=== PATIENT | male | born 1955 | race Caucasian/White ===

== ENCOUNTER 2018-06-04 16:53 | Inpatient (IN) ==
[2018-06-04] MEDS ORDERED: ALBUT/IPRATROP 3MG/0.5MG NEB 3 ML VIAL INH STA (17:16)
[2018-06-04] MEDS ORDERED: SODIUM CHLORIDE 0.9% 1000ML 1,000 ML IV SCH (17:30)
--- NOTE | 2018-06-04 17:32 | XRay Report ---
XR chest 1V portable CLINICAL HISTORY: Dyspnea, weakness COMPARISON STUDY: 03/13/2013 FINDINGS: The heart is enlarged. There are small bilateral pleural effusions. There are bibasal airsp radha opacities, likely representing focal edema although an infectious process could appear similar.[ IMPRESSION: 1. Cardiomegaly and suspected small pleural effusions 2. Bibasilar opacities, likely resulting focal edema although an infectious process could appear reggie lar. Clinical and radiographic follow-up is recommended Electronically signed by: Robert Nieves M.D. 06/04/2018 5:31 PM
[2018-06-04 18:10] LABS: Mean Corpuscular Hgb Conc 35.4 g/dL (32-36); Mean Platelet Volume 9.7 fL (7.4-10.4); Platelet Count 333 K/uL (130-400)
[2018-06-04 18:21] LABS: Alanine Aminotransferase 57 U/L (12-78); Albumin Level 2.6 gm/dl (3.4-5.0); Aspartate Aminotransferase 45 U/L (15-37); BUN Creatinine Ratio 12.7 (10-20); Blood Urea Nitrogen 15 mg/dl (7-18); Calcium 8.4 mg/dl (8.5-10.1); Carbon Dioxide 24 mmol/L (21-32); Chloride 100 mmol/L (98-107); Est GFR (African American) 72.9; Est GFR (Non-African American) 62.9; Glucose 136 mg/dl (70-99); Magnesium 2.2 mg/dl (1.8-2.4); Potassium 3.3 mmol/L (3.5-5.1); Sodium 133 mmol/L (136-145)
[2018-06-04 18:26] LABS: INR 1.2 (0.9-1.1); Partial Thromboplastin Ratio 1.2; Partial Thromboplastin Time 31.1 Seconds (21.0-31.0)
[2018-06-04 18:31] LABS: Influenza A virus by PCR Neg for Influ A (Neg); Influenza B virus by PCR Neg for Influ B (Neg)
[2018-06-04 18:34] LABS: Hematocrit (blood only) 39.5 % (42-52); Mean Corpuscular Volume 87.2 fL (80-100); RDW Coefficient of Variation 13.5 % (11.5-14.5); RDW Standard Deviation 43.2 fL (36.4-46.3); Red Blood Count 4.53 M/uL (4.7-6.1); White Blood Count 12.39 K/uL (4.8-10.8)
[2018-06-04 18:35] LABS: ALC (manual) 0.33 K/uL (1.2-3.4); Eosinophils # (manual) 0.88 K/uL (0-0.5); Lymphocytes # (manual) 0.33 K/uL (1.2-3.4); Lymphocytes % (manual) 2.7 %; Monocytes # (manual) 0.78 K/uL (0.11-0.59); Monocytes % (manual) 6.3 %; Neutrophils % (manual) 83.9 %; RBC Morphology Unremarkable
[2018-06-04 18:45] LABS: Albumin Globulin Ratio 0.5 (0.9-2); Alkaline Phosphatase 142 U/L (45-117); Bilirubin,Total 0.5 mg/dl (0.2-1); Globulin 5.3 gm/dl (2.5-4.0); NT Pro B Type Natriuretic Pept 1723 pg/ml (0-900); Total Protein 7.9 gm/dl (6.4-8.2); Troponin I 0.484 ng/ml (0-0.045)
[2018-06-04] MEDS ORDERED: ASPIRIN 81 MG CHEW PO STA (18:52)
[2018-06-04] MEDS ORDERED: OPTIRAY 320 125ml IV PRN (19:03)
--- NOTE | 2018-06-04 19:06 | CT Scan Report ---
CT head/brain wo con CLINICAL HISTORY: numbness COMPARISON STUDY: 03/13/2013 TECHNIQUE: Axial CT of the brain is performed from the vertex to the skull base. IV contrast was not administered for this examination. A dose lowering technique was utilized adhering to the principles of ALARA. CT DOSE: 729.78 mGycm FINDINGS: No intra or extra-axial mass lesions are visualized. There is no CT evidence of acute cortical infarc tion. There is no evidence of midline shift. There is no acute hemorrhage. No calvarial fractures ar e visualized. There are patchy white matter hypodensities likely on a small vessel basis. There is no evidence of pathologic ventricular dilatation. There is no evidence of acute sinusitis IMPRESSION: No acute intracranial findings Electronically signed by: Robert Nieves M.D. 06/04/2018 7:05 PM
--- NOTE | 2018-06-04 19:13 | CT Scan Report ---
CT ANGIOGRAM OF THE CHEST CLINICAL HISTORY: Atypical chest pain. New onset A. fib. Positive d-dimer. Possible pulmonary embolis m. COMPARISON STUDY: Chest x-ray dated 06/04/2018 TECHNIQUE: Following the IV administration of 115 mL of Optiray-320, CT angiogram of the thorax was p erformed from the thoracic inlet to the lung bases utilizing the pulmonary embolus protocol. Images a re reviewed in the axial, sagittal, and coronal planes. IV contrast was administered without complica tion. MIP imaging was performed. A dose lowering technique was utilized adhering to the principles o f ALARA. CT DOSE: 553.59 mGycm FINDINGS: There are mildly enlarged paratracheal and prevascular and subcarinal lymph nodes. There is also a mi ldly enlarged distal esophageal lymph node. Hilar lymph nodes are borderline enlarged. There is no pa thologic axillary lymphadenopathy. There is mild aneurysmal dilatation of ascending thoracic aorta which measures 42 mm. There were no pulmonary artery filling defects to indicate acute pulmonary embolism. The heart is enlarged. There is a small pericardial effusion. There are small bilateral pleural effusions There is mild septal edema. There are lower lobe airspace opacities, likely representing a combinatio n of atelectasis and pulmonary edema. A superimposed inflammatory process cannot be excluded. There i s mild lower lobe bronchial wall thickening. IMPRESSION: 1. No evidence of acute pulmonary embolism 2. Small bilateral pleural effusions. Lower lung zone septal edema. Lower lobe airspace opacities, li kip representing accommodation of atelectasis and pulmonary edema. 3. Lower lung bronchial wall thickening 4. Cardiomegaly and small pericardial effusion 5. Fusiform dilatation of the ascending thoracic aorta which measures 42 mm 6. Mild mediastinal lymphadenopathy Electronically signed by: Robert Nieves M.D. 06/04/2018 7:11 PM
[2018-06-04 19:20] LABS: T4 Free Thyroxine 1.42 ng/dl (0.8-1.6)
[2018-06-04] MEDS ORDERED: FUROSEMIDE 40 MG/4 ML VIAL IV STA (19:20)
[2018-06-04] MEDS ORDERED: HEPARIN SOD (PORCINE) 1000 UNIT/ML 10 ML VIAL ONE (19:53)
[2018-06-04] MEDS: dilTIAZem HCl 5 MG/ML 5 ML VIAL IV STA ×2 (20:00→20:10)
[2018-06-04] MEDS: dilTIAZem HCl 125 MG in DEXTROSE 5% 100 ML IV SCH ×2 (20:02→20:09)
[2018-06-04] MEDS ORDERED: HEPARIN 25000 UNIT/500 ML D5W IV ONE (20:06)
[2018-06-04 21:28] LABS: Appearance Urine Clear (Clear); Bilirubin Urine Negative (Negative); Color Urine Yellow; Glucose Urine UA Negative (Negative); Ketones Urine Negative (Negative); Leukocyte Esterase Urine Negative (Negative); Nitrite Urine Negative (Negative); Protein Urine Negative (Negative); Specific Gravity Urine 1.034 (1.000-1.030); Urobilinogen Urine Negative (Negative)
[2018-06-04] MEDS ORDERED: ONDANSETRON INJ 2 MG/ML 2 ML VIAL IV PRN (21:31)
[2018-06-04] MEDS ORDERED: POLYETHYLENE (MIRALAX) 17 GM PACK PO PRN (21:31)
[2018-06-04] MEDS ORDERED: METOPROLOL TARTRATE 1 MG/ML VIAL IV PRN (21:31)
[2018-06-04] MEDS ORDERED: ACETAMINOPHEN 325 MG TAB PO PRN (21:31)
[2018-06-04] MEDS ORDERED: ALUMINUM/MAGNESIUM SUSP 30 ML UDC PO PRN (21:31)
[2018-06-04] MEDS ORDERED: NITROGLYCERIN SL 0.4 MG/TAB TAB SL PRN (21:31)
[2018-06-04] MEDS ORDERED: Heparin IV Standard *NO* Bolus ONE (21:35)
[2018-06-04] MEDS ORDERED: ALBUT/IPRATROP 3MG/0.5MG NEB 3 ML VIAL NEB PRN (21:36)
[2018-06-04] MEDS ORDERED: HEPARIN STANDARD DEXTROSE 25,000 UNITS/500 ML IV SCH (21:43)
--- NOTE | 2018-06-04 22:09 | History and Physical Report ---
DATE OF ADMISSION: 06/04/2018 CHIEF COMPLAINT: Not feeling well. HISTORY OF PRESENT ILLNESS: This is a 63-year-old male with past medical history significant for thalamic infarction, history of thyroid cancer status post thyroidectomy, hypertension, tobacco abuse presents with not feeling well since last few days. Patient states since about 1 to 1-1/2 weeks ago, he started feeling cold symptoms and feeling very chilly. At that time, he medicated himself with [id number] medications. He was not getting better. Yesterday he saw family doctor yesterday and he was prescribed Z-KYLAH. He started to take Z-KYLAH, but he thought that his appetite is lost, he was feeling sweaty, he was not eating. He took the medication on empty stomach and he thought that might have affected him and he was not feeling well. So he came to the ER today. In the ER, he was found to be in AFib, new onset, and CT of the chest was done where there was no PE, but shows bibasilar edema versus infectious process and given a dose of Lasix was given and started on Cardizem drip and heparin. The patient denies any chest pain. He states he has cough once in a while bringing some phlegm. He does not remember the color of the phlegm. Whenever he is coughing, he has pain in the bilateral lower chest. Denies any headaches. He has occasional dizziness. No headaches, no blurred visions, no earache, no runny nose, no sore throat, no difficulty swallowing. Poor appetite since last 2 days and felt nauseous but no vomiting, no abdominal pain. Had couple of episodes of diarrhea. One of the initial bowel movements was black, but rest of the bowel movements were normal. No blood in the stools. No burning micturition, normal bladder movements. No swelling of the legs. Lives alone. Otherwise, he is active. ALLERGIES: MORPHINE. PAST MEDICAL HISTORY: As mentioned above. PAST SURGICAL HISTORY: Colonoscopy, left knee exploration, skin lesions removed, thyroidectomy. MEDICATIONS: The patient is on Z-KYLAH, levothyroxine 125 mcg p.o. daily, amlodipine 10 mg p.o. daily, Lipitor 40 mg p.o. b.i.d., aspirin 81 mg p.o. daily. FAMILY HISTORY: Significant for mother has hypertension, concussion, stroke. Father has no past medical history. Paternal grandfather has lung cancer with history of smoking and mustard gas exposure. Maternal grandmother had aneurysm. SOCIAL HISTORY: Smokes 1 pack a day for many years. Alcohol occasional. No drug use. Lives alone. REVIEW OF SYMPTOMS: As per HPI. Rest of the review of symptoms negative. PHYSICAL EXAMINATION: GENERAL: The patient is of moderate build, not in acute distress. VITAL SIGNS: Temperature 36.3, pulse 100, respiratory rate 18, blood pressure 123/82, oxygen 93% room air. HEENT: No pallor, no icterus. Pupils equal, round, and reactive to light. NECK: No JVD, no neck masses, no carotid bruit. CARDIOVASCULAR: S1, S2 heard, regular, no murmur. RESPIRATORY SYSTEM: Normal AP diameter. No accessory muscle use. No wheezing, bibasilar crackles heard. ABDOMEN: Soft, bowel sounds present, nontender. No distention, no guarding, no rigidity. CENTRAL NERVOUS SYSTEM: Cranial nerves II-XII grossly intact. Nonfocal. EXTREMITIES: No edema, no erythema. LABORATORY DATA: WBC 12.3, hemoglobin 14, hematocrit 39.5, platelets 333. PT 12, INR 1.2, APTT 31.1. Point of care D-dimer greater than 450. Sodium 133, potassium 3.3, chloride 100, bicarbonate 24, BUN 15, creatinine 1.2, serum glucose 136, calcium 8.4, magnesium 2.2, total bilirubin 0.5, AST 45, ALT 57, alkaline phosphatase 142. Troponin 1 0.4. BNP 1723. Lipase 80. TSH 7.6, free T4 1.4. Influenza A and B PCR negative. IMAGING DATA: Chest CTA, no PE, small bilateral pleural effusions, lower lobe airspace opacities likely representing a combination of atelectasis and pulmonary edema, low lung bronchial wall thickening, cardiomegaly, and small pericardial effusion. Fusiform dilatation of ascending thoracic aorta which measures 42 mm, mild mediastinal lymphadenopathy. Head CT, no acute intracranial findings. Chest x-ray, cardiomegaly and suspected small pleural effusion and bibasilar opacities likely resulting in focal edema, although an infectious process could appear similar. Clinical and radiological followup is recommended. EKG: AFib with rate of 95, no acute ST changes seen. ASSESSMENT AND PLAN: This is a 63-year-old male who presents having cold-like symptoms, not feeling well, cough, and found to have new-onset atrial fibrillation, possible pneumonia, and possible congestive heart failure. 1. New-onset atrial fibrillation. Rates are under control. We will place him on Lopressor 25 p.o. b.i.d. and IV Lopressor p.r.n. and IV heparin. Follow echocardiogram. Monitor on tele floor. Consult cardiology for further recommendations and adjustment of medications. 2. Possible pneumonia. The patient is having cough with phlegm and pain in the lower chest with his coughing and feeling chilly and sweaty for last several days. Chest x-ray and CT chest with bibasilar opacities, possible atelectasis versus infectious or edema. Was started on Z-KYLAH yesterday.Leukocytosis present. . We will place him on IV Rocephin and IV doxycycline. Follow the sputum culture and blood cultures. 3. Possible congestive heart failure with edema in the lower part of the chest. Received a dose of Lasix in the ER. We will follow the echocardiogram. 4. Mild elevation of troponin,NSTEMI. Patient started on iv heparin. Already on aspirin and statin. We started a beta malika. We will follow the serial troponins and echocardiogram.Later second set of troponin was elevated to 2.2. But patient asymptomatic and repeat ekg NSR and no acute changes. 5. Hypothyroidism, on Synthroid. TSH slightly high, but free T4 is normal. Needs to repeat labs with PCP. 6. Hyperglycemia. Blood sugars are slightly high. We will follow the morning blood sugars, also HbA1c levels. 7. Hyponatremia. Sodium level is 133, could be from ongoing infectious process. We will follow the labs in a.m. 8. Hypokalemia, potassium 3.3, we will replace. 9. Hypertension, on Amlodipine. Added Lopressor.We will follow his blood pressure response. 10. History of thalamic infarction, on aspirin and statin. 11. Hx of thyroid cancer Status post thyroidectomy. 12. Tobacco abuse, needs counseling. 13. Deep venous thrombosis prophylaxis. IV heparin. 14. Disposition: Admit to tele floor. Expect to discharge home and follow up with family doctor. Level 1 full code. MTDD
[2018-06-04] MEDS: ZOLPIDEM TARTRATE 5 MG TAB PO PRN (22:12)
[2018-06-04] MEDS: METOPROLOL TARTRATE 25 MG TAB PO SCH (22:12)
[2018-06-04] MEDS: DOXYCYCLINE HYCLATE 100 MG in DEXTROSE 5% 100 ML IV SCH (22:13)
--- NOTE | 2018-06-04 22:59 | Emergency Department Note ---
Entered by Jossy Morton acting as a scribe for History of Present Illness General Chief complaint: Illness Stated complaint: SWEATS, CHILLS, SLURRED SPEACH, BALANCE Source: patient Mode of arrival: ambulatory Limitations: no limitations History of Present Illness Provider complaint: flu-like symptoms Onset (ago): week(s) (1.5) Location: head Pain Consistency: + other (persistent) Quality: + other (flu-like) Relieved By: not by medication Associated symptoms: + cough, + fever/chills, + loss of appetite, + weakness and + other (diarrhea, abd pain, muscles aches); no headaches and no nausea/ vomiting Treatments prior to arrival: other (antibiotics) The patient is a 63 year old male who presents to the Emergency Room with complaints of persistent flu-like symptoms that began 1.5 weeks ago. The patient reports that 1.5 weeks ago he had an hour-long episode of chills and notes that he has not been feeling well since. He states that he has been taking Advil daily but it has not alleviated his symptoms. The patient reports that he has been short of breath, coughing, and lightheaded as well. , He also states that he has had episodes of fevers, loss of appetite and numbness/ tingling throughout his body. The patient notes that he was prescribed antibiotics for a suspected bronchitis, but reports that it has not alleviated his symptoms. The patient states that he has had diarrhea but denies any urinary symptoms. He notes he has had abdominal pain as well as well as muscle aches. The patient reports that he has been in contact with people who were sick. He admits to tobacco use. The patient denies any vision issues, speech issues, headaches, nausea, numbness or tingling, as well as any recent long travels. The patient also denies experiencing any similar symptoms in the past. Home Medications Home Medications Medication Instructions Recorded Confirmed Type amlodipine 10 mg PO QAM 06/04/18 06/04/18 History aspirin 81 mg PO QAM 06/04/18 06/04/18 History atorvastatin 40 mg PO QAM 06/04/18 06/04/18 History azithromycin See Label Instructions .ROUTE 06/04/18 06/04/18 History .COMPLEX levothyroxine 125 mcg PO QAM 06/04/18 06/04/18 History Allergies Allergy/AdvReac Type Severity Reaction Status Date / Time morphine AdvReac Intermediate Nausea/Vomi Verified 06/04/18 18:01 ting Past Med/Surg History Medical History Thalamic infarction (Chronic) HTN (hypertension) (Chronic) Surgical History History of thyroidectomy (Chronic) History of left knee surgery (Chronic) Social History Current Living Situation: Alone Feels Safe at Home: Yes Safety Concerns: Feels Safe At This Time Smoking Status: Heavy tobacco smoker Tobacco Type: cigarettes Hx Alcohol Use: No Hx Substance Use: No Beliefs That Will Affect Care: None Preferred Language: Armenian Communication Ability: Effective Test Administrator Required: No Review of Systems See HPI for pertinent positives & negatives. and A total of 10 systems reviewed and were otherwise negative Physical Exam Vital Signs Vital Signs - 24 hr 06/04/18 16:55 06/04/18 20:32 06/04/18 21:04 Temperature 36.3 C L 36.4 C L Temperature Source Oral Oral Sepsis Recent Fever Within 48 Hours No Sepsis Action Taken by Nursing No Action Required Pulse Rate 100 H 62 Pulse Rate [Left Apical] 63 Respiratory Rate 18 14 17 Respiratory Effort / Characteristics Non-Labored Non-Labored Spontaneous Respiratory Depth Normal Normal Blood Pressure 123/82 115/88 Blood Pressure [Right Arm] 117/84 Blood Pressure Mean 95 Blood Pressure Mean [Right Arm] 95 Pulse Oximetry 93 94 94 Oxygen Delivery Method Room Air Room Air Room Air 06/04/18 22:00 Temperature Temperature Source Sepsis Recent Fever Within 48 Hours Sepsis Action Taken by Nursing Pulse Rate 62 Pulse Rate [Left Apical] Respiratory Rate Respiratory Effort / Characteristics Respiratory Depth Blood Pressure Blood Pressure [Right Arm] Blood Pressure Mean Blood Pressure Mean [Right Arm] Pulse Oximetry Oxygen Delivery Method GENERAL: Awake, alert, well-appearing, in no distress HENT: Normocephalic, atraumatic. EYES: Normal conjunctiva. Sclera non-icteric. NECK: Supple. No nuchal rigidity. RESPIRATORY: Diminished bases. No wheezes. Normal respiratory effort. CARDIAC: Irregular heart rate. Extremities warm and well perfused. GI: Soft, non-distended. No tenderness to palpation. No rebound or guarding. RECTAL: Deferred. MUSCULOSKELETAL: Atraumatic. Chest examination reveals no tenderness. LOWER EXTREMITIES: Calves are equal size bilaterally and non-tender. No edema NEURO: Normal sensorium. No sensory or motor deficits noted. No facial droop. No slurred speech. SKIN: Warm and dry. No rash or jaundice noted. Course 1706: Past medical records reviewed. The patient was evaluated in room C1A, and a complete history and physical examination were performed. 1924: I reviewed the patient's case with Dr. Nicki Garcia [facility] Hospitalist. He will evaluate the patient for further management. Administered Medications Doxycycline Hyclate 100 mg/ (Dextrose) 110 mls @ 50 mls/hr IV BID@1000,2200 FOR[facility], 1928–1983 Stop: 06/11/18 21:59 Last Admin: 06/04/18 22:13 Dose: 50 mls/hr Heparin Sodium/Dextrose (Heparin Sodium/Dextrose) 25,000 units in 500 mls @ 29 mls/hr IV .[id number] FOR[facility]LY [facility], 1928–1983; Protocol Stop: 07/04/18 21:42 Last Admin: 06/04/18 22:12 Dose: 1,450 units/hr, 29 mls/hr Metoprolol Tartrate (Lopressor) 25 mg PO BID MYRANDA Stop: 07/04/18 21:30 Last Admin: 06/04/18 22:12 Dose: 25 mg Zolpidem Tartrate (Ambien) 5 mg PO HS PRN PRN Reason: Sleep Stop: 07/04/18 21:32 Last Admin: 06/04/18 22:12 Dose: 5 mg Discontinued Medications Albuterol (Duoneb) 3 ml INH NOW STA Stop: 06/04/18 17:17 Last Admin: 06/04/18 17:48 Dose: 3 ml Aspirin (Aspirin Chew) 324 mg PO NOW STA Stop: 06/04/18 18:53 Last Admin: 06/04/18 20:00 Dose: 324 mg Diltiazem HCl (Cardizem) 10 mg IV NOW STA Stop: 06/04/18 18:27 Last Admin: 06/04/18 20:10 Dose: Not Given Furosemide (Lasix) 20 mg IV NOW STA Stop: 06/04/18 19:21 Last Admin: 06/04/18 20:02 Dose: 20 mg Heparin Sodium (Porcine) (Heparin Iv Bolus) Confirm Administered Dose 10,000 units .ROUTE .[facility] Stop: 06/04/18 19:54 Last Admin: 06/04/18 20:02 Dose: 6,000 units Heparin Sodium/Dextrose () 1 ea N/A NOW STA; Protocol Stop: 06/04/18 19:21 Last Admin: 06/04/18 21:31 Dose: Not Given Heparin Sodium/Dextrose (Heparin Sodium/Dextrose) Confirm Administered Dose 25, 000 units IV .STK-MED ONE Stop: 06/04/18 20:07 Last Admin: 06/04/18 21:31 Dose: Not Given Sodium Chloride (Nss 1000ml) 1,000 mls @ 999 mls/hr IV .Q1H1M MYRANDA Stop: 06/04/18 18:30 Last Infusion: 06/04/18 21:33 Dose: 0 mls/hr Admin: 06/04/18 17:48 Dose: 999 mls/hr Diltiazem HCl 125 mg/ Dextrose 125 mls @ 5 mls/hr IV .Q24H MYRANDA; Protocol Stop: 07/04/18 18:29 Last Admin: 06/04/18 20:09 Dose: Not Given Ioversol (Optiray 320 125ml) 115 ml IV ONCE PRN PRN Reason: Interaction Checking Stop: 06/08/18 19:02 Last Admin: 06/04/18 19:03 Dose: 115 ml Medical Decision Making Differential Diagnosis Differential Diagnosis includes but is not limited to dehydration, stroke, anemia, hypoglycemia, hyponatremia, hypernatremia, urinary tract infection, pneumonia, bronchitis, sepsis, gastroenteritis, additional abdominal pathology, metabolic abnormalities and infections. Medical Records Attestation: I reviewed the patient's medical records. Home Medications Current Medication List: was personally reviewed by me Laboratory Data Attestation: I reviewed the patient's lab results. Result diagrams: 06/04/18 17:40 06/04/18 17:40 Lab Results 06/04/18 06/04/18 06/04/18 Range/Units 17:40 17:40 17:40 WBC 12.39 H (4.8-10.8) K/uL RBC 4.53 L (4.7-6.1) M/uL Hgb 14.0 (14.0-18.0) g/dL Hct 39.5 L (42-52) % MCV 87.2 (80-100) fL MCH 30.9 (25-34) pg MCHC 35.4 (32-36) g/dL RDW Std Deviation 43.2 (36.4-46.3) fL RDW Coeff of Martin 13.5 (11.5-14.5) % Plt Count 333 (130-400) K/uL MPV 9.7 (7.4-10.4) fL Neutrophils % (Manual) 83.9 % Lymphocytes % (Manual) 2.7 % Monocytes % (Manual) 6.3 % Eosinophils % (Manual) 7.1 % Neutrophils # (Manual) 10.40 H (1.4-6.5) K/uL Total Absolute Neuts 10.40 H (1.4-6.5) K/uL Lymphocytes # (Manual) 0.33 L (1.2-3.4) K/uL Total Abs Lymphocytes 0.33 L (1.2-3.4) K/uL Monocytes # (Manual) 0.78 H (0.11-0.59) K/uL Eosinophils # (Manual) 0.88 H (0-0.5) K/uL RBC Morphology Unremarkable PT 12.0 (9.0-12.0) Seconds INR 1.2 H (0.9-1.1) APTT 31.1 H (21.0-31.0) Seconds PTT Ratio 1.2 POC D-Dimer (0-450) ng/mlFEU Sodium 133 L (136-145) mmol/L Potassium 3.3 L (3.5-5.1) mmol/L Chloride 100 (98-107) mmol/L Carbon Dioxide 24 (21-32) mmol/L Anion Gap 9.0 (3-11) BUN 15 (7-18) mg/dl Creatinine 1.21 (0.6-1.4) mg/dl Est Cr Clr Drug Dosing Not Reportable Est GFR ( Amer) 72.9 Est GFR (Non-Af Amer) 62.9 BUN/Creatinine Ratio 12.7 (10-20) Glucose 136 H (70-99) mg/dl Calcium 8.4 L (8.5-10.1) mg/dl Magnesium 2.2 (1.8-2.4) mg/dl Total Bilirubin 0.5 (0.2-1) mg/dl AST 45 H (15-37) U/L ALT 57 (12-78) U/L Alkaline Phosphatase 142 H (45-117) U/L Troponin I 0.484 H* (0-0.045) ng/ml NT-Pro-B Natriuret Pep 1723 H (0-900) pg/ml Total Protein 7.9 (6.4-8.2) gm/dl Albumin 2.6 L (3.4-5.0) gm/dl Globulin 5.3 H (2.5-4.0) gm/dl Albumin/Globulin Ratio 0.5 L (0.9-2) Lipase 80 (73-393) U/L TSH 7.640 H (0.300-4.500) uIu/ml Free T4 1.42 (0.8-1.6) ng/dl Urine Color Urine Appearance (Clear) Urine pH (4.5-7.5) Ur Specific [place] (1.000-1.030) Urine Protein (Negative) Urine Glucose (UA) (Negative) Urine Ketones (Negative) Urine Blood (Negative) Urine Nitrite (Negative) Urine Bilirubin (Negative) Urine Urobilinogen (Negative) Ur Leukocyte Esterase (Negative) Influenza Type A (PCR) (Neg) Influenza Type B (PCR) (Neg) 06/04/18 06/04/18 06/04/18 Range/Units 17:49 17:50 20:52 WBC (4.8-10.8) K/uL RBC (4.7-6.1) M/uL Hgb (14.0-18.0) g/dL Hct (42-52) % MCV (80-100) fL MCH (25-34) pg MCHC (32-36) g/dL RDW Std Deviation (36.4-46.3) fL RDW Coeff of Martin (11.5-14.5) % Plt Count (130-400) K/uL MPV (7.4-10.4) fL Neutrophils % (Manual) % Lymphocytes % (Manual) % Monocytes % (Manual) % Eosinophils % (Manual) % Neutrophils # (Manual) (1.4-6.5) K/uL Total Absolute Neuts (1.4-6.5) K/uL Lymphocytes # (Manual) (1.2-3.4) K/uL Total Abs Lymphocytes (1.2-3.4) K/uL Monocytes # (Manual) (0.11-0.59) K/uL Eosinophils # (Manual) (0-0.5) K/uL RBC Morphology PT (9.0-12.0) Seconds INR (0.9-1.1) APTT (21.0-31.0) Seconds PTT Ratio POC D-Dimer > 450 H* (0-450) ng/mlFEU Sodium (136-145) mmol/L Potassium (3.5-5.1) mmol/L Chloride (98-107) mmol/L Carbon Dioxide (21-32) mmol/L Anion Gap (3-11) BUN (7-18) mg/dl Creatinine (0.6-1.4) mg/dl Est Cr Clr Drug Dosing Est GFR ( Amer) Est GFR (Non-Af Amer) BUN/Creatinine Ratio (10-20) Glucose (70-99) mg/dl Calcium (8.5-10.1) mg/dl Magnesium (1.8-2.4) mg/dl Total Bilirubin (0.2-1) mg/dl AST (15-37) U/L ALT (12-78) U/L Alkaline Phosphatase (45-117) U/L Troponin I (0-0.045) ng/ml NT-Pro-B Natriuret Pep (0-900) pg/ml Total Protein (6.4-8.2) gm/dl Albumin (3.4-5.0) gm/dl Globulin (2.5-4.0) gm/dl Albumin/Globulin Ratio (0.9-2) Lipase (73-393) U/L TSH (0.300-4.500) uIu/ml Free T4 (0.8-1.6) ng/dl Urine Color Yellow Urine Appearance Clear (Clear) Urine pH 6.0 (4.5-7.5) Ur Specific [place] 1.034 H (1.000-1.030) Urine Protein Negative (Negative) Urine Glucose (UA) Negative (Negative) Urine Ketones Negative (Negative) Urine Blood Negative (Negative) Urine Nitrite Negative (Negative) Urine Bilirubin Negative (Negative) Urine Urobilinogen Negative (Negative) Ur Leukocyte Esterase Negative (Negative) Influenza Type A (PCR) Neg for Influ A (Neg) Influenza Type B (PCR) Neg for Influ B (Neg) Imaging Data Radiologist's Impression: Radiology results as stated below per my review and the radiologist's interpretation: XR chest 1V portable CLINICAL HISTORY: Dyspnea, weakness COMPARISON STUDY: 03/13/2013 FINDINGS: The heart is enlarged. There are small bilateral pleural effusions. There are bibasal airspace opacities, likely representing focal edema although an infectious process could appear similar.[ IMPRESSION: 1. Cardiomegaly and suspected small pleural effusions 2. Bibasilar opacities, likely resulting focal edema although an infectious process could appear similar. Clinical and radiographic follow-up is recommended Electronically signed by: Robert Nieves M.D. 06/04/2018 5:[address] head/brain wo con CLINICAL HISTORY: numbness COMPARISON STUDY: 03/13/2013 TECHNIQUE: Axial CT of the brain is performed from the vertex to the skull base. IV contrast was not administered for this examination. A dose lowering technique was utilized adhering to the principles of ALARA. CT DOSE: 729.78 mGycm FINDINGS: No intra or extra-axial mass lesions are visualized. There is no CT evidence of acute cortical infarction. There is no evidence of midline shift. There is no acute hemorrhage. No calvarial fractures are visualized. There are patchy white matter hypodensities likely on a small vessel basis. There is no evidence of pathologic ventricular dilatation. There is no evidence of acute sinusitis IMPRESSION: No acute intracranial findings Electronically signed by: Robert Nieves M.D. 06/04/2018 7:[address] ANGIOGRAM OF THE CHEST CLINICAL HISTORY: Atypical chest pain. New onset A. fib. Positive d-dimer. Possible pulmonary embolism. COMPARISON STUDY: Chest x-ray dated 06/04/2018 TECHNIQUE: Following the IV administration of 115 mL of Optiray-320, CT angiogram of the thorax was performed from the thoracic inlet to the lung bases utilizing the pulmonary embolus protocol. Images are reviewed in the axial, sagittal, and coronal planes. IV contrast was administered without complication. MIP imaging was performed. A dose lowering technique was utilized adhering to the principles of ALARA. CT DOSE: 553.59 mGycm FINDINGS: There are mildly enlarged paratracheal and prevascular and subcarinal lymph nodes. There is also a mildly enlarged distal esophageal lymph node. Hilar lymph nodes are borderline enlarged. There is no pathologic axillary lymphadenopathy. There is mild aneurysmal dilatation of ascending thoracic aorta which measures 42 mm. There were no pulmonary artery filling defects to indicate acute pulmonary embolism. The heart is enlarged. There is a small pericardial effusion. There are small bilateral pleural effusions There is mild septal edema. There are lower lobe airspace opacities, likely representing a combination of atelectasis and pulmonary edema. A superimposed inflammatory process cannot be excluded. There is mild lower lobe bronchial wall thickening. IMPRESSION: 1. No evidence of acute pulmonary embolism 2. Small bilateral pleural effusions. Lower lung zone septal edema. Lower lobe airspace opacities, likely representing accommodation of atelectasis and pulmonary edema. 3. Lower lung bronchial wall thickening 4. Cardiomegaly and small pericardial effusion 5. Fusiform dilatation of the ascending thoracic aorta which measures 42 mm 6. Mild mediastinal lymphadenopathy Electronically signed by: Robert Nieves M.D. 06/04/2018 7:11 PM ECG Data Attestation: I personally reviewed and interpreted this ECG as follows: Indication: SOB/dyspnea Rate (beats per minute): 95 Rhythm: atrial fibrillation Findings: + other (non-specific T wave changes); no ST depression and no ST elevation Blood Pressure Blood Pressure Findings: Normal blood pressure Blood Pressure Disposition: further management by hospitalist SVITLANA Narrative 63-year-old gentleman with a past medical history significant for thyroid dysfunction, hyperlipidemia, hypertension week and a half of some symptoms of weakness and chills with fever. Some cough and cold symptoms. Decreased appetite. Seen at PCP yesterday and started azithromycin. 2 days of diarrhea prior to antibiotics. No recent travel. States he just feels off. Describes a little bit of diffuse numbness non-distributive. CT the head was completed without acute finding. Does not seem like acute stroke. No trauma history. Flu study sent along with basic labs. Flu is negative. EKG & troponin completed. Evidence of what appears by history to be new onset atrial fibrillation . Troponin did come back with some elevation. Given aspirin. Chest x-ray completed with evidence of lower basilar edema versus possible infectious process. Initially received a DuoNeb prior to EKG likely exacerbating his A. fib to some degree. Tachycardia was somewhat worsened. Ordered diltiazem bolus and drip however by the time nursing was getting to give these his heart rate had come converted to what appears to be normal sinus rhythm in the 60s. [id number] d-dimer to help exclude PE was sent positive and as such a CT of the chest was completed; negative. Doubt dissection. Benign abdominal exam. Flu testing negative. After imaging exclude intracranial issue patient was heparinized. Will be admitted to the hospital for further evaluation of his atrial fibrillation likely causing his symptoms and elevated troponin. Given a small amount of Lasix as some signs of pulmonary edema. Patient alerted to the slight aortic dilation noted on CT exam. [facility] hospitalist contacted for admission. Impression & Plan Atrial fibrillation with RVR, Non-STEMI (non-ST elevated myocardial infarction) Critical Care Time I have personally spent 30 minutes of critical care time in the direct management of this patient. This includes bedside care, interpretation of diagnostic studies and testing, discussion with consultants, patient, and family members, and other required patient management activities. These 30 minutes is in excess of all separately billable procedures. Critical Care Time: Yes Total Critical Care Time: 30 Discharge Plan Visit Data *Final* Discharge Date/Time: 06/04/18 20:32 Chief Complaint: Illness Stated Complaint: SWEATS, CHILLS, SLURRED SPEACH, BALANCE ED Provider: Salvador Cavazos Discharge Problem: Atrial fibrillation with RVR, Non-STEMI (non-ST elevated myocardial infarction) Patient Disposition: Admitted As Inpatient Discharge Instructions Interventions: ED Discharge Assessment Last Done: 06/04/18 20:32 The kurtibe's documentation has been prepared under my direction and personally reviewed by me in its entirety. I confirm that the note above accurately reflects all work, treatment, procedures, and medical decision making performed by me.
[2018-06-04] MEDS ORDERED: POTASSIUM CHLORIDE 20 MEQ TABCR PO STA (23:40)
[2018-06-05] MEDS: cefTRIAXone SODIUM 1,000 MG in DEXTROSE 5% 50 ML IV SCH (00:37)
[2018-06-05 03:25] LABS: Partial Thromboplastin Ratio 4.2
[2018-06-05 03:34] LABS: Partial Thromboplastin Time 110.1 Seconds (21.0-31.0)
[2018-06-05 04:25] LABS: Partial Thromboplastin Ratio 2.5
[2018-06-05 04:38] LABS: Partial Thromboplastin Time 65.3 Seconds (21.0-31.0)
[2018-06-05 05:02] LABS: Mean Corpuscular Hgb Conc 34.3 g/dL (32-36); Mean Platelet Volume 9.4 fL (7.4-10.4); Platelet Count 304 K/uL (130-400)
[2018-06-05 05:22] LABS: Hematocrit (blood only) 35.9 % (42-52); Hemoglobin 12.3 g/dL (14.0-18.0); Mean Corpuscular Volume 87.8 fL (80-100); RDW Coefficient of Variation 13.9 % (11.5-14.5); RDW Standard Deviation 44.3 fL (36.4-46.3); Red Blood Count 4.09 M/uL (4.7-6.1); White Blood Count 11.52 K/uL (4.8-10.8)
[2018-06-05 05:23] LABS: ALC (manual) 1.12 K/uL (1.2-3.4); Eosinophils # (manual) 1.64 K/uL (0-0.5); Lymphocytes # (manual) 1.12 K/uL (1.2-3.4); Lymphocytes % (manual) 9.7 %; Monocytes # (manual) 1.01 K/uL (0.11-0.59); Monocytes % (manual) 8.8 %; Neutrophils % (manual) 67.3 %; Toxic Vacuolation 1+
[2018-06-05 05:26] LABS: Calcium 7.9 mg/dl (8.5-10.1); Creatinine Clr Calc Pharmacy 80.3 ml/min; Est GFR (African American) 92.9; Est GFR (Non-African American) 80.2; Potassium 3.7 mmol/L (3.5-5.1)
[2018-06-05] MEDS: LEVOTHYROXINE SODIUM 125 MCG TABLET PO SCH (05:52)
[2018-06-05 06:01] LABS: Troponin I 3.46 ng/ml (0-0.045)
[2018-06-05] MEDS: AMLODIPINE BESYLATE 5 MG TAB PO SCH (08:13)
[2018-06-05] MEDS: ATORVASTATIN 40 MG TAB PO SCH (08:14)
[2018-06-05] MEDS: METOPROLOL TARTRATE 25 MG TAB PO SCH ×2 (08:14→20:56)
[2018-06-05] MEDS: ASPIRIN 81 MG ECTAB PO SCH (08:14)
[2018-06-05] MEDS: DOXYCYCLINE HYCLATE 100 MG in DEXTROSE 5% 100 ML IV SCH ×2 (10:24→22:12)
[2018-06-05 11:06] LABS: Partial Thromboplastin Ratio 2.1
[2018-06-05] MEDS ORDERED: ASPIRIN 81 MG CHEW PO STA (11:13)
[2018-06-05] MEDS ORDERED: LIDOCAINE HCL 1% 20 ML VIAL ONE (11:14)
[2018-06-05 11:15] LABS: Partial Thromboplastin Time 53.9 Seconds (21.0-31.0)
--- NOTE | 2018-06-05 11:29 | Hospitalist Progress Note ---
Date of Service June 05, 2018 Assessment & Plan (1) Paroxysmal atrial fibrillation: (2) Pneumonia: (3) Non-STEMI (non-ST elevated myocardial infarction): (4) Thalamic infarction: (5) HTN (hypertension): (6) History of thyroidectomy: 1. New onset atrial fibrillation-diltiazem bolus with drip was given overnight, and this was switched to Lopressor for rate control. He spontaneously converted to sinus rhythm overnight and the heparin drip was stopped. This is possibly secondary to acute lung infection in the setting of possible pneumonia. Defer to cardiology for definitive management. 2. CAP-failed outpatient regimen with Z-Mitchell. Leukocytosis present. On IV Rocephin and IV doxycycline pending sputum and blood cultures. 3. NSTEMI-troponin increase overnight without ST changes or significant changes in symptoms. He is still short of breath at rest and an active smoker making him high risk for CAD. He is pending cardiac catheterization later today. 4. Hypothyroidism-continue Synthroid 5. History of thalamic infarction-continue aspirin and statin. 6. History of thyroid cancer status post thyroidectomy 7. Tobacco abuse DVT prophylaxis-heparin overnight, but this was stopped. Awaiting procedure today, then will reassess Full code Disposition-continue telemetry monitoring pending cardiac catheterization today Jeni Hampton DO [facility] Hospitalist Subjective 63-year-old smoker presented with flulike symptoms for approximately 1-1/2 weeks. Symptoms included cough, fevers, chills, loss of appetite, generalized weakness. He denied any headache, nausea, vomiting, abdominal pain, diarrhea, blood in his stool. He reports being around a friend who was ill. His symptoms evolved to include confusion, dysequilibrium and cold sweats with some shortness of breath at rest. He was found to be in new onset atrial fibrillation and CT of his chest revealed possible community acquired pneumonia at the bases bilaterally. He was started on doxycycline, Rocephin, and a heparin drip. He continues to deny full dose aspirin, Cardizem 10 mg IV bolus with drip, Lasix 20mg IV and NSS were given in the ER. Overnight he converted to sinus rhythm. He is still short of breath at rest today. He denies any chest pain today. Cardiology has evaluated him and he is heading to the [employer] [facility]. Physical Exam 2 Vital Signs (Past 24 Hours): Last Vital Signs Temp 37.0 C 06/05/18 07:45 Pulse 65 06/05/18 07:45 Resp 18 06/05/18 07:45 BP 126/84 06/05/18 07:45 Pulse Ox 92 06/05/18 07:45 CONSTITUTIONAL: WNWD, vitals as above, generally well-appearing EYES: normal conjuctivae, no scleral icterus ENT: MMM RESPIRATORY: clear to auscultation bilaterally, no crackles, rales or wheezes, normal respiratory effort CARDIOVASCULAR: regular rate and rhythm, S1 and 2 heard without murmurs, gallops or rubs, no JVD, no peripheral edema GASTROINTESTINAL: normal bowel sounds, soft, nontender, nondistended MUSCULOSKELETAL: strength intact throughout, moves around bed easily and sits up independently, head is normocephalic and atraumatic, normal palpation of chest wall without tenderness SKIN: warm and dry, no rashes NEUROLOGIC: No facial palsy, no dysarthria. CN 2-12 grossly intact, normal cognition, normal speech PSYCHIATRIC: alert cooperative and oriented to person, place and time. Euthymic mood, makes good eye contact. Results & Data Laboratory Results Short CBC 06/04/18 06/05/18 Range/Units 17:40 04:39 WBC 12.39 H 11.52 H (4.8-10.8) K/uL Hgb 14.0 12.3 L (14.0-18.0) g/dL Hct 39.5 L 35.9 L (42-52) % Plt Count 333 304 (130-400) K/uL BMP 06/04/18 06/05/18 17:40 04:39 Sodium 133 L 135 L Potassium 3.3 L 3.7 Chloride 100 102 Carbon Dioxide 24 29 BUN 15 14 Creatinine 1.21 0.99 Glucose 136 H 94 Calcium 8.4 L 7.9 L Cardiac Enzymes 06/04/18 06/04/18 06/05/18 Range/Units 17:40 22:18 04:39 Troponin I 0.484 H* 2.240 H* 3.460 H* (0-0.045) ng/ml 06/05/18 Range/Units 10:33 Troponin I 3.610 H* (0-0.045) ng/ml Liver Function 06/04/18 Range/Units 17:40 Total Bilirubin 0.5 (0.2-1) mg/dl AST 45 H (15-37) U/L ALT 57 (12-78) U/L Alkaline Phosphatase 142 H (45-117) U/L Albumin 2.6 L (3.4-5.0) gm/dl Urine 06/04/18 Range/Units 20:52 Urine Color Yellow Urine Appearance Clear (Clear) Urine pH 6.0 (4.5-7.5) Ur Specific [place] 1.034 H (1.000-1.030) Urine Protein Negative (Negative) Urine Glucose (UA) Negative (Negative) Medications Administered Current Inpatient Medications Acetaminophen (Tylenol) 650 mg PO Q4H PRN PRN Reason: Pain or Fever Stop: 07/04/18 21:30 Al Hydrox/Mg Hydrox/Simethicone (Maalox) 15 ml PO Q4H PRN PRN Reason: Dyspepsia Stop: 07/04/18 21:30 Albuterol (Duoneb) 3 ml NEB Q4R PRN PRN Reason: Shortness Of Breath Or Wheezing Stop: 07/05/18 00:00 Amlodipine Besylate (Norvasc) [facility] [place] Stop: 07/05/18 08:59 Last Admin: 06/05/18 08:13 Dose: 10 mg Aspirin (Ecotrin Ectab) 81 mg PO [facility] Stop: 07/05/18 08:59 Last Admin: 06/05/18 08:14 Dose: 81 mg Atorvastatin Calcium (Lipitor) 40 mg [facility] [place] Stop: 07/05/18 08:59 Last Admin: 06/05/18 08:14 Dose: 40 mg Ceftriaxone Sodium 1,000 mg/ (Dextrose) 50 mls @ 100 mls/hr IV Q24H [facility]; Protocol Stop: 06/12/18 00:00 Last Infusion: 06/05/18 01:21 Dose: Infused Doxycycline Hyclate 100 mg/ (Dextrose) 110 mls @ 50 mls/hr IV BID@1000,2200 [facility] Stop: 06/11/18 21:59 Last Admin: 06/05/18 10:24 Dose: 50 mls/hr Sodium Chloride (Nss) 500 mls @ 80 mls/hr IV .Q6H15M [facility] Stop: 07/05/18 11:14 Levothyroxine Sodium (Synthroid) 125 mcg PO DAILYBB [facility] Stop: 07/05/18 06:29 Last Admin: 06/05/18 05:52 Dose: 125 mcg Metoprolol Tartrate (Lopressor) 25 mg PO BID [facility] Stop: 07/04/18 21:30 Last Admin: 06/05/18 08:14 Dose: 25 mg Metoprolol Tartrate (Lopressor) 2.5 mg IV Q4 PRN PRN Reason: Tachycardia Stop: 07/04/18 21:30 Nitroglycerin (Nitrostat) 0.4 mg SL UD PRN PRN Reason: Chest Pain Stop: 07/04/18 21:30 Ondansetron HCl (Zofran) 4 mg IV Q6H PRN PRN Reason: Nausea Stop: 07/04/18 21:30 Polyethylene Glycol (Miralax Powder Packet) 17 gm PO DAILY PRN PRN Reason: Constipation Stop: 07/04/18 21:30 Zolpidem Tartrate (Ambien) 5 mg PO HS PRN PRN Reason: Sleep Stop: 07/04/18 21:32 Last Admin: 06/04/18 22:12 Dose: 5 mg ECG Additional Comments: SR 65
--- NOTE | 2018-06-05 11:34 | Cardiology Consultation ---
Date of Consultation June 05, 2018 Assessment & Plan (1) Bronchitis: -The patient's chief complaint and the primary diagnosis is consistent with a viral respiratory tract infection or complicated bronchitis. Continue doxycycline and Rocephin. (2) Paroxysmal atrial fibrillation: Currently in sinus rhythm. No past history of atrial fibrillation. He does have a chart history of a past thalamic stroke and is on aspirin and atorvastatin for secondary prevention. [id number] risk factors include age (almost 64), Htn, past stroke (2 points), and likely has underlying vascular disease in the form of CAD, so his score is 4 -5, predicting high risk of cardio embolic stroke. I think moving forward, anticoagulation with warfarin or a direct oral anticoagulant will be necessary. For now, will place heparin on hold with plans for invasive coronary angiography. (3) Viral pericarditis: The patient's chest pain sounds more consistent with costochondritis from coughing then from viral pericarditis or angina. At present just recommend observation and supportive care for this. (4) Non-STEMI (non-ST elevated myocardial infarction): Patient's initial troponin was 0.484, and is trended up to 3.6. Given his underlying risk factors of cigarette smoking, age, and dyslipidemia, I would speculate that he perhaps his underlying coronary artery disease, and that this was a type II event related to myocardial strain from his acute illness versus acute intracoronary plaque rupture in the setting of hypercoagulable state and his acute illness. At this time, recommend definitive coronary angiography for further risk stratification and potential revascularization. We will need to keep his need for anticoagulation in mind regarding stent choice and antiplatelet therapy. If drug-eluting stent is utilized, would consider the patient at considerable risk for thrombotic event as well as bleeding event, and would likely proceed with triple therapy with a direct oral anticoagulant, plus aspirin, plus clopidogrel. After 6 months, could consider stopping his aspirin and continuing clopidogrel plus a direct oral anticoagulant. Risks and benefits of cardiac catheterization discussed with patient and he is agreeable with proceeding. Dr Morrow to dicuss further and obtain informed consent. History of Present Illness Attending Physician: Jeni Hampton, History of Present Illness Terrence Garcia is a 63-year-old male seen in cardiology consultation per the request of Dr. Caceres and Dr. Hampton for evaluation of shortness of breath, paroxysmal atrial fibrillation, and elevated troponin I. The patient's primary care physician is Dr. Lauren with [facility]. This is his first encounter with cardiology. Patient has been having respiratory tract symptoms for about 1-1/2 weeks with specific complaint of progressive cough, shortness of breath, and decreased appetite. He lives alone, and notes no recent sick contacts. He had recently been seen for the symptoms as an outpatient was placed on a course of azithromycin yesterday but felt progressively worse. He subsequently presented to the emergency department was found to be in atrial fibrillation with mildly elevated ventricular response. He describes chest discomfort at the lower margins of his ribs especially worse with cough. He describes generalized malaise, but no ashok objective fever was noted. In the emergency department he received IV diltiazem as well as unfractionated heparin and spontaneously converted to sinus rhythm while in the emergency room prior to being admitted to the telemetry floor. Since admission to the telemetry floor he has remained in sinus rhythm in the range of 60-70 bpm. Serial EKG tracings revealed no significant ST segment changes. At present, he feels marginally improved. He denies any current pleuritic chest discomfort or other chest discomfort. He is able to lie supine. PMH: 1. History of past thalamic stroke 2. Thyroid cancer status post thyroidectomy 3. Hypertension 4. Cigarette smoking smoking 1 pack of cigarettes per day for the last 35-40 years, however he felt so ill that he has not had a cigarette in the last 8 days 5. 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 Cigarette smoker as noted above FAMILY HISTORY: Denies family history of coronary heart disease in his first-degree relatives Allergies Allergy/AdvReac Type Severity Reaction Status Date / Time morphine AdvReac Intermediate Nausea/Vomi Verified 06/04/18 18:01 ting Home Medications Home Medications Medication Instructions Recorded Confirmed Type amlodipine 10 mg PO QAM 06/04/18 06/04/18 History aspirin 81 mg PO QAM 06/04/18 06/04/18 History atorvastatin 40 mg PO QAM 06/04/18 06/04/18 History azithromycin See Label Instructions .ROUTE 06/04/18 06/04/18 History .COMPLEX levothyroxine 125 mcg PO QAM 06/04/18 06/04/18 History Patient History Medical History Thalamic infarction (Chronic) HTN (hypertension) (Chronic) Surgical History History of thyroidectomy (Chronic) History of left knee surgery (Chronic) Social History Current Living Situation: Alone Feels Safe at Home: Yes Safety Concerns: Feels Safe At This Time Smoking Status: Heavy tobacco smoker Tobacco Type: cigarettes Hx Alcohol Use: No Hx Substance Use: No Beliefs That Will Affect Care: None Preferred Language: Thai Communication Ability: Effective Hardscape Foreman Required: No Review of Systems A 10 point review of systems was reviewed and is negative with the exception of that above Physical Exam 2 Vital Signs (Past 24 Hours): Last Vital Signs Temp 37.0 C 06/05/18 07:45 Pulse 65 06/05/18 07:45 Resp 18 06/05/18 07:45 BP 126/84 06/05/18 07:45 Pulse Ox 92 06/05/18 07:45 Physical Exam: General: no acute distress and stated age Eyes: conjunctiva are pink and non-injected, sclera clear Neck: normal jugular venous pulse, no hepatojugular reflux Chest: normal shape and normal respiratory effort Lungs: clear to auscultation and percussion Cardiac Exam: - regular heart sounds, no murmurs, rubs, or gallops, no jugular venous distention Abdomen: abdomen soft, non-tender, no abnormal masses and no hepatosplenomegaly Musculoskeletal: no gait disturbance, no weakness Extremities: no edema and no cyanosis Neuro:awake, coversant, follows commands, no focal motor deficits Psych: appropriate affect and insight. Results & Data Laboratory Results Cardiac Enzymes 06/04/18 06/04/18 06/05/18 Range/Units 17:40 22:18 04:39 AST 45 H (15-37) U/L Troponin I 0.484 H* 2.240 H* 3.460 H* (0-0.045) ng/ml Coagulation 06/04/18 06/05/18 06/05/18 Range/Units 17:40 01:57 02:55 PT 12.0 (9.0-12.0) Seconds APTT 31.1 H 134.0 H* 110.1 H* (21.0-31.0) Seconds 06/05/18 06/05/18 Range/Units 03:46 10:33 PT (9.0-12.0) Seconds APTT 65.3 H* 53.9 H* (21.0-31.0) Seconds CBC 06/04/18 06/05/18 Range/Units 17:40 04:39 WBC 12.39 H 11.52 H (4.8-10.8) K/uL RBC 4.53 L 4.09 L (4.7-6.1) M/uL Hgb 14.0 12.3 L (14.0-18.0) g/dL Hct 39.5 L 35.9 L (42-52) % Plt Count 333 304 (130-400) K/uL Comprehensive Metabolic Panel 06/04/18 06/05/18 Range/Units 17:40 04:39 Sodium 133 L 135 L (136-145) mmol/L Potassium 3.3 L 3.7 (3.5-5.1) mmol/L Chloride 100 102 (98-107) mmol/L Carbon Dioxide 24 29 (21-32) mmol/L BUN 15 14 (7-18) mg/dl Creatinine 1.21 0.99 (0.6-1.4) mg/dl Glucose 136 H 94 (70-99) mg/dl Calcium 8.4 L 7.9 L (8.5-10.1) mg/dl AST 45 H (15-37) U/L ALT 57 (12-78) U/L Alkaline Phosphatase 142 H (45-117) U/L Total Protein 7.9 (6.4-8.2) gm/dl Albumin 2.6 L (3.4-5.0) gm/dl Intake and Output 06/04/18 06/05/18 06/05/18 22:59 06:59 14:59 Intake Total 1250 / 1250 291.95 / 291.95 Output Total 200 / 200 Balance 1050 / 1050 291.95 / 291.95 Intake: IV 1000 / 1000 291.95 / 291.95 Vibramycin 100 mg In D5 100 ml 110 / 110 @ 50 mls/hr IV BID@1000,2200 [facility] Rx#:[id number] HEPARIN SODIUM/DEXTROSE 25,000 131.95 / 131.95 units In 500 ml @ 0 UNITS/HR IV .[id number] [facility] Rx#:[id number] Nss 1000ML 1,000 ml @ 999 mls/ 1000 / 1000 hr IV .Q1H1M [facility] Rx#:[id number] Rocephin 1,000 mg In D5w 50 ml 50 / 50 @ 100 mls/hr IV Q24H [facility] Rx#: [id number] Oral 250 / 250 Output: Urine 200 / 200 Other: Weight 86.4 kg 85.1 kg Diagnostic Findings Initial EKG performed 06/04/18 at 1734: Atrial fibrillation at 95 bpm, no significant repolarization of normalities, corrected QT interval 464 ms Repeat EKG 06/04/18 2329: Sinus rhythm at 60 bpm, no significant repolarization changes 3rd EKG, 06/05/18, 6:40 AM, sinus rhythm with PACs no significant ST changes Echocardiogram performed today and reviewed independently revealed a small circumferential pericardial effusion, with more focal fluid collection anteriorly, no tamponade. The biventricular systolic function was normal, no regional left ventricular wall motion abnormality, normal LVEF, no significant valvular heart disease. CT of the chest performed 06/04/18 revealed no evidence of pulmonary embolism, small bilateral pleural effusions were noted with fusiform dilatation of the ascending thoracic aorta measuring 4.2 cm, mild mediastinal lymphadenopathy, small pericardial effusion
[2018-06-05] MEDS ORDERED: NiCARDipine HCL INJ 2.5 MG/ML 10 ML AMP ONE (11:35)
[2018-06-05] MEDS ORDERED: NITROGLYCERIN/D5W 100MCG/ML 20ML SYR ONE (11:36)
[2018-06-05] MEDS ORDERED: HEPARIN (PORCINE) 1000 UNIT/ML 10 ML (CATH LAB USE ONLY) ONE (11:36)
[2018-06-05] MEDS ORDERED: fentaNYL citrate 100 MCG/2 ML VIAL ONE (11:37)
[2018-06-05] MEDS ORDERED: MIDAZOLAM HCL 1 MG/ML 2ML VIAL ONE (11:37)
--- NOTE | 2018-06-05 12:19 | Cardiac Catheterization ---
Date of Service June 05, 2018 Cardiac Cath Report Cardiac Cath Report Procedure: 1. Coronary angiography 2. Left heart catheterization 3. Left ventriculogram History: This is a 63-year-old male patient who presented with upper respiratory tract symptoms along with paroxysmal atrial fibrillation. After admission his cardiac markers were elevated suggesting a non-STEMI. Procedure summary: After informed consent was obtained the patient was taken to the cardiac catheterization lab where access was obtained using a retrograde Sellinger technique from the right radial artery. Preformed 5 [place]an diagnostic catheters were utilized for the coronary angiograms. A 5 [place] pigtail catheter was utilized for the left ventriculogram. Following the procedure the patient was returned to his room in stable condition. ACC data: Start time 11:46 AM End time 12:07 PM Opening aortic pressure 99/67 Closing aortic pressure 100/62 Left ventricular pressure 103/5 Sedation 1 mg intravenous Versed IV fluid 40 cc of normal saline Contrast 115 cc Visi Fluoroscopy time 6.3 minutes Radiation 1990 mGy DAP 13,350 mGy Right dominant system AUC score 9 Coronary angiography: Selective injections of the left coronary artery revealed the left main trunk to be widely patent. The left circumflex artery consists of a ramus branch and 3 large marginal branches supplying the lateral and posterior myocardium. The left circumflex artery is widely patent. The LAD gives off a large first diagonal branch. The LAD system is widely patent. Selective injections of the right coronary artery reveal the right coronary artery to be dominant. The right coronary artery is widely patent. Left ventriculogram: The left ventricle is of normal size with normal systolic function. The estimated left ventricular ejection fraction is 60%. Aortic root and ascending aorta have normal morphology. Summary: Patient has widely patent coronary anatomy and normal LV function Recommendations: Continued risk factor modification.
[2018-06-05] MEDS: SODIUM CHLORIDE 0.9% 500 ML IV SCH ×2 (12:57→17:22)
[2018-06-05] MEDS: SODIUM CHLORIDE 0.9% 1000ML 1,000 ML IV SCH (12:57)
[2018-06-05] MEDS: ZOLPIDEM TARTRATE 5 MG TAB PO PRN (20:56)
[2018-06-06] MEDS: cefTRIAXone SODIUM 1,000 MG in DEXTROSE 5% 50 ML IV SCH ×2 (00:36→23:49)
[2018-06-06 06:37] LABS: BUN Creatinine Ratio 14.9 (10-20); Calcium 8.1 mg/dl (8.5-10.1); Creatinine Clr Calc Pharmacy 93.5 ml/min; Est GFR (African American) 106.7; Est GFR (Non-African American) 92.1; Potassium 3.8 mmol/L (3.5-5.1)
[2018-06-06] MEDS: LEVOTHYROXINE SODIUM 125 MCG TABLET PO SCH (07:43)
[2018-06-06] MEDS: AMLODIPINE BESYLATE 5 MG TAB PO SCH (08:30)
[2018-06-06] MEDS: ATORVASTATIN 40 MG TAB PO SCH (08:30)
[2018-06-06] MEDS: METOPROLOL TARTRATE 25 MG TAB PO SCH ×2 (08:31→19:48)
[2018-06-06] MEDS: ASPIRIN 81 MG ECTAB PO SCH (08:32)
--- NOTE | 2018-06-06 09:54 | Hospitalist Progress Note ---
Date of Service June 06, 2018 Assessment & Plan (1) Paroxysmal atrial fibrillation: Patient remains in sinus rhythm. [place] fib likely secondary to lung infection etiology. At this point he is not on anticoagulation. Continue Lopressor until otherwise discontinued by cardiology. Review of heart rate overnight is in the low 60s, would not increase this further. (2) Pneumonia: Complicated with bronchitis versus pneumonia. Difficult to tell on imaging. Continue treatment for community-acquired pneumonia with Rocephin and doxycycline. He is somewhat improved today but is still lacking in appetite and not back to normal yet. It is very possible his illness was secondary to a virus causing a pericarditis. He understands this will need to run its course and there is not an antiviral therapy available. He also understands that smoking makes him more likely to have lung infections with poor recovery. He is considering quitting smoking altogether. He is amenable to a pneumonia shot and his already received a flu shot this year. (3) Non-STEMI (non-ST elevated myocardial infarction): Coronaries were clear yesterday during diagnostic catheterization. Troponin elevation likely secondary to a viral pericarditis per cardiology. Continue supportive care and other recommendations per cardiology team. (4) Thalamic infarction: History of stroke, continue aspirin and statin therapy for secondary prophylaxis. (5) HTN (hypertension): Controlled overnight continue current therapy. (6) History of thyroidectomy: (7) Tobacco abuse: Contemplative phase (8) DVT prophylaxis: Will start Lovenox Full code Disposition-continue telemetry until cleared by cardiology. Plan for home when medically stable for discharge. Would want to see him off supplemental oxygen and tolerating p.o. reliably first. Jeni Hampton DO [facility] Hospitalist Subjective 63-year-old man presented with flulike symptoms and chest pain. Underwent cardiac catheterization yesterday with clear coronaries. He has a normal ejection fraction. He reports some improvement in breathing today and a complete resolution of his disequilibrium that he had on arrival. He reports doing leg bends and other isolation exercises in his room and has no issues with ambulation. He denies any chest pain overnight. He denies any fevers chills or cough overnight. Physical Exam 2 Vital Signs (Past 24 Hours): Last Vital Signs Temp 37.1 C 06/06/18 06:59 Pulse 65 06/06/18 06:59 Resp 19 06/06/18 06:59 BP 119/75 06/06/18 06:59 Pulse Ox 95 06/06/18 06:59 CONSTITUTIONAL: WNWD, vitals as above, generally well-appearing EYES: normal conjuctivae, no scleral icterus ENT: MMM, OP clear RESPIRATORY: CTA bilat aside from some mild rhonchi at bases. Normal respiratory effort CARDIOVASCULAR: regular rate and rhythm, S1 and 2 heard without murmurs, gallops or rubs, no JVD, no peripheral edema GASTROINTESTINAL: soft, nontender, nondistended MUSCULOSKELETAL: strength intact throughout, moves around bed easily and sits up independently, head is normocephalic and atraumatic SKIN: warm and dry NEUROLOGIC: No facial palsy, no dysarthria. CN 2-12 grossly intact, normal cognition, normal speech PSYCHIATRIC: alert cooperative and oriented to person, place and time. Euthymic mood, makes good eye contact. Results & Data Laboratory Results [facility] 06/06/18 05:35 Sodium 135 L Potassium 3.8 Chloride 104 Carbon Dioxide 25 BUN 13 Creatinine 0.85 Glucose 87 Calcium 8.1 L Cardiac Enzymes 06/05/18 Range/Units 10:33 Troponin I 3.610 H* (0-0.045) ng/ml Medications Administered Current Inpatient Medications Acetaminophen (Tylenol) 650 mg PO Q4H PRN PRN Reason: Pain or Fever Stop: 07/04/18 21:30 Al Hydrox/Mg Hydrox/Simethicone (Maalox) 15 ml PO Q4H PRN PRN Reason: Dyspepsia Stop: 07/04/18 21:30 Albuterol (Duoneb) 3 ml NEB Q4R PRN PRN Reason: Shortness Of Breath Or Wheezing Stop: 07/05/18 00:00 Amlodipine [facility] ([facility]) [facility] Stop: 07/05/18 08:59 Last Admin: 06/06/18 08:30 Dose: 10 mg Aspirin (Ecotrin Ectab) 81 mg PO QAM [facility] Stop: 07/05/18 08:59 Last Admin: 06/06/18 08:32 Dose: 81 mg Atorvastatin Calcium (Lipitor) [facility] [place] Stop: 07/05/18 08:59 Last Admin: 06/06/18 08:30 Dose: 40 mg Enoxaparin Sodium (Lovenox) [facility] [place] Stop: 07/06/18 09:59 Ceftriaxone Sodium 1,000 mg/ (Dextrose) 50 mls @ 100 mls/hr IV Q24H [facility]; Protocol Stop: 06/12/18 00:00 Last Infusion: 06/06/18 01:10 Dose: Infused Doxycycline Hyclate 100 mg/ (Dextrose) 110 mls @ 50 mls/hr IV BID@1000,2200 [facility] Stop: 06/11/18 21:59 Last Infusion: 06/06/18 00:25 Dose: 50 mls/hr Sodium Chloride (Nss) 500 mls @ 80 mls/hr IV .Q6H15M [facility] Stop: 07/05/18 11:14 Last Infusion: 06/05/18 19:00 Dose: 0 mls/hr Sodium Chloride (Nss 1000ml) 1,000 mls @ 80 mls/hr IV .[id number] [facility] Stop: 07/05/18 12:14 Last Infusion: 06/06/18 02:03 Dose: Infused Levothyroxine Sodium (Synthroid) 125 mcg PO DAILYBB [facility] Stop: 07/05/18 06:29 Last Admin: 06/06/18 07:43 Dose: 125 mcg Metoprolol Tartrate (Lopressor) 25 mg PO BID [facility] Stop: 07/04/18 21:30 Last Admin: 06/06/18 08:31 Dose: 25 mg Metoprolol Tartrate (Lopressor) 2.5 mg IV Q4 PRN PRN Reason: Tachycardia Stop: 07/04/18 21:30 Nitroglycerin (Nitrostat) 0.4 mg SL UD PRN PRN Reason: Chest Pain Stop: 07/04/18 21:30 Ondansetron HCl (Zofran) 4 mg IV Q6H PRN PRN Reason: Nausea Stop: 07/04/18 21:30 Polyethylene Glycol (Miralax Powder Packet) 17 gm PO DAILY PRN PRN Reason: Constipation Stop: 07/04/18 21:30 Zolpidem Tartrate (Ambien) 5 mg PO HS PRN PRN Reason: Sleep Stop: 07/04/18 21:32 Last Admin: 06/05/18 20:56 Dose: 5 mg ECG Additional Comments: SR 62, no ST changes
--- NOTE | 2018-06-06 10:21 | Cardiology Progress Note ---
Date of Service June 06, 2018 Assessment & Plan (1) Pneumonia: (2) Paroxysmal atrial fibrillation: (3) Non-STEMI (non-ST elevated myocardial infarction): (4) Thalamic infarction: Patient had a peak troponin of 3.6. Given widely patent coronary arteries, I think this is likely due to myocardial necrosis related to his atrial fibrillation, perhaps with rapid ventricular response before he arrived to the hospital, in the setting of just profound illness. His ejection fraction is normal. He does not have any symptoms to suggest a myopericarditis. His only chest pain concern at this point is at the lower rib margin when he coughs and I think this is chest wall pain related to coughing. The patient had a small anterior pericardial effusion, I think this likely due to his underlying illness, and I do not think specific medications in terms of anti-inflammatory medications need to be started, but rather just supportive care for his respiratory infection. Reviewed the patient's chart reveals that he was admitted with right-sided weakness, paresthesias, in 2012, and was diagnosed with a thalamic stroke at that time. The atrial fibrillation that he came in with was relatively unrecognized but the patient without sensation of an irregular heartbeat. It is possible that he has occult atrial fibrillation at this was the cause of his previous stroke. The patient's [id number] risk factors include age (almost 64), Htn, past stroke (2 points) with score of 4 And therefore systemic anticoagulation is indicated. At this time I am going to discontinue his aspirin and transition him to Eliquis. I have asked for assistance from case management to help try to determine what his [id number] cost is. He is familiar with Coumadin as well as an alternative as his father Has been treated with this medication. I discontinued his DVT prophylaxis dose Lovenox, in favor of Eliquis. Subjective Chief complaint: Follow-up cough, elevated troponin, atrial fibrillation Subjective:Patient feeling well. He notes pain at the lower margins of his ribs only with cough. And his cough is trending toward improvement. He is afebrile. Blood pressure stable. Telemetry revealed sinus rhythm and sinus bradycardia in the range of 50-70 bpm overnight last night. Cardiac catheterization findings yesterday were favorable with widely patent coronary anatomy noted. Physical Exam 2 Vital Signs (Past 24 Hours): Last Vital Signs Temp 37.1 C 06/06/18 06:59 Pulse 65 06/06/18 06:59 Resp 19 06/06/18 06:59 BP 119/75 06/06/18 06:59 Pulse Ox 95 06/06/18 06:59 Physical Exam: General: no acute distress and stated age Eyes: conjunctiva are pink and non-injected, sclera clear Neck: normal jugular venous pulse, no hepatojugular reflux Chest: normal shape and normal respiratory effort Lungs: clear to auscultation and percussion Cardiac Exam: - regular heart sounds, no murmurs, rubs, or gallops, no jugular venous distention Abdomen: abdomen soft, non-tender, no abnormal masses and no hepatosplenomegaly Musculoskeletal: no gait disturbance, no weakness Extremities: no edema and no cyanosis Neuro:awake, coversant, follows commands, no focal motor deficits Psych: appropriate affect and insight. Results & Data Diagnostic Findings EKG performed this morning 06/06/18 at 631 revealed sinus rhythm at [address] segments. Compared to the prior tracing, the previously noted premature supraventricular complexes are no longer present.
[2018-06-06] MEDS: DOXYCYCLINE HYCLATE 100 MG in DEXTROSE 5% 100 ML IV SCH ×2 (10:25→21:30)
[2018-06-06] MEDS ORDERED: ENOXAPARIN INJ 40 MG/0.4 ML SYR SQ SCH (11:00)
[2018-06-06] MEDS: SODIUM CHLORIDE 0.9% 1000ML 1,000 ML IV SCH (11:40)
[2018-06-06] MEDS: APIXABAN 5 MG TABLET PO SCH ×2 (12:01→19:48)
[2018-06-06] MEDS: ALBUT/IPRATROP 3MG/0.5MG NEB 3 ML VIAL NEB SCH ×2 (19:06→20:07)
[2018-06-06] MEDS: ZOLPIDEM TARTRATE 5 MG TAB PO PRN (21:30)
[2018-06-07] MEDS: LEVOTHYROXINE SODIUM 125 MCG TABLET PO SCH (06:24)
[2018-06-07 06:55] LABS: Hematocrit (blood only) 38.5 % (42-52); Hemoglobin 13.4 g/dL (14.0-18.0); Mean Corpuscular Hgb Conc 34.8 g/dL (32-36); Mean Corpuscular Volume 88.1 fL (80-100); Mean Platelet Volume 9.7 fL (7.4-10.4); Platelet Count 351 K/uL (130-400); RDW Coefficient of Variation 13.5 % (11.5-14.5); RDW Standard Deviation 43.2 fL (36.4-46.3); Red Blood Count 4.37 M/uL (4.7-6.1); White Blood Count 14.26 K/uL (4.8-10.8)
[2018-06-07] MEDS: ALBUT/IPRATROP 3MG/0.5MG NEB 3 ML VIAL NEB SCH (07:15)
[2018-06-07 07:29] LABS: BUN Creatinine Ratio 17.1 (10-20); Calcium 8.2 mg/dl (8.5-10.1); Creatinine Clr Calc Pharmacy 101.9 ml/min; Est GFR (African American) 110.6; Est GFR (Non-African American) 95.4; Potassium 3.5 mmol/L (3.5-5.1)
[2018-06-07] MEDS: ATORVASTATIN 40 MG TAB PO SCH (08:37)
[2018-06-07] MEDS: AMLODIPINE BESYLATE 5 MG TAB PO SCH (08:38)
[2018-06-07] MEDS: APIXABAN 5 MG TABLET PO SCH (08:38)
[2018-06-07] MEDS: METOPROLOL TARTRATE 25 MG TAB PO SCH (08:38)
[2018-06-07] MEDS ORDERED: ALBUT/IPRATROP 3MG/0.5MG NEB 3 ML VIAL NEB PRN (09:33)
[2018-06-07] MEDS: DOXYCYCLINE HYCLATE 100 MG in DEXTROSE 5% 100 ML IV SCH (10:31)
[2018-06-07] MEDS ORDERED: ACETAMINOPHEN SOLN 160 MG/5 ML BTL PO ONE (14:30)
--- NOTE | 2018-06-07 15:47 | Discharge Summary ---
Date of Service June 07, 2018 Admission HPI Per Admitting Provider HISTORY OF PRESENT ILLNESS: This is a 63-year-old male with past medical history significant for thalamic infarction, history of thyroid cancer status post thyroidectomy, hypertension, tobacco abuse presents with not feeling well since last few days. Patient states since about 1 to 1-1/2 weeks ago, he started feeling cold symptoms and feeling very chilly. At that time, he medicated himself with [id number]-ryo-[id number] medications. He was not getting better. Yesterday he saw family doctor yesterday and he was prescribed Z-KYLAH. He started to take Z-KYLAH, but he thought that his appetite is lost, he was feeling sweaty, he was not eating. He took the medication on empty stomach and he thought that might have affected him and he was not feeling well. So he came to the ER today. In the ER, he was found to be in AFib, new onset, and CT of the chest was done where there was no PE, but shows bibasilar edema versus infectious process and given a dose of Lasix was given and started on Cardizem drip and heparin. The patient denies any chest pain. He states he has cough once in a while bringing some phlegm. He does not remember the color of the phlegm. Whenever he is coughing, he has pain in the bilateral lower chest. Denies any headaches. He has occasional dizziness. No headaches, no blurred visions, no earache, no runny nose, no sore throat, no difficulty swallowing. Poor appetite since last 2 days and felt nauseous but no vomiting, no abdominal pain. Had couple of episodes of diarrhea. One of the initial bowel movements was black, but rest of the bowel movements were normal. No blood in the stools. No burning micturition, normal bladder movements. No swelling of the legs. Lives alone. Otherwise, he is active. Admission Exam Per Admitting Provider PHYSICAL EXAMINATION: GENERAL: The patient is of moderate build, not in acute distress. VITAL SIGNS: Temperature 36.3, pulse 100, respiratory rate 18, blood pressure 123/82, oxygen 93% room air. HEENT: No pallor, no icterus. Pupils equal, round, and reactive to light. NECK: No JVD, no neck masses, no carotid bruit. CARDIOVASCULAR: S1, S2 heard, regular, no murmur. RESPIRATORY SYSTEM: Normal AP diameter. No accessory muscle use. No wheezing, bibasilar crackles heard. ABDOMEN: Soft, bowel sounds present, nontender. No distention, no guarding, no rigidity. CENTRAL NERVOUS SYSTEM: Cranial nerves II-XII grossly intact. Nonfocal. EXTREMITIES: No edema, no erythema. Principal Diagnosis Pneumonia Paroxysmal atrial fibrillation Discharge Exam CONSTITUTIONAL: WNWD, vitals as above, generally well-appearing EYES: normal conjuctivae, no scleral icterus ENT: MMM RESPIRATORY: CTA bilaterally, Normal respiratory effort CARDIOVASCULAR: regular rate and rhythm, S1 and 2 heard without murmurs, gallops or rubs, no JVD, no peripheral edema GASTROINTESTINAL: soft, nontender, nondistended MUSCULOSKELETAL: strength intact throughout, moves around bed easily and sits up independently, head is normocephalic and atraumatic SKIN: warm and dry NEUROLOGIC: No facial palsy, no dysarthria. CN 2-12 grossly intact, normal cognition, normal speech PSYCHIATRIC: alert cooperative and oriented to person, place and time. Euthymic mood, makes good eye contact. Discharge Data Allergies Allergy/AdvReac Type Severity Reaction Status Date / Time morphine AdvReac Intermediate Nausea/Vomi Verified 06/04/18 18:01 ting Consultations 06/04/18 19:21 ED Decision to Admit Stat 06/05/18 08:00 Consult Cardiology Routine 06/05/18 11:14 Consult Cardiac Catheterization Routine 06/06/18 07:07 Consult Case Management - Discharge Planning Routine Procedures Performed Operation Date: 06/05/18 11:30 Actual Procedures p Cath, Left with Cors and Vent - Harsha Morrow DO s Cineradiography w/Routine Exam - Harsha Morrow DO Ordered Studies 06/04/18 17:45 CT head/brain wo con Stat 06/04/18 18:11 CT angio chest PE protocol Stat 06/05/18 10:37 CL Cath Imgs for PACS use only Routine Hospital Course (1) Paroxysmal atrial fibrillation: (2) Pneumonia: (3) Non-STEMI (non-ST elevated myocardial infarction): (4) Thalamic infarction: (5) HTN (hypertension): (6) History of thyroidectomy: (7) Tobacco abuse: 63-year-old man presented to the emergency room with flu-like symptoms for approximately 1.5 weeks. Symptoms have been getting worse and he had become dizzy and faint prompting ER visit. On arrival to the ER he was hemodynamically stable and afebrile oxygenating well on room air. Physical exam revealed diminished breath sounds at the bases and an irregular heartbeat with no other abnormalities. Workup revealed a white blood cell count of 12.39 , sodium 133, potassium 3.3, BUN 15, creatinine 1.21 troponin was mildly elevated at 0.484 and BNP was 1723. TSH was mildly elevated at 7.64 with a free T4 that was normal. D-dimer was greater than 450. Flu PCR was negative. A CT angiogram of the chest revealed no evidence of pulmonary embolism, small bilateral pleural effusions with lower lobe airspace opacities likely representing atelectasis and pulmonary edema vs infection. Lower lung bronchial wall thickening was also noted. Small pericardial effusion was seen with mild mediastinal lymphadenopathy. He reported generalized numbness and tingling through his body so a CT head was performed which was normal. Stroke was considered but not thought likely as the findings/symptoms were nonfocal. EKG revealed new onset atrial fibrillation. He was given aspirin in the setting of an elevated troponin. He was also given a DuoNeb prior to the EKG revealing new onset A. fib, likely exacerbating his A. fib to some degree as the tachycardia was worsened. A diltiazem bolus and drip were ordered however prior to giving these, the patient converted to sinus rhythm spontaneously. He remained in a normal sinus rhythm with a rate in the 60s throughout the remainder of his hospitalization. Lopressor 25 mg p.o. twice daily was started IV heparin was started and the patient was admitted to the hospitalist service. Doxycycline and Rocephin were started. Blood and sputum cultures were negative. In the setting of a possible developing NSTEMI cardiology was consulted. His troponin trended up to 3.6 and given his underlying risk factors of cigarette smoking, age and discipline lipidemia a cardiac catheterization was recommended. This did not reveal any evidence of disease and he was returned to the floor. Viral pericarditis was considered in the setting of small anterior pericardial effusion, however this was thought more likely secondary to his underlying illness; anti-inflammatory medications were not recommended. Supportive care for his respiratory infection was recommended instead. Given his patent coronary arteries his elevated troponin was thought likely due to myocardial necrosis related to his atrial fibrillation perhaps with rapid ventricular response prior to arrival to the hospital in the setting of his profound illness. Echo revealed normal ejection fraction. He did have some lower rib margin pain when he coughed especially and this was considered musculoskeletal chest wall pain related to his coughing. As his risk score was elevated to include age, hypertension, and prior stroke anticoagulation was recommended. Eliquis was started prior to discharge. As his heart rate was in the low 60s, low-dose Lopressor was not continued. Throughout the hospitalization his atrial fibrillation did not return and he remained hemodynamically stable and afebrile in sinus rhythm. At time of discharge she was tolerating p.o. and improving clinically overall. He was strongly recommended he quit smoking and he was amenable to this. Nicotine replacement was offered but the patient declined. He was discharged in stable condition with close primary care follow-up. Notably he did have an IV that infiltrated just prior to departure. He was advised that this would expectantly return to normal within the next day, and if that did not happen to seek immediate medical attention. He verbalized understanding with intent to comply. Total Time Total Time Spent Total Time Spent (In Minutes): 60 Total Time Includes: Examination of the Patient, Discharge Planning, Medication Reconciliation and Communication With Other Providers Discharge Plan Discharge Items Patient Disposition: Home - Self-Care Reason For Visit: COUGH,NOT FEELING WELL Discharge Diagnosis: Pneumonia Paroxysmal atrial fibrillation Condition: Good Discharge Goals: Decrease discomfort Activity: Resume your previous activity Non-emergency contact: Primary Care Provider Call non-emergency contact if: you have any medication questions, your symptoms worsen, your pain is not controlled, your pain is worsening, your pain is unusual for you, your pain is concerning for you and you have a fever Follow-up/Referrals: Nahum Lauren [Primary Care Provider] - Diet: Heart Healthy Add Provider Instructions: Please take all medications as instructed on discharge list below. Please follow-up with your primary care provider within one week of discharge. You have an appointment with Dr. Lauren on , 06/11 @ 10:45am. It was a pleasure taking care of you! Please call if you have any questions or problems. You can reach a [facility] hospitalist on duty at [facility] 24 hours a day by calling [phone]. Take care of yourself. Jeni Hampton, DO [facility] Hospitalist Prescriptions: New apixaban [Eliquis] 5 mg Tablet 5 mg PO BID Qty: 60 RF: 3 levofloxacin 750 mg tablet 750 mg PO DAILY 5 Days Qty: 5 RF: 0 Continue atorvastatin 40 mg tablet 40 mg PO QAM RF: 0 amlodipine 10 mg tablet 10 mg PO QAM RF: 0 levothyroxine 125 mcg tablet 125 mcg PO QAM RF: 0 Discontinued azithromycin 250 mg tablet See Label Instructions .ROUTE .COMPLEX RF: 0 aspirin 81 mg Tablet,Delayed Release (Dr/Ec) 81 mg PO QAM RF: 0 Visit Report Forms: My [facility] Stand-Alone Forms: My [facility] Krames/Other Patient Handouts: Apixaban Oral tablet, Levofloxacin Oral tablet, Fibrillation Atrial Dc Discharge Orders: Discharge Order (Routine); Ordered 06/07/18 Ordered By: Jeni Hampton Admission Data Admit Date/Time: 06/04/18 20:04 Attending Provider: Jeni Hampton Admit Provider: Danny Caceres Primary Care Provider: Nahum Lauren Other Providers: Danny Caceres ; Bowen Elliott ; Kai Neville ; Aneudy Hong ; Braxton Mijares ; Harsha Morrow ; Curtis Granger ; Belinda Chapman ; Christy Diaz Service: Telemetry
== END 2018-06-07 16:55 | disposition home or self-care (01) | DRG 280 ==
LOC: ED 16:53 → 2E 20:04 → SUATTDRO 20:04 → 2E 20:32

== ENCOUNTER 2018-06-13 12:44 | Inpatient (IN) ==
[2018-06-13] MEDS ORDERED: SODIUM CHLORIDE 0.9% 1000ML 1,000 ML IV SCH ×2 (13:00→14:45)
--- NOTE | 2018-06-13 13:03 | Emergency Department Note ---
Entered by Ryder Clifford acting as a scribe for Forrest Cavazos DO History of Present Illness General Chief complaint: Illness Stated complaint: NOT FELLING WELL Time Seen by Provider: 06/13/18 12:51 Source: patient and family History of Present Illness Onset (ago): unknown (sometime last night) Location: head (global) Pain Consistency: + other (persistent) Quality: + other (confusion) Associated symptoms: + loss of appetite and + other (unsteady and "unsure" when walking; wasn't following commands; feeling "off") The patient is a 63 year old male who presents to the Emergency Room with complaints of persistent confusion beginning sometime last night. The patient reports that he was feeling fine when going to sleep at the usual time last night, but he woke up at around 05:00 or 06:00, noting that he was feeling off and had weird dreams but was able to fall back asleep. His brother states that the patient has been confused this morning and called him by phone for help. He states that the patient has been unsteady and unsure when walking this morning, not following commands, and could not find his car keys. The patient notes that he just stayed home this morning and reports that he still feels off, disoriented, and not straight in my thoughts. Family reports that he was discharged from the hospital on pneumonia a few days ago and received antibiotics. Medical records show that the patient presented at that time for diaphoresis, slurred speech, and feeling off-balance. The patient denies headaches, pain, or recent falls, although he notes recent loss of appetite. The brother notes that he has not seen the patient since his recent discharge from the hospital. The patient reports that he takes Eliquis for atrial fibrillation. He denies a history of diabetes. He reports that he regularly smokes cigarettes but denies alcohol or drug use. Home Medications Home Medications Medication Instructions Recorded Confirmed Type amlodipine 10 mg PO QAM 06/04/18 06/13/18 History atorvastatin 40 mg PO QAM 06/04/18 06/13/18 History levothyroxine 125 mcg PO QAM 06/04/18 06/13/18 History apixaban [Eliquis] 5 mg PO BID #60 tab 06/07/18 06/13/18 Rx aspirin 81 mg PO DAILY 06/13/18 06/13/18 History Allergies Allergy/AdvReac Type Severity Reaction Status Date / Time morphine AdvReac Intermediate Nausea/Vomi Verified 06/13/18 14:09 ting Past Med/Surg History Medical History Dyslipidemia (Chronic) Tobacco abuse (Resolved) Paroxysmal atrial fibrillation (Chronic) Thalamic infarction (Chronic) HTN (hypertension) (Chronic) Surgical History History of thyroidectomy (Chronic) History of left knee surgery (Chronic) Family History Brother Diabetes Mother Hypertension Social History Current Living Situation: Alone Other Information That Helps Us Care for You: No Feels Safe at Home: Yes Safety Concerns: Feels Safe At This Time Smoking Status: Former smoker Tobacco Type: cigarettes Do You Dip or Chew Tobacco: No Smoking End Date: 06/26/18 Second Hand Exposure: No Tobacco Cessation Education Requested by Patient: No Hx Alcohol Use: No Hx Substance Use: No Beliefs That Will Affect Care: None Communication Ability: Effective Review of Systems See HPI for pertinent positives & negatives. and A total of 10 systems reviewed and were otherwise negative Physical Exam Vital Signs Vital Signs - 24 hr 06/14/18 20:06 06/14/18 22:50 06/14/18 23:00 Temperature 36.5 C 36.7 C Temperature Source Oral Oral Pulse Rate [Left Finger] 63 63 Pulse Rhythm [Left Finger] Pulse Strength [Left Finger] Respiratory Rate 20 18 Respiratory Effort / Characteristics Non-Labored Spontaneous Respiratory Depth Normal Respiratory Pattern Regular Blood Pressure [Left Arm] 139/80 144/83 H Blood Pressure Mean [Left Arm] 99 103 Blood Pressure Position [Left Arm] Lying Pulse Oximetry 95 94 Oxygen Delivery Method Room Air Room Air 06/15/18 03:05 06/15/18 07:30 06/15/18 11:41 Temperature 37.0 C 36.5 C 36.3 C L Temperature Source Oral Oral Oral Pulse Rate [Left Finger] 63 69 66 Pulse Rhythm [Left Finger] Regular Pulse Strength [Left Finger] Normal Respiratory Rate 16 18 18 Respiratory Effort / Characteristics Non-Labored Respiratory Depth Normal Respiratory Pattern Regular Blood Pressure [Left Arm] 118/71 134/82 127/78 Blood Pressure Mean [Left Arm] 86 99 94 Blood Pressure Position [Left Arm] Lying Lying Pulse Oximetry 95 96 95 Oxygen Delivery Method Room Air Room Air GENERAL: Patient is awake but somewhat listless. He is slow to answer questions but does follow commands appropriately. EYES: The conjunctivae are clear. The pupils are round and reactive. EARS, NOSE, MOUTH AND THROAT: The nose is without any evidence of any deformity. Mucous membranes are moist tongue is midline NECK: The neck is nontender and supple. RESPIRATORY: Normal respiratory effort is noted there is no evidence of wheezing rhonchi or rales CARDIOVASCULAR: Regular rate and rhythm noted there no murmurs rubs or gallops normal S1 normal S2 GASTROINTESTINAL: The abdomen is soft. Bowel sounds are present in all quadrants. Abdomen is nontender MUSCULOSKELETAL/EXTREMITIES: There is no evidence of gross deformity full range of motion is noted in the hips and shoulders SKIN: There is no obvious evidence of any rash. There are no petechiae, pallor or cyanosis noted. NEUROLOGIC: Patient is awake and oriented to person place and situation. Strength was symmetric. There is no facial droop. There is no drift in the upper extremity's. Procedures Free Text Procedures Lumbar Puncture Indication: altered mental status. Verbal consent was obtained after the risks and benefits were explained, including but not limited to headache, bleeding/clotting, scarring, infection, pain, and bone/joint/nerve damage. At this time, the risks of the procedure are less than the risks of NOT performing the procedure. A time out was taken and the correct patient and site identified. The patient was placed in the seated position and the back was prepped with betadine and draped in the standard fashion. The L3 intervertebral space was identified, anesthetized locally with 1 % lidocaine without epinephrine, and the spinal needle was inserted through the skin with the bevel parallel to the dural fibers. The needle was carefully advanced into the lumbar cistern and 4 tubes of clear CSF was obtained. The stylet was replaced and the needle was removed. A bandaid was placed and the patient was placed in the supine position. The patient tolerated the procedure well and there were no complications. Course 1252: Past medical records reviewed. The patient was evaluated in room B1, and a complete history and physical examination were performed. 1424: A lumbar puncture was performed. 1445: I consulted VANIA Danielleist under Dr. Bravo. She will reevaluate the patient for hospitalization. Consultations Consultation #1: I consulted VANIA Danielle under Dr. Vangala. She will reevaluate the patient for hospitalization. Time: 14:45 Administered Medications Amlodipine Besylate (Norvasc) 5 mg PO QAM [facility] Stop: 07/15/18 08:59 Last Admin: 06/15/18 08:16 Dose: 5 mg Aspirin (Ecotrin Ectab) 81 mg PO DAILY [facility] Stop: 07/14/18 08:59 Last Admin: 06/15/18 08:15 Dose: 81 mg Admin: 06/14/18 08:24 Dose: 81 mg Atorvastatin Calcium (Lipitor) 40 mg PO QAM [facility] Stop: 07/14/18 08:59 Last Admin: 06/15/18 08:15 Dose: 40 mg Admin: 06/14/18 08:24 Dose: 40 mg Colchicine (Colcrys) 0.6 mg PO BID [facility] Stop: 07/14/18 20:59 Last Admin: 06/15/18 08:15 Dose: 0.6 mg Admin: 06/14/18 21:12 Dose: 0.6 mg Gadobutrol (Gadavist 65ml) 8 ml IV ONCE PRN PRN Reason: Interaction Checking Stop: 06/17/18 19:23 Last Admin: 06/13/18 19:25 Dose: 8 ml Heparin Sodium/Dextrose (Heparin Sodium/Dextrose) 25,000 units in 500 mls @ 21 mls/hr IV .[id number] [facility]; Protocol Stop: 07/14/18 15:26 Last Titration: 06/15/18 07:08 Dose: 1,050 units/hr, 21 mls/hr Titration: 06/14/18 23:12 Dose: 1,050 units/hr, 21 mls/hr Admin: 06/14/18 16:07 Dose: 900 units/hr, 18 mls/hr Levothyroxine Sodium (Synthroid) 125 mcg PO DAILYBB [facility] Stop: 07/14/18 06:29 Last Admin: 06/15/18 05:52 Dose: 125 mcg Admin: 06/14/18 05:54 Dose: 125 mcg Lorazepam (Ativan) 1 mg PO BID PRN PRN Reason: Anxiety/Insomnia Stop: 07/14/18 20:00 Last Admin: 06/14/18 21:12 Dose: 1 mg Metoprolol Tartrate (Lopressor) 12.5 mg PO BID [facility] Stop: 07/14/18 20:59 Last Admin: 06/15/18 08:16 Dose: 12.5 mg Admin: 06/14/18 21:12 Dose: 12.5 mg Discontinued Medications Amlodipine Besylate (Norvasc) 10 mg PO [facility] Stop: 07/14/18 08:59 Last Admin: 06/14/18 08:24 Dose: 10 mg Clopidogrel Bisulfate (Plavix) 75 mg PO [facility] Stop: 07/14/18 08:59 Last Admin: 06/14/18 08:25 Dose: 75 mg Colchicine (Colcrys) 0.6 mg PO NOW ONE Stop: 06/14/18 13:09 Last Admin: 06/14/18 13:43 Dose: 0.6 mg Sodium Chloride (Nss 1000ml) 1,000 mls @ 999 mls/hr IV .[id number] [facility] Stop: 06/13/18 14:00 Last Infusion: 06/13/18 15:48 Dose: 0 mls/hr Admin: 06/13/18 13:29 Dose: 999 mls/hr Sodium Chloride (Nss 1000ml) 1,000 mls @ 999 mls/hr [id number] [place] Stop: 06/13/18 15:45 Last Infusion: 06/13/18 16:36 Dose: 0 mls/hr Admin: 06/13/18 15:35 Dose: 999 mls/hr Ceftriaxone Sodium 2,000 mg/ (Dextrose) 70 mls @ 100 mls/hr IV NOW STA Stop: 06/13/18 15:28 Last Infusion: 06/13/18 16:17 Dose: 0 mls/hr Admin: 06/13/18 15:35 Dose: 100 mls/hr Lorazepam (Ativan) 2 mg in 4 mls @ 4 mls/min IV NOW STA Stop: 06/13/18 18:41 Last Admin: 06/13/18 18:47 Dose: 4 mls/min Heparin Sodium (Porcine) 4,500 (units/ Syringe) 4.5 mls @ 10 mls/min IV NOW ONE Stop: 06/14/18 23:17 Last Admin: 06/14/18 23:41 Dose: 10 mls/min Lidocaine HCl (Xylocaine 1% (Local)) Confirm Administered Dose 20 ml .ROUTE .STK -MED ONE Stop: 06/13/18 14:29 Last Admin: 06/13/18 15:32 Dose: 20 ml Lorazepam (Ativan) Confirm Administered Dose 2 mg .ROUTE .STK-MED ONE Stop: 06/13/18 18:47 Last Admin: 06/13/18 20:33 Dose: Not Given Medical Decision Making Differential Diagnosis Differential diagnosis: Etiologies such as metabolic, infection, hypoglycemia, electrolyte abnormalities , cardiac sources, intracerebral event, toxicologic, neurologic, as well as others were entertained. Medical Records Attestation: I reviewed the patient's medical records. Home Medications Current Medication List: was personally reviewed by me Laboratory Data Attestation: I reviewed the patient's lab results. Result diagrams: 06/15/18 05:47 06/14/18 05:56 Lab Results 06/13/18 06/13/18 06/13/18 Range/Units 12:58 12:58 12:58 WBC 16.27 H (4.8-10.8) K/uL RBC 4.39 L (4.7-6.1) M/uL Hgb 13.2 L (14.0-18.0) g/dL POC Hgb (14.0-18.0) g/dl Hct 38.6 L (42-52) % POC Hct (42-52) % MCV 87.9 (80-100) fL MCH 30.1 (25-34) pg MCHC 34.2 (32-36) g/dL RDW Std Deviation 45.3 (36.4-46.3) fL RDW Coeff of Martin 14.1 (11.5-14.5) % Plt Count 170 (130-400) K/uL MPV 10.8 H (7.4-10.4) fL Immature Gran % (Auto) 0.7 % Neut % (Auto) 59.6 % Lymph % (Auto) 6.3 % [place] % (Auto) 5.2 % Eos % (Auto) 28.1 % Baso % (Auto) 0.1 % Immature Gran # (Auto) 0.11 H (0.00-0.02) K/uL Neut # (Auto) 9.69 H (1.4-6.5) K/uL Lymph # (Auto) 1.03 L (1.2-3.4) K/uL [place] # (Auto) 0.85 H (0.11-0.59) K/uL Eos # (Auto) 4.58 H (0-0.5) K/uL Baso # (Auto) 0.01 (0-0.2) K/uL ESR (0-14) mm/hr PT 12.1 H (9.0-12.0) Seconds INR 1.2 H (0.9-1.1) APTT (21.0-31.0) Seconds PTT Ratio VBG pH (7.36-7.41) VBG pCO2 (38-50) mmHg VBG pO2 mmHg VBG HCO3 mmol/L VBG O2 Saturation % VBG Base Excess mEq/L Carboxyhemoglobin % THgb Barometric Pressure mm/Hg POC Sodium (135-144) mEq/L Sodium 133 L (136-145) mmol/L POC Potassium (3.3-5.0) mEq/L Potassium 3.7 (3.5-5.1) mmol/L POC Chloride (101-112) mEq/L Chloride 102 (98-107) mmol/L Carbon Dioxide 25 (21-32) mmol/L POC Total CO2 (24-31) mEq/l Anion Gap 6.0 (3-11) POC Anion Gap (16-25) mmol/L POC BUN (7-18) mg/dl BUN 15 (7-18) mg/dl Creatinine 1.23 (0.6-1.4) mg/dl POC Creatinine (0.6-1.3) mg/dl Est Cr Clr Drug Dosing 63.1 ml/min Est GFR ( Amer) 71.5 Est GFR (Non-Af Amer) 61.7 BUN/Creatinine Ratio 12.1 (10-20) Glucose 105 H (70-99) mg/dl POC Glucose (70-99) POC Glucose (other) (70-99) mg/dl Estimat Average Glucose mg/dl Hemoglobin A1c (4.5-5.6) % Lactate (0.4-2.0) mmol/L Calcium 8.9 (8.5-10.1) mg/dl POC Ioniz Calcium Amol (1.12-1.32) mmol/l Magnesium 2.5 H (1.8-2.4) mg/dl Total Bilirubin 0.8 (0.2-1) mg/dl AST 41 H (15-37) U/L ALT 39 (12-78) U/L Alkaline Phosphatase 166 H (45-117) U/L Ammonia (11-32) umol/L Troponin I 0.929 H* (0-0.045) ng/ml C-Reactive Protein (0-0.29) mg/dl Total Protein 8.7 H (6.4-8.2) gm/dl Albumin 3.1 L (3.4-5.0) gm/dl Globulin 5.6 H (2.5-4.0) gm/dl Albumin/Globulin Ratio 0.6 L (0.9-2) Triglycerides (0-150) mg/dl Cholesterol (0-200) mg/dl LDL Cholesterol, Calc mg/dl VLDL Cholesterol, Calc mg/dl HDL Cholesterol mg/dl Cholesterol/HDL Ratio TSH 12.000 H (0.300-4.500) uIu/ml Free T4 1.32 (0.8-1.6) ng/dl Urine Color Urine Appearance (Clear) Urine pH (4.5-7.5) Ur Specific [place] (1.000-1.030) Urine Protein (Negative) Urine Glucose (UA) (Negative) Urine Ketones (Negative) Urine Blood (Negative) Urine Nitrite (Negative) Urine Bilirubin (Negative) Urine Urobilinogen (Negative) Ur Leukocyte Esterase (Negative) CSF Appearance CSF Color Xanthrochromic CSF WBC (0-5) /uL CSF RBC (0-) /uL CSF Cell Count Tube # CSF Chemistry Tube # CSF Glucose (40-70) mg/dl CSF Total Protein (15-45) mg/dl Lyme Disease IgG Ab (Negative) Lyme Disease IgM Ab (Negative) Hepatitis C Ab Screen (Neg) Influenza Type A Ag (Neg) Influenza Type B Ag (Neg) 06/13/18 06/13/18 06/13/18 Range/Units 12:58 12:58 12:59 WBC (4.8-10.8) K/uL RBC (4.7-6.1) M/uL Hgb (14.0-18.0) g/dL POC Hgb (14.0-18.0) g/dl Hct (42-52) % POC Hct (42-52) % MCV (80-100) fL MCH (25-34) pg MCHC (32-36) g/dL RDW Std Deviation (36.4-46.3) fL RDW Coeff of Martin (11.5-14.5) % Plt Count (130-400) K/uL MPV (7.4-10.4) fL Immature Gran % (Auto) % Neut % (Auto) % Lymph % (Auto) % [place] % (Auto) % Eos % (Auto) % Baso % (Auto) % Immature Gran # (Auto) (0.00-0.02) K/uL Neut # (Auto) (1.4-6.5) K/uL Lymph # (Auto) (1.2-3.4) K/uL [place] # (Auto) (0.11-0.59) K/uL Eos # (Auto) (0-0.5) K/uL Baso # (Auto) (0-0.2) K/uL ESR (0-14) mm/hr PT (9.0-12.0) Seconds INR (0.9-1.1) APTT (21.0-31.0) Seconds PTT Ratio VBG pH (7.36-7.41) VBG pCO2 (38-50) mmHg VBG pO2 mmHg VBG HCO3 mmol/L VBG O2 Saturation % VBG Base Excess mEq/L Carboxyhemoglobin % THgb Barometric Pressure mm/Hg POC Sodium (135-144) mEq/L Sodium (136-145) mmol/L POC Potassium (3.3-5.0) mEq/L Potassium (3.5-5.1) mmol/L POC Chloride (101-112) mEq/L Chloride (98-107) mmol/L Carbon Dioxide (21-32) mmol/L POC Total CO2 (24-31) mEq/l Anion Gap (3-11) POC Anion Gap (16-25) mmol/L POC BUN (7-18) mg/dl BUN (7-18) mg/dl Creatinine (0.6-1.4) mg/dl POC Creatinine (0.6-1.3) mg/dl Est Cr Clr Drug Dosing ml/min Est GFR ( Amer) Est GFR (Non-Af Amer) BUN/Creatinine Ratio (10-20) Glucose (70-99) mg/dl POC Glucose 108 H (70-99) POC Glucose (other) (70-99) mg/dl Estimat Average Glucose 134 mg/dl Hemoglobin A1c 6.3 H (4.5-5.6) % Lactate (0.4-2.0) mmol/L Calcium (8.5-10.1) mg/dl POC Ioniz Calcium Amol (1.12-1.32) mmol/l Magnesium (1.8-2.4) mg/dl Total Bilirubin (0.2-1) mg/dl AST (15-37) U/L ALT (12-78) U/L Alkaline Phosphatase (45-117) U/L Ammonia (11-32) umol/L Troponin I (0-0.045) ng/ml C-Reactive Protein (0-0.29) mg/dl Total Protein (6.4-8.2) gm/dl Albumin (3.4-5.0) gm/dl Globulin (2.5-4.0) gm/dl Albumin/Globulin Ratio (0.9-2) Triglycerides (0-150) mg/dl Cholesterol (0-200) mg/dl LDL Cholesterol, Calc mg/dl VLDL Cholesterol, Calc mg/dl HDL Cholesterol mg/dl Cholesterol/HDL Ratio TSH (0.300-4.500) uIu/ml Free T4 (0.8-1.6) ng/dl Urine Color Urine Appearance (Clear) Urine pH (4.5-7.5) Ur Specific [place] (1.000-1.030) Urine Protein (Negative) Urine Glucose (UA) (Negative) Urine Ketones (Negative) Urine Blood (Negative) Urine Nitrite (Negative) Urine Bilirubin (Negative) Urine Urobilinogen (Negative) Ur Leukocyte Esterase (Negative) CSF Appearance CSF Color Xanthrochromic CSF WBC (0-5) /uL CSF RBC (0-) /uL CSF Cell Count Tube # CSF Chemistry Tube # CSF Glucose (40-70) mg/dl CSF Total Protein (15-45) mg/dl Lyme Disease IgG Ab (Negative) Lyme Disease IgM Ab (Negative) Hepatitis C Ab Screen Pos H (Neg) Influenza Type A Ag (Neg) Influenza Type B Ag (Neg) 06/13/18 06/13/18 06/13/18 Range/Units 13:04 13:33 13:33 WBC (4.8-10.8) K/uL RBC (4.7-6.1) M/uL Hgb (14.0-18.0) g/dL POC Hgb 13.9 L (14.0-18.0) g/dl Hct (42-52) % POC Hct 41 L (42-52) % MCV (80-100) fL MCH (25-34) pg MCHC (32-36) g/dL RDW Std Deviation (36.4-46.3) fL RDW Coeff of Martin (11.5-14.5) % Plt Count (130-400) K/uL MPV (7.4-10.4) fL Immature Gran % (Auto) % Neut % (Auto) % Lymph % (Auto) % [place] % (Auto) % Eos % (Auto) % Baso % (Auto) % Immature Gran # (Auto) (0.00-0.02) K/uL Neut # (Auto) (1.4-6.5) K/uL Lymph # (Auto) (1.2-3.4) K/uL [place] # (Auto) (0.11-0.59) K/uL Eos # (Auto) (0-0.5) K/uL Baso # (Auto) (0-0.2) K/uL ESR (0-14) mm/hr PT (9.0-12.0) Seconds INR (0.9-1.1) APTT (21.0-31.0) Seconds PTT Ratio VBG pH (7.36-7.41) VBG pCO2 (38-50) mmHg VBG pO2 mmHg VBG HCO3 mmol/L VBG O2 Saturation % VBG Base Excess mEq/L Carboxyhemoglobin % THgb Barometric Pressure mm/Hg POC Sodium 139 (135-144) mEq/L Sodium (136-145) mmol/L POC Potassium 3.8 (3.3-5.0) mEq/L Potassium (3.5-5.1) mmol/L POC Chloride 101 (101-112) mEq/L Chloride (98-107) mmol/L Carbon Dioxide (21-32) mmol/L POC Total CO2 24 (24-31) mEq/l Anion Gap (3-11) POC Anion Gap 19.0 (16-25) mmol/L POC BUN 15 (7-18) mg/dl BUN (7-18) mg/dl Creatinine (0.6-1.4) mg/dl POC Creatinine 1.1 (0.6-1.3) mg/dl Est Cr Clr Drug Dosing ml/min Est GFR ( Amer) Est GFR (Non-Af Amer) BUN/Creatinine Ratio (10-20) Glucose (70-99) mg/dl POC Glucose (70-99) POC Glucose (other) 111 H (70-99) mg/dl Estimat Average Glucose mg/dl Hemoglobin A1c (4.5-5.6) % Lactate 1.3 (0.4-2.0) mmol/L Calcium (8.5-10.1) mg/dl POC Ioniz Calcium Amol 1.10 L (1.12-1.32) mmol/l Magnesium (1.8-2.4) mg/dl Total Bilirubin (0.2-1) mg/dl AST (15-37) U/L ALT (12-78) U/L Alkaline Phosphatase (45-117) U/L Ammonia 27.7 (11-32) umol/L Troponin I (0-0.045) ng/ml C-Reactive Protein (0-0.29) mg/dl Total Protein (6.4-8.2) gm/dl Albumin (3.4-5.0) gm/dl Globulin (2.5-4.0) gm/dl Albumin/Globulin Ratio (0.9-2) Triglycerides (0-150) mg/dl Cholesterol (0-200) mg/dl LDL Cholesterol, Calc mg/dl VLDL Cholesterol, Calc mg/dl HDL Cholesterol mg/dl Cholesterol/HDL Ratio TSH (0.300-4.500) uIu/ml Free T4 (0.8-1.6) ng/dl Urine Color Urine Appearance (Clear) Urine pH (4.5-7.5) Ur Specific [place] (1.000-1.030) Urine Protein (Negative) Urine Glucose (UA) (Negative) Urine Ketones (Negative) Urine Blood (Negative) Urine Nitrite (Negative) Urine Bilirubin (Negative) Urine Urobilinogen (Negative) Ur Leukocyte Esterase (Negative) CSF Appearance CSF Color Xanthrochromic CSF WBC (0-5) /uL CSF RBC (0-) /uL CSF Cell Count Tube # CSF Chemistry Tube # CSF Glucose (40-70) mg/dl CSF Total Protein (15-45) mg/dl Lyme Disease IgG Ab (Negative) Lyme Disease IgM Ab (Negative) Hepatitis C Ab Screen (Neg) Influenza Type A Ag (Neg) Influenza Type B Ag (Neg) 06/13/18 06/13/18 06/13/18 Range/Units 13:33 14:35 14:35 WBC (4.8-10.8) K/uL RBC (4.7-6.1) M/uL Hgb (14.0-18.0) g/dL POC Hgb (14.0-18.0) g/dl Hct (42-52) % POC Hct (42-52) % MCV (80-100) fL MCH (25-34) pg MCHC (32-36) g/dL RDW Std Deviation (36.4-46.3) fL RDW Coeff of Martin (11.5-14.5) % Plt Count (130-400) K/uL MPV (7.4-10.4) fL Immature Gran % (Auto) % Neut % (Auto) % Lymph % (Auto) % [place] % (Auto) % Eos % (Auto) % Baso % (Auto) % Immature Gran # (Auto) (0.00-0.02) K/uL Neut # (Auto) (1.4-6.5) K/uL Lymph # (Auto) (1.2-3.4) K/uL [place] # (Auto) (0.11-0.59) K/uL Eos # (Auto) (0-0.5) K/uL Baso # (Auto) (0-0.2) K/uL ESR (0-14) mm/hr PT (9.0-12.0) Seconds INR (0.9-1.1) APTT (21.0-31.0) Seconds PTT Ratio VBG pH 7.45 H (7.36-7.41) VBG pCO2 37 L (38-50) mmHg VBG pO2 36 mmHg VBG HCO3 25 mmol/L VBG O2 Saturation 68.9 % VBG Base Excess 1.4 mEq/L Carboxyhemoglobin % THgb Barometric Pressure 720.6 mm/Hg POC Sodium (135-144) mEq/L Sodium (136-145) mmol/L POC Potassium (3.3-5.0) mEq/L Potassium (3.5-5.1) mmol/L POC Chloride (101-112) mEq/L Chloride (98-107) mmol/L Carbon Dioxide (21-32) mmol/L POC Total CO2 (24-31) mEq/l Anion Gap (3-11) POC Anion Gap (16-25) mmol/L POC BUN (7-18) mg/dl BUN (7-18) mg/dl Creatinine (0.6-1.4) mg/dl POC Creatinine (0.6-1.3) mg/dl Est Cr Clr Drug Dosing ml/min Est GFR ( Amer) Est GFR (Non-Af Amer) BUN/Creatinine Ratio (10-20) Glucose (70-99) mg/dl POC Glucose (70-99) POC Glucose (other) (70-99) mg/dl Estimat Average Glucose mg/dl Hemoglobin A1c (4.5-5.6) % Lactate (0.4-2.0) mmol/L Calcium (8.5-10.1) mg/dl POC Ioniz Calcium Amol (1.12-1.32) mmol/l Magnesium (1.8-2.4) mg/dl Total Bilirubin (0.2-1) mg/dl AST (15-37) U/L ALT (12-78) U/L Alkaline Phosphatase (45-117) U/L Ammonia (11-32) umol/L Troponin I (0-0.045) ng/ml C-Reactive Protein (0-0.29) mg/dl Total Protein (6.4-8.2) gm/dl Albumin (3.4-5.0) gm/dl Globulin (2.5-4.0) gm/dl Albumin/Globulin Ratio (0.9-2) Triglycerides (0-150) mg/dl Cholesterol (0-200) mg/dl LDL Cholesterol, Calc mg/dl VLDL Cholesterol, Calc mg/dl HDL Cholesterol mg/dl Cholesterol/HDL Ratio TSH (0.300-4.500) uIu/ml Free T4 (0.8-1.6) ng/dl Urine Color Urine Appearance (Clear) Urine pH (4.5-7.5) Ur Specific [place] (1.000-1.030) Urine Protein (Negative) Urine Glucose (UA) (Negative) Urine Ketones (Negative) Urine Blood (Negative) Urine Nitrite (Negative) Urine Bilirubin (Negative) Urine Urobilinogen (Negative) Ur Leukocyte Esterase (Negative) CSF Appearance Clear CSF Color Colorless Xanthrochromic No xanthochromia CSF WBC 0 (0-5) /uL CSF RBC 8 (0-) /uL CSF Cell Count Tube # 3 CSF Chemistry Tube # 1 CSF Glucose 58 (40-70) mg/dl CSF Total Protein 44.6 (15-45) mg/dl Lyme Disease IgG Ab (Negative) Lyme Disease IgM Ab (Negative) Hepatitis C Ab Screen (Neg) Influenza Type A Ag (Neg) Influenza Type B Ag (Neg) 06/13/18 06/13/18 06/13/18 Range/Units 14:35 14:58 14:58 WBC (4.8-10.8) K/uL RBC (4.7-6.1) M/uL Hgb (14.0-18.0) g/dL POC Hgb (14.0-18.0) g/dl Hct (42-52) % POC Hct (42-52) % MCV (80-100) fL MCH (25-34) pg MCHC (32-36) g/dL RDW Std Deviation (36.4-46.3) fL RDW Coeff of Martin (11.5-14.5) % Plt Count (130-400) K/uL MPV (7.4-10.4) fL Immature Gran % (Auto) % Neut % (Auto) % Lymph % (Auto) % [place] % (Auto) % Eos % (Auto) % Baso % (Auto) % Immature Gran # (Auto) (0.00-0.02) K/uL Neut # (Auto) (1.4-6.5) K/uL Lymph # (Auto) (1.2-3.4) K/uL [place] # (Auto) (0.11-0.59) K/uL Eos # (Auto) (0-0.5) K/uL Baso # (Auto) (0-0.2) K/uL ESR (0-14) mm/hr PT (9.0-12.0) Seconds INR (0.9-1.1) APTT (21.0-31.0) Seconds PTT Ratio VBG pH (7.36-7.41) VBG pCO2 (38-50) mmHg VBG pO2 mmHg VBG HCO3 mmol/L VBG O2 Saturation % VBG Base Excess mEq/L Carboxyhemoglobin 0.6 % THgb Barometric Pressure mm/Hg POC Sodium (135-144) mEq/L Sodium (136-145) mmol/L POC Potassium (3.3-5.0) mEq/L Potassium (3.5-5.1) mmol/L POC Chloride (101-112) mEq/L Chloride (98-107) mmol/L Carbon Dioxide (21-32) mmol/L POC Total CO2 (24-31) mEq/l Anion Gap (3-11) POC Anion Gap (16-25) mmol/L POC BUN (7-18) mg/dl BUN (7-18) mg/dl Creatinine (0.6-1.4) mg/dl POC Creatinine (0.6-1.3) mg/dl Est Cr Clr Drug Dosing ml/min Est GFR ( Amer) Est GFR (Non-Af Amer) BUN/Creatinine Ratio (10-20) Glucose (70-99) mg/dl POC Glucose (70-99) POC Glucose (other) (70-99) mg/dl Estimat Average Glucose mg/dl Hemoglobin A1c (4.5-5.6) % Lactate (0.4-2.0) mmol/L Calcium (8.5-10.1) mg/dl POC Ioniz Calcium Amol (1.12-1.32) mmol/l Magnesium (1.8-2.4) mg/dl Total Bilirubin (0.2-1) mg/dl AST (15-37) U/L ALT (12-78) U/L Alkaline Phosphatase (45-117) U/L Ammonia (11-32) umol/L Troponin I (0-0.045) ng/ml C-Reactive Protein (0-0.29) mg/dl Total Protein (6.4-8.2) gm/dl Albumin (3.4-5.0) gm/dl Globulin (2.5-4.0) gm/dl Albumin/Globulin Ratio (0.9-2) Triglycerides (0-150) mg/dl Cholesterol (0-200) mg/dl LDL Cholesterol, Calc mg/dl VLDL Cholesterol, Calc mg/dl HDL Cholesterol mg/dl Cholesterol/HDL Ratio TSH (0.300-4.500) uIu/ml Free T4 (0.8-1.6) ng/dl Urine Color Urine Appearance (Clear) Urine pH (4.5-7.5) Ur Specific [place] (1.000-1.030) Urine Protein (Negative) Urine Glucose (UA) (Negative) Urine Ketones (Negative) Urine Blood (Negative) Urine Nitrite (Negative) Urine Bilirubin (Negative) Urine Urobilinogen (Negative) Ur Leukocyte Esterase (Negative) CSF Appearance CSF Color Xanthrochromic CSF WBC (0-5) /uL CSF RBC (0-) /uL CSF Cell Count Tube # CSF Chemistry Tube # CSF Glucose (40-70) mg/dl CSF Total Protein Cancelled (15-45) mg/dl Lyme Disease IgG Ab Negative (Negative) Lyme Disease IgM Ab Negative (Negative) Hepatitis C Ab Screen (Neg) Influenza Type A Ag (Neg) Influenza Type B Ag (Neg) 06/13/18 06/14/18 06/14/18 Range/Units 17:40 05:56 05:56 WBC 17.62 H (4.8-10.8) K/uL RBC 4.26 L (4.7-6.1) M/uL Hgb 12.9 L (14.0-18.0) g/dL POC Hgb (14.0-18.0) g/dl Hct 37.2 L (42-52) % POC Hct (42-52) % MCV 87.3 (80-100) fL MCH 30.3 (25-34) pg MCHC 34.7 (32-36) g/dL RDW Std Deviation 44.5 (36.4-46.3) fL RDW Coeff of Martin 14.1 (11.5-14.5) % Plt Count 132 (130-400) K/uL MPV 10.9 H (7.4-10.4) fL Immature Gran % (Auto) 0.5 % Neut % (Auto) 45.5 % Lymph % (Auto) 6.7 % [place] % (Auto) 6.5 % Eos % (Auto) 40.7 % Baso % (Auto) 0.1 % Immature Gran # (Auto) 0.08 H (0.00-0.02) K/uL Neut # (Auto) 8.02 H (1.4-6.5) K/uL Lymph # (Auto) 1.18 L (1.2-3.4) K/uL [place] # (Auto) 1.14 H (0.11-0.59) K/uL Eos # (Auto) 7.18 H (0-0.5) K/uL Baso # (Auto) 0.02 (0-0.2) K/uL ESR (0-14) mm/hr PT (9.0-12.0) Seconds INR (0.9-1.1) APTT (21.0-31.0) Seconds PTT Ratio VBG pH (7.36-7.41) VBG pCO2 (38-50) mmHg VBG pO2 mmHg VBG HCO3 mmol/L VBG O2 Saturation % VBG Base Excess mEq/L Carboxyhemoglobin % THgb Barometric Pressure mm/Hg POC Sodium (135-144) mEq/L Sodium 135 L (136-145) mmol/L POC Potassium (3.3-5.0) mEq/L Potassium 3.9 (3.5-5.1) mmol/L POC Chloride (101-112) mEq/L Chloride 102 (98-107) mmol/L Carbon Dioxide 24 (21-32) mmol/L POC Total CO2 (24-31) mEq/l Anion Gap 9.0 (3-11) POC Anion Gap (16-25) mmol/L POC BUN (7-18) mg/dl BUN 12 (7-18) mg/dl Creatinine 0.95 (0.6-1.4) mg/dl POC Creatinine (0.6-1.3) mg/dl Est Cr Clr Drug Dosing 81.7 ml/min Est GFR ( Amer) 97.7 Est GFR (Non-Af Amer) 84.3 BUN/Creatinine Ratio 12.6 (10-20) Glucose 86 (70-99) mg/dl POC Glucose (70-99) POC Glucose (other) (70-99) mg/dl Estimat Average Glucose mg/dl Hemoglobin A1c (4.5-5.6) % Lactate (0.4-2.0) mmol/L Calcium 8.3 L (8.5-10.1) mg/dl POC Ioniz Calcium Amol (1.12-1.32) mmol/l Magnesium (1.8-2.4) mg/dl Total Bilirubin (0.2-1) mg/dl AST (15-37) U/L ALT (12-78) U/L Alkaline Phosphatase (45-117) U/L Ammonia (11-32) umol/L Troponin I (0-0.045) ng/ml C-Reactive Protein (0-0.29) mg/dl Total Protein (6.4-8.2) gm/dl Albumin (3.4-5.0) gm/dl Globulin (2.5-4.0) gm/dl Albumin/Globulin Ratio (0.9-2) Triglycerides 104 (0-150) mg/dl Cholesterol 95 (0-200) mg/dl LDL Cholesterol, Calc 38 mg/dl VLDL Cholesterol, Calc 21 mg/dl HDL Cholesterol 36 mg/dl Cholesterol/HDL Ratio 3 TSH (0.300-4.500) uIu/ml Free T4 (0.8-1.6) ng/dl Urine Color Urine Appearance (Clear) Urine pH (4.5-7.5) Ur Specific [place] (1.000-1.030) Urine Protein (Negative) Urine Glucose (UA) (Negative) Urine Ketones (Negative) Urine Blood (Negative) Urine Nitrite (Negative) Urine Bilirubin (Negative) Urine Urobilinogen (Negative) Ur Leukocyte Esterase (Negative) CSF Appearance CSF Color Xanthrochromic CSF WBC (0-5) /uL CSF RBC (0-) /uL CSF Cell Count Tube # CSF Chemistry Tube # CSF Glucose (40-70) mg/dl CSF Total Protein (15-45) mg/dl Lyme Disease IgG Ab (Negative) Lyme Disease IgM Ab (Negative) Hepatitis C Ab Screen (Neg) Influenza Type A Ag Neg for Influ A (Neg) Influenza Type B Ag Neg for Influ B (Neg) 06/14/18 06/14/18 06/14/18 Range/Units 13:58 13:58 16:00 WBC (4.8-10.8) K/uL RBC (4.7-6.1) M/uL Hgb (14.0-18.0) g/dL POC Hgb (14.0-18.0) g/dl Hct (42-52) % POC Hct (42-52) % MCV (80-100) fL MCH (25-34) pg MCHC (32-36) g/dL RDW Std Deviation (36.4-46.3) fL RDW Coeff of Martin (11.5-14.5) % Plt Count (130-400) K/uL MPV (7.4-10.4) fL Immature Gran % (Auto) % Neut % (Auto) % Lymph % (Auto) % [place] % (Auto) % Eos % (Auto) % Baso % (Auto) % Immature Gran # (Auto) (0.00-0.02) K/uL Neut # (Auto) (1.4-6.5) K/uL Lymph # (Auto) (1.2-3.4) K/uL [place] # (Auto) (0.11-0.59) K/uL Eos # (Auto) (0-0.5) K/uL Baso # (Auto) (0-0.2) K/uL ESR 59 H (0-14) mm/hr PT 12.2 H (9.0-12.0) Seconds INR 1.2 H (0.9-1.1) APTT 33.1 H (21.0-31.0) Seconds PTT Ratio 1.3 VBG pH (7.36-7.41) VBG pCO2 (38-50) mmHg VBG pO2 mmHg VBG HCO3 mmol/L VBG O2 Saturation % VBG Base Excess mEq/L Carboxyhemoglobin % THgb Barometric Pressure mm/Hg POC Sodium (135-144) mEq/L Sodium (136-145) mmol/L POC Potassium (3.3-5.0) mEq/L Potassium (3.5-5.1) mmol/L POC Chloride (101-112) mEq/L Chloride (98-107) mmol/L Carbon Dioxide (21-32) mmol/L POC Total CO2 (24-31) mEq/l Anion Gap (3-11) POC Anion Gap (16-25) mmol/L POC BUN (7-18) mg/dl BUN (7-18) mg/dl Creatinine (0.6-1.4) mg/dl POC Creatinine (0.6-1.3) mg/dl Est Cr Clr Drug Dosing ml/min Est GFR ( Amer) Est GFR (Non-Af Amer) BUN/Creatinine Ratio (10-20) Glucose (70-99) mg/dl POC Glucose (70-99) POC Glucose (other) (70-99) mg/dl Estimat Average Glucose mg/dl Hemoglobin A1c (4.5-5.6) % Lactate (0.4-2.0) mmol/L Calcium (8.5-10.1) mg/dl POC Ioniz Calcium Amol (1.12-1.32) mmol/l Magnesium (1.8-2.4) mg/dl Total Bilirubin (0.2-1) mg/dl AST (15-37) U/L ALT (12-78) U/L Alkaline Phosphatase (45-117) U/L Ammonia (11-32) umol/L Troponin I (0-0.045) ng/ml C-Reactive Protein 7.54 H (0-0.29) mg/dl Total Protein (6.4-8.2) gm/dl Albumin (3.4-5.0) gm/dl Globulin (2.5-4.0) gm/dl Albumin/Globulin Ratio (0.9-2) Triglycerides (0-150) mg/dl Cholesterol (0-200) mg/dl LDL Cholesterol, Calc mg/dl VLDL Cholesterol, Calc mg/dl HDL Cholesterol mg/dl Cholesterol/HDL Ratio TSH (0.300-4.500) uIu/ml Free T4 (0.8-1.6) ng/dl Urine Color Urine Appearance (Clear) Urine pH (4.5-7.5) Ur Specific [place] (1.000-1.030) Urine Protein (Negative) Urine Glucose (UA) (Negative) Urine Ketones (Negative) Urine Blood (Negative) Urine Nitrite (Negative) Urine Bilirubin (Negative) Urine Urobilinogen (Negative) Ur Leukocyte Esterase (Negative) CSF Appearance CSF Color Xanthrochromic CSF WBC (0-5) /uL CSF RBC (0-) /uL CSF Cell Count Tube # CSF Chemistry Tube # CSF Glucose (40-70) mg/dl CSF Total Protein (15-45) mg/dl Lyme Disease IgG Ab (Negative) Lyme Disease IgM Ab (Negative) Hepatitis C Ab Screen (Neg) Influenza Type A Ag (Neg) Influenza Type B Ag (Neg) 06/14/18 06/15/18 06/15/18 Range/Units 22:20 01:48 05:47 WBC 17.82 H (4.8-10.8) K/uL RBC 4.09 L (4.7-6.1) M/uL Hgb 12.7 L (14.0-18.0) g/dL POC Hgb (14.0-18.0) g/dl Hct 35.6 L (42-52) % POC Hct (42-52) % MCV 87.0 (80-100) fL MCH 31.1 (25-34) pg MCHC 35.7 (32-36) g/dL RDW Std Deviation 44.5 (36.4-46.3) fL RDW Coeff of Martin 14.1 (11.5-14.5) % Plt Count 123 L (130-400) K/uL MPV 9.8 (7.4-10.4) fL Immature Gran % (Auto) 0.5 % Neut % (Auto) 43.5 % Lymph % (Auto) 9.9 % [place] % (Auto) 6.2 % Eos % (Auto) 39.8 % Baso % (Auto) 0.1 % Immature Gran # (Auto) 0.09 H (0.00-0.02) K/uL Neut # (Auto) 7.74 H (1.4-6.5) K/uL Lymph # (Auto) 1.76 (1.2-3.4) K/uL [place] # (Auto) 1.11 H (0.11-0.59) K/uL Eos # (Auto) 7.10 H (0-0.5) K/uL Baso # (Auto) 0.02 (0-0.2) K/uL ESR (0-14) mm/hr PT (9.0-12.0) Seconds INR (0.9-1.1) APTT 39.0 H (21.0-31.0) Seconds PTT Ratio 1.5 VBG pH (7.36-7.41) VBG pCO2 (38-50) mmHg VBG pO2 mmHg VBG HCO3 mmol/L VBG O2 Saturation % VBG Base Excess mEq/L Carboxyhemoglobin % THgb Barometric Pressure mm/Hg POC Sodium (135-144) mEq/L Sodium (136-145) mmol/L POC Potassium (3.3-5.0) mEq/L Potassium (3.5-5.1) mmol/L POC Chloride (101-112) mEq/L Chloride (98-107) mmol/L Carbon Dioxide (21-32) mmol/L POC Total CO2 (24-31) mEq/l Anion Gap (3-11) POC Anion Gap (16-25) mmol/L POC BUN (7-18) mg/dl BUN (7-18) mg/dl Creatinine (0.6-1.4) mg/dl POC Creatinine (0.6-1.3) mg/dl Est Cr Clr Drug Dosing ml/min Est GFR ( Amer) Est GFR (Non-Af Amer) BUN/Creatinine Ratio (10-20) Glucose (70-99) mg/dl POC Glucose (70-99) POC Glucose (other) (70-99) mg/dl Estimat Average Glucose mg/dl Hemoglobin A1c (4.5-5.6) % Lactate (0.4-2.0) mmol/L Calcium (8.5-10.1) mg/dl POC Ioniz Calcium Amol (1.12-1.32) mmol/l Magnesium (1.8-2.4) mg/dl Total Bilirubin (0.2-1) mg/dl AST (15-37) U/L ALT (12-78) U/L Alkaline Phosphatase (45-117) U/L Ammonia (11-32) umol/L Troponin I (0-0.045) ng/ml C-Reactive Protein (0-0.29) mg/dl Total Protein (6.4-8.2) gm/dl Albumin (3.4-5.0) gm/dl Globulin (2.5-4.0) gm/dl Albumin/Globulin Ratio (0.9-2) Triglycerides (0-150) mg/dl Cholesterol (0-200) mg/dl LDL Cholesterol, Calc mg/dl VLDL Cholesterol, Calc mg/dl HDL Cholesterol mg/dl Cholesterol/HDL Ratio TSH (0.300-4.500) uIu/ml Free T4 (0.8-1.6) ng/dl Urine Color Yellow Urine Appearance Clear (Clear) Urine pH 6.5 (4.5-7.5) Ur Specific [place] 1.016 (1.000-1.030) Urine Protein Negative (Negative) Urine Glucose (UA) Negative (Negative) Urine Ketones 2+ H (Negative) Urine Blood Negative (Negative) Urine Nitrite Negative (Negative) Urine Bilirubin Negative (Negative) Urine Urobilinogen Negative (Negative) Ur Leukocyte Esterase Negative (Negative) CSF Appearance CSF Color Xanthrochromic CSF WBC (0-5) /uL CSF RBC (0-) /uL CSF Cell Count Tube # CSF Chemistry Tube # CSF Glucose (40-70) mg/dl CSF Total Protein (15-45) mg/dl Lyme Disease IgG Ab (Negative) Lyme Disease IgM Ab (Negative) Hepatitis C Ab Screen (Neg) Influenza Type A Ag (Neg) Influenza Type B Ag (Neg) 06/15/18 Range/Units 05:47 WBC (4.8-10.8) K/uL RBC (4.7-6.1) M/uL Hgb (14.0-18.0) g/dL POC Hgb (14.0-18.0) g/dl Hct (42-52) % POC Hct (42-52) % MCV (80-100) fL MCH (25-34) pg MCHC (32-36) g/dL RDW Std Deviation (36.4-46.3) fL RDW Coeff of Martin (11.5-14.5) % Plt Count (130-400) K/uL MPV (7.4-10.4) fL Immature Gran % (Auto) % Neut % (Auto) % Lymph % (Auto) % [place] % (Auto) % Eos % (Auto) % Baso % (Auto) % Immature Gran # (Auto) (0.00-0.02) K/uL Neut # (Auto) (1.4-6.5) K/uL Lymph # (Auto) (1.2-3.4) K/uL [place] # (Auto) (0.11-0.59) K/uL Eos # (Auto) (0-0.5) K/uL Baso # (Auto) (0-0.2) K/uL ESR (0-14) mm/hr PT (9.0-12.0) Seconds INR (0.9-1.1) APTT 55.7 H* (21.0-31.0) Seconds PTT Ratio 2.1 VBG pH (7.36-7.41) VBG pCO2 (38-50) mmHg VBG pO2 mmHg VBG HCO3 mmol/L VBG O2 Saturation % VBG Base Excess mEq/L Carboxyhemoglobin % THgb Barometric Pressure mm/Hg POC Sodium (135-144) mEq/L Sodium (136-145) mmol/L POC Potassium (3.3-5.0) mEq/L Potassium (3.5-5.1) mmol/L POC Chloride (101-112) mEq/L Chloride (98-107) mmol/L Carbon Dioxide (21-32) mmol/L POC Total CO2 (24-31) mEq/l Anion Gap (3-11) POC Anion Gap (16-25) mmol/L POC BUN (7-18) mg/dl BUN (7-18) mg/dl Creatinine (0.6-1.4) mg/dl POC Creatinine (0.6-1.3) mg/dl Est Cr Clr Drug Dosing ml/min Est GFR ( Amer) Est GFR (Non-Af Amer) BUN/Creatinine Ratio (10-20) Glucose (70-99) mg/dl POC Glucose (70-99) POC Glucose (other) (70-99) mg/dl Estimat Average Glucose mg/dl Hemoglobin A1c (4.5-5.6) % Lactate (0.4-2.0) mmol/L Calcium (8.5-10.1) mg/dl POC Ioniz Calcium Amol (1.12-1.32) mmol/l Magnesium (1.8-2.4) mg/dl Total Bilirubin (0.2-1) mg/dl AST (15-37) U/L ALT (12-78) U/L Alkaline Phosphatase (45-117) U/L Ammonia (11-32) umol/L Troponin I (0-0.045) ng/ml C-Reactive Protein (0-0.29) mg/dl Total Protein (6.4-8.2) gm/dl Albumin (3.4-5.0) gm/dl Globulin (2.5-4.0) gm/dl Albumin/Globulin Ratio (0.9-2) Triglycerides (0-150) mg/dl Cholesterol (0-200) mg/dl LDL Cholesterol, Calc mg/dl VLDL Cholesterol, Calc mg/dl HDL Cholesterol mg/dl Cholesterol/HDL Ratio TSH (0.300-4.500) uIu/ml Free T4 (0.8-1.6) ng/dl Urine Color Urine Appearance (Clear) Urine pH (4.5-7.5) Ur Specific [place] (1.000-1.030) Urine Protein (Negative) Urine Glucose (UA) (Negative) Urine Ketones (Negative) Urine Blood (Negative) Urine Nitrite (Negative) Urine Bilirubin (Negative) Urine Urobilinogen (Negative) Ur Leukocyte Esterase (Negative) CSF Appearance CSF Color Xanthrochromic CSF WBC (0-5) /uL CSF RBC (0-) /uL CSF Cell Count Tube # CSF Chemistry Tube # CSF Glucose (40-70) mg/dl CSF Total Protein (15-45) mg/dl Lyme Disease IgG Ab (Negative) Lyme Disease IgM Ab (Negative) Hepatitis C Ab Screen (Neg) Influenza Type A Ag (Neg) Influenza Type B Ag (Neg) Imaging Data Radiologist's Impression: Radiology results as stated below per my review and the radiologist's interpretation: XR chest 1V portable CLINICAL HISTORY: 63 years-old Male presenting with weakness. TECHNIQUE: Portable upright AP view of the chest was obtained. COMPARISON: CTA chest from 06/04/2018 and chest x-ray from 06/04/2018. FINDINGS: Atherosclerosis of the aortic arch. Cardiac silhouette enlarged. Bandlike opacity in the left retrocardiac region with obscuration of the left hemidiaphragm similar to prior exam. Small bilateral pleural effusions. No pneumothorax. Osseous structures normal. IMPRESSION: 1. Small bilateral pleural effusions. 2. Persistent left retrocardiac infiltrate. This could represent extensive atelectasis or aspiration. Electronically signed by: Darryl Osorio M.D. 06/13/2018 1:[address] SCAN OF THE BRAIN WITHOUT IV CONTRAST CLINICAL HISTORY: Change in mental status. COMPARISON STUDY: CT of the brain dated 06/04/2018. TECHNIQUE: Unenhanced axial CT scan of the brain is performed from the vertex to the skull base. A dose lowering technique was utilized adhering to the principles of ALARA. CT DOSE: 614.27 mGy.cm FINDINGS: Brain parenchyma: There are age-related involutional changes noting mild subcortical and periventricular microangiopathic change. There is no hemorrhage , mass effect, or evidence of acute territorial ischemia by CT criteria. Dhillon- white matter differentiation is preserved. No extra-axial fluid collection is seen. Ventricles, sulci, cisterns: Prominent secondary to involutional change. Intracranial vasculature: There is atherosclerotic calcification of the cavernous carotid arteries. Calvarium: Unremarkable. Sinuses and mastoids: There is trace mucosal thickening within the left maxillary antrum. The remaining visualized paranasal sinuses are clear. The mastoid air cells are well pneumatized. Orbits: The bony orbits are grossly intact. IMPRESSION: There is no hemorrhage, mass effect, or evidence of acute territorial ischemia by CT criteria. Electronically signed by: Dalton Schneider M.D. 06/13/2018 1:23 PM ECG Data Attestation: I personally reviewed and interpreted this ECG as follows: Indication: altered mental status Rate (beats per minute): 70 Rhythm: normal sinus Findings: + T-wave inversion (anterior and lateral); no PAC and no PVC Comparison ECG Date: from (06/06/18) Change: the following changes noted (changes are new) Blood Pressure Blood Pressure Findings: Normal blood pressure Blood Pressure Disposition: did not require urgent referral MDM Narrative The patient is a 63-year-old male who presented to the emergency department with his brother for an evaluation of altered mental status. The patient was recently admitted to our facility with similar complaints. At that time he was diagnosed with pneumonia. The patient was treated with antibiotics and was feeling much better was able to be discharged home. He returns emergency department today with similar complaints. He was not made a stroke alert because his symptoms seem to a started sometime during the night although he specifically remembers feeling "off" this morning between 5 and 6 in the morning. The patient currently takes Eliquis. I discussed the patient's laboratory and radiographic studies with him. I also discussed his condition with the on-call [facility] hospitalist. I was concerned because the patient's elevated white blood cell count as well as his eosinophilia that there could be some other issue going on and given his altered mental status a lumbar puncture was obtained. At this time the patient's anticoagulation for his atrial fibrillation is to be held. The patient was given antibiotics in the emergency department. The patient was reevaluated multiple times. I reviewed the patient 's previous electronic medical records. Impression & Plan Altered mental status, Persistent pneumonia, Eosinophilia Discharge Plan Visit Data *Final* Discharge Date/Time: 06/13/18 16:06 Chief Complaint: Illness Stated Complaint: NOT FELLING WELL Other Complaint: Neuro Symptoms/Deficit ED Provider: Forrest Cavazos Discharge Problem: Altered mental status, Persistent pneumonia, Eosinophilia Patient Disposition: Admitted As Inpatient Discharge Instructions Interventions: ED Discharge Assessment Last Done: 06/13/18 16:06 The scribe's documentation has been prepared under my direction and personally reviewed by me in its entirety. I confirm that the note above accurately reflects all work, treatment, procedures, and medical decision making performed by me.
[2018-06-13 13:17] LABS: iSTAT Creatinine 1.1 mg/dl (0.6-1.3); iSTAT Hemoglobin 13.9 g/dl (14.0-18.0); iSTAT Ionized Calcium 1.1 mmol/l (1.12-1.32); iSTAT Potassium 3.8 mEq/L (3.3-5.0)
[2018-06-13 13:21] LABS: Basophils # (auto) 0.01 K/uL (0-0.2); Basophils % (auto) 0.1 %; Eosinophils # (auto) 4.58 K/uL (0-0.5); Eosinophils % (auto) 28.1 %; Hematocrit (blood only) 38.6 % (42-52); Hemoglobin 13.2 g/dL (14.0-18.0); Immature Granulocytes # (auto) 0.11 K/uL (0.00-0.02); Immature Granulocytes % (auto) 0.7 %; Lymphocytes # (auto) 1.03 K/uL (1.2-3.4); Lymphocytes % (auto) 6.3 %; Mean Corpuscular Hgb Conc 34.2 g/dL (32-36); Mean Corpuscular Volume 87.9 fL (80-100); Mean Platelet Volume 10.8 fL (7.4-10.4); Monocytes # (auto) 0.85 K/uL (0.11-0.59); Monocytes % (auto) 5.2 %; Neutrophils # (auto) 9.69 K/uL (1.4-6.5); Neutrophils % (auto) 59.6 %; Platelet Count 170 K/uL (130-400); RDW Coefficient of Variation 14.1 % (11.5-14.5); RDW Standard Deviation 45.3 fL (36.4-46.3); Red Blood Count 4.39 M/uL (4.7-6.1); White Blood Count 16.27 K/uL (4.8-10.8)
--- NOTE | 2018-06-13 13:25 | CT Scan Report ---
CT SCAN OF THE BRAIN WITHOUT IV CONTRAST CLINICAL HISTORY: Change in mental status. COMPARISON STUDY: CT of the brain dated 06/04/2018. TECHNIQUE: Unenhanced axial CT scan of the brain is performed from the vertex to the skull base. A do se lowering technique was utilized adhering to the principles of ALARA. CT DOSE: 614.27 mGy.cm FINDINGS: Brain parenchyma: There are age-related involutional changes noting mild subcortical and periventric ular microangiopathic change. There is no hemorrhage, mass effect, or evidence of acute territorial i schemia by CT criteria. Dhillon-white matter differentiation is preserved. No extra-axial fluid collecti on is seen. Ventricles, sulci, cisterns: Prominent secondary to involutional change. Intracranial vasculature: There is atherosclerotic calcification of the cavernous carotid arteries. Calvarium: Unremarkable. Sinuses and mastoids: There is trace mucosal thickening within the left maxillary antrum. The remaini ng visualized paranasal sinuses are clear. The mastoid air cells are well pneumatized. Orbits: The bony orbits are grossly intact. IMPRESSION: There is no hemorrhage, mass effect, or evidence of acute territorial ischemia by CT catarinat paulie. Electronically signed by: Dalton Schneider M.D. 06/13/2018 1:23 PM
[2018-06-13 13:29] LABS: INR 1.2 (0.9-1.1); Prothrombin Time 12.1 Seconds (9.0-12.0)
--- NOTE | 2018-06-13 13:35 | XRay Report ---
XR chest 1V portable CLINICAL HISTORY: 63 years-old Male presenting with weakness. TECHNIQUE: Portable upright AP view of the chest was obtained. COMPARISON: CTA chest from 06/04/2018 and chest x-ray from 06/04/2018. FINDINGS: Atherosclerosis of the aortic arch. Cardiac silhouette enlarged. Bandlike opacity in the left retroca rdiac region with obscuration of the left hemidiaphragm similar to prior exam. Small bilateral pleura l effusions. No pneumothorax. Osseous structures normal. IMPRESSION: 1. Small bilateral pleural effusions. 2. Persistent left retrocardiac infiltrate. This could represent extensive atelectasis or aspiration . Electronically signed by: Darryl Osorio M.D. 06/13/2018 1:34 PM
[2018-06-13 13:36] LABS: Albumin Level 3.1 gm/dl (3.4-5.0); BUN Creatinine Ratio 12.1 (10-20); Calcium 8.9 mg/dl (8.5-10.1); Creatinine Clr Calc Pharmacy 63.1 ml/min; Est GFR (African American) 71.5; Est GFR (Non-African American) 61.7; Magnesium 2.5 mg/dl (1.8-2.4); Potassium 3.7 mmol/L (3.5-5.1)
[2018-06-13 13:51] LABS: Base Excess VBG 1.4 mEq/L; Oxygen Saturation VBG 68.9 %; pH VBG 7.45 (7.36-7.41)
[2018-06-13 13:57] LABS: Albumin Globulin Ratio 0.6 (0.9-2); Bilirubin,Total 0.8 mg/dl (0.2-1); Globulin 5.6 gm/dl (2.5-4.0); Total Protein 8.7 gm/dl (6.4-8.2); Troponin I 0.929 ng/ml (0-0.045)
[2018-06-13 14:13] LABS: T4 Free Thyroxine 1.32 ng/dl (0.8-1.6)
[2018-06-13] MEDS ORDERED: LIDOCAINE HCL 1% 20 ML VIAL ONE (14:28)
[2018-06-13] MEDS ORDERED: cefTRIAXone SODIUM 2,000 MG in DEXTROSE 5% 50 ML IV STA (14:47)
[2018-06-13 15:05] LABS: Appearance CSF Clear; CSF Count Tube # 3; CSF Xanthrochromic No xanthochromia; Color CSF Colorless; Red Blood Cell CSF (A) 8 /uL (0-); White Blood Cell CSF (A) 0 /uL (0-5)
[2018-06-13 15:13] LABS: Total Protein CSF 44.6 mg/dl (15-45)
[2018-06-13 15:58] LABS: Lyme Ab IgG w/WB Rflx Negative (Negative); Lyme Ab IgM w/WB Rflx Negative (Negative)
--- NOTE | 2018-06-13 16:13 | History & Physical Report ---
Date of Service June 13, 2018 Assessment & Plan (1) Altered mental status: (2) Leukocytosis: (3) Eosinophilia: -Admit to telemetry -Patient presenting from home with reports of altered mental status and confusion -Recent admission to [facility] for pneumonia, elevated troponin (cardiac cath demonstrated widely patent coronary arteries), paroxysmal atrial fibrillation -In the ED, labs show WBC 16 K, eosinophils 4.5K; hemodynamically stable, afebrile -Head CT negative for acute intracranial findings -Neurochecks, check brain MRI -Had recent echo on 06/05/18 -CXR showing persistent left retrocardiac infiltrate. This could represent extensive atelectasis or aspiration.; Patient denies shortness of breath, cough , sputum production -Lumbar puncture performed in the ED does not suggest meningitis; await culture result -Follow blood cultures -Check UA -will hold on antibiotics for now -Eosinophilia etiology unclear at this time, ? Due to Levaquin; continue to monitor CBC -Viral etiology considered however no pancytopenia; only minimal elevation in AST and alk phos (4) Elevated troponin: -Downtrending from recent admission -No reports of chest pain, EKG demonstrates new T wave inversions anteriorly however recent cardiac cath demonstrated widely patent coronary arteries (5) Hepatitis C antibody test positive: -Had RNA testing performed in 2016 that was negative -No further workup at this time (6) Paroxysmal atrial fibrillation: -Currently in NSR -Anticoagulated on Eliquis, which will be continued -Not on rate controlling medication due to bradycardia (7) Thalamic infarction: -Continue aspirin (8) HTN (hypertension): -BP controlled, continue amlodipine (9) Dyslipidemia: -Continue statin (10) DVT prophylaxis: -Anticoagulated on Eliquis History of Present Illness Chief Complaint: Confusion Primary Care Provider: Nahum Lauren 63 year old male who presents to the ED with confusion. Patient was recently admitted to [facility] 06/04 through 06/07 for pneumonia. Patient also had an elevated troponin during previous admission and underwent cardiac catheterization that demonstrated widely patent coronary arteries. He also developed atrial fibrillation and was placed on Eliquis for anticoagulation. He spontaneously converted to NSR and heart rate remained in the 60s during hospitalization therefore rate controlling medication was not prescribed at discharge. Patient was discharged on Levaquin for treatment of the pneumonia. 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 He reports that this morning he developed confusion and reports that he had difficulty operating his cell phone. He was able to call his brother who then came to see him. Patient's brother is at the bedside currently and reports that when he arrived to the patient's house, the patient did appear confused and very indecisive. There is no reported unilateral weakness, numbness, tingling; no facial droop or slurred speech. Patient denies headache and neck stiffness. He reports that his symptoms of pneumonia have resolved, he denies shortness of breath, cough, sputum production. No fevers or chills. He reports that the Levaquin was giving him a poor taste in his mouth and therefore he had a decreased appetite. He denies abdominal pain, nausea, vomiting, diarrhea. No urinary symptoms. In the ED, patient is hemodynamically stable. Labs show WBC 16 K, eosinophils 4.5 K. CXR shows persistent left retrocardiac infiltrate. Head CT is negative for acute intracranial findings. Lumbar puncture was performed that does not suggest meningitis. Patient was given IVF and IV ceftriaxone. Allergies Allergy/AdvReac Type Severity Reaction Status Date / Time morphine AdvReac Intermediate Nausea/Vomi Verified 06/13/18 14:09 ting Home Medications Home Medications Medication Instructions Recorded Confirmed Type amlodipine 10 mg PO QAM 06/04/18 06/13/18 History atorvastatin 40 mg PO QAM 06/04/18 06/13/18 History levothyroxine 125 mcg PO QAM 06/04/18 06/13/18 History apixaban [Eliquis] 5 mg PO BID #60 tab 06/07/18 06/13/18 Rx aspirin 81 mg PO DAILY 06/13/18 06/13/18 History Past Med/Surg History Medical History Dyslipidemia (Chronic) Tobacco abuse (Resolved) Paroxysmal atrial fibrillation (Chronic) Thalamic infarction (Chronic) HTN (hypertension) (Chronic) Surgical History History of thyroidectomy (Chronic) History of left knee surgery (Chronic) Family History Brother Diabetes Mother Hypertension Social History Current Living Situation: Alone Other Information That Helps Us Care for You: No Feels Safe at Home: Yes Safety Concerns: Feels Safe At This Time Smoking Status: Former smoker Tobacco Type: cigarettes Do You Dip or Chew Tobacco: No Smoking End Date: 06/26/18 Second Hand Exposure: No Tobacco Cessation Education Requested by Patient: No Hx Alcohol Use: No Hx Substance Use: No Beliefs That Will Affect Care: None Preferred Language: Kyrgyz Communication Ability: Effective Order Runner Required: No Review of Systems ROS per HPI, all other systems reviewed and negative Physical Exam 2 Vital Signs (Past 24 Hours): Last Vital Signs Temp 36.4 C L 06/13/18 12:47 Pulse 75 06/13/18 15:36 Resp 19 06/13/18 16:06 BP 140/85 06/13/18 15:36 Pulse Ox 92 06/13/18 14:48 Constitutional: WD/WN, vitals as above Eyes: PERRL, conjunctivae normal, anicteric sclerae ENMT: external ear and nose normal, oropharynx normal Neck: no nuchal rigidity Respiratory: normal respiratory effort; no respiratory distress Auscultation: + diminished lung sounds Cardiovascular: Rate/Rhythm: regular rate and regular rhythm Vessels: normal peripheral pulses Extremities: no edema Gastrointestinal (Abdomen): normal bowel sounds, soft, nontender, no hepatosplenomegaly Musculoskeletal: no cyanosis or clubbing, extremities motor strength 5/5 Skin: no rashes, warm and dry Neurologic: PERRL, EOMI, accommodation nl, no face palsy, no dysarthria CN' s II-XI intact bilaterally and awake Cranial Nerves: normal facial strength and tongue midline Coordination: normal [id number] test and normal heel- to-charles test Psychiatric: A+Ox3, euthymic affect Results & Data Laboratory Results Laboratory Last Values WBC 16.27 K/uL (4.8-10.8) H 06/13/18 12:58 RBC 4.39 M/uL (4.7-6.1) L 06/13/18 12:58 Hgb 13.2 g/dL (14.0-18.0) L 06/13/18 12:58 POC Hgb 13.9 g/dl (14.0-18.0) L 06/13/18 13:04 Hct 38.6 % (42-52) L 06/13/18 12:58 POC Hct 41 % (42-52) L 06/13/18 13:04 MCV 87.9 fL (80-100) 06/13/18 12:58 MCH 30.1 pg (25-34) 06/13/18 12:58 MCHC 34.2 g/dL (32-36) 06/13/18 12:58 RDW Std Deviation 45.3 fL (36.4-46.3) 06/13/18 12:58 RDW Coeff of Martin 14.1 % (11.5-14.5) 06/13/18 12:58 Plt Count 170 K/uL (130-400) 06/13/18 12:58 MPV 10.8 fL (7.4-10.4) H 06/13/18 12:58 Immature Gran % (Auto) 0.7 % 06/13/18 12:58 Neut % (Auto) 59.6 % 06/13/18 12:58 Lymph % (Auto) 6.3 % 06/13/18 12:58 [place] % (Auto) 5.2 % 06/13/18 12:58 Eos % (Auto) 28.1 % 06/13/18 12:58 Baso % (Auto) 0.1 % 06/13/18 12:58 Immature Gran # (Auto) 0.11 K/uL (0.00-0.02) H 06/13/18 12:58 Neut # (Auto) 9.69 K/uL (1.4-6.5) H 06/13/18 12:58 Lymph # (Auto) 1.03 K/uL (1.2-3.4) L 06/13/18 12:58 [place] # (Auto) 0.85 K/uL (0.11-0.59) H 06/13/18 12:58 Eos # (Auto) 4.58 K/uL (0-0.5) H 06/13/18 12:58 Baso # (Auto) 0.01 K/uL (0-0.2) 06/13/18 12:58 PT 12.1 Seconds (9.0-12.0) H 06/13/18 12:58 INR 1.2 (0.9-1.1) H 06/13/18 12:58 VBG pH 7.45 (7.36-7.41) H 06/13/18 13:33 VBG pCO2 37 mmHg (38-50) L 06/13/18 13:33 VBG pO2 36 mmHg 06/13/18 13:33 VBG HCO3 25 mmol/L 06/13/18 13:33 VBG O2 Saturation 68.9 % 06/13/18 13:33 VBG Base Excess 1.4 mEq/L 06/13/18 13:33 Carboxyhemoglobin 0.6 % THgb 06/13/18 14:58 Barometric Pressure 720.6 mm/Hg 06/13/18 13:33 POC Sodium 139 mEq/L (135-144) 06/13/18 13:04 Sodium 133 mmol/L (136-145) L 06/13/18 12:58 POC Potassium 3.8 mEq/L (3.3-5.0) 06/13/18 13:04 Potassium 3.7 mmol/L (3.5-5.1) 06/13/18 12:58 POC Chloride 101 mEq/L (101-112) 06/13/18 13:04 Chloride 102 mmol/L (98-107) 06/13/18 12:58 Carbon Dioxide 25 mmol/L (21-32) 06/13/18 12:58 POC Total CO2 24 mEq/l (24-31) 06/13/18 13:04 Anion Gap 6.0 (3-11) 06/13/18 12:58 POC Anion Gap 19.0 mmol/L (16-25) 06/13/18 13:04 POC BUN 15 mg/dl (7-18) 06/13/18 13:04 BUN 15 mg/dl (7-18) 06/13/18 12:58 Creatinine 1.23 mg/dl (0.6-1.4) 06/13/18 12:58 POC Creatinine 1.1 mg/dl (0.6-1.3) 06/13/18 13:04 Est Cr Clr Drug Dosing 63.1 ml/min 06/13/18 12:58 Est GFR ( Amer) 71.5 06/13/18 12:58 Est GFR (Non-Af Amer) 61.7 06/13/18 12:58 BUN/Creatinine Ratio 12.1 (10-20) 06/13/18 12:58 Glucose 105 mg/dl (70-99) H 06/13/18 12:58 POC Glucose 108 (70-99) H 06/13/18 12:59 POC Glucose (other) 111 mg/dl (70-99) H 06/13/18 13:04 Lactate 1.3 mmol/L (0.4-2.0) 06/13/18 13:33 Calcium 8.9 mg/dl (8.5-10.1) 06/13/18 12:58 POC Ioniz Calcium Amol 1.10 mmol/l (1.12-1.32) L 06/13/18 13:04 Magnesium 2.5 mg/dl (1.8-2.4) H 06/13/18 12:58 Total Bilirubin 0.8 mg/dl (0.2-1) 06/13/18 12:58 AST 41 U/L (15-37) H 06/13/18 12:58 ALT 39 U/L (12-78) 06/13/18 12:58 Alkaline Phosphatase 166 U/L (45-117) H 06/13/18 12:58 Ammonia 27.7 umol/L (11-32) 06/13/18 13:33 Troponin I 0.929 ng/ml (0-0.045) H* 06/13/18 12:58 Total Protein 8.7 gm/dl (6.4-8.2) H 06/13/18 12:58 Albumin 3.1 gm/dl (3.4-5.0) L 06/13/18 12:58 Globulin 5.6 gm/dl (2.5-4.0) H 06/13/18 12:58 Albumin/Globulin Ratio 0.6 (0.9-2) L 06/13/18 12:58 TSH 12.000 uIu/ml (0.300-4.500) H 06/13/18 12:58 Free T4 1.32 ng/dl (0.8-1.6) 06/13/18 12:58 CSF Appearance Clear 06/13/18 14:35 CSF Color Colorless 06/13/18 14:35 Xanthrochromic No xanthochromia 06/13/18 14:35 CSF WBC 0 /uL (0-5) 06/13/18 14:35 CSF RBC 8 /uL (0-) 06/13/18 14:35 CSF Cell Count Tube # 3 06/13/18 14:35 CSF Chemistry Tube # 1 06/13/18 14:35 CSF Glucose 58 mg/dl (40-70) 06/13/18 14:35 CSF Total Protein 44.6 mg/dl (15-45) 06/13/18 14:35 Lyme Disease IgG Ab Negative (Negative) 06/13/18 14:58 Lyme Disease IgM Ab Negative (Negative) 06/13/18 14:58 Hepatitis C Ab Screen Pos (Neg) H 06/13/18 12:58 Influenza Type A Ag Neg for Influ A (Neg) 06/13/18 17:40 Influenza Type B Ag Neg for Influ B (Neg) 06/13/18 17:40 Diagnostic Findings CXR IMPRESSION: 1. Small bilateral pleural effusions. 2. Persistent left retrocardiac infiltrate. This could represent extensive atelectasis or aspiration. HEAD CT IMPRESSION: There is no hemorrhage, mass effect, or evidence of acute territorial ischemia by CT criteria. Code Status & VTE Plan VTE Prophylaxis Plan VTE Prophylaxis will be ordered: Yes Supervising Physician Co-Signing Physician Notes Patient is a 63-year-old male who was recently discharged after being treated for pneumonia, afib, and elevated troponins presents with history of confusion. Patient was discharged on Levaquin. Patient had an episode of confusion this morning when he could not operate his Cell phone and was indecisive. Denies neck stiffness, headache, illicit drug use, tick/insect bite. He states his respiratory symptoms resolved. He denies having allergy to levaquin. CT head showed no acute findings. His blood work showed leukocytosis with eosinophilia. Mild troponin elevation which is much improved compared to prior admission. He had L.P. in ED which was normal. On Exam patient is currently oriented, Lungs CTA, S1, S2, in sinus, neurologically no gross deficits, no pedal edema. Episode of Altered mental status-- Unclear etiology. Will obtain MRI brain, Neuro checks. Consider Neurology eval if no improvement/recurrence . Levaquin discontinued. Negative Lyme screen. Normal Ammonia levels. UA pending. CXR: Retrocardiac infiltrate. Denies any chest pain, dyspnea, cough currently. Recent ECHO showed small circumferential pericardial effusion with more focal fluid accumulation anteriorly. May need repeat ECHO to check if worsening Leukocytosis::Eosinophilia Etiology unclear___?? Allergic monitor CBC. Normal lactate. Eliquis need to be restarted when appropriate. Currently held secondary to L.P in ED. SCDs for DVT Px for now I personally reviewed the record. Patient is interviewed and examined at bedside. Patient's care is coordinated with [employer]. Please refer to the documentation above for details of patient's presentation and for discussion of other issues.
[2018-06-13] MEDS ORDERED: PHARMACIST DISCHARGE MED REC CONSULT PRN (16:34)
--- NOTE | 2018-06-13 17:45 | XRay Report ---
XR orbits for MRI HISTORY: 63 years-old Male pre MRI clearance for MRI. 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 Paranasal sinuses are generally clear. Dental amalga m hardware noted. No acute facial bone fracture. IMPRESSION: No opaque foreign body. The above report was generated using voice recognition software. It may contain grammatical, syntax o r spelling errors. Electronically signed by: Tom Traore M.D. 06/13/2018 5:44 PM
[2018-06-13] MEDS ORDERED: LORazepam 2 MG/4 ML VIAL IV STA (18:40)
[2018-06-13] MEDS ORDERED: LORazepam 2 MG/4 ML VIAL ONE (18:46)
[2018-06-13] MEDS ORDERED: GADOBUTROL 65ML VIAL IV PRN (19:24)
--- NOTE | 2018-06-13 19:58 | Magnetic Resonance Report ---
MR brain wo/w con HISTORY: 63 years-old Male altered mental status acutely altered mental status COMPARISON: CT head 06/13/2017, MRI brain 03/13/2013 TECHNIQUE: Multiplanar multisequence MRI of the brain was obtained both with and without the use of 8 mL Gadavist FINDINGS: Portfolio Manager localizer images demonstrate no gross abnormality. There are innumerable mostly subcentimeter scattered foci of restricted diffusion noted about the bi lateral cerebral hemispheres predominantly involving the watershed distribution the level of the cent rum semiovale with additional scattered foci noted about the periventricular distribution, bilateral caudate nuclei and also cortically about the bilateral parietal and occipital lobes. Additionally, th ere are a few scattered punctate foci noted about the medial aspects of the mid cerebellar hemisphere s bilaterally. These areas demonstrate decreased signal on the ADC map. Mild associated increased T2/ FLAIR signal within these distributions compatible with areas of acute to subacute infarction with cy totoxic edema. No acute intracranial hemorrhage, midline shift, hydrocephalus or abnormal extra-axial fluid collecti ons. Moderate background patchy T2/FLAIR hyperintensities about the white matter suggestive of chroni c microvascular ischemic changes. There is no abnormal intra-axial or extra-axial enhancement identif ied. Mild tortuosity about the basilar artery. Degenerative changes are noted about the imaged cervic al spine. Major flow voids appear patent. Orbits are symmetric. Mild mucosal thickening about the par anasal sinuses with 1.6 cm polypoid mucosal thickening about the right maxillary antrum. Mastoid air cells are clear. Skull, soft tissues and orbits are within normal limits. IMPRESSION: 1. Innumerable predominantly subcentimeter foci of acute to subacute infarction involves the bilatera l cerebral hemispheres and to a lesser extent the cerebellar hemispheres. These findings are most pro nounced within the watershed distributions between the anterior and middle cerebral arterial territor ies with additional infarctions noted about the bilateral parietal and occipital lobes within the pos terior cerebral artery territory. A proximal embolic cause is the primary differential consideration. Correlation with echocardiogram recommended. 2. No acute intracranial hemorrhage or midline shift. 3. Chronic microvascular ischemic changes. 4. No abnormal enhancement. The above report was generated using voice recognition software. It may contain grammatical, syntax o r spelling errors. Electronically signed by: Tom Traore M.D. 06/13/2018 7:55 PM
--- NOTE | 2018-06-13 20:54 | Ultrasound Report ---
US carotid doppler BI CLINICAL HISTORY: 63 years-old Male with stroke. Acute strokelike symptoms COMPARISON: Carotid ultrasound 03/13/2013, MRI brain 06/13/2018 TECHNIQUE: Multiple real time sonographic images of the carotid bifurcations were obtained assessing oshea scale, color Doppler and spectral wave form appearance FINDINGS: RIGHT CAROTID: The peak systolic velocity within the right ICA measures 56.7 cm/sec. The end diasto lic velocity measured 26.8 cm/sec. The ICA to CCA ratio measured 1.5 which correlates with a stenosi s of 0-50%. There is only minimal atherosclerotic plaquing noted about the right carotid bulb and pro ximal right ICA. LEFT CAROTID: The peak systolic velocity in the left ICA measures 53.1 cm/sec. The end diastolic ve locity measured 23.2 cm/sec. The ICA to CCA ratio measured 1.0 which correlates with a stenosis of 0- 50%. There is only minimal [plaquing noted about the left carotid bulb and proximal left ICA. There is normal antegrade vertebral flow bilaterally. IMPRESSION: 1. No hemodynamically significant stenosis or significant atherosclerotic plaquing. 2. Normal antegrade vertebral flow bilaterally. The above report was generated using voice recognition software. It may contain grammatical, syntax o r spelling errors. Electronically signed by: Tom Traore M.D. 06/13/2018 8:52 PM
[2018-06-13] MEDS ORDERED: APIXABAN 5 MG TABLET PO SCH (21:00)
[2018-06-14 05:52] LABS: Estimated Average Glucose 134 mg/dl; Hemoglobin A1C 6.3 % (4.5-5.6)
[2018-06-14] MEDS: LEVOTHYROXINE SODIUM 125 MCG TABLET PO SCH (05:54)
[2018-06-14 06:09] LABS: Basophils # (auto) 0.02 K/uL (0-0.2); Basophils % (auto) 0.1 %; Eosinophils # (auto) 7.18 K/uL (0-0.5); Eosinophils % (auto) 40.7 %; Hematocrit (blood only) 37.2 % (42-52); Hemoglobin 12.9 g/dL (14.0-18.0); Immature Granulocytes # (auto) 0.08 K/uL (0.00-0.02); Immature Granulocytes % (auto) 0.5 %; Lymphocytes # (auto) 1.18 K/uL (1.2-3.4); Lymphocytes % (auto) 6.7 %; Mean Corpuscular Hgb Conc 34.7 g/dL (32-36); Mean Corpuscular Volume 87.3 fL (80-100); Mean Platelet Volume 10.9 fL (7.4-10.4); Monocytes # (auto) 1.14 K/uL (0.11-0.59); Monocytes % (auto) 6.5 %; Neutrophils # (auto) 8.02 K/uL (1.4-6.5); Neutrophils % (auto) 45.5 %; Platelet Count 132 K/uL (130-400); RDW Coefficient of Variation 14.1 % (11.5-14.5); RDW Standard Deviation 44.5 fL (36.4-46.3); Red Blood Count 4.26 M/uL (4.7-6.1); White Blood Count 17.62 K/uL (4.8-10.8)
[2018-06-14 06:40] LABS: BUN Creatinine Ratio 12.6 (10-20); Calcium 8.3 mg/dl (8.5-10.1); Creatinine Clr Calc Pharmacy 81.7 ml/min; Est GFR (African American) 97.7; Est GFR (Non-African American) 84.3; Potassium 3.9 mmol/L (3.5-5.1)
[2018-06-14] MEDS: ASPIRIN 81 MG ECTAB PO SCH (08:24)
[2018-06-14] MEDS: ATORVASTATIN 40 MG TAB PO SCH (08:24)
[2018-06-14] MEDS ORDERED: CLOPIDOGREL BISULFATE 75 MG TAB PO SCH (09:00)
[2018-06-14] MEDS ORDERED: AMLODIPINE BESYLATE 5 MG TAB PO SCH (09:00)
--- NOTE | 2018-06-14 09:52 | Ultrasound Report ---
VENOUS DOPPLER ULTRASOUND LOWER EXTREMITIES BILATERAL CLINICAL HISTORY: Leg swelling COMPARISON STUDY: No previous studies for comparison. FINDINGS: Real-time and color flow Doppler imaging were performed. Flow was seen within the femoral, popliteal and calf veins with no intraluminal thrombus demonstrated. The saphenous vein is patent. IMPRESSION: No evidence of lower extremity DVT. Electronically signed by: Robert Nieves M.D. 06/14/2018 9:51 AM
--- NOTE | 2018-06-14 11:10 | Cardiology Consultation ---
Date of Consultation June 14, 2018 Assessment & Plan (1) Embolic stroke: The patient's MRI findings are certainly suggestive of embolic stroke foci. Both cerebral and cerebellar hemispheres are involved on the MRI.Carotid duplex reveals no significant atherosclerosis. I personally reviewed the images of the CT of the chest that was performed to rule out pulmonary embolism on 06/04/18 , and per my impression, the thoracic aorta is well visualized, and it no significant atheromatous disease is noted in the ascending thoracic aorta, or aortic arch. I do not think this event is a complication from his recent cardiac catheterization via the right radial artery as his symptoms occurred with onset on 06/13/18 and the procedure was on 06/05/18.If this was a post procedure event I would have anticipated onset of symptoms within a few hours after the cardiac catheterization. No gross [id number] shunt was detected with agitated saline contrast on echocardiogram this morning, although the interatrial septum was somewhat suboptimally visualized, and the lower extremity venous duplex was negative. I would anticipate however that if he did have a paradoxical embolism from lower extremity DVT, we would see an obvious right to left shunt present on the transthoracic echo. Although he did have a small recent non-ST segment elevation myocardial infarction, his left ventricular regional wall motion was normal last week, and remains normal without evidence of LV mural thrombus. I think the primary working diagnosis at this point is that this is due to embolization in the setting of paroxysmal atrial fibrillation. The patient has apparently been taking Eliquis since discharge without interruption, but the atrial fibrillation diagnosis was new, and the chronicity of it is unknown and he certainly could have had a left atrial appendage thrombus that was present prior to the initiation of anticoagulation and has since embolized. At this time, I recommend resuming anticoagulation including Eliquis and adding low-dose aspirin. Since the patient received a lumbar puncture yesterday at 1424, his Eliquis has been on hold. He received low-dose aspirin and clopidogrel this morning. I discussed the case with neurology, Dr. Saldana, advised waiting 12 hours post lumbar puncture until resuming anticoagulation. I had initially planned to start the Eliquis back at 3 pm, however this would provide An unreasonable dosing timetable moving forward with every 12 hours dosing that would not be able to be maintained in the long-term. I therefore recommend placing the patient on low-dose heparin without bolus therapy at 3 PM , and the patient will be reassessed tomorrow, with plans of potentially transitioning him to Eliquis tomorrow morning at 9 AM and then every 12 hours after that. I would not necessarily consider this and Eliquis failure as the patient's Treatment was recently initiated on 06/06/18 and we do not know what the chronicity of the recently diagnosed atrial fibrillation is. Continue aspirin. Further assessment for Other sources of embolic stroke besides atrial fibrillation and presumed left atrial appendage thrombus may need to be considered with transesophageal echocardiogram, but given the patient's cognitive impairment today, I think the risks of sedation today outweigh the potential diagnostic benefits, and I think we should Proceed with anticoagulation, close follow-up of blood pressure, and statin therapy and ressess The diagnostic utility versus risk of this as his hospitalization develops. (2) Paroxysmal atrial fibrillation: In SR now without Documented recurrence. Start metoprolol tartrate 12.5 mg BID. Heparing infusion (low dose, no bolus and transition back to Eliquis tomorrow if tolerating. If determined to be tolerating will stop heparin when the fist dose of Eliquis administered. Once again, anticoagulation is will be reinitiated at 3 PM, having waited 12 hours since lumbar puncture procedure. (3) HTN (hypertension): Reduce amlodipine to 5 mg daily to make room for addition of metoprolol. (4) Dyslipidemia: Continue atorvastatin (5) Pericardial effusion: Likely inflammatory, post bacterial versus viral pulmonary infection. Asymptomatic. No tamponade physiology on echo.Effusion however does look worse compared to last week. We will start colchicine for anti-inflammatory effect and to prevent long-term chronicity/recurrence. History of Present Illness Attending Physician: Rohith Sevilla MD History of Present Illness Terrence Garcia is a 63 year old male seen in cardiology consultation per the request of Dr Sevilla for input regarding workup and management of suspected embolic stroke. The patient's recent history dates back to about 2 weeks ago. She presented to the emergency room on 06/04/18 with a 1-1/2-week complaint of progressive cough, shortness of breath, and decreased appetite. He had chest discomfort at the lower margins of his ribs that was worse with cough. An EKG performed upon arrival to the emergency room at that time revealed atrial fibrillation with mildly elevated ventricular response. In the emergency department he received IV diltiazem as well as unfractionated heparin on spontaneously converted to sinus rhythm while in the emergency department prior to being admitted to the telemetry floor. Since admission to the telemetry floor overnight he has remained in sinus rhythm in the range of 60-70 bpm. I had seen him in cardiology consultation in the morning on 06/05/18 at which time serial EKG tracings have been noted to show no significant ST T changes. He felt marginally improved with treatment for a respiratory tract infection. His troponin however was found to be elevated having trended up to 3.6 NG per mL. My initial impression was that his troponin was likely due to a type II myocardial infarction with myocardial ischemia in the setting of significant increased demand from his noncardiac illness.It was however noted that he had underlying risk factors for coronary heart disease including cigarette smoking, age, male sex, and dyslipidemia and even though it was felt that his troponin elevation was not necessarily due to an acute intracoronary plaque rupture, that it certainly seem suggestive that he had underlying coronary heart disease. He therefore underwent cardiac catheterization later that afternoon on 06/05/18 with findings of widely patent coronary anatomy and normal LV function. He tolerated the procedure well without any evidence of neurologic symptoms immediate post procedure. I saw him in cardiology follow-up on 06/06/18, and he was doing well from a neurologic standpoint. He remained in sinus rhythm, and had no symptoms suggestive angina. He was recovering well from his right radial artery access site with no complications. I discussed with him that he had been found to be in atrial fibrillation when he presented on 06/04/18. For an unknown duration of time. He had no subjective sensation of an irregular heartbeat. It was felt that he could very well have underlying paroxysmal atrial fibrillation and given his risk factors of age (almost 64), Htn, and past stroke (2 points) his [id number] risk score was 4 Predicting high risk of cardioembolic strokeAnd systemic anticoagulation for stroke prophylaxis was felt to be indicated. That day I had also reviewed his chart, and as I described in my 06/06/18 progress note he had been admitted with right-sided weakness and paresthesias in 2012 and was diagnosed with a thalamic stroke at that time. In the meantime he had been treated with aspirin for secondary prevention of stroke with no interim recurrent event. Taking this history in to account, he was therefore Pitman to be at high risk for cardioembolic stroke due to paroxysmal atrial fibrillation, and I had recommended discontinuation of low-dose aspirin, and transition to Eliqus 5 mg 2 times per day. The patient was subsequently discharged in stable condition on 06/07/18.On Eliquis 5 mg twice daily. Aspirin was discontinued. And is prior to hospital doses of atorvastatin and amlodipine were maintained. He initially did well Reportedly improving from respiratory standpoint. His brother, Malclom, received a telephone call early in the morning of 06/13/18 with the patient complaining that he felt "off ". His brother found him to be disoriented and he was therefore taken to the emergency room.Sinus rhythm was confirmed on EKG as demonstrated with tracing 06/13/18 at 12:[address] of the brain performed 06/13/18, report transcribed at 1:23 PM revealed no reported hemorrhage, mass-effect, or evidence of acute territorial ischemia by CT.Due to the patient's leukocytosis, the emergency room team was concerned about infectious process, and he underwent a lumbar puncture at 1424 without suggestion of infection. An MRI of the brain was then performed with reported transcribed at 7:55 PM on describing innumerable predominantly subcentimeter foci of acute to subacute infarction involving the bilateral cerebral hemispheres and to a lesser extent the cerebellar hemispheres. The radiology report states that the findings are most pronounced within the watershed distributions between the anterior and middle cerebral artery territories with additional infarctions noted about the bilateral parietal and occipital lobes within the posterior cerebral artery. Approximately embolic cause was felt to be the primary differential diagnosis consideration. The patient went on to have a transthoracic echocardiogram this morning revealing normal biventricular systolic function and no evidence of LV mural thrombus. The previous small anterior pericardial effusion noted on his prior echo last week, somewhat more pronounced with a mild to moderately sized circumferential pericardial effusion noted at this time instead. During my assessment of the patient, he is confused,Compared to his previous baseline when I met him last week on 06/05/18 and 06/06/18.He however does remember me. He is conversant. But he notes he is not quite himself. Telemetry reveals ongoing sinus rhythm. Allergies Allergy/AdvReac Type Severity Reaction Status Date / Time morphine AdvReac Intermediate Nausea/Vomi Verified 06/13/18 14:09 ting Home Medications Home Medications Medication Instructions Recorded Confirmed Type amlodipine 10 mg PO QAM 06/04/18 06/13/18 History atorvastatin 40 mg PO QAM 06/04/18 06/13/18 History levothyroxine 125 mcg PO QAM 06/04/18 06/13/18 History apixaban [Eliquis] 5 mg PO BID #60 tab 06/07/18 06/13/18 Rx aspirin 81 mg PO DAILY 06/13/18 06/13/18 History Patient History Medical History Dyslipidemia (Chronic) Tobacco abuse (Resolved) Paroxysmal atrial fibrillation (Chronic) Thalamic infarction (Chronic) HTN (hypertension) (Chronic) Surgical History History of thyroidectomy (Chronic) History of left knee surgery (Chronic) Family History Brother Diabetes Mother Hypertension Social History Current Living Situation: Alone Other Information That Helps Us Care for You: No Feels Safe at Home: Yes Safety Concerns: Feels Safe At This Time Smoking Status: Former smoker Tobacco Type: cigarettes Do You Dip or Chew Tobacco: No Smoking End Date: 06/26/18 Second Hand Exposure: No Tobacco Cessation Education Requested by Patient: No Hx Alcohol Use: No Hx Substance Use: No Beliefs That Will Affect Care: None Communication Ability: Effective Review of Systems A 10 point review of systems was performed and is negative with the exception of that noted above. Physical Exam 2 Vital Signs (Past 24 Hours): Last Vital Signs Temp 36.8 C 06/14/18 07:15 Pulse 60 06/14/18 07:15 Resp 18 06/14/18 07:15 BP 142/83 H 06/14/18 07:15 Pulse Ox 93 06/14/18 07:15 Constitutional: + ill appearing and + thin Respiratory: normal respiratory effort, lungs clear to auscultation Cardiovascular: Rate/Rhythm: regular rate and regular rhythm Heart Sounds: no murmur and no cardiac rub Vessels: no JVD Extremities: no edema Gastrointestinal (Abdomen): Percussion/Palpation: abdomen soft; abdomen nontender Skin: no rashes, warm and dry Neurologic: awake and + confused; no focal motor deficits Results & Data Laboratory Results Cardiac Enzymes 06/13/18 Range/Units 12:58 AST 41 H (15-37) U/L Troponin I 0.929 H* (0-0.045) ng/ml Coagulation 06/13/18 Range/Units 12:58 PT 12.1 H (9.0-12.0) Seconds Lipids 06/14/18 Range/Units 05:56 Triglycerides 104 (0-150) mg/dl Cholesterol 95 (0-200) mg/dl HDL Cholesterol 36 mg/dl Cholesterol/HDL Ratio 3 CBC 06/13/18 06/14/18 Range/Units 12:58 05:56 WBC 16.27 H 17.62 H (4.8-10.8) K/uL RBC 4.39 L 4.26 L (4.7-6.1) M/uL Hgb 13.2 L 12.9 L (14.0-18.0) g/dL Hct 38.6 L 37.2 L (42-52) % Plt Count 170 132 (130-400) K/uL Neut # (Auto) 9.69 H 8.02 H (1.4-6.5) K/uL Lymph # (Auto) 1.03 L 1.18 L (1.2-3.4) K/uL [place] # (Auto) 0.85 H 1.14 H (0.11-0.59) K/uL Eos # (Auto) 4.58 H 7.18 H (0-0.5) K/uL Baso # (Auto) 0.01 0.02 (0-0.2) K/uL Comprehensive Metabolic Panel 06/13/18 06/14/18 Range/Units 12:58 05:56 Sodium 133 L 135 L (136-145) mmol/L Potassium 3.7 3.9 (3.5-5.1) mmol/L Chloride 102 102 (98-107) mmol/L Carbon Dioxide 25 24 (21-32) mmol/L BUN 15 12 (7-18) mg/dl Creatinine 1.23 0.95 (0.6-1.4) mg/dl Glucose 105 H 86 (70-99) mg/dl Calcium 8.9 8.3 L (8.5-10.1) mg/dl AST 41 H (15-37) U/L ALT 39 (12-78) U/L Alkaline Phosphatase 166 H (45-117) U/L Total Protein 8.7 H (6.4-8.2) gm/dl Albumin 3.1 L (3.4-5.0) gm/dl Intake and Output 06/13/18 06/14/18 06/14/18 22:59 06:59 14:59 Intake Total 2069 Output Total 350 / 350 400 / 400 Balance 1720 / 1720 -400 / -400 Intake: IV 2069 Nss 1000ML 1,000 ml @ 999 mls/ 2000 / 2000 hr IV .Q1H1M MYRANDA Rx#:[id number] Rocephin 2,000 mg In D5w 50 ml 70 / 70 @ 100 mls/hr IV NOW STA Rx#: [id number] Output: Urine 350 / 350 400 / 400 Other: Other Intake Source sips Weight 84.6 kg 84.3 kg Diagnostic Findings In addition to the studies summarized above, the patient had a lower extremity venous duplex was negative for DVT, and a carotid duplex with no significant plaque. On the echocardiogram, the interatrial septum appeared intact with agitated saline contrast, however the interatrial septum was somewhat suboptimally visualized the of this imaging modality.
[2018-06-14] MEDS ORDERED: Heparin IV Low Dose *NO* Bolus SCH ×2 (13:00→15:00)
[2018-06-14] MEDS ORDERED: COLCHICINE 0.6 MG TAB PO ONE (13:08)
--- NOTE | 2018-06-14 13:10 | Neurology Consultation ---
Date of Consultation June 14, 2018 Assessment & Plan (1) Embolic stroke: 1. MRI brain- multiple areas of stroke 2. Eliquis to be restarted today at 3p- per cardiology 3. currently on heparin drip 4. PT/OT/speech for any discharge needs 5. continue treatment for infection, LP to date unremarkable 6. cardiology on board and directing the restart of anticoag and heparin gtt- and further imaging needed for source of emboli 7. smoking cessation strongly urged 8. CT head repeat tomorrow am- ordered- repeat sooner with MS change- r/o bleed follow up with neurology 4-6 weeks after discharge from hospital or rehab if needed Christy Amaro PAC schedule Supervising Physician Co-Signing Physician Notes I have seen and discussed above patient with Dr Nahum Saldana, neurology I have evaluated Mr. Garcia today performing examination, reviewed his imaging studies and his laboratory studies and discussed his case with both Christy Amaro PA-C and extensively with Dr. Adame and cardiology. Currently Mr. Garcia has suffered an embolic shower of cerebral events involving both hemispheres and the posterior circulation, has a stunned appearance is slow to respond to questions but has no other obvious focal neurologic signs in terms of motor weakness sensory loss visual disturbance etc. These embolic events occurred while he was apparently taking Eliquis but Dr. Adame is concerned that a well established atrial thrombus may well have been missed and that treatment with Eliquis would certainly not have prevented emboli from this type of source. There are concerns of course that other embolic sources such as an atrial myxoma, paradoxical embolism through a patent foramen ovale, shaggy aortic plaque or in light of this man's elevated white count, a partially treated endocarditis and at this point were going to wait 12 hours after the lumbar puncture which was done last night (thus far negative for evidence of infection), initiate heparin, attempt further transthoracic echocardiographic imaging to assess potential valve vegetations, switch over to Eliquis probably tomorrow depending on how cardiology feels at that point and to perform a transesophageal echo within the next few days once the patient's mental status clears a bit more in hopes that this imaging will be more revealing of the diagnostic concerns listed above. At this point neurology is going to continue to see him on a daily basis but major decisions regarding anticoagulation with Eliquis, possibly Coumadin, or combining anticoagulation with antiplatelet drugs is going to rest with cardiology and what subsequent cardiac diagnostic studies reveal. Nahum Saldana MD History of Present Illness Reason for Consultation: Stroke Requesting Physician: Rohith Sevilla MD Attending Physician: Rohith Sevilla MD History of Present Illness Terrence is a63 year old male who presented to the ED with confusion. He had a recent admission to [facility] 06/04 through 06/07 for pneumonia. He underwent cardiac catheterization that demonstrated widely patent coronary arteries. He was also found to have AF and Eliquis was started. He spontaneously converted to NSR. He was discharged on Levaquin for treatment of the pneumonia. He returned to work but was still feeling generally weak. He was found to be confused by his brother and was brought in to [facility] for evalution. The Levaquin was causing decreased appetite. He was admitted for further observation and test. LP in ED was unremarkable but some labs still pending. denies CP, SOB, abdominal pain, one sided weakness, numbness tingling, headache, bowel or bladder issues, N, V. He states he just feels confused. Allergies Allergy/AdvReac Type Severity Reaction Status Date / Time morphine AdvReac Intermediate Nausea/Vomi Verified 06/13/18 14:09 ting Home Medications Home Medications Medication Instructions Recorded Confirmed Type amlodipine 10 mg PO QAM 06/04/18 06/13/18 History atorvastatin 40 mg PO QAM 06/04/18 06/13/18 History levothyroxine 125 mcg PO QAM 06/04/18 06/13/18 History apixaban [Eliquis] 5 mg PO BID #60 tab 06/07/18 06/13/18 Rx aspirin 81 mg PO DAILY 06/13/18 06/13/18 History Patient History Medical History Dyslipidemia (Chronic) Tobacco abuse (Resolved) Paroxysmal atrial fibrillation (Chronic) Thalamic infarction (Chronic) HTN (hypertension) (Chronic) Surgical History History of thyroidectomy (Chronic) History of left knee surgery (Chronic) Family History Brother Diabetes Mother Hypertension Social History Current Living Situation: Alone Other Information That Helps Us Care for You: No Feels Safe at Home: Yes Safety Concerns: Feels Safe At This Time Smoking Status: Former smoker Tobacco Type: cigarettes Do You Dip or Chew Tobacco: No Smoking End Date: 06/26/18 Second Hand Exposure: No Tobacco Cessation Education Requested by Patient: No Hx Alcohol Use: No Hx Substance Use: No Beliefs That Will Affect Care: None Communication Ability: Effective Physical Exam 2 Vital Signs (Past 24 Hours): Last Vital Signs Temp 36.6 C 06/14/18 11:24 Pulse 88 06/14/18 11:24 Resp 19 06/14/18 11:24 BP 126/78 06/14/18 11:24 Pulse Ox 96 06/14/18 11:24 Physical Exam: Constitutional: appearance nourished, pale, dissheveled Ears, Nose, Mouth and Throat: mucous membranes moist, no injection and skin normal, eyes normal Cardiovascular: normal S-1 and S-2 and regular rate and rhythm Respiratory: course breath sounds Musculoskeletal: no peripheral edema and good distal pulses Skin: no stigmata of neurocutaneous disease noted and normal and intact Eyes: extraocular muscles intact (EOMI) and pupils equal, round and reactive to light (PERRL) NEUROLOGIC EXAMINATION: Mental status: Alert and interactive Oriented to person Speech fluent with no evidence of aphasia Cranial Nerves smile eye brow raise symmetric Reflexes: Deep tendon reflexes were symmetrical and graded 2/5. Sensory: light touch vibration Coordination: Romberg absent Gait/Stance: Posture normal. Gait normal: with steady with steps, base, and tandem gait. Motor: Negative for pronator drift of out stretched arms with eyes closed. Strength: biceps triceps deltoids hand rubber process hand 5/5 bilaterally, hip flex 5/5 Results & Data Laboratory Results Abnormal lab results 06/13/18 06/13/18 06/13/18 Range/Units 12:58 12:58 12:58 WBC (4.8-10.8) K/uL RBC (4.7-6.1) M/uL Hgb (14.0-18.0) g/dL Hct (42-52) % MPV (7.4-10.4) fL Immature Gran # (Auto) (0.00-0.02) K/uL Neut # (Auto) (1.4-6.5) K/uL Lymph # (Auto) (1.2-3.4) K/uL [place] # (Auto) (0.11-0.59) K/uL Eos # (Auto) (0-0.5) K/uL VBG pH (7.36-7.41) VBG pCO2 (38-50) mmHg Sodium 133 L (136-145) mmol/L Glucose 105 H (70-99) mg/dl Hemoglobin A1c 6.3 H (4.5-5.6) % Calcium (8.5-10.1) mg/dl Magnesium 2.5 H (1.8-2.4) mg/dl AST 41 H (15-37) U/L Alkaline Phosphatase 166 H (45-117) U/L Troponin I 0.929 H* (0-0.045) ng/ml Total Protein 8.7 H (6.4-8.2) gm/dl Albumin 3.1 L (3.4-5.0) gm/dl Globulin 5.6 H (2.5-4.0) gm/dl Albumin/Globulin Ratio 0.6 L (0.9-2) TSH 12.000 H (0.300-4.500) uIu/ml Hepatitis C Ab Screen Pos H (Neg) 06/13/18 06/14/18 06/14/18 Range/Units 13:33 05:56 05:56 WBC 17.62 H (4.8-10.8) K/uL RBC 4.26 L (4.7-6.1) M/uL Hgb 12.9 L (14.0-18.0) g/dL Hct 37.2 L (42-52) % MPV 10.9 H (7.4-10.4) fL Immature Gran # (Auto) 0.08 H (0.00-0.02) K/uL Neut # (Auto) 8.02 H (1.4-6.5) K/uL Lymph # (Auto) 1.18 L (1.2-3.4) K/uL [place] # (Auto) 1.14 H (0.11-0.59) K/uL Eos # (Auto) 7.18 H (0-0.5) K/uL VBG pH 7.45 H (7.36-7.41) VBG pCO2 37 L (38-50) mmHg Sodium 135 L (136-145) mmol/L Glucose (70-99) mg/dl Hemoglobin A1c (4.5-5.6) % Calcium 8.3 L (8.5-10.1) mg/dl Magnesium (1.8-2.4) mg/dl AST (15-37) U/L Alkaline Phosphatase (45-117) U/L Troponin I (0-0.045) ng/ml Total Protein (6.4-8.2) gm/dl Albumin (3.4-5.0) gm/dl Globulin (2.5-4.0) gm/dl Albumin/Globulin Ratio (0.9-2) TSH (0.300-4.500) uIu/ml Hepatitis C Ab Screen (Neg) Diagnostic Findings CXR- Small bilateral pleural effusions. Persistent left retrocardiac infiltrate. This could represent extensive atelectasis or aspiration. CT head- There is no hemorrhage, mass effect, or evidence of acute territorial ischemia by CT criteria. MRI brain- Innumerable predominantly subcentimeter foci of acute to subacute infarction involves the bilateral cerebral hemispheres and to a lesser extent the cerebellar hemispheres. These findings are most pronounced within the watershed distributions between the anterior and middle cerebral arterial territories with additional infarctions noted about the bilateral parietal and occipital lobes within the posterior cerebral artery territory. A proximal embolic cause is the primary differential consideration. Correlation with echocardiogram recommended. No acute intracranial hemorrhage or midline shift. Chronic microvascular ischemic changes. No abnormal enhancement. carotid doppler-No hemodynamically significant stenosis or significant atherosclerotic plaquing.Normal antegrade vertebral flow bilaterally. LE doppler- No evidence of lower extremity DVT.
[2018-06-14] MEDS: HEPARIN LOW DOSE DEXTROSE 25,000 UNITS/500 ML IV SCH (16:07)
[2018-06-14 16:27] LABS: INR 1.2 (0.9-1.1); Partial Thromboplastin Ratio 1.3; Partial Thromboplastin Time 33.1 Seconds (21.0-31.0); Prothrombin Time 12.2 Seconds (9.0-12.0)
--- NOTE | 2018-06-14 17:09 | Hospitalist Progress Note ---
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: as the MRI brain showed multiple areas of stroke of note patient received lumbar puncture in the ED and no evidence of meningitis current workup up to date with cardiology service and echocardiogram and carotid ultrasound have no found the source of emboli while there has been consideration of possible failure of Eliquis anticoagulation, cardiology service proposes that perhaps patient may have had complication previous to starting Eliquis as Eliquis was started on last hospital presentation (discharge date 06/07/18) patient currently on heparin drip as of 06/14/18 which is more than 12 hours after 06/13/18 lumbar puncture Neurology service planning to repeat CT head on 06/15/18 can consider resuming Eliquis as per cardiology service on 06/15/[address] head scan (2) Leukocytosis: leukocytosis with eosinophilia remains afebrile no identifiable source of infection at this time no antibiotics indicated at this time for now (3) Eosinophilia: as above (4) Elevated troponin: -Downtrending from recent admission -No reports of chest pain, EKG demonstrates new T wave inversions anteriorly however recent cardiac cath demonstrated widely patent coronary arteries (5) Hepatitis C antibody test positive: -Had RNA testing performed in 2016 that was negative -No further workup at this time (6) Paroxysmal atrial fibrillation: -Currently in NSR -Anticoagulated on heparin at this time (7) Thalamic infarction: -Continue aspirin (8) HTN (hypertension): -BP controlled, continue amlodipine (9) Dyslipidemia: -Continue statin (10) DVT prophylaxis: -Anticoagulated on heparin Subjective Patient on heparin drip No focal motor deficits. Patient is verbal. However he cannot explain to hospitalist about his understanding of his medical condition. Patient denies acute pain. denies shortness of breath. denies vomiting. denies abdominal pain Physical Exam 2 Vital Signs (Past 24 Hours): Last Vital Signs Temp 36.6 C 06/14/18 11:24 Pulse 88 06/14/18 11:24 Resp 19 06/14/18 11:24 BP 126/78 06/14/18 11:24 Pulse Ox 96 06/14/18 11:24 Constitutional: WD/WN, vitals as above Eyes: PERRL, conjunctivae normal, anicteric sclerae ENMT: external ear and nose normal, oropharynx normal Neck: trachea midline, no thyromegaly Respiratory: normal respiratory effort, lungs clear to auscultation Cardiovascular: RRR, no murmur, no edema Gastrointestinal (Abdomen): normal bowel sounds, soft, nontender, no hepatosplenomegaly Musculoskeletal: no cyanosis or clubbing, extremities motor strength 5/5 Head/Neck/Chest: normocephalic and head atraumatic Neurologic: PERRL, EOMI, accommodation nl, no face palsy, no dysarthria CN' s II-XI intact bilaterally Psychiatric: Orientation: alert cannot explain to hospitalist about his understanding of his medical condition
[2018-06-14] MEDS: COLCHICINE 0.6 MG TAB PO SCH (21:12)
[2018-06-14] MEDS: LORazepam 1 MG TAB PO PRN (21:12)
[2018-06-14] MEDS: METOPROLOL TARTRATE 25 MG TAB PO SCH (21:12)
[2018-06-14 22:41] LABS: Partial Thromboplastin Ratio 1.5
[2018-06-14] MEDS ORDERED: Nursing to Pharmacy Communication ONE (23:09)
[2018-06-14] MEDS ORDERED: HEPARIN IV BOLUS 4,500 UNITS in SYRINGE 0 ML IV ONE (23:16)
[2018-06-15] MEDS: LEVOTHYROXINE SODIUM 125 MCG TABLET PO SCH (05:52)
[2018-06-15 06:29] LABS: Basophils # (auto) 0.02 K/uL (0-0.2); Basophils % (auto) 0.1 %; Eosinophils % (auto) 39.8 %; Hematocrit (blood only) 35.6 % (42-52); Hemoglobin 12.7 g/dL (14.0-18.0); Immature Granulocytes # (auto) 0.09 K/uL (0.00-0.02); Immature Granulocytes % (auto) 0.5 %; Lymphocytes # (auto) 1.76 K/uL (1.2-3.4); Lymphocytes % (auto) 9.9 %; Mean Corpuscular Hgb Conc 35.7 g/dL (32-36); Mean Platelet Volume 9.8 fL (7.4-10.4); Monocytes # (auto) 1.11 K/uL (0.11-0.59); Monocytes % (auto) 6.2 %; Neutrophils # (auto) 7.74 K/uL (1.4-6.5); Neutrophils % (auto) 43.5 %; Platelet Count 123 K/uL (130-400); RDW Coefficient of Variation 14.1 % (11.5-14.5); RDW Standard Deviation 44.5 fL (36.4-46.3); Red Blood Count 4.09 M/uL (4.7-6.1); White Blood Count 17.82 K/uL (4.8-10.8)
[2018-06-15 07:02] LABS: Partial Thromboplastin Ratio 2.1
[2018-06-15 07:03] LABS: Partial Thromboplastin Time 55.7 Seconds (21.0-31.0)
--- NOTE | 2018-06-15 08:00 | CT Scan Report ---
CT head/brain wo con CLINICAL HISTORY: 63 years-old Male with am follow up after start of anticoag. Acute strokelike symp toms TECHNIQUE: Multiple axial CT images of the head were obtained without contrast. A dose lowering tech nique was utilized adhering to the principles of ALARA. CT DOSE: 537.48 mGy.cm COMPARISON: CT head and MRI brain 06/13/2018 FINDINGS: No acute intracranial hemorrhage, midline shift, intracranial mass, hydrocephalus, territorial ischem ia or abnormal extra-axial collection. Ill-defined hypodensities about the white matter suggest chron ic microvascular ischemic changes admixed with areas of acute to subacute infarction as seen on gregory rison MRI. Additional ill-defined cortical hypodensities are scattered throughout the cerebral hemisp heres correlating with the areas of restricted diffusion seen on comparison MRI. The calvarium is intact. Mild mucosal thickening of the visualized paranasal sinuses. Mild focal sof t tissue swelling about the right frontal scalp. IMPRESSION: 1. No acute intracranial hemorrhage, midline shift or territorial infarct. 2. Subacute infarctions about the cerebral hemispheres are better seen on comparison brain MRI. The above report was generated using voice recognition software. It may contain grammatical, syntax o r spelling errors. Electronically signed by: Tom Traore M.D. 06/15/2018 7:59 AM
[2018-06-15 08:03] LABS: Appearance Urine Clear (Clear); Bilirubin Urine Negative (Negative); Blood Urine Negative (Negative); Color Urine Yellow; Glucose Urine UA Negative (Negative); Ketones Urine 2+ (Negative); Leukocyte Esterase Urine Negative (Negative); Nitrite Urine Negative (Negative); Protein Urine Negative (Negative); Specific Gravity Urine 1.016 (1.000-1.030); Urobilinogen Urine Negative (Negative); pH Urine 6.5 (4.5-7.5)
[2018-06-15] MEDS: ATORVASTATIN 40 MG TAB PO SCH (08:15)
[2018-06-15] MEDS: COLCHICINE 0.6 MG TAB PO SCH ×2 (08:15→20:12)
[2018-06-15] MEDS: ASPIRIN 81 MG ECTAB PO SCH (08:15)
[2018-06-15] MEDS: AMLODIPINE BESYLATE 5 MG TAB PO SCH (08:16)
[2018-06-15] MEDS: METOPROLOL TARTRATE 25 MG TAB PO SCH ×2 (08:16→20:12)
--- NOTE | 2018-06-15 08:33 | Hospitalist Progress Note ---
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: as the MRI brain showed multiple areas of stroke of note patient received lumbar puncture in the ED and no evidence of meningitis current workup up to date with cardiology service and echocardiogram and carotid ultrasound have no found the source of emboli while there has been consideration of possible failure of Eliquis anticoagulation, cardiology service proposes that perhaps patient may have had complication previous to starting Eliquis as Eliquis was started on last hospital presentation (discharge date 06/07/18) patient currently on heparin drip as of 06/14/18 which is more than 12 hours after 06/13/18 lumbar puncture. there were discussions about resuming Eliquis but no eliquis was given on 06/14/18 as medical team awaited for planned CT head scan as ordered by Neurology service for the morning of 06/15/18 06/15/18: Medical doctor was informed by nursing that when patient was about to be transported to the CT head scan this morning, patient slid off of the wheelchair and landed on the abdomen - no loss of consciouness. Patient had head CT scan that did not show acute intracranial bleeding of the. However when returned from CT scan, patient had right forehead hematoma where he evidently must have bumped his head from that fall -discussed with cardiology service that given recent head injury, will avoid Eliquis at this time as it lacks readily available reversal agents. since patient does not have any new neurological deficits that patient can remain on heparin drip -given recent hospitalist evaluations of the patient, the patient before and after this fall appears to have problems with short term memory which may be attributed to recently found multiple areas of strokes (2) Leukocytosis: leukocytosis with eosinophilia remains afebrile no identifiable source of infection at this time no antibiotics indicated at this time for now (3) Eosinophilia: as above (4) Elevated troponin: -Downtrending from recent admission -No reports of chest pain, EKG demonstrates new T wave inversions anteriorly however recent cardiac cath demonstrated widely patent coronary arteries (5) Hepatitis C antibody test positive: -Had RNA testing performed in 2016 that was negative -No further workup at this time (6) Paroxysmal atrial fibrillation: -Currently in NSR -Anticoagulated on heparin at this time (7) Thalamic infarction: -Continue aspirin (8) HTN (hypertension): -BP controlled, continue amlodipine (9) Dyslipidemia: -Continue statin (10) DVT prophylaxis: -Anticoagulated on heparin Subjective Patient on heparin drip Medical doctor was informed by nursing that when patient was about to be transported to the CT head scan this morning, patient slid off of the wheelchair and landed on the abdomen - no loss of consciousness. Patient had head CT scan that did not show acute intracranial bleeding of the. However when returned from CT scan, patient had right forehead hematoma where he evidently must have bumped his head from that fall When asked if he re-called what happened during the fall from wheelchair, patient reports that he doesn't know what happened. On exam, patient has No focal motor deficits. Patient is verbal. Denies acute pain. denies shortness of breath. no vomiting Physical Exam 2 Vital Signs (Past 24 Hours): Last Vital Signs Temp 37.0 C 06/15/18 03:05 Pulse 63 06/15/18 03:05 Resp 16 06/15/18 03:05 BP 118/71 06/15/18 03:05 Pulse Ox 95 06/15/18 03:05 Constitutional: WD/WN, vitals as above Eyes: PERRL, conjunctivae normal, anicteric sclerae ENMT: external ear and nose normal, oropharynx normal (right forehead hematoma ) Neck: trachea midline, no thyromegaly Respiratory: normal respiratory effort, lungs clear to auscultation Cardiovascular: RRR, no murmur, no edema Gastrointestinal (Abdomen): normal bowel sounds, soft, nontender, no hepatosplenomegaly Musculoskeletal: no cyanosis or clubbing, extremities motor strength 5/5 Head/Neck/Chest: normocephalic and head atraumatic Neurologic: PERRL, EOMI, accommodation nl, no face palsy, no dysarthria CN' s II-XI intact bilaterally Psychiatric: Orientation: alert
[2018-06-15] MEDS ORDERED: APIXABAN 5 MG TABLET PO SCH (09:00)
--- NOTE | 2018-06-15 12:25 | Communication Note ---
Date of Service: June 15, 2018 I have seen Mr. Lennon today and discussed his case with Rohith Sevilla MD his current attending physician. I reviewed the events that transpired this morning when he apparently slipped and struck the right side of his head on route to the CT scan. Clinically he is little changed. He is dull, detached, almost abulic and will follow commands to a point and then simply ceases. He seems to have some deficits in the right upper extremity but these are subtle and inconsistent and I think he may have some right visual field neglect but again this is difficult to demonstrate. The CT scan shows no signs of hemorrhage but after discussing the situation with cardiology Dr. Sevilla and the sample coordinator feel safer keeping this man on heparin, observing him, and I would suggest performing another CT tomorrow to be sure that the mild closed head injury today does not resolve within the subdural accumulation of blood. Plans to start Eliquis therefore on hold until the possible posttraumatic subdural hematoma or even an intraparenchymal bleed have been eliminated I will check back tomorrow Nahum Saldana MD
--- NOTE | 2018-06-15 16:04 | Cardiology Progress Note ---
Date of Service June 15, 2018 Assessment & Plan (1) Embolic stroke: Continue intravenous heparin and aspirin. Eliquis will remain on hold due to head trauma this a.m. Repeat CT of the head in a.m. If no signs of subdural hematoma or intracranial bleeding, will likely transition to Eliquis 5 mg twice daily. Tentative plan for PETROS when mental status has improved. (2) Paroxysmal atrial fibrillation: Continue low-dose aspirin, beta-malika, and intravenous heparin. Follow telemetry. Patient remains in sinus rhythm. (3) HTN (hypertension): Reduce amlodipine to 5 mg daily to make room for addition of metoprolol. (4) Dyslipidemia: Continue atorvastatin (5) Pericardial effusion: Continue colchicine. No evidence of tamponade physiology per echocardiogram. Avoid high-dose NSAIDs at this time in the setting of acute CVA and need for anticoagulation. Subjective Patient seen and examined at the bedside. Answers questions appropriately. He fell out of wheelchair this morning in route to CT of the head. Subsequent CT of the head was negative for hemorrhage. Eliquis remains on hold. Intravenous heparin infusing. Brother is present at bedside. Overall patient's mental status has not changed. No focal deficits appreciated. Patient denies chest pain or shortness of breath. Telemetry demonstrates sinus rhythm. Review of Systems All systems reviewed & are unremarkable except as noted in HPI & below Physical Exam 2 Vital Signs (Past 24 Hours): Last Vital Signs Temp 36.3 C L 06/15/18 15:28 Pulse 62 06/15/18 15:28 Resp 16 06/15/18 15:28 BP 128/86 06/15/18 15:28 Pulse Ox 95 06/15/18 15:28 Physical Exam: General: NAD, Awake and alert. HEENT: Normocephalic. Atraumatic. Conjunctiva pink, no scleral icterus. Neck: No carotid bruits, the carotid upstrokes are brisk. No JVD. No HJR Heart: Regular normal S-1 and S-2 no S-3 or S-4 gallop. No murmurs or rub appreciated. PMI is not displaced. No RV heave. Lungs: Clear bilateral without rales , rhonchi, or wheeze. Abdomen: Normal bowel sounds. Soft. Nontender. No masses or organomegaly. No abdominal bruits. Extremities: No clubbing, cyanosis, or edema. Pulses: radial=2/4, Dorsalis pedis =2/4, posterior tibial=2/4. Neuro: Cranial nerves grossly intact. Affect is flat. Moves all extremities.
[2018-06-15] MEDS: HEPARIN LOW DOSE DEXTROSE 25,000 UNITS/500 ML IV SCH (16:12)
[2018-06-15 18:18] LABS: Basophils # (auto) 0.02 K/uL (0-0.2); Basophils % (auto) 0.1 %; Eosinophils # (auto) 6.35 K/uL (0-0.5); Eosinophils % (auto) 38.1 %; Hematocrit (blood only) 37.8 % (42-52); Hemoglobin 13.3 g/dL (14.0-18.0); Immature Granulocytes # (auto) 0.06 K/uL (0.00-0.02); Immature Granulocytes % (auto) 0.4 %; Lymphocytes # (auto) 1.59 K/uL (1.2-3.4); Lymphocytes % (auto) 9.5 %; Mean Corpuscular Volume 86.5 fL (80-100); Mean Platelet Volume 10.7 fL (7.4-10.4); Monocytes # (auto) 1.12 K/uL (0.11-0.59); Monocytes % (auto) 6.7 %; Neutrophils # (auto) 7.53 K/uL (1.4-6.5); Neutrophils % (auto) 45.2 %; Platelet Count 120 K/uL (130-400); RDW Coefficient of Variation 14.2 % (11.5-14.5); RDW Standard Deviation 44.6 fL (36.4-46.3); Red Blood Count 4.37 M/uL (4.7-6.1); White Blood Count 16.67 K/uL (4.8-10.8)
[2018-06-15 18:28] LABS: Mean Corpuscular Hgb Conc 35.2 g/dL (32-36); Partial Thromboplastin Ratio 1.6; Partial Thromboplastin Time 41.3 Seconds (21.0-31.0)
--- NOTE | 2018-06-15 18:49 | Hospitalist Progress Note ---
Date of Service June 15, 2018 Subjective Update Note Met with patient and his brother Malcolm ([phone]) this afternoon and paper work was obtained in regards to patient's living will of which denotes patient code status is DNR/DNI and that patient's power of ip technology transactions attorney is Amlcolm In evening around 6 PM, nurse reports patient with large bowel movement of dark stool, heparin drip held Fecal occult blood stool positive Hgb stable a 13.3 patient with stable blood pressure and heart rate, but feel lightheaded IV fluids of D5 1/2 normal saline being started. Patient will be NPO. patient to have condom catheter to monitor output Have spoken with patient again and confirmed code status DNR/DNI. confirmed with Malcolm on the telephone and updated him also discussed the the plan at this time will involve gastroenterology consult given that while patient may benefit from stroke prophylaxis with anticoagulation and antiplatelet, there now must be risk assessment of GI bleed will hold off further anticoagulation and aspirin at this time. Risks and benefits explained to patient and his brother will trend CBC Physical Exam 2 Vital Signs (Past 24 Hours): Last Vital Signs Temp 36.4 C L 06/15/18 18:44 Pulse 76 06/15/18 18:44 Resp 18 06/15/18 18:44 BP 145/84 H 06/15/18 18:44 Pulse Ox 95 06/15/18 18:44 Constitutional: WD/WN, vitals as above Eyes: PERRL, conjunctivae normal, anicteric sclerae EOM intact bilaterally ENMT: external ear and nose normal, oropharynx normal Respiratory: normal respiratory effort, lungs clear to auscultation Cardiovascular: Rate/Rhythm: regular rhythm and + bradycardic Gastrointestinal (Abdomen): normal bowel sounds, soft, nontender, no hepatosplenomegaly Musculoskeletal: Head/Neck/Chest: normocephalic and head atraumatic Neurologic: CN's II-XI intact bilaterally and awake
[2018-06-15] MEDS: D5W AND 1/2NSS 1,000 ML IV SCH (19:31)
[2018-06-16 00:46] LABS: Hematocrit (blood only) 34.8 % (42-52); Hemoglobin 12.1 g/dL (14.0-18.0); Mean Corpuscular Hgb Conc 34.8 g/dL (32-36); Mean Corpuscular Volume 85.7 fL (80-100); RDW Coefficient of Variation 14.2 % (11.5-14.5); RDW Standard Deviation 44.1 fL (36.4-46.3); Red Blood Count 4.06 M/uL (4.7-6.1); White Blood Count 16.39 K/uL (4.8-10.8)
[2018-06-16 01:09] LABS: Mean Platelet Volume 10.3 fL (7.4-10.4); Platelet Count 90 K/uL (130-400)
[2018-06-16 01:25] LABS: Basophils # (auto) 0.02 K/uL (0-0.2); Basophils % (auto) 0.1 %; Eosinophils # (auto) 6.18 K/uL (0-0.5); Eosinophils % (auto) 37.7 %; Immature Granulocytes # (auto) 0.07 K/uL (0.00-0.02); Immature Granulocytes % (auto) 0.4 %; Lymphocytes # (auto) 1.39 K/uL (1.2-3.4); Lymphocytes % (auto) 8.5 %; Monocytes # (auto) 1.22 K/uL (0.11-0.59); Monocytes % (auto) 7.4 %; Neutrophils # (auto) 7.51 K/uL (1.4-6.5); Neutrophils % (auto) 45.9 %
[2018-06-16] MEDS: LEVOTHYROXINE SODIUM 125 MCG TABLET PO SCH (06:09)
[2018-06-16] MEDS: D5W AND 1/2NSS 1,000 ML IV SCH ×2 (06:14→19:38)
[2018-06-16 06:40] LABS: Hematocrit (blood only) 35.2 % (42-52); Hemoglobin 12.1 g/dL (14.0-18.0); Mean Corpuscular Hgb Conc 34.4 g/dL (32-36); Mean Corpuscular Volume 85.9 fL (80-100); RDW Coefficient of Variation 14.2 % (11.5-14.5); RDW Standard Deviation 44.5 fL (36.4-46.3); White Blood Count 16.23 K/uL (4.8-10.8)
[2018-06-16 06:43] LABS: Mean Platelet Volume 10.7 fL (7.4-10.4); Platelet Count 87 K/uL (130-400)
[2018-06-16 07:06] LABS: Basophils # (auto) 0.02 K/uL (0-0.2); Basophils % (auto) 0.1 %; Eosinophils # (auto) 6.38 K/uL (0-0.5); Eosinophils % (auto) 39.3 %; Immature Granulocytes # (auto) 0.05 K/uL (0.00-0.02); Immature Granulocytes % (auto) 0.3 %; Lymphocytes # (auto) 1.36 K/uL (1.2-3.4); Lymphocytes % (auto) 8.4 %; Monocytes # (auto) 1.16 K/uL (0.11-0.59); Monocytes % (auto) 7.1 %; Neutrophils # (auto) 7.26 K/uL (1.4-6.5); Neutrophils % (auto) 44.8 %
[2018-06-16] MEDS: AMLODIPINE BESYLATE 5 MG TAB PO SCH (07:58)
[2018-06-16] MEDS: COLCHICINE 0.6 MG TAB PO SCH ×2 (07:58→20:52)
[2018-06-16] MEDS: METOPROLOL TARTRATE 25 MG TAB PO SCH ×2 (07:59→20:52)
[2018-06-16] MEDS: ATORVASTATIN 40 MG TAB PO SCH (08:00)
--- NOTE | 2018-06-16 12:15 | Communication Note ---
Date of Service: June 16, 2018 I saw Mr. Garcia today in the company of his brothers and physical therapy. He was less lethargic but was fairly uncooperative and had fairly sparse speech and may have had some slight weakness of the right arm and right leg but was able to sit up with assistance and was able to urinate using the urinal without nursing assistance. At this point he is slightly improved at most from yesterday. He still on heparin. We are going to order a noncontrast CT of the brain to be sure that there is no late development of a subdural hematoma following his head injury yesterday and if this is indeed negative as I suspect it will be then Eliquis will be restarted, the PETROS will be rescheduled we will continue to follow him for the next few days to assess how he is doing intellectually. Unfortunately the prognosis for recovery of function is somewhat limited here due to the multiple areas of infarction. 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 Only time however will tell Post discharge she is clearly going to need rehabilitation, probably speech therapy, and occupational therapy and will need social service to provide guidance regarding disability issues etc. Nahum Saldana MD
[2018-06-16] MEDS ORDERED: PANTOPRAZOLE BOLUS/DRIP 1 EA IV STA (12:23)
--- NOTE | 2018-06-16 12:31 | Gastrointestinal Consultation ---
Date of Consultation June 16, 2018 Assessment & Plan (1) Melena: Concern for melena, not supported on my direct visualization stools today, . Fortunately has a stable hemoglobin as well as vital signs. I will start him on an IV PPI and discuss with cardiology neurology to ensure that he is safe to undergo endoscopy tomorrow. This may be done in a staged maneuver if possible if he is undergoing a PETROS. Okay for liquid diet today if has any clinical signs of decompensation please do not hesitate to call gastroenterology. At this time does not display evidence of acute GI bleeding. Okay to stop heparin if possible from GI neurology standpoint. (2) Thalamic infarction: History of Present Illness Attending Physician: Rohith Sevilla MD History of Present Illness 63-year-old gentleman recently readmitted after admission for a pneumonia for confusion. He was found to have bilateral multiple embolic strokes without an etiology being elucidated. He has no motor dysfunction however he has some memory and concentration issues. He does have relatively newly diagnosed atrial fibrillation, he was sent home on Xarelto and readmitted with these sorts of symptoms. Neurology is following as well as cardiology discuss long-term and short-term both etiologies and plan of care for him. There was some concern of whether he was having dark stools and an heparin drip that he was on was stopped. Fortunately his hemodynamics as well as blood count has remained stable. He says he does not have much in the way of abdominal complaints, upon my review today and interview he just had a bowel movement that is green and brown in nature it is dark green however it clearly does not look like melena and/or smell of that. No history of peptic ulcer disease, no other GI issue. Cardiology is contemplating apparently a transesophageal echocardiogram. I spoke with a long time with his brother Malcolm who was at the bedside who is his next of kin and numbers in the chart and would like to be updated and/or would be happy to consent to any medical procedures during this hospitalization. His hemoglobin was 12.3 on the it is 12.1 today, it has bounced up between the low 12th to lower 13s without intervention over the last 11 days. Platelet count has also dropped he has a persistent elevated white count out etiology been elucidated. Allergies Allergy/AdvReac Type Severity Reaction Status Date / Time morphine AdvReac Intermediate Nausea/Vomi Verified 06/13/18 14:09 ting Home Medications Home Medications Medication Instructions Recorded Confirmed Type amlodipine 10 mg PO QAM 06/04/18 06/13/18 History atorvastatin 40 mg PO QAM 06/04/18 06/13/18 History levothyroxine 125 mcg PO QAM 06/04/18 06/13/18 History apixaban [Eliquis] 5 mg PO BID #60 tab 06/07/18 06/13/18 Rx aspirin 81 mg PO DAILY 06/13/18 06/13/18 History Patient History Medical History Dyslipidemia (Chronic) Tobacco abuse (Resolved) Paroxysmal atrial fibrillation (Chronic) Thalamic infarction (Chronic) Continue care per primary hospitalist as well as cardiology HTN (hypertension) (Chronic) Surgical History History of thyroidectomy (Chronic) History of left knee surgery (Chronic) Family History Brother Diabetes Mother Hypertension Social History Current Living Situation: Alone Other Information That Helps Us Care for You: No Feels Safe at Home: Yes Safety Concerns: Feels Safe At This Time Smoking Status: Former smoker Tobacco Type: cigarettes Do You Dip or Chew Tobacco: No Smoking End Date: 06/26/18 Second Hand Exposure: No Tobacco Cessation Education Requested by Patient: No Hx Alcohol Use: No Hx Substance Use: No Beliefs That Will Affect Care: None Communication Ability: Effective Review of Systems 10 system review as per stated above Physical Exam 2 Vital Signs (Past 24 Hours): Last Vital Signs Temp 36.7 C 06/16/18 10:57 Pulse 59 L 06/16/18 10:57 Resp 18 06/16/18 10:57 BP 130/79 06/16/18 10:57 Pulse Ox 95 06/16/18 10:57 . Is awake alert oriented x3 moving all extremities no apparent distress, PT is at the bedside and he is performing exercises had with a hematoma on his anterior right forehead heart is regular lungs are clear abdomen is soft nontender no peripheral edema. Results & Data Laboratory Results Lab Results 06/13/18 06/13/18 06/13/18 Range/Units 12:58 12:58 12:58 WBC 16.27 H (4.8-10.8) K/uL RBC 4.39 L (4.7-6.1) M/uL Hgb 13.2 L (14.0-18.0) g/dL POC Hgb (14.0-18.0) g/dl Hct 38.6 L (42-52) % POC Hct (42-52) % MCV 87.9 (80-100) fL MCH 30.1 (25-34) pg MCHC 34.2 (32-36) g/dL RDW Std Deviation 45.3 (36.4-46.3) fL RDW Coeff of Martin 14.1 (11.5-14.5) % Plt Count 170 (130-400) K/uL MPV 10.8 H (7.4-10.4) fL Immature Gran % (Auto) 0.7 % Neut % (Auto) 59.6 % Lymph % (Auto) 6.3 % [place] % (Auto) 5.2 % Eos % (Auto) 28.1 % Baso % (Auto) 0.1 % Immature Gran # (Auto) 0.11 H (0.00-0.02) K/uL Neut # (Auto) 9.69 H (1.4-6.5) K/uL Lymph # (Auto) 1.03 L (1.2-3.4) K/uL [place] # (Auto) 0.85 H (0.11-0.59) K/uL Eos # (Auto) 4.58 H (0-0.5) K/uL Baso # (Auto) 0.01 (0-0.2) K/uL ESR (0-14) mm/hr PT 12.1 H (9.0-12.0) Seconds INR 1.2 H (0.9-1.1) APTT (21.0-31.0) Seconds PTT Ratio VBG pH (7.36-7.41) VBG pCO2 (38-50) mmHg VBG pO2 mmHg VBG HCO3 mmol/L VBG O2 Saturation % VBG Base Excess mEq/L Carboxyhemoglobin % THgb Barometric Pressure mm/Hg POC Sodium (135-144) mEq/L Sodium 133 L (136-145) mmol/L POC Potassium (3.3-5.0) mEq/L Potassium 3.7 (3.5-5.1) mmol/L POC Chloride (101-112) mEq/L Chloride 102 (98-107) mmol/L Carbon Dioxide 25 (21-32) mmol/L POC Total CO2 (24-31) mEq/l Anion Gap 6.0 (3-11) POC Anion Gap (16-25) mmol/L POC BUN (7-18) mg/dl BUN 15 (7-18) mg/dl Creatinine 1.23 (0.6-1.4) mg/dl POC Creatinine (0.6-1.3) mg/dl Est Cr Clr Drug Dosing 63.1 ml/min Est GFR ( Amer) 71.5 Est GFR (Non-Af Amer) 61.7 BUN/Creatinine Ratio 12.1 (10-20) Glucose 105 H (70-99) mg/dl POC Glucose (70-99) POC Glucose (other) (70-99) mg/dl Estimat Average Glucose mg/dl Hemoglobin A1c (4.5-5.6) % Lactate (0.4-2.0) mmol/L Calcium 8.9 (8.5-10.1) mg/dl POC Ioniz Calcium Amol (1.12-1.32) mmol/l Magnesium 2.5 H (1.8-2.4) mg/dl Total Bilirubin 0.8 (0.2-1) mg/dl AST 41 H (15-37) U/L ALT 39 (12-78) U/L Alkaline Phosphatase 166 H (45-117) U/L Ammonia (11-32) umol/L Troponin I 0.929 H* (0-0.045) ng/ml C-Reactive Protein (0-0.29) mg/dl Total Protein 8.7 H (6.4-8.2) gm/dl Albumin 3.1 L (3.4-5.0) gm/dl Globulin 5.6 H (2.5-4.0) gm/dl Albumin/Globulin Ratio 0.6 L (0.9-2) Triglycerides (0-150) mg/dl Cholesterol (0-200) mg/dl LDL Cholesterol, Calc mg/dl VLDL Cholesterol, Calc mg/dl HDL Cholesterol mg/dl Cholesterol/HDL Ratio TSH 12.000 H (0.300-4.500) uIu/ml Free T4 1.32 (0.8-1.6) ng/dl Urine Color Urine Appearance (Clear) Urine pH (4.5-7.5) Ur Specific [place] (1.000-1.030) Urine Protein (Negative) Urine Glucose (UA) (Negative) Urine Ketones (Negative) Urine Blood (Negative) Urine Nitrite (Negative) Urine Bilirubin (Negative) Urine Urobilinogen (Negative) Ur Leukocyte Esterase (Negative) CSF Appearance CSF Color Xanthrochromic CSF WBC (0-5) /uL CSF RBC (0-) /uL CSF Cell Count Tube # CSF Chemistry Tube # CSF Glucose (40-70) mg/dl CSF Total Protein (15-45) mg/dl Stool Occult Bld Scrn (Negative) Lyme Disease IgG Ab (Negative) Lyme Disease IgM Ab (Negative) Hepatitis C Ab Screen (Neg) Influenza Type A Ag (Neg) Influenza Type B Ag (Neg) Blood Type Antibody Screen 06/13/18 06/13/18 06/13/18 Range/Units 12:58 12:58 12:59 WBC (4.8-10.8) K/uL RBC (4.7-6.1) M/uL Hgb (14.0-18.0) g/dL POC Hgb (14.0-18.0) g/dl Hct (42-52) % POC Hct (42-52) % MCV (80-100) fL MCH (25-34) pg MCHC (32-36) g/dL RDW Std Deviation (36.4-46.3) fL RDW Coeff of Martin (11.5-14.5) % Plt Count (130-400) K/uL MPV (7.4-10.4) fL Immature Gran % (Auto) % Neut % (Auto) % Lymph % (Auto) % [place] % (Auto) % Eos % (Auto) % Baso % (Auto) % Immature Gran # (Auto) (0.00-0.02) K/uL Neut # (Auto) (1.4-6.5) K/uL Lymph # (Auto) (1.2-3.4) K/uL [place] # (Auto) (0.11-0.59) K/uL Eos # (Auto) (0-0.5) K/uL Baso # (Auto) (0-0.2) K/uL ESR (0-14) mm/hr PT (9.0-12.0) Seconds INR (0.9-1.1) APTT (21.0-31.0) Seconds PTT Ratio VBG pH (7.36-7.41) VBG pCO2 (38-50) mmHg VBG pO2 mmHg VBG HCO3 mmol/L VBG O2 Saturation % VBG Base Excess mEq/L Carboxyhemoglobin % THgb Barometric Pressure mm/Hg POC Sodium (135-144) mEq/L Sodium (136-145) mmol/L POC Potassium (3.3-5.0) mEq/L Potassium (3.5-5.1) mmol/L POC Chloride (101-112) mEq/L Chloride (98-107) mmol/L Carbon Dioxide (21-32) mmol/L POC Total CO2 (24-31) mEq/l Anion Gap (3-11) POC Anion Gap (16-25) mmol/L POC BUN (7-18) mg/dl BUN (7-18) mg/dl Creatinine (0.6-1.4) mg/dl POC Creatinine (0.6-1.3) mg/dl Est Cr Clr Drug Dosing ml/min Est GFR ( Amer) Est GFR (Non-Af Amer) BUN/Creatinine Ratio (10-20) Glucose (70-99) mg/dl POC Glucose 108 H (70-99) POC Glucose (other) (70-99) mg/dl Estimat Average Glucose 134 mg/dl Hemoglobin A1c 6.3 H (4.5-5.6) % Lactate (0.4-2.0) mmol/L Calcium (8.5-10.1) mg/dl POC Ioniz Calcium Amol (1.12-1.32) mmol/l Magnesium (1.8-2.4) mg/dl Total Bilirubin (0.2-1) mg/dl AST (15-37) U/L ALT (12-78) U/L Alkaline Phosphatase (45-117) U/L Ammonia (11-32) umol/L Troponin I (0-0.045) ng/ml C-Reactive Protein (0-0.29) mg/dl Total Protein (6.4-8.2) gm/dl Albumin (3.4-5.0) gm/dl Globulin (2.5-4.0) gm/dl Albumin/Globulin Ratio (0.9-2) Triglycerides (0-150) mg/dl Cholesterol (0-200) mg/dl LDL Cholesterol, Calc mg/dl VLDL Cholesterol, Calc mg/dl HDL Cholesterol mg/dl Cholesterol/HDL Ratio TSH (0.300-4.500) uIu/ml Free T4 (0.8-1.6) ng/dl Urine Color Urine Appearance (Clear) Urine pH (4.5-7.5) Ur Specific [place] (1.000-1.030) Urine Protein (Negative) Urine Glucose (UA) (Negative) Urine Ketones (Negative) Urine Blood (Negative) Urine Nitrite (Negative) Urine Bilirubin (Negative) Urine Urobilinogen (Negative) Ur Leukocyte Esterase (Negative) CSF Appearance CSF Color Xanthrochromic CSF WBC (0-5) /uL CSF RBC (0-) /uL CSF Cell Count Tube # CSF Chemistry Tube # CSF Glucose (40-70) mg/dl CSF Total Protein (15-45) mg/dl Stool Occult Bld Scrn (Negative) Lyme Disease IgG Ab (Negative) Lyme Disease IgM Ab (Negative) Hepatitis C Ab Screen Pos H (Neg) Influenza Type A Ag (Neg) Influenza Type B Ag (Neg) Blood Type Antibody Screen 06/13/18 06/13/18 06/13/18 Range/Units 13:04 13:33 13:33 WBC (4.8-10.8) K/uL RBC (4.7-6.1) M/uL Hgb (14.0-18.0) g/dL POC Hgb 13.9 L (14.0-18.0) g/dl Hct (42-52) % POC Hct 41 L (42-52) % MCV (80-100) fL MCH (25-34) pg MCHC (32-36) g/dL RDW Std Deviation (36.4-46.3) fL RDW Coeff of Martin (11.5-14.5) % Plt Count (130-400) K/uL MPV (7.4-10.4) fL Immature Gran % (Auto) % Neut % (Auto) % Lymph % (Auto) % [place] % (Auto) % Eos % (Auto) % Baso % (Auto) % Immature Gran # (Auto) (0.00-0.02) K/uL Neut # (Auto) (1.4-6.5) K/uL Lymph # (Auto) (1.2-3.4) K/uL [place] # (Auto) (0.11-0.59) K/uL Eos # (Auto) (0-0.5) K/uL Baso # (Auto) (0-0.2) K/uL ESR (0-14) mm/hr PT (9.0-12.0) Seconds INR (0.9-1.1) APTT (21.0-31.0) Seconds PTT Ratio VBG pH (7.36-7.41) VBG pCO2 (38-50) mmHg VBG pO2 mmHg VBG HCO3 mmol/L VBG O2 Saturation % VBG Base Excess mEq/L Carboxyhemoglobin % THgb Barometric Pressure mm/Hg POC Sodium 139 (135-144) mEq/L Sodium (136-145) mmol/L POC Potassium 3.8 (3.3-5.0) mEq/L Potassium (3.5-5.1) mmol/L POC Chloride 101 (101-112) mEq/L Chloride (98-107) mmol/L Carbon Dioxide (21-32) mmol/L POC Total CO2 24 (24-31) mEq/l Anion Gap (3-11) POC Anion Gap 19.0 (16-25) mmol/L POC BUN 15 (7-18) mg/dl BUN (7-18) mg/dl Creatinine (0.6-1.4) mg/dl POC Creatinine 1.1 (0.6-1.3) mg/dl Est Cr Clr Drug Dosing ml/min Est GFR ( Amer) Est GFR (Non-Af Amer) BUN/Creatinine Ratio (10-20) Glucose (70-99) mg/dl POC Glucose (70-99) POC Glucose (other) 111 H (70-99) mg/dl Estimat Average Glucose mg/dl Hemoglobin A1c (4.5-5.6) % Lactate 1.3 (0.4-2.0) mmol/L Calcium (8.5-10.1) mg/dl POC Ioniz Calcium Amol 1.10 L (1.12-1.32) mmol/l Magnesium (1.8-2.4) mg/dl Total Bilirubin (0.2-1) mg/dl AST (15-37) U/L ALT (12-78) U/L Alkaline Phosphatase (45-117) U/L Ammonia 27.7 (11-32) umol/L Troponin I (0-0.045) ng/ml C-Reactive Protein (0-0.29) mg/dl Total Protein (6.4-8.2) gm/dl Albumin (3.4-5.0) gm/dl Globulin (2.5-4.0) gm/dl Albumin/Globulin Ratio (0.9-2) Triglycerides (0-150) mg/dl Cholesterol (0-200) mg/dl LDL Cholesterol, Calc mg/dl VLDL Cholesterol, Calc mg/dl HDL Cholesterol mg/dl Cholesterol/HDL Ratio TSH (0.300-4.500) uIu/ml Free T4 (0.8-1.6) ng/dl Urine Color Urine Appearance (Clear) Urine pH (4.5-7.5) Ur Specific [place] (1.000-1.030) Urine Protein (Negative) Urine Glucose (UA) (Negative) Urine Ketones (Negative) Urine Blood (Negative) Urine Nitrite (Negative) Urine Bilirubin (Negative) Urine Urobilinogen (Negative) Ur Leukocyte Esterase (Negative) CSF Appearance CSF Color Xanthrochromic CSF WBC (0-5) /uL CSF RBC (0-) /uL CSF Cell Count Tube # CSF Chemistry Tube # CSF Glucose (40-70) mg/dl CSF Total Protein (15-45) mg/dl Stool Occult Bld Scrn (Negative) Lyme Disease IgG Ab (Negative) Lyme Disease IgM Ab (Negative) Hepatitis C Ab Screen (Neg) Influenza Type A Ag (Neg) Influenza Type B Ag (Neg) Blood Type Antibody Screen 06/13/18 06/13/18 06/13/18 Range/Units 13:33 14:35 14:35 WBC (4.8-10.8) K/uL RBC (4.7-6.1) M/uL Hgb (14.0-18.0) g/dL POC Hgb (14.0-18.0) g/dl Hct (42-52) % POC Hct (42-52) % MCV (80-100) fL MCH (25-34) pg MCHC (32-36) g/dL RDW Std Deviation (36.4-46.3) fL RDW Coeff of Martin (11.5-14.5) % Plt Count (130-400) K/uL MPV (7.4-10.4) fL Immature Gran % (Auto) % Neut % (Auto) % Lymph % (Auto) % [place] % (Auto) % Eos % (Auto) % Baso % (Auto) % Immature Gran # (Auto) (0.00-0.02) K/uL Neut # (Auto) (1.4-6.5) K/uL Lymph # (Auto) (1.2-3.4) K/uL [place] # (Auto) (0.11-0.59) K/uL Eos # (Auto) (0-0.5) K/uL Baso # (Auto) (0-0.2) K/uL ESR (0-14) mm/hr PT (9.0-12.0) Seconds INR (0.9-1.1) APTT (21.0-31.0) Seconds PTT Ratio VBG pH 7.45 H (7.36-7.41) VBG pCO2 37 L (38-50) mmHg VBG pO2 36 mmHg VBG HCO3 25 mmol/L VBG O2 Saturation 68.9 % VBG Base Excess 1.4 mEq/L Carboxyhemoglobin % THgb Barometric Pressure 720.6 mm/Hg POC Sodium (135-144) mEq/L Sodium (136-145) mmol/L POC Potassium (3.3-5.0) mEq/L Potassium (3.5-5.1) mmol/L POC Chloride (101-112) mEq/L Chloride (98-107) mmol/L Carbon Dioxide (21-32) mmol/L POC Total CO2 (24-31) mEq/l Anion Gap (3-11) POC Anion Gap (16-25) mmol/L POC BUN (7-18) mg/dl BUN (7-18) mg/dl Creatinine (0.6-1.4) mg/dl POC Creatinine (0.6-1.3) mg/dl Est Cr Clr Drug Dosing ml/min Est GFR ( Amer) Est GFR (Non-Af Amer) BUN/Creatinine Ratio (10-20) Glucose (70-99) mg/dl POC Glucose (70-99) POC Glucose (other) (70-99) mg/dl Estimat Average Glucose mg/dl Hemoglobin A1c (4.5-5.6) % Lactate (0.4-2.0) mmol/L Calcium (8.5-10.1) mg/dl POC Ioniz Calcium Amol (1.12-1.32) mmol/l Magnesium (1.8-2.4) mg/dl Total Bilirubin (0.2-1) mg/dl AST (15-37) U/L ALT (12-78) U/L Alkaline Phosphatase (45-117) U/L Ammonia (11-32) umol/L Troponin I (0-0.045) ng/ml C-Reactive Protein (0-0.29) mg/dl Total Protein (6.4-8.2) gm/dl Albumin (3.4-5.0) gm/dl Globulin (2.5-4.0) gm/dl Albumin/Globulin Ratio (0.9-2) Triglycerides (0-150) mg/dl Cholesterol (0-200) mg/dl LDL Cholesterol, Calc mg/dl VLDL Cholesterol, Calc mg/dl HDL Cholesterol mg/dl Cholesterol/HDL Ratio TSH (0.300-4.500) uIu/ml Free T4 (0.8-1.6) ng/dl Urine Color Urine Appearance (Clear) Urine pH (4.5-7.5) Ur Specific [place] (1.000-1.030) Urine Protein (Negative) Urine Glucose (UA) (Negative) Urine Ketones (Negative) Urine Blood (Negative) Urine Nitrite (Negative) Urine Bilirubin (Negative) Urine Urobilinogen (Negative) Ur Leukocyte Esterase (Negative) CSF Appearance Clear CSF Color Colorless Xanthrochromic No xanthochromia CSF WBC 0 (0-5) /uL CSF RBC 8 (0-) /uL CSF Cell Count Tube # 3 CSF Chemistry Tube # 1 CSF Glucose 58 (40-70) mg/dl CSF Total Protein 44.6 (15-45) mg/dl Stool Occult Bld Scrn (Negative) Lyme Disease IgG Ab (Negative) Lyme Disease IgM Ab (Negative) Hepatitis C Ab Screen (Neg) Influenza Type A Ag (Neg) Influenza Type B Ag (Neg) Blood Type Antibody Screen 06/13/18 06/13/18 06/13/18 Range/Units 14:35 14:58 14:58 WBC (4.8-10.8) K/uL RBC (4.7-6.1) M/uL Hgb (14.0-18.0) g/dL POC Hgb (14.0-18.0) g/dl Hct (42-52) % POC Hct (42-52) % MCV (80-100) fL MCH (25-34) pg MCHC (32-36) g/dL RDW Std Deviation (36.4-46.3) fL RDW Coeff of Martin (11.5-14.5) % Plt Count (130-400) K/uL MPV (7.4-10.4) fL Immature Gran % (Auto) % Neut % (Auto) % Lymph % (Auto) % [place] % (Auto) % Eos % (Auto) % Baso % (Auto) % Immature Gran # (Auto) (0.00-0.02) K/uL Neut # (Auto) (1.4-6.5) K/uL Lymph # (Auto) (1.2-3.4) K/uL [place] # (Auto) (0.11-0.59) K/uL Eos # (Auto) (0-0.5) K/uL Baso # (Auto) (0-0.2) K/uL ESR (0-14) mm/hr PT (9.0-12.0) Seconds INR (0.9-1.1) APTT (21.0-31.0) Seconds PTT Ratio VBG pH (7.36-7.41) VBG pCO2 (38-50) mmHg VBG pO2 mmHg VBG HCO3 mmol/L VBG O2 Saturation % VBG Base Excess mEq/L Carboxyhemoglobin 0.6 % THgb Barometric Pressure mm/Hg POC Sodium (135-144) mEq/L Sodium (136-145) mmol/L POC Potassium (3.3-5.0) mEq/L Potassium (3.5-5.1) mmol/L POC Chloride (101-112) mEq/L Chloride (98-107) mmol/L Carbon Dioxide (21-32) mmol/L POC Total CO2 (24-31) mEq/l Anion Gap (3-11) POC Anion Gap (16-25) mmol/L POC BUN (7-18) mg/dl BUN (7-18) mg/dl Creatinine (0.6-1.4) mg/dl POC Creatinine (0.6-1.3) mg/dl Est Cr Clr Drug Dosing ml/min Est GFR ( Amer) Est GFR (Non-Af Amer) BUN/Creatinine Ratio (10-20) Glucose (70-99) mg/dl POC Glucose (70-99) POC Glucose (other) (70-99) mg/dl Estimat Average Glucose mg/dl Hemoglobin A1c (4.5-5.6) % Lactate (0.4-2.0) mmol/L Calcium (8.5-10.1) mg/dl POC Ioniz Calcium Amol (1.12-1.32) mmol/l Magnesium (1.8-2.4) mg/dl Total Bilirubin (0.2-1) mg/dl AST (15-37) U/L ALT (12-78) U/L Alkaline Phosphatase (45-117) U/L Ammonia (11-32) umol/L Troponin I (0-0.045) ng/ml C-Reactive Protein (0-0.29) mg/dl Total Protein (6.4-8.2) gm/dl Albumin (3.4-5.0) gm/dl Globulin (2.5-4.0) gm/dl Albumin/Globulin Ratio (0.9-2) Triglycerides (0-150) mg/dl Cholesterol (0-200) mg/dl LDL Cholesterol, Calc mg/dl VLDL Cholesterol, Calc mg/dl HDL Cholesterol mg/dl Cholesterol/HDL Ratio TSH (0.300-4.500) uIu/ml Free T4 (0.8-1.6) ng/dl Urine Color Urine Appearance (Clear) Urine pH (4.5-7.5) Ur Specific [place] (1.000-1.030) Urine Protein (Negative) Urine Glucose (UA) (Negative) Urine Ketones (Negative) Urine Blood (Negative) Urine Nitrite (Negative) Urine Bilirubin (Negative) Urine Urobilinogen (Negative) Ur Leukocyte Esterase (Negative) CSF Appearance CSF Color Xanthrochromic CSF WBC (0-5) /uL CSF RBC (0-) /uL CSF Cell Count Tube # CSF Chemistry Tube # CSF Glucose (40-70) mg/dl CSF Total Protein Cancelled (15-45) mg/dl Stool Occult Bld Scrn (Negative) Lyme Disease IgG Ab Negative (Negative) Lyme Disease IgM Ab Negative (Negative) Hepatitis C Ab Screen (Neg) Influenza Type A Ag (Neg) Influenza Type B Ag (Neg) Blood Type Antibody Screen 06/13/18 06/14/18 06/14/18 Range/Units 17:40 05:56 05:56 WBC 17.62 H (4.8-10.8) K/uL RBC 4.26 L (4.7-6.1) M/uL Hgb 12.9 L (14.0-18.0) g/dL POC Hgb (14.0-18.0) g/dl Hct 37.2 L (42-52) % POC Hct (42-52) % MCV 87.3 (80-100) fL MCH 30.3 (25-34) pg MCHC 34.7 (32-36) g/dL RDW Std Deviation 44.5 (36.4-46.3) fL RDW Coeff of Martin 14.1 (11.5-14.5) % Plt Count 132 (130-400) K/uL MPV 10.9 H (7.4-10.4) fL Immature Gran % (Auto) 0.5 % Neut % (Auto) 45.5 % Lymph % (Auto) 6.7 % [place] % (Auto) 6.5 % Eos % (Auto) 40.7 % Baso % (Auto) 0.1 % Immature Gran # (Auto) 0.08 H (0.00-0.02) K/uL Neut # (Auto) 8.02 H (1.4-6.5) K/uL Lymph # (Auto) 1.18 L (1.2-3.4) K/uL [place] # (Auto) 1.14 H (0.11-0.59) K/uL Eos # (Auto) 7.18 H (0-0.5) K/uL Baso # (Auto) 0.02 (0-0.2) K/uL ESR (0-14) mm/hr PT (9.0-12.0) Seconds INR (0.9-1.1) APTT (21.0-31.0) Seconds PTT Ratio VBG pH (7.36-7.41) VBG pCO2 (38-50) mmHg VBG pO2 mmHg VBG HCO3 mmol/L VBG O2 Saturation % VBG Base Excess mEq/L Carboxyhemoglobin % THgb Barometric Pressure mm/Hg POC Sodium (135-144) mEq/L Sodium 135 L (136-145) mmol/L POC Potassium (3.3-5.0) mEq/L Potassium 3.9 (3.5-5.1) mmol/L POC Chloride (101-112) mEq/L Chloride 102 (98-107) mmol/L Carbon Dioxide 24 (21-32) mmol/L POC Total CO2 (24-31) mEq/l Anion Gap 9.0 (3-11) POC Anion Gap (16-25) mmol/L POC BUN (7-18) mg/dl BUN 12 (7-18) mg/dl Creatinine 0.95 (0.6-1.4) mg/dl POC Creatinine (0.6-1.3) mg/dl Est Cr Clr Drug Dosing 81.7 ml/min Est GFR ( Amer) 97.7 Est GFR (Non-Af Amer) 84.3 BUN/Creatinine Ratio 12.6 (10-20) Glucose 86 (70-99) mg/dl POC Glucose (70-99) POC Glucose (other) (70-99) mg/dl Estimat Average Glucose mg/dl Hemoglobin A1c (4.5-5.6) % Lactate (0.4-2.0) mmol/L Calcium 8.3 L (8.5-10.1) mg/dl POC Ioniz Calcium Amol (1.12-1.32) mmol/l Magnesium (1.8-2.4) mg/dl Total Bilirubin (0.2-1) mg/dl AST (15-37) U/L ALT (12-78) U/L Alkaline Phosphatase (45-117) U/L Ammonia (11-32) umol/L Troponin I (0-0.045) ng/ml C-Reactive Protein (0-0.29) mg/dl Total Protein (6.4-8.2) gm/dl Albumin (3.4-5.0) gm/dl Globulin (2.5-4.0) gm/dl Albumin/Globulin Ratio (0.9-2) Triglycerides 104 (0-150) mg/dl Cholesterol 95 (0-200) mg/dl LDL Cholesterol, Calc 38 mg/dl VLDL Cholesterol, Calc 21 mg/dl HDL Cholesterol 36 mg/dl Cholesterol/HDL Ratio 3 TSH (0.300-4.500) uIu/ml Free T4 (0.8-1.6) ng/dl Urine Color Urine Appearance (Clear) Urine pH (4.5-7.5) Ur Specific [place] (1.000-1.030) Urine Protein (Negative) Urine Glucose (UA) (Negative) Urine Ketones (Negative) Urine Blood (Negative) Urine Nitrite (Negative) Urine Bilirubin (Negative) Urine Urobilinogen (Negative) Ur Leukocyte Esterase (Negative) CSF Appearance CSF Color Xanthrochromic CSF WBC (0-5) /uL CSF RBC (0-) /uL CSF Cell Count Tube # CSF Chemistry Tube # CSF Glucose (40-70) mg/dl CSF Total Protein (15-45) mg/dl Stool Occult Bld Scrn (Negative) Lyme Disease IgG Ab (Negative) Lyme Disease IgM Ab (Negative) Hepatitis C Ab Screen (Neg) Influenza Type A Ag Neg for Influ A (Neg) Influenza Type B Ag Neg for Influ B (Neg) Blood Type Antibody Screen 06/14/18 06/14/18 06/14/18 Range/Units 13:58 13:58 16:00 WBC (4.8-10.8) K/uL RBC (4.7-6.1) M/uL Hgb (14.0-18.0) g/dL POC Hgb (14.0-18.0) g/dl Hct (42-52) % POC Hct (42-52) % MCV (80-100) fL MCH (25-34) pg MCHC (32-36) g/dL RDW Std Deviation (36.4-46.3) fL RDW Coeff of Martin (11.5-14.5) % Plt Count (130-400) K/uL MPV (7.4-10.4) fL Immature Gran % (Auto) % Neut % (Auto) % Lymph % (Auto) % [place] % (Auto) % Eos % (Auto) % Baso % (Auto) % Immature Gran # (Auto) (0.00-0.02) K/uL Neut # (Auto) (1.4-6.5) K/uL Lymph # (Auto) (1.2-3.4) K/uL [place] # (Auto) (0.11-0.59) K/uL Eos # (Auto) (0-0.5) K/uL Baso # (Auto) (0-0.2) K/uL ESR 59 H (0-14) mm/hr PT 12.2 H (9.0-12.0) Seconds INR 1.2 H (0.9-1.1) APTT 33.1 H (21.0-31.0) Seconds PTT Ratio 1.3 VBG pH (7.36-7.41) VBG pCO2 (38-50) mmHg VBG pO2 mmHg VBG HCO3 mmol/L VBG O2 Saturation % VBG Base Excess mEq/L Carboxyhemoglobin % THgb Barometric Pressure mm/Hg POC Sodium (135-144) mEq/L Sodium (136-145) mmol/L POC Potassium (3.3-5.0) mEq/L Potassium (3.5-5.1) mmol/L POC Chloride (101-112) mEq/L Chloride (98-107) mmol/L Carbon Dioxide (21-32) mmol/L POC Total CO2 (24-31) mEq/l Anion Gap (3-11) POC Anion Gap (16-25) mmol/L POC BUN (7-18) mg/dl BUN (7-18) mg/dl Creatinine (0.6-1.4) mg/dl POC Creatinine (0.6-1.3) mg/dl Est Cr Clr Drug Dosing ml/min Est GFR ( Amer) Est GFR (Non-Af Amer) BUN/Creatinine Ratio (10-20) Glucose (70-99) mg/dl POC Glucose (70-99) POC Glucose (other) (70-99) mg/dl Estimat Average Glucose mg/dl Hemoglobin A1c (4.5-5.6) % Lactate (0.4-2.0) mmol/L Calcium (8.5-10.1) mg/dl POC Ioniz Calcium Amol (1.12-1.32) mmol/l Magnesium (1.8-2.4) mg/dl Total Bilirubin (0.2-1) mg/dl AST (15-37) U/L ALT (12-78) U/L Alkaline Phosphatase (45-117) U/L Ammonia (11-32) umol/L Troponin I (0-0.045) ng/ml C-Reactive Protein 7.54 H (0-0.29) mg/dl Total Protein (6.4-8.2) gm/dl Albumin (3.4-5.0) gm/dl Globulin (2.5-4.0) gm/dl Albumin/Globulin Ratio (0.9-2) Triglycerides (0-150) mg/dl Cholesterol (0-200) mg/dl LDL Cholesterol, Calc mg/dl VLDL Cholesterol, Calc mg/dl HDL Cholesterol mg/dl Cholesterol/HDL Ratio TSH (0.300-4.500) uIu/ml Free T4 (0.8-1.6) ng/dl Urine Color Urine Appearance (Clear) Urine pH (4.5-7.5) Ur Specific [place] (1.000-1.030) Urine Protein (Negative) Urine Glucose (UA) (Negative) Urine Ketones (Negative) Urine Blood (Negative) Urine Nitrite (Negative) Urine Bilirubin (Negative) Urine Urobilinogen (Negative) Ur Leukocyte Esterase (Negative) CSF Appearance CSF Color Xanthrochromic CSF WBC (0-5) /uL CSF RBC (0-) /uL CSF Cell Count Tube # CSF Chemistry Tube # CSF Glucose (40-70) mg/dl CSF Total Protein (15-45) mg/dl Stool Occult Bld Scrn (Negative) Lyme Disease IgG Ab (Negative) Lyme Disease IgM Ab (Negative) Hepatitis C Ab Screen (Neg) Influenza Type A Ag (Neg) Influenza Type B Ag (Neg) Blood Type Antibody Screen 06/14/18 06/15/18 06/15/18 Range/Units 22:20 01:48 05:47 WBC 17.82 H (4.8-10.8) K/uL RBC 4.09 L (4.7-6.1) M/uL Hgb 12.7 L (14.0-18.0) g/dL POC Hgb (14.0-18.0) g/dl Hct 35.6 L (42-52) % POC Hct (42-52) % MCV 87.0 (80-100) fL MCH 31.1 (25-34) pg MCHC 35.7 (32-36) g/dL RDW Std Deviation 44.5 (36.4-46.3) fL RDW Coeff of Martin 14.1 (11.5-14.5) % Plt Count 123 L (130-400) K/uL MPV 9.8 (7.4-10.4) fL Immature Gran % (Auto) 0.5 % Neut % (Auto) 43.5 % Lymph % (Auto) 9.9 % [place] % (Auto) 6.2 % Eos % (Auto) 39.8 % Baso % (Auto) 0.1 % Immature Gran # (Auto) 0.09 H (0.00-0.02) K/uL Neut # (Auto) 7.74 H (1.4-6.5) K/uL Lymph # (Auto) 1.76 (1.2-3.4) K/uL [place] # (Auto) 1.11 H (0.11-0.59) K/uL Eos # (Auto) 7.10 H (0-0.5) K/uL Baso # (Auto) 0.02 (0-0.2) K/uL ESR (0-14) mm/hr PT (9.0-12.0) Seconds INR (0.9-1.1) APTT 39.0 H (21.0-31.0) Seconds PTT Ratio 1.5 VBG pH (7.36-7.41) VBG pCO2 (38-50) mmHg VBG pO2 mmHg VBG HCO3 mmol/L VBG O2 Saturation % VBG Base Excess mEq/L Carboxyhemoglobin % THgb Barometric Pressure mm/Hg POC Sodium (135-144) mEq/L Sodium (136-145) mmol/L POC Potassium (3.3-5.0) mEq/L Potassium (3.5-5.1) mmol/L POC Chloride (101-112) mEq/L Chloride (98-107) mmol/L Carbon Dioxide (21-32) mmol/L POC Total CO2 (24-31) mEq/l Anion Gap (3-11) POC Anion Gap (16-25) mmol/L POC BUN (7-18) mg/dl BUN (7-18) mg/dl Creatinine (0.6-1.4) mg/dl POC Creatinine (0.6-1.3) mg/dl Est Cr Clr Drug Dosing ml/min Est GFR ( Amer) Est GFR (Non-Af Amer) BUN/Creatinine Ratio (10-20) Glucose (70-99) mg/dl POC Glucose (70-99) POC Glucose (other) (70-99) mg/dl Estimat Average Glucose mg/dl Hemoglobin A1c (4.5-5.6) % Lactate (0.4-2.0) mmol/L Calcium (8.5-10.1) mg/dl POC Ioniz Calcium Amol (1.12-1.32) mmol/l Magnesium (1.8-2.4) mg/dl Total Bilirubin (0.2-1) mg/dl AST (15-37) U/L ALT (12-78) U/L Alkaline Phosphatase (45-117) U/L Ammonia (11-32) umol/L Troponin I (0-0.045) ng/ml C-Reactive Protein (0-0.29) mg/dl Total Protein (6.4-8.2) gm/dl Albumin (3.4-5.0) gm/dl Globulin (2.5-4.0) gm/dl Albumin/Globulin Ratio (0.9-2) Triglycerides (0-150) mg/dl Cholesterol (0-200) mg/dl LDL Cholesterol, Calc mg/dl VLDL Cholesterol, Calc mg/dl HDL Cholesterol mg/dl Cholesterol/HDL Ratio TSH (0.300-4.500) uIu/ml Free T4 (0.8-1.6) ng/dl Urine Color Yellow Urine Appearance Clear (Clear) Urine pH 6.5 (4.5-7.5) Ur Specific [place] 1.016 (1.000-1.030) Urine Protein Negative (Negative) Urine Glucose (UA) Negative (Negative) Urine Ketones 2+ H (Negative) Urine Blood Negative (Negative) Urine Nitrite Negative (Negative) Urine Bilirubin Negative (Negative) Urine Urobilinogen Negative (Negative) Ur Leukocyte Esterase Negative (Negative) CSF Appearance CSF Color Xanthrochromic CSF WBC (0-5) /uL CSF RBC (0-) /uL CSF Cell Count Tube # CSF Chemistry Tube # CSF Glucose (40-70) mg/dl CSF Total Protein (15-45) mg/dl Stool Occult Bld Scrn (Negative) Lyme Disease IgG Ab (Negative) Lyme Disease IgM Ab (Negative) Hepatitis C Ab Screen (Neg) Influenza Type A Ag (Neg) Influenza Type B Ag (Neg) Blood Type Antibody Screen 06/15/18 06/15/18 06/15/18 Range/Units 05:47 17:50 17:56 WBC 16.67 H (4.8-10.8) K/uL RBC 4.37 L (4.7-6.1) M/uL Hgb 13.3 L (14.0-18.0) g/dL POC Hgb (14.0-18.0) g/dl Hct 37.8 L (42-52) % POC Hct (42-52) % MCV 86.5 (80-100) fL MCH 30.4 (25-34) pg MCHC 35.2 (32-36) g/dL RDW Std Deviation 44.6 (36.4-46.3) fL RDW Coeff of Martin 14.2 (11.5-14.5) % Plt Count 120 L (130-400) K/uL MPV 10.7 H (7.4-10.4) fL Immature Gran % (Auto) 0.4 % Neut % (Auto) 45.2 % Lymph % (Auto) 9.5 % [place] % (Auto) 6.7 % Eos % (Auto) 38.1 % Baso % (Auto) 0.1 % Immature Gran # (Auto) 0.06 H (0.00-0.02) K/uL Neut # (Auto) 7.53 H (1.4-6.5) K/uL Lymph # (Auto) 1.59 (1.2-3.4) K/uL [place] # (Auto) 1.12 H (0.11-0.59) K/uL Eos # (Auto) 6.35 H (0-0.5) K/uL Baso # (Auto) 0.02 (0-0.2) K/uL ESR (0-14) mm/hr PT (9.0-12.0) Seconds INR (0.9-1.1) APTT 55.7 H* (21.0-31.0) Seconds PTT Ratio 2.1 VBG pH (7.36-7.41) VBG pCO2 (38-50) mmHg VBG pO2 mmHg VBG HCO3 mmol/L VBG O2 Saturation % VBG Base Excess mEq/L Carboxyhemoglobin % THgb Barometric Pressure mm/Hg POC Sodium (135-144) mEq/L Sodium (136-145) mmol/L POC Potassium (3.3-5.0) mEq/L Potassium (3.5-5.1) mmol/L POC Chloride (101-112) mEq/L Chloride (98-107) mmol/L Carbon Dioxide (21-32) mmol/L POC Total CO2 (24-31) mEq/l Anion Gap (3-11) POC Anion Gap (16-25) mmol/L POC BUN (7-18) mg/dl BUN (7-18) mg/dl Creatinine (0.6-1.4) mg/dl POC Creatinine (0.6-1.3) mg/dl Est Cr Clr Drug Dosing ml/min Est GFR ( Amer) Est GFR (Non-Af Amer) BUN/Creatinine Ratio (10-20) Glucose (70-99) mg/dl POC Glucose (70-99) POC Glucose (other) (70-99) mg/dl Estimat Average Glucose mg/dl Hemoglobin A1c (4.5-5.6) % Lactate (0.4-2.0) mmol/L Calcium (8.5-10.1) mg/dl POC Ioniz Calcium Amol (1.12-1.32) mmol/l Magnesium (1.8-2.4) mg/dl Total Bilirubin (0.2-1) mg/dl AST (15-37) U/L ALT (12-78) U/L Alkaline Phosphatase (45-117) U/L Ammonia (11-32) umol/L Troponin I (0-0.045) ng/ml C-Reactive Protein (0-0.29) mg/dl Total Protein (6.4-8.2) gm/dl Albumin (3.4-5.0) gm/dl Globulin (2.5-4.0) gm/dl Albumin/Globulin Ratio (0.9-2) Triglycerides (0-150) mg/dl Cholesterol (0-200) mg/dl LDL Cholesterol, Calc mg/dl VLDL Cholesterol, Calc mg/dl HDL Cholesterol mg/dl Cholesterol/HDL Ratio TSH (0.300-4.500) uIu/ml Free T4 (0.8-1.6) ng/dl Urine Color Urine Appearance (Clear) Urine pH (4.5-7.5) Ur Specific [place] (1.000-1.030) Urine Protein (Negative) Urine Glucose (UA) (Negative) Urine Ketones (Negative) Urine Blood (Negative) Urine Nitrite (Negative) Urine Bilirubin (Negative) Urine Urobilinogen (Negative) Ur Leukocyte Esterase (Negative) CSF Appearance CSF Color Xanthrochromic CSF WBC (0-5) /uL CSF RBC (0-) /uL CSF Cell Count Tube # CSF Chemistry Tube # CSF Glucose (40-70) mg/dl CSF Total Protein (15-45) mg/dl Stool Occult Bld Scrn Positive H (Negative) Lyme Disease IgG Ab (Negative) Lyme Disease IgM Ab (Negative) Hepatitis C Ab Screen (Neg) Influenza Type A Ag (Neg) Influenza Type B Ag (Neg) Blood Type Antibody Screen 06/15/18 06/15/18 06/16/18 Range/Units 17:56 17:56 00:37 WBC 16.39 H (4.8-10.8) K/uL RBC 4.06 L (4.7-6.1) M/uL Hgb 12.1 L (14.0-18.0) g/dL POC Hgb (14.0-18.0) g/dl Hct 34.8 L (42-52) % POC Hct (42-52) % MCV 85.7 (80-100) fL MCH 29.8 (25-34) pg MCHC 34.8 (32-36) g/dL RDW Std Deviation 44.1 (36.4-46.3) fL RDW Coeff of Martin 14.2 (11.5-14.5) % Plt Count 90 L (130-400) K/uL MPV 10.3 (7.4-10.4) fL Immature Gran % (Auto) 0.4 % Neut % (Auto) 45.9 % Lymph % (Auto) 8.5 % [place] % (Auto) 7.4 % Eos % (Auto) 37.7 % Baso % (Auto) 0.1 % Immature Gran # (Auto) 0.07 H (0.00-0.02) K/uL Neut # (Auto) 7.51 H (1.4-6.5) K/uL Lymph # (Auto) 1.39 (1.2-3.4) K/uL [place] # (Auto) 1.22 H (0.11-0.59) K/uL Eos # (Auto) 6.18 H (0-0.5) K/uL Baso # (Auto) 0.02 (0-0.2) K/uL ESR (0-14) mm/hr PT (9.0-12.0) Seconds INR (0.9-1.1) APTT 41.3 H (21.0-31.0) Seconds PTT Ratio 1.6 VBG pH (7.36-7.41) VBG pCO2 (38-50) mmHg VBG pO2 mmHg VBG HCO3 mmol/L VBG O2 Saturation % VBG Base Excess mEq/L Carboxyhemoglobin % THgb Barometric Pressure mm/Hg POC Sodium (135-144) mEq/L Sodium (136-145) mmol/L POC Potassium (3.3-5.0) mEq/L Potassium (3.5-5.1) mmol/L POC Chloride (101-112) mEq/L Chloride (98-107) mmol/L Carbon Dioxide (21-32) mmol/L POC Total CO2 (24-31) mEq/l Anion Gap (3-11) POC Anion Gap (16-25) mmol/L POC BUN (7-18) mg/dl BUN (7-18) mg/dl Creatinine (0.6-1.4) mg/dl POC Creatinine (0.6-1.3) mg/dl Est Cr Clr Drug Dosing ml/min Est GFR ( Amer) Est GFR (Non-Af Amer) BUN/Creatinine Ratio (10-20) Glucose (70-99) mg/dl POC Glucose (70-99) POC Glucose (other) (70-99) mg/dl Estimat Average Glucose mg/dl Hemoglobin A1c (4.5-5.6) % Lactate (0.4-2.0) mmol/L Calcium (8.5-10.1) mg/dl POC Ioniz Calcium Amol (1.12-1.32) mmol/l Magnesium (1.8-2.4) mg/dl Total Bilirubin (0.2-1) mg/dl AST (15-37) U/L ALT (12-78) U/L Alkaline Phosphatase (45-117) U/L Ammonia (11-32) umol/L Troponin I (0-0.045) ng/ml C-Reactive Protein (0-0.29) mg/dl Total Protein (6.4-8.2) gm/dl Albumin (3.4-5.0) gm/dl Globulin (2.5-4.0) gm/dl Albumin/Globulin Ratio (0.9-2) Triglycerides (0-150) mg/dl Cholesterol (0-200) mg/dl LDL Cholesterol, Calc mg/dl VLDL Cholesterol, Calc mg/dl HDL Cholesterol mg/dl Cholesterol/HDL Ratio TSH (0.300-4.500) uIu/ml Free T4 (0.8-1.6) ng/dl Urine Color Urine Appearance (Clear) Urine pH (4.5-7.5) Ur Specific [place] (1.000-1.030) Urine Protein (Negative) Urine Glucose (UA) (Negative) Urine Ketones (Negative) Urine Blood (Negative) Urine Nitrite (Negative) Urine Bilirubin (Negative) Urine Urobilinogen (Negative) Ur Leukocyte Esterase (Negative) CSF Appearance CSF Color Xanthrochromic CSF WBC (0-5) /uL CSF RBC (0-) /uL CSF Cell Count Tube # CSF Chemistry Tube # CSF Glucose (40-70) mg/dl CSF Total Protein (15-45) mg/dl Stool Occult Bld Scrn (Negative) Lyme Disease IgG Ab (Negative) Lyme Disease IgM Ab (Negative) Hepatitis C Ab Screen (Neg) Influenza Type A Ag (Neg) Influenza Type B Ag (Neg) Blood Type O Positive Antibody Screen NEGATIVE 06/16/18 Range/Units 06:19 WBC 16.23 H (4.8-10.8) K/uL RBC 4.10 L (4.7-6.1) M/uL Hgb 12.1 L (14.0-18.0) g/dL POC Hgb (14.0-18.0) g/dl Hct 35.2 L (42-52) % POC Hct (42-52) % MCV 85.9 (80-100) fL MCH 29.5 (25-34) pg MCHC 34.4 (32-36) g/dL RDW Std Deviation 44.5 (36.4-46.3) fL RDW Coeff of Martin 14.2 (11.5-14.5) % Plt Count 87 L (130-400) K/uL MPV 10.7 H (7.4-10.4) fL Immature Gran % (Auto) 0.3 % Neut % (Auto) 44.8 % Lymph % (Auto) 8.4 % [place] % (Auto) 7.1 % Eos % (Auto) 39.3 % Baso % (Auto) 0.1 % Immature Gran # (Auto) 0.05 H (0.00-0.02) K/uL Neut # (Auto) 7.26 H (1.4-6.5) K/uL Lymph # (Auto) 1.36 (1.2-3.4) K/uL [place] # (Auto) 1.16 H (0.11-0.59) K/uL Eos # (Auto) 6.38 H (0-0.5) K/uL Baso # (Auto) 0.02 (0-0.2) K/uL ESR (0-14) mm/hr PT (9.0-12.0) Seconds INR (0.9-1.1) APTT (21.0-31.0) Seconds PTT Ratio VBG pH (7.36-7.41) VBG pCO2 (38-50) mmHg VBG pO2 mmHg VBG HCO3 mmol/L VBG O2 Saturation % VBG Base Excess mEq/L Carboxyhemoglobin % THgb Barometric Pressure mm/Hg POC Sodium (135-144) mEq/L Sodium (136-145) mmol/L POC Potassium (3.3-5.0) mEq/L Potassium (3.5-5.1) mmol/L POC Chloride (101-112) mEq/L Chloride (98-107) mmol/L Carbon Dioxide (21-32) mmol/L POC Total CO2 (24-31) mEq/l Anion Gap (3-11) POC Anion Gap (16-25) mmol/L POC BUN (7-18) mg/dl BUN (7-18) mg/dl Creatinine (0.6-1.4) mg/dl POC Creatinine (0.6-1.3) mg/dl Est Cr Clr Drug Dosing ml/min Est GFR ( Amer) Est GFR (Non-Af Amer) BUN/Creatinine Ratio (10-20) Glucose (70-99) mg/dl POC Glucose (70-99) POC Glucose (other) (70-99) mg/dl Estimat Average Glucose mg/dl Hemoglobin A1c (4.5-5.6) % Lactate (0.4-2.0) mmol/L Calcium (8.5-10.1) mg/dl POC Ioniz Calcium Amol (1.12-1.32) mmol/l Magnesium (1.8-2.4) mg/dl Total Bilirubin (0.2-1) mg/dl AST (15-37) U/L ALT (12-78) U/L Alkaline Phosphatase (45-117) U/L Ammonia (11-32) umol/L Troponin I (0-0.045) ng/ml C-Reactive Protein (0-0.29) mg/dl Total Protein (6.4-8.2) gm/dl Albumin (3.4-5.0) gm/dl Globulin (2.5-4.0) gm/dl Albumin/Globulin Ratio (0.9-2) Triglycerides (0-150) mg/dl Cholesterol (0-200) mg/dl LDL Cholesterol, Calc mg/dl VLDL Cholesterol, Calc mg/dl HDL Cholesterol mg/dl Cholesterol/HDL Ratio TSH (0.300-4.500) uIu/ml Free T4 (0.8-1.6) ng/dl Urine Color Urine Appearance (Clear) Urine pH (4.5-7.5) Ur Specific [place] (1.000-1.030) Urine Protein (Negative) Urine Glucose (UA) (Negative) Urine Ketones (Negative) Urine Blood (Negative) Urine Nitrite (Negative) Urine Bilirubin (Negative) Urine Urobilinogen (Negative) Ur Leukocyte Esterase (Negative) CSF Appearance CSF Color Xanthrochromic CSF WBC (0-5) /uL CSF RBC (0-) /uL CSF Cell Count Tube # CSF Chemistry Tube # CSF Glucose (40-70) mg/dl CSF Total Protein (15-45) mg/dl Stool Occult Bld Scrn (Negative) Lyme Disease IgG Ab (Negative) Lyme Disease IgM Ab (Negative) Hepatitis C Ab Screen (Neg) Influenza Type A Ag (Neg) Influenza Type B Ag (Neg) Blood Type Antibody Screen
[2018-06-16] MEDS ORDERED: PANTOprazole 80 MG in DEXTROSE 5% 100 ML IV ONE (12:45)
[2018-06-16] MEDS: PANTOprazole 40 MG in DEXTROSE 5% 100 ML IV SCH ×3 (13:05→23:25)
--- NOTE | 2018-06-16 14:23 | CT Scan Report ---
CT head/brain wo con CLINICAL HISTORY: 63 years-old Male presenting with follow up on mild closed head trauma yesterday . TECHNIQUE: Multidetector CT imaging of the head was performed without the use of intravenous contrast . IV contrast: None. A dose lowering technique was used consistent with the principles of ALARA (as l ow as reasonably achievable). COMPARISON: 06/15/2018 and brain MR from 06/13/2018.. CT DOSE (mGy.cm): The estimated cumulative dose is 537.48 mGy.cm. FINDINGS: Drying Oven Tender topogram: Unremarkable. Ventricles and sulci normal in size. No hemorrhage. Scattered foci of hypoattenuation in the perivent ricular white matter likely correlates with the numerous foci of restricted diffusion on recent MRI f rom 06/13/2018. Additional foci evident on MRI are not evident on CT. No acute territorial infarct. No mass effect or midline shift. No extra-axial fluid collection. Paranasal sinuses and mastoid air hua ls clear. Calvarium intact. IMPRESSION: 1. Findings most compatible with evolving watershed infarcts. These are best demonstrated on most re cent MRI. No hemorrhage or significant worsening allowing for differences in modality. Electronically signed by: Darryl Osorio M.D. 06/16/2018 2:22 PM
--- NOTE | 2018-06-16 15:00 | Hospitalist Progress Note ---
Date of Service June 16, 2018 Assessment & Plan (1) Altered mental status: possibly from Embolic stroke: as the MRI brain showed multiple areas of stroke of note patient received lumbar puncture in the ED and no evidence of meningitis current workup up to date with cardiology service and echocardiogram and carotid ultrasound have no found the source of emboli while there has been consideration of possible failure of Eliquis anticoagulation, cardiology service proposes that perhaps patient may have had complication previous to starting Eliquis as Eliquis was started on last hospital presentation (discharge date 06/07/18) patient currently on heparin drip as of 06/14/18 which is more than 12 hours after 06/13/18 lumbar puncture. there were discussions about resuming Eliquis but no eliquis was given on 06/14/18 as medical team awaited for planned CT head scan as ordered by Neurology service for the morning of 06/15/18 06/15/18: Medical doctor was informed by nursing that when patient was about to be transported to the CT head scan this morning, patient slid off of the wheelchair and landed on the abdomen - no loss of consciouness. Patient had head CT scan that did not show acute intracranial bleeding of the. However when returned from CT scan, patient had right forehead hematoma where he evidently must have bumped his head from that fall -discussed with cardiology service that given recent head injury, will avoid Eliquis at this time as it lacks readily available reversal agents. since patient does not have any new neurological deficits that patient can remain on heparin drip -given recent hospitalist evaluations of the patient, the patient before and after this fall appears to have problems with short term memory which may be attributed to recently found multiple areas of strokes -CT head results from 06/15/18: No acute intracranial hemorrhage, midline shift or territorial infarct. 06/15/18: In evening around 6 PM, nurse reports patient with large bowel movement of dark stool, heparin drip held, Fecal occult blood stool positive 06/16/18: CT head results from 05/16/19: Findings most compatible with evolving watershed infarcts. These are best demonstrated on most recent MRI. No hemorrhage or significant worsening allowing for differences in modality -possible left sided weakness of upper extremities -have discussed with Neurology service Dr. Saldana and that likely symptoms may be from vasogenic edema. Neurology service recommending repeat brain MRI on 06/17 (2) Leukocytosis: leukocytosis remains. WBC 16,000 with elevated neutrophils and eosinophils remains afebrile no identifiable source of infection at this time - no urinary tract infection, admission CSF normal, blood cultures no growth no antibiotics indicated at this time for now (3) Elevated troponin: -Downtrended from recent admission -No reports of chest pain, EKG on 06/13/18 demonstrates new T wave inversions anteriorly however recent cardiac cath demonstrated widely patent coronary arteries - no acute telemetry events at this time, continues to be in sinus rhythm (4) Hepatitis C antibody test positive: -Had RNA testing performed in 2016 that was negative -No further workup at this time (5) Paroxysmal atrial fibrillation: -Currently in Normal sinus rhythm -anticoagulation and antiplatelets are being held while gastroenterology evaluates for gastrointestinal bleed Gastrointestinal bleed -dark red stools noted on 06/15/18 and that is FOBT positive -CBC stable at 12.1 between 06/15/18 to 06/16/18 -on pantoprazole -NPO after midnight for possible GI scoping of GI tract (6) HTN (hypertension): -BP controlled, continue amlodipine (7) Dyslipidemia: -Continue statin (8) DVT prophylaxis: SCDs for now Deconditioning: PT/OT as per patient and his brother Malcolm ([phone]) code status is DNR/DNI and that patient's power of research attorney is Malcolm Have discussed with specialists doctors involved in the care that discussions for procedures should also involve patient's brother Malcolm Subjective Patient needed assistance from nursing and his brother to sit up in the bed. Patient reports he does not feel good but cannot clarify what these sensations and full review of systems limited by patient's lack of responses when questions He is verbal and able to speak clearly Patient continues to have some dark stools as per nursing but not as much On exam, the left arm seems to be weaker but no acute infarcts noted on today's CT head and these clinical findings were discussed with neurology service Physical Exam 2 Vital Signs (Past 24 Hours): Last Vital Signs Temp 36.4 C L 06/16/18 14:55 Pulse 59 L 06/16/18 14:55 Resp 16 06/16/18 14:55 BP 142/90 H 06/16/18 14:55 Pulse Ox 94 06/16/18 14:55 Physical Exam: Constitutional: no distress, appears weak, Eyes: PERRL, conjunctivae normal, anicteric sclerae ENMT: external ear and nose normal, oropharynx normal Respiratory: normal respiratory effort, lungs clear to auscultation Cardiovascular: Rate/Rhythm: regular rhythm and + bradycardic Gastrointestinal (Abdomen): normal bowel sounds, soft, nontender, no hepatosplenomegaly Musculoskeletal: Head/Neck/Chest: normocephalic and head atraumatic, left arm appears weaker on exam than right arm Neurologic: no other motor issues noted but patient appears deconditioned and not very active
--- NOTE | 2018-06-16 15:16 | Cardiology Progress Note ---
Date of Service June 16, 2018 Assessment & Plan (1) Embolic stroke: Concerns regarding melena today. Intravenous anticoagulation placed on hold. Gastroenterology input appreciated. Tentative plan for EGD in a.m. (2) Paroxysmal atrial fibrillation: Continue low-dose aspirin, beta-malika. Follow telemetry. Patient remains in sinus rhythm. (3) HTN (hypertension): Fair control post CVA. (4) Dyslipidemia: Continue atorvastatin. (5) Pericardial effusion: Continue colchicine. No evidence of tamponade physiology per echocardiogram. Avoid high-dose NSAIDs at this time in the setting of acute CVA and need for long-term anticoagulation. Repeat limited echocardiogram prior to discharge. Subjective Patient seen and examined at the bedside. Left-sided weakness unchanged. Affect remains flat. Remains in sinus rhythm on telemetry. Offers no concerns/ complaints. Review of Systems All systems reviewed & are unremarkable except as noted in HPI & below Physical Exam 2 Vital Signs (Past 24 Hours): Last Vital Signs Temp 36.4 C L 06/16/18 14:55 Pulse 59 L 06/16/18 14:55 Resp 16 06/16/18 14:55 BP 142/90 H 06/16/18 14:55 Pulse Ox 94 06/16/18 14:55 Physical Exam: General: NAD, AAO x3, well nourished. HEENT: Normocephalic. Atraumatic. Conjunctiva pink, no scleral icterus. Neck: No carotid bruits, the carotid upstrokes are brisk. No JVD. No HJR Heart: Regular normal S-1 and S-2 no S-3 or S-4 gallop. No murmurs or rub appreciated. PMI is not displaced. No RV heave. Lungs: Clear bilateral without rales , rhonchi, or wheeze. Abdomen: Normal bowel sounds. Soft. Nontender. No masses or organomegaly. No abdominal bruits. Extremities: No clubbing, cyanosis, or edema. Pulses: radial=2/4, Dorsalis pedis =2/4, posterior tibial=2/4. Neuro: Mild lethargy. + Left-sided weakness. Poor cooperation.
--- NOTE | 2018-06-16 15:38 | Communication Note ---
Date of Service: June 16, 2018 I have discussed the recent developments in this case wtih Dr Sevilla and have reviewed the ct report ( images cannot be viewed from my dayana computer ) Exam is less than reliable and fluctuates with degree of effort and suspect that any changes simply reflect evolving infarcts with edema rather than new events. There is no evidence for a post traumatic SDH and he has a gi bleed that needs evaluated prior to any restart of heparin or novel anticoagulants so we are left with asa only Luckily he remains in sinus rhythm and has been since admission I have recommended another mri tomorrow without contrast to estblish whether there have indeed been some new events since admission as if present they would indicate perhaps an as yet undetected source of emboli ( shaggy aortic plaque or an intracardiac source that has been undetected by TTE or very remotely a cerebral inflammatory angiitis with ongoing sequential and multifocal infarctions For now will await the results of the mri tomorrow and go from there but at persent with the gi bleed we really cannot proceed with anticoagulation Nahum Saldana MD
[2018-06-17] MEDS: PANTOprazole 40 MG in DEXTROSE 5% 100 ML IV SCH ×4 (03:59→19:34)
[2018-06-17 07:15] LABS: Hematocrit (blood only) 34.6 % (42-52); Hemoglobin 12.2 g/dL (14.0-18.0); Mean Corpuscular Hgb Conc 35.3 g/dL (32-36); Mean Corpuscular Volume 86.1 fL (80-100); RDW Coefficient of Variation 14.3 % (11.5-14.5); RDW Standard Deviation 44.9 fL (36.4-46.3); Red Blood Count 4.02 M/uL (4.7-6.1); White Blood Count 14.07 K/uL (4.8-10.8)
[2018-06-17 07:17] LABS: Mean Platelet Volume 11.4 fL (7.4-10.4); Platelet Count 85 K/uL (130-400)
[2018-06-17] MEDS: LEVOTHYROXINE SODIUM 125 MCG TABLET PO SCH (07:37)
[2018-06-17 07:53] LABS: Albumin Level 2.6 gm/dl (3.4-5.0); BUN Creatinine Ratio 9.8 (10-20); Calcium 8.2 mg/dl (8.5-10.1); Creatinine Clr Calc Pharmacy 74.2 ml/min; Est GFR (African American) 98.9; Est GFR (Non-African American) 85.3; Potassium 3.3 mmol/L (3.5-5.1)
[2018-06-17 07:56] LABS: Albumin Globulin Ratio 0.5 (0.9-2); Globulin 5.1 gm/dl (2.5-4.0); Total Protein 7.7 gm/dl (6.4-8.2)
[2018-06-17] MEDS: ONDANSETRON INJ 2 MG/ML 2 ML VIAL IV PRN (08:27)
[2018-06-17] MEDS: METOPROLOL TARTRATE 25 MG TAB PO SCH ×2 (09:08→20:18)
[2018-06-17] MEDS: AMLODIPINE BESYLATE 5 MG TAB PO SCH (09:08)
[2018-06-17] MEDS: COLCHICINE 0.6 MG TAB PO SCH ×2 (09:08→20:19)
[2018-06-17] MEDS: ATORVASTATIN 40 MG TAB PO SCH (09:08)
--- NOTE | 2018-06-17 09:28 | Gastroenterology Progress Note ---
Date of Service June 17, 2018 Assessment & Plan (1) Melena: 63 year old male w/ AMS, MRI brain showed multiple areas of stroke started on heparin gtt which was held secondary to concern for melen. Was started on IV PPI w/ stable VS and HCT. Is NPO fpr EGD this AM. - Continue IV PPI as ordered - NPO - EGD this AM - Please see prior consulation and report of EGD for additional GI recommendations - GI is trying to call family for consent (2) Thalamic infarction: Supervising Physician Co-Signing Physician Notes I performed a history and physical examination of the patient, including specifically on physical exam - soft, nontender abdomen. I have discussed the patient's management with Licha. Please refer to the nurse practitioner's note for the documented findings and plan of care. Subjective Pt was seen and evaluated, chart reviewed. No family at bedside. Endorses emesis episode this AM. No coffee ground emesis or hematesis. Is moving his bowels. He is unsure about black/bloody stools. Is NPO for EGD this AM. Constitutional: no fever and no chills Cardiovascular: no chest pain and no chest pain at rest Gastrointestinal: + vomiting (at 0800); no abdominal pain and no belching Physical Exam 2 Vital Signs (Past 24 Hours): Last Vital Signs Temp 36.9 C 06/17/18 07:44 Pulse 52 L 06/17/18 07:44 Resp 16 06/17/18 07:44 BP 132/86 06/17/18 07:44 Pulse Ox 95 06/17/18 07:44 Constitutional: + ill appearing; no acute distress Respiratory: normal respiratory effort, lungs clear to auscultation Cardiovascular: RRR, no murmur, no edema Gastrointestinal (Abdomen): normal bowel sounds, soft, nontender, no hepatosplenomegaly
[2018-06-17] MEDS ORDERED: LORazepam 1 MG/2 ML VIAL IV STA (10:01)
--- NOTE | 2018-06-17 11:28 | Magnetic Resonance Report ---
MRI OF THE BRAIN WITHOUT CONTRAST CLINICAL HISTORY: Stroke. Follow-up study. COMPARISON STUDY: 06/13/2018 FINDINGS: Sagittal T1, axial diffusion, proton density and T2 weighted axial, coronal FLAIR, and axial T1-weigh elizabeth images were acquired. No intra or extra-axial mass lesions are visualized Multiple foci restricted water diffusion are again evident. These involve both cerebellar hemispheres , both occipital lobes, both parietal lobes, frontal lobes, both temporal lobes, as well as the basal ganglia and thalami. The findings are minimally progressive. There is no evidence of ventricular dilatation. Proton density T2-weighted and FLAIR images reveal multiple foci of abnormal increased FLAIR signal, corresponding to the multiple infarcts visualized on diffusion-weighted imaging. There are no abnormal flow voids. IMPRESSION: 1. Minimal progression in the innumerable bilateral acute/subacute infarcts involving both cerebellar hemispheres, the frontal temporal parietal and occipital lobes, as well as the basal ganglia and angelita lami. Electronically signed by: Robert Nieves M.D. 06/17/2018 11:27 AM
--- NOTE | 2018-06-17 12:45 | Anesthesiology Consultation ---
Date of Service June 17, 2018 Assessment & Plan Chart Review Chart Review: Acceptable Risk for Surgery and Patient NOT seen in Pre Admission Testing Consults Requested none ASA ASA4 Proposed Anesthesia Anesthesia Type: General Risk / Benefits Reviewed With: PT / POA / Parent / Guardian, Accepts Plan and Informed Consent Obtained NPO Date Last Intake of Fluids: 06/16/18 Time Last Intake of Fluids: 21:00 Last Intake of Fluids Comment: pt hasn't drank or ate for days Date Last Intake of Solids: 06/16/18 Time Last Intake of Solids: 18:00 Last Intake of Solids Comment: pt hasn't drank or ate for days History Surgery Operation Date: 06/17/18 09:50 Proposed Procedures p Esophagogastroduodenoscopy Dr Anthony - Mitra Anthony MD Height/Weight Height: 5 ft 7 in Weight: 78.9 kg Allergies Allergy/AdvReac Type Severity Reaction Status Date / Time morphine AdvReac Intermediate Nausea/Vomi Verified 06/13/18 14:09 ting codeine AdvReac Verified 06/17/18 12:00 Medications Home Medications Medication Instructions Recorded Confirmed Last Taken amlodipine 10 mg PO QAM 06/04/18 06/13/18 Unknown atorvastatin 40 mg PO QAM 06/04/18 06/13/18 Unknown levothyroxine 125 mcg PO QAM 06/04/18 06/13/18 Unknown apixaban [Eliquis] 5 mg PO BID #60 tab 06/07/18 06/13/18 Unknown aspirin 81 mg PO DAILY 06/13/18 06/13/18 Unknown Active Medications Generic Name Dose Route Start Last Admin Trade Name Justo PRN Reason Stop Dose Admin Amlodipine Besylate 5 mg 06/15/18 09:00 06/17/18 09:08 Norvasc PO 07/15/18 08:59 Not Given QAM MYRANDA Aspirin 81 mg 06/14/18 09:00 06/15/18 08:15 Ecotrin Ectab PO 07/14/18 08:59 81 mg DAILY MYRANDA Administration Atorvastatin Calcium 40 mg 06/14/18 09:00 06/17/18 09:08 Lipitor PO 07/14/18 08:59 Not Given QAM MYRANDA Colchicine 0.6 mg 06/14/18 21:00 06/17/18 09:08 Colcrys PO 07/14/18 20:59 Not Given BID MYRANDA Gadobutrol 8 ml 06/13/18 19:24 06/13/18 19:25 Gadavist 65ml IV 06/17/18 19:23 8 ml ONCE PRN Administration Interaction Checking Heparin Sodium/Dextrose 25,000 units in 500 mls @ 21 mls/hr 06/14/18 15:27 16:12 Heparin Sodium/Dextrose IV 07/14/18 15:26 1,050 units/hr .[id number] MYRANDA 21 mls/hr Administration Protocol 1,050 UNITS/HR Dextrose/Sodium Chloride 1,000 mls @ 50 mls/hr 06/15/18 19:00 06/17/18 09:11 D5w And 1/2nss IV 07/15/18 18:59 Infused .Q20H MYRANDA Infusion Pantoprazole Sodium 40 mg/ 100 mls @ 20 mls/hr 06/16/18 13:00 06/17/18 11:02 Dextrose IV 07/16/18 12:59 0 mls/hr Q5H MYRANDA Infusion Levothyroxine Sodium 125 mcg 06/14/18 06:30 06/17/18 07:37 Synthroid PO 07/14/18 06:29 Not Given DAILYBB MYRANDA Lorazepam 1 mg 06/14/18 20:01 06/14/18 21:12 Ativan PO 07/14/18 20:00 1 mg BID PRN Administration Anxiety/Insomnia Metoprolol Tartrate 12.5 mg 06/14/18 21:00 06/17/18 09:08 Lopressor PO 07/14/18 20:59 Not Given BID MYRANDA Ondansetron HCl 4 mg 06/17/18 08:10 06/17/18 08:27 Zofran IV 07/17/18 08:09 4 mg Q6H PRN Administration Nausea Beta Bravo Beta Bravo Taken Within 24 Hours: Yes (0900am 06/17/18) Past Medical History Medical History Dyslipidemia (Chronic) Tobacco abuse (Resolved) Paroxysmal atrial fibrillation (Chronic) Thalamic infarction (Chronic) Continue care per primary hospitalist as well as cardiology HTN (hypertension) (Chronic) NSTEMI (non-ST elevated myocardial infarction) Past Family History Family History Brother Diabetes Mother Hypertension Past Surgical History Surgical History History of thyroidectomy (Chronic) History of left knee surgery (Chronic) Past Anesthesia History No Hx of Anesthesia Complications and No Family Hx of Anesthesia Complications History of PONV No Motion Sickness Screening History of Motion Sickness: No Social History Smoking Status: Former smoker tobacco type: cigarettes Do You Dip or Chew Tobacco: No Smoking End Date: 06/26/18 Hx Alcohol Use: No Hx Substance Use: No substance use type: does not use Exercise / Class Metabolic Activity IV < 2 Limit ADL/Bedbound Physical Exam Vital Signs Last Vital Signs Temp 36.5 C 06/17/18 12:09 Pulse 59 L 06/17/18 12:09 Resp 20 06/17/18 12:09 BP 122/91 06/17/18 12:09 Pulse Ox 96 06/17/18 12:09 ENMT Mouth: + dentition abnormality, + dental caries, + poor dentition and + loose teeth Thyromental Distance: > or= 3.5 Finger Breadths Mallampati Class: II Neck normal visual inspection, trachea midline and + facial hair; neck not short Respiratory normal respiratory effort Auscultation: lungs clear to auscultation bilaterally Cardiovascular Rate/Rhythm: regular rate and regular rhythm Heart Sounds: no murmur Vessels: no carotid bruit Musculoskeletal Extremities: + limited ROM of extremities Neurologic + does not move all extremities (left sided hemiplegia) Motor/Sensory: + sensory deficit Psychiatric Orientation: + not alert and + not oriented x 3 Testing Laboratory Results 06/17/18 06:52 06/17/18 06:52 Blood Type O Positive 06/15/18 17:56 Antibody Screen NEGATIVE 06/15/18 17:56 PT 12.2 Seconds (9.0-12.0) H 06/14/18 16:00 INR 1.2 (0.9-1.1) H 06/14/18 16:00 APTT 41.3 Seconds (21.0-31.0) H 06/15/18 17:56 Hemoglobin A1c 6.3 % (4.5-5.6) H 06/13/18 12:58 Urine Color Yellow 06/15/18 01:48 Urine Appearance Clear (Clear) 06/15/18 01:48 Urine pH 6.5 (4.5-7.5) 06/15/18 01:48 Ur Specific [place] 1.016 (1.000-1.030) 06/15/18 01:48 Urine Protein Negative (Negative) 06/15/18 01:48 Urine Glucose (UA) Negative (Negative) 06/15/18 01:48 Urine Ketones 2+ (Negative) H 06/15/18 01:48 Urine Nitrite Negative (Negative) 06/15/18 01:48 Ur Leukocyte Esterase Negative (Negative) 06/15/18 01:48 06/13/18 14:35 Gram Stain - Final Cerebral Spinal Fluid CSF Culture - Final No growth 06/13/18 14:19 Blood Culture - Preliminary Blood No growth to date. 06/13/18 14:07 Blood Culture - Preliminary Blood No growth to date.
[2018-06-17] MEDS ORDERED: fentaNYL citrate 100 MCG/2 ML VIAL ONE (13:14)
[2018-06-17] MEDS ORDERED: PROPOFOL IV EMULSION 10 MG/ML 20 ML VIAL IV ONE (13:25)
[2018-06-17] MEDS ORDERED: ePHEDrine sulfate 50 MG/ML SYR ONE (13:25)
[2018-06-17] MEDS ORDERED: LIDOCAINE HCL 2% 2 ML VIAL/AMP(20MG/ML) INFIL ONE (13:25)
--- NOTE | 2018-06-17 13:28 | Operative Report ---
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 Any exceptions are noted below.
[2018-06-17] MEDS ORDERED: PROMETHAZINE HCL 12.5 MG in SODIUM CHLORIDE 0.9% 50 ML IV PRN (13:35)
[2018-06-17] MEDS ORDERED: ATROPINE SULFATE 0.1 MG/ML 10ML SYR IV PRN (13:35)
[2018-06-17] MEDS ORDERED: ePHEDrine sulfate 50 MG/ML AMP IV PRN (13:35)
[2018-06-17] MEDS ORDERED: LABETALOL HCL IV 5 MG/ML 20ML IV PRN (13:35)
[2018-06-17] MEDS ORDERED: ONDANSETRON INJ 2 MG/ML 2 ML VIAL IV PRN (13:35)
[2018-06-17] MEDS ORDERED: FLUMAZENIL 0.1 MG/1 ML 10 ML VIAL IV PRN (13:35)
[2018-06-17] MEDS ORDERED: NALOXONE HCL 0.4 MG/1 ML VIAL/CARP IV PRN (13:35)
[2018-06-17] MEDS ORDERED: fentaNYL citrate 100 MCG/2 ML VIAL IV PRN (13:35)
--- NOTE | 2018-06-17 13:43 | GI REPORT ---
Patient Name: Terrence Garcia Procedure Date: 06/17/2018 11:48 AM Date of : 1955 Admit Type: Inpatient Age: 63 Gender: Male Attending MD: Mitra Anthony MD Procedure: Upper GI endoscopy Providers: Mitra Anthony MD Referring MD: Rohith Sevilla M.d. Indications: Melena Medicines: General Anesthesia Complications: No immediate complications. Estimated Blood Loss: Estimated blood loss: none. Procedure: Pre-Anesthesia Assessment: - Prior to the procedure, a History and Physical was performed, and patient medications and allergies were reviewed. The patient is competent. The risks and benefits of the procedure and the sedation options and risks were discussed with the patient. All questions were answered and informed consent was obtained. Patient identification and proposed procedure were verified by the physician and the nurse in the procedure room. Mental Status Examination: alert and oriented. Airway Examination: normal oropharyngeal airway and neck mobility. Respiratory Examination: clear to auscultation. CV Examination: normal. ASA Grade Assessment: IV - A patient with severe systemic disease that is a constant threat to life. After reviewing the risks and benefits, the patient was deemed in satisfactory condition to undergo the procedure. The anesthesia plan was to use general anesthesia. Immediately prior to administration of medications, the patient was re-assessed for adequacy to receive sedatives. The heart rate, respiratory rate, oxygen saturations, blood pressure, adequacy of pulmonary ventilation, and response to care were monitored throughout the procedure. The physical status of the patient was re-assessed after the procedure. After obtaining informed consent, the endoscope was passed under direct vision. Throughout the procedure, the patient's blood pressure, pulse, and oxygen saturations were monitored continuously. The Endoscope was introduced through the mouth, and advanced to the second part of duodenum. The upper GI endoscopy was accomplished without difficulty. The patient tolerated the procedure well. Findings: The examined esophagus was normal. The entire examined stomach was normal. Three superficial and cratered duodenal ulcers with surrounding inflammation found in the duodenal bulb, thr largest ulcer had a visible vessel. The largest lesion was 10 mm in largest dimension. Coagulation for hemostasis using bipolar probe was successful. Area was successfully injected with 3 mL of a 1:10,000 solution of epinephrine for hemostasis. The second portion of the duodenum was normal. Impression: - Normal esophagus. - Normal stomach. - Multiple duodenal ulcers, the largest had a visible vessel. Treated with bipolar cautery. Injected with Epi. Hemostasis achieved. - Normal second portion of the duodenum. - No specimens collected. Recommendation: - Return patient to [facility] for ongoing care. - Clear liquid diet today. - Use a proton pump inhibitor IV daily for 2 days then switch to PO BID for 2 months. - Avoid NSAIDs. - Check H.Pylori stool Ag. - Can continue low dose ASA. - Can resume anticoagulation therapy after 2 days if no evidence of rebleeding. Mitra Anthony MD 06/17/2018 1:43:32 PM This report has been signed electronically. Note Initiated On: 06/17/2018 11:48 AM Number of Addenda: 0 I attest to the content of the Intraoperative Record and orders documented therein, exceptions below {[id number]}
[2018-06-17 14:02] LABS: Lyme DNA Source CSF
--- NOTE | 2018-06-17 14:20 | Anesthesiology Progress Note ---
Date of Service June 17, 2018 Anesthesia Post Procedure Vital Signs Vital Signs: Temp Pulse Pulse Pulse Resp BP BP 06/17/18 14:05 61 15 119/84 06/17/18 13:55 61 18 120/82 06/17/18 13:45 57 L 18 121/77 06/17/18 13:36 36.0 C L 58 L 16 122/76 06/17/18 12:09 36.5 C 59 L 20 122/91 06/17/18 09:56 61 06/17/18 07:44 36.9 C 52 L 16 132/86 06/17/18 04:00 36.8 C 54 L 16 125/79 06/16/18 23:25 36.7 C 58 L 18 136/83 06/16/18 23:09 66 06/16/18 19:04 36.6 C 59 L 18 144/90 H 06/16/18 14:55 36.4 C L 59 L 16 142/90 H Pulse Ox 06/17/18 14:05 99 06/17/18 13:55 100 06/17/18 13:45 100 06/17/18 13:36 100 06/17/18 12:09 96 06/17/18 09:56 06/17/18 07:44 95 06/17/18 04:00 95 06/16/18 23:25 96 06/16/18 23:09 06/16/18 19:04 95 06/16/18 14:55 94 Pain Intensity Abdomen: Pain Intensity: 0 Notes Mental Status: alert / awake / arousable Patient Amnestic to Procedure: Yes Nausea / Vomiting: adequately controlled Pain: adequately controlled Airway Patency, RR, SpO2: stable & adequate BP & HR: stable & adequate Hydration State: stable & adequate Anesthetic Complications: no major complications apparent
--- NOTE | 2018-06-17 14:58 | Neurology Progress Note ---
Date of Service June 17, 2018 Assessment & Plan (1) Embolic stroke: 1. MRI brain- multiple areas of stroke repeated due to MS change on 2018 with no new findings 2. Eliquis and antiplatlet therapy on hold currently due to GI -EGD findings of bleeding ulcer 3. cardiology on board and directing the restart of anticoag and heparin gtt- and further imaging needed for source of emboli all on hold at this time due to bleeding ulcer 4. PT/OT/speech for any discharge needs 5. continue treatment for infection, LP to date unremarkable 6. smoking cessation strongly urged 7. no further imaging neurology would recommend at this time follow up with neurology 4-6 weeks after discharge from hospital or rehab if needed Christy Amaro PAC schedule Supervising Physician Co-Signing Physician Notes I have seen and discussed above patient with Dr Nahum Saldana, neurology I have seen Mr. Lennon today his daughter was present in the room and both she and Dr. Veloz and I discussed this case. Christy Amaro PA-C and I discussed his case earlier today and reviewed his imaging studies. Currently he remains with a flat affect and speech he does not engage spontaneously in conversation his responses are delayed and an accurate appears to have more left-sided weakness on his examination but again there are a lot of inconsistencies and lack of maximum effort on his part. He has no head or eye deviation and no gross visual field cut although the absence of this on confrontation is really not reliable due to his poor cooperation The MRI shows expected evolution of the multiple prior cerebrovascular events and does not show any evidence for new events which may have occurred after admission. CT scan is showing no evidence for a subdural after his head trauma. Policy now is to get rehabilitation involved, physical therapy, speech therapy and occupational therapy, to hold anticoagulation for another 48 hours and to restart Eliquis at that point. Dr. Ferrell and I discussed the case and at this point we see no value in proceeding with a transesophageal echo The patient would require sedation, which would further cloud his mental status, the procedure is not without some risk and the diagnostic yield would in my opinion be minimal. I think the current diagnosis of a shower of emboli from a well-established atrial appendage thrombus despite anticoagulation with Eliquis is reasonable and does not constitute an Eliquis failure per se. We will defer to cardiology for further anticoagulation management. We will continue to follow Mr. Garcia on a daily basis until arrangements for his to be transferred to a rehabilitation facility are completed. Nahum Valdiviarick is a 63 year old male who presented to the ED with confusion. He had a recent admission to [facility] 06/04 through 06/07 for pneumonia. He underwent cardiac catheterization that demonstrated widely patent coronary arteries. He was also found to have AF and Eliquis was started. He spontaneously converted to NSR. He was discharged on Levaquin for treatment of the pneumonia. He returned to work but was still feeling generally weak. He was found to be confused by his brother and was brought in to [facility] for evalution. The Levaquin was causing decreased appetite. He was admitted for further observation and test. LP in ED was unremarkable but some labs still pending. He is just back from EGD with GI. he is very groggy and states he is feeling weak. Physical Exam 2 Vital Signs (Past 24 Hours): Last Vital Signs Temp 36.4 C L 06/17/18 14:15 Pulse 59 L 06/17/18 14:25 Resp 18 06/17/18 14:25 BP 120/88 06/17/18 14:25 Pulse Ox 98 06/17/18 14:25 Gen: alert with voice command CV RRR lungs course breath sounds neuro unable to say where he is or why he is in the hospital is not following commands Results & Data Laboratory Results Abnormal lab results 06/17/18 06/17/18 Range/Units 06:52 06:52 WBC 14.07 H (4.8-10.8) K/uL RBC 4.02 L (4.7-6.1) M/uL Hgb 12.2 L (14.0-18.0) g/dL Hct 34.6 L (42-52) % Plt Count 85 L (130-400) K/uL MPV 11.4 H (7.4-10.4) fL Sodium 133 L (136-145) mmol/L Potassium 3.3 L (3.5-5.1) mmol/L BUN/Creatinine Ratio 9.8 L (10-20) Calcium 8.2 L (8.5-10.1) mg/dl AST 81 H (15-37) U/L Alkaline Phosphatase 139 H (45-117) U/L Albumin 2.6 L (3.4-5.0) gm/dl Globulin 5.1 H (2.5-4.0) gm/dl Albumin/Globulin Ratio 0.5 L (0.9-2) Diagnostic Findings MRI repeated 06/17/2018- Minimal progression in the innumerable bilateral acute/ subacute infarcts involving both cerebellar hemispheres, the frontal temporal parietal and occipital lobes, as well as the basal ganglia and thalami.
--- NOTE | 2018-06-17 15:31 | Cardiology Progress Note ---
Date of Service June 17, 2018 Assessment & Plan (1) Embolic stroke: Hold anticoagulation per direction of gastroenterology due to presence of duodenal ulceration and melena. Restart anticoagulation in 48 hours if there are no signs/symptoms of GI bleeding. Continue low-dose aspirin if gastroenterology agreeable. Patient is afebrile and blood cultures are negative. Clinical picture likely represents embolic phenomenon related to atrial fibrillation. Case discussed with neurology who is in agreement that transesophageal echocardiogram will be postponed at this time as we feel the risk of another procedure likely outweighs benefit at this juncture. (2) Paroxysmal atrial fibrillation: Remains in sinus rhythm on telemetry. Follow telemetry. Continue beta- malika. (3) HTN (hypertension): Controlled. Continue amlodipine and metoprolol. (4) Dyslipidemia: Continue atorvastatin. (5) Pericardial effusion: Continue colchicine. No evidence of tamponade physiology per echocardiogram. Avoid high-dose NSAIDs at this time in the setting of acute CVA and need for anticoagulation. Subjective Patient seen and examined at the bedside. EGD performed earlier today demonstrating duodenal ulcer. Anticoagulation currently on hold with recommendations to withhold anticoagulation for 48 hours. Repeat MRI demonstrates no progression of CVA. Affect remains flat. Patient denies pain. Left-sided weakness unchanged. Review of Systems All systems reviewed & are unremarkable except as noted in HPI & below Physical Exam 2 Vital Signs (Past 24 Hours): Last Vital Signs Temp 36.4 C L 06/17/18 14:59 Pulse 62 06/17/18 14:59 Resp 21 06/17/18 14:59 BP 123/77 06/17/18 14:59 Pulse Ox 96 06/17/18 14:59 Physical Exam: General: NAD, AAO x3, well nourished. Flat affect. HEENT: Right-sided frontal ecchymosis. Conjunctiva pink, no scleral icterus. Neck: No carotid bruits, the carotid upstrokes are brisk. No JVD. No HJR Heart: Regular normal S-1 and S-2 no S-3 or S-4 gallop. No murmurs or rub appreciated. PMI is not displaced. No RV heave. Lungs: Clear bilateral without rales , rhonchi, or wheeze. Abdomen: Normal bowel sounds. Soft. Nontender. No masses or organomegaly. No abdominal bruits. Extremities: No clubbing, cyanosis, or edema. Pulses: radial=2/4, Dorsalis pedis =2/4, posterior tibial=2/4. Neuro: Lethargy. Left-sided weakness.
--- NOTE | 2018-06-17 16:48 | Hospitalist Progress Note ---
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: as the MRI brain showed multiple areas of stroke of note patient received lumbar puncture in the ED and no evidence of meningitis current workup up to date with cardiology service and echocardiogram and carotid ultrasound have no found the source of emboli while there has been consideration of possible failure of Eliquis anticoagulation, cardiology service proposes that perhaps patient may have had complication previous to starting Eliquis as Eliquis was started on last hospital presentation (discharge date 06/07/18) patient currently on heparin drip as of 06/14/18 which is more than 12 hours after 06/13/18 lumbar puncture. there were discussions about resuming Eliquis but no eliquis was given on 06/14/18 as medical team awaited for planned CT head scan as ordered by Neurology service for the morning of 06/15/18 06/15/18: Medical doctor was informed by nursing that when patient was about to be transported to the CT head scan this morning, patient slid off of the wheelchair and landed on the abdomen - no loss of consciouness. Patient had head CT scan that did not show acute intracranial bleeding of the. However when returned from CT scan, patient had right forehead hematoma where he evidently must have bumped his head from that fall -discussed with cardiology service that given recent head injury, will avoid Eliquis at this time as it lacks readily available reversal agents. since patient does not have any new neurological deficits that patient can remain on heparin drip -given recent hospitalist evaluations of the patient, the patient before and after this fall appears to have problems with short term memory which may be attributed to recently found multiple areas of strokes -CT head results from 06/15/18: No acute intracranial hemorrhage, midline shift or territorial infarct. 06/15/18: In evening around 6 PM, nurse reports patient with large bowel movement of dark stool, heparin drip held, Fecal occult blood stool positive 06/16/18: CT head results from 05/16/19: Findings most compatible with evolving watershed infarcts. These are best demonstrated on most recent MRI. No hemorrhage or significant worsening allowing for differences in modality -possible left sided weakness of upper extremities -have discussed with Neurology service Dr. Saldana and that likely symptoms may be from vasogenic edema. Neurology service recommending repeat brain MRI on 06/1706/17/18: Brain MRI as Minimal progression in the innumerable bilateral acute/ subacute infarcts involving both cerebellar hemispheres, the frontal temporal parietal and occipital lobes, as well as the basal ganglia and thalami -however patient's left upper extremity motor deficits which had been noted previously is more pronounced today -sensory of left upper extremity appears intact but patient does not lift the left hand up and give hand counter server which he can do with some weakness of the right upper extremity other related 06/17/18 updates -EGD performed on 06/17/18: multiple duodenal ulcers, the largest had bleeding vessel which was given epinephrine and cauterized -as per GI recommendations, proton pump IV daily for 2 days then oral BID PPI for 2 months, can resume aspirin 81 mg daily, can resume anticoagulation in 2 days -Neurology and Cardiology are writing that patient should resume Eliquis anticoagulation without risk of PETROS and presumed etiology of strokes from cardiac emboli (2) Leukocytosis: leukocytosis remains. WBC 14,000 with elevated neutrophils and eosinophils remains afebrile no identifiable source of infection at this time - no urinary tract infection, admission CSF normal, blood cultures no growth, no fever no antibiotics indicated at this time for now (3) Elevated troponin: -Downtrended from recent admission -No reports of chest pain, EKG on 06/13/18 demonstrates new T wave inversions anteriorly however recent cardiac cath demonstrated widely patent coronary arteries - no acute telemetry events at this time, continues to be in sinus rhythm (4) Hepatitis C antibody test positive: -Had RNA testing performed in 2016 that was negative -No further workup at this time (5) Paroxysmal atrial fibrillation: -Currently in Normal sinus rhythm Gastrointestinal bleed -dark red stools noted on 06/15/18 and that is FOBT positive -EGD performed on 06/17/18: multiple duodenal ulcers, the largest had bleeding vessel which was given epinephrine and cauterized -as per GI recommendations, proton pump IV daily for 2 days then oral BID PPI for 2 months, can resume aspirin 81 mg daily, can resume anticoagulation in 2 days (6) HTN (hypertension): -BP controlled, continue amlodipine (7) Dyslipidemia: -Continue statin (8) DVT prophylaxis: SCDs for now Deconditioning: PT/OT as per patient and his brother Malcolm ([phone]) code status is DNR/DNI and that patient's power of creative services producer is Malcolm Have discussed with specialists doctors involved in the care that discussions for procedures should also involve patient's brother Malcolm Subjective Patient had Brain MRI this AM Brain MRI as Minimal progression in the innumerable bilateral acute/subacute infarcts involving both cerebellar hemispheres, the frontal temporal parietal and occipital lobes, as well as the basal ganglia and thalami -however patient's left upper extremity motor deficits which had been noted previously is more pronounced today -sensory of left upper extremity appears intact but patient does not lift the left hand up and give hand counter server which he can do with some weakness of the right upper extremity Patient returned from EGD patient denies acute pain. denies shortness of breath. patient does not elaborate on other review of systems other than reporting he feels okay Physical Exam 2 Vital Signs (Past 24 Hours): Last Vital Signs Temp 36.6 C 06/17/18 15:41 Pulse 60 06/17/18 15:41 Resp 17 06/17/18 15:41 BP 124/78 06/17/18 15:41 Pulse Ox 96 06/17/18 15:41 Constitutional: WD/WN, vitals as above Eyes: PERRL, conjunctivae normal, anicteric sclerae EOM intact bilaterally ENMT: external ear and nose normal, oropharynx normal Neck: trachea midline, no thyromegaly Respiratory: normal respiratory effort, lungs clear to auscultation Cardiovascular: RRR, no murmur, no edema Rate/Rhythm: regular rhythm and + bradycardic Gastrointestinal (Abdomen): normal bowel sounds, soft, nontender, no hepatosplenomegaly Musculoskeletal: Head/Neck/Chest: normocephalic and head atraumatic Extremities: + abnormal strength (sensory of left upper extremity appears intact but patient does not lift the left hand up and give hand counter server which he can do with some weakness of the right upper extremity) Neurologic: PERRL, EOMI, accommodation nl, no face palsy, no dysarthria CN' s II-XI intact bilaterally and awake Psychiatric: Orientation: alert
[2018-06-17] MEDS: D5W AND 1/2NSS 1,000 ML IV SCH (18:06)
[2018-06-17] MEDS: PANTOprazole 40 MG in SYRINGE 0 ML IV SCH (20:25)
[2018-06-18] MEDS: LEVOTHYROXINE SODIUM 125 MCG TABLET PO SCH (05:40)
--- NOTE | 2018-06-18 07:55 | Gastroenterology Progress Note ---
Date of Service June 18, 2018 Assessment & Plan (1) Melena: 63 year old male w/ AMS, MRI brain showed multiple areas of stroke started on heparin gtt which was held secondary to concern for melena s/p EGD w / multiple duodenal ulcers w/ visible vessel, treated w/ epi to be on IV PPI continuosly - Resume ASA - Continue IV PPI infusion as re-ordered x 48 hours then PPI BID x 2 months - Clear liquids today then advance as tolerated - Avoid NSAIDs. - Check H.Pylori stool Ag. - Can resume anticoagulation therapy after 2 days if no evidence of rebleeding. GI to sign off. Thank you for allowing us to participate in the care of this patient. Please call with any acute changes, questions or concerns. Please see addendum below with additional recommendation from my supervising physician. (2) Thalamic infarction: Supervising Physician Co-Signing Physician Notes I performed a history and physical examination of the patient, including specifically on physical exam - soft, nontender abdomen. I have discussed the patient's management with Licha. Please refer to the nurse practitioner's note for the documented findings and plan of care. No evidence of rebleeding, H/H stable. Can resume Anticoagulation tomorrow. Recall Gi if needed. Subjective Pt was seen and evaluated, chart reviewed. No family at bedside. S/P EGD w/ multiple duodenal ulcers and visible vessel treated w/ epi. Is to be on PPI drip. Denies any complaints this AM. Is not hungry. Denies abd pain. No further nauesa, vomiting. No BM since yesterday. No fever, chills, CP, SOB. EGD: Normal esophagus.Normal stomach.Multiple duodenal ulcers, the largest had a visible vessel. Treated with bipolar cautery. Injected with Epi. Hemostasis achieved.Normal second portion of the duodenum. No specimens collected. Constitutional: no fever and no chills Respiratory: no cough and no dyspnea Cardiovascular: no chest pain and no chest pain at rest Gastrointestinal: no abdominal pain, no belching and no vomiting (at 0800) Physical Exam 2 Vital Signs (Past 24 Hours): Last Vital Signs Temp 36.8 C 06/18/18 07:51 Pulse 60 06/18/18 07:51 Resp 16 06/18/18 07:51 BP 131/68 06/18/18 07:51 Pulse Ox 96 06/18/18 07:51 Constitutional: + ill appearing; no acute distress Respiratory: normal respiratory effort, lungs clear to auscultation Cardiovascular: RRR, no murmur, no edema Gastrointestinal (Abdomen): normal bowel sounds, soft, nontender, no hepatosplenomegaly Results & Data Laboratory Results 06/18/18 06/17/18 06/17/18 Range/Units 07:02 20:07 16:05 WBC Pending RBC Pending Hgb Pending Hct Pending MCV Pending MCH Pending MCHC Pending Plt Count Pending POC Glucose 99 117 H (70-99) Fld Lyme DNA (PCR) (Not Detected) Lyme Specimen Source 06/13/18 Range/Units 14:35 WBC RBC Hgb Hct MCV MCH MCHC Plt Count POC Glucose (70-99) Fld Lyme DNA (PCR) Not detected (Not Detected) Lyme Specimen Source CSF
[2018-06-18 07:57] LABS: Hematocrit (blood only) 34.3 % (42-52); Hemoglobin 11.9 g/dL (14.0-18.0); Mean Corpuscular Hgb Conc 34.7 g/dL (32-36); Mean Corpuscular Volume 87.1 fL (80-100); RDW Coefficient of Variation 14.5 % (11.5-14.5); RDW Standard Deviation 45.2 fL (36.4-46.3); Red Blood Count 3.94 M/uL (4.7-6.1); White Blood Count 14.14 K/uL (4.8-10.8)
[2018-06-18 08:06] LABS: Mean Platelet Volume 11.7 fL (7.4-10.4); Platelet Count 88 K/uL (130-400)
[2018-06-18 08:26] LABS: Basophils # (auto) 0.02 K/uL (0-0.2); Basophils % (auto) 0.1 %; Eosinophils # (auto) 5.73 K/uL (0-0.5); Eosinophils % (auto) 40.5 %; Immature Granulocytes # (auto) 0.03 K/uL (0.00-0.02); Immature Granulocytes % (auto) 0.2 %; Lymphocytes # (auto) 1.22 K/uL (1.2-3.4); Lymphocytes % (auto) 8.6 %; Monocytes # (auto) 0.95 K/uL (0.11-0.59); Monocytes % (auto) 6.7 %; Neutrophils # (auto) 6.19 K/uL (1.4-6.5); Neutrophils % (auto) 43.9 %; Platelet Estimate Decreased (Normal)
--- NOTE | 2018-06-18 08:27 | Anesthesiology Progress Note ---
Date of Service June 18, 2018 Anesthesia Post Procedure Vital Signs Vital Signs: Temp Pulse Pulse Pulse Pulse Resp BP 06/18/18 07:51 36.8 C 60 16 06/18/18 03:00 36.8 C 60 16 06/17/18 23:54 37.0 C 62 16 06/17/18 19:21 36.6 C 60 16 06/17/18 18:36 36.6 C 58 L 19 06/17/18 17:37 36.4 C L 56 L 21 06/17/18 15:41 36.6 C 60 17 06/17/18 14:59 36.4 C L 62 21 123/77 06/17/18 14:55 36.4 C L 62 16 06/17/18 14:25 59 L 18 120/88 06/17/18 14:15 36.4 C L 59 L 18 123/85 06/17/18 14:05 61 15 119/84 06/17/18 13:55 61 18 120/82 06/17/18 13:45 57 L 18 121/77 06/17/18 13:36 36.0 C L 58 L 16 122/76 06/17/18 12:09 36.5 C 59 L 20 122/91 06/17/18 09:56 61 BP Pulse Ox 06/18/18 07:51 131/68 96 06/18/18 03:00 126/82 91 06/17/18 23:54 124/79 97 06/17/18 19:21 127/84 96 06/17/18 18:36 122/80 95 06/17/18 17:37 126/79 98 06/17/18 15:41 124/78 96 06/17/18 14:59 96 06/17/18 14:55 124/80 95 06/17/18 14:25 98 06/17/18 14:15 98 06/17/18 14:05 99 06/17/18 13:55 100 06/17/18 13:45 100 06/17/18 13:36 100 06/17/18 12:09 96 06/17/18 09:56 Pain Intensity Abdomen: Pain Intensity: 0 Notes Mental Status: alert / awake / arousable and participated in evaluation Nausea / Vomiting: adequately controlled Pain: adequately controlled Airway Patency, RR, SpO2: stable & adequate BP & HR: stable & adequate Hydration State: stable & adequate Anesthetic Complications: no major complications apparent
[2018-06-18] MEDS: AMLODIPINE BESYLATE 5 MG TAB PO SCH (08:45)
[2018-06-18] MEDS: METOPROLOL TARTRATE 25 MG TAB PO SCH ×2 (08:45→20:45)
[2018-06-18] MEDS: ATORVASTATIN 40 MG TAB PO SCH (08:45)
[2018-06-18] MEDS: COLCHICINE 0.6 MG TAB PO SCH ×2 (08:46→20:45)
[2018-06-18] MEDS: ASPIRIN 81 MG ECTAB PO SCH (09:16)
[2018-06-18] MEDS: PANTOprazole 40 MG in DEXTROSE 5% 100 ML IV SCH ×3 (09:16→19:28)
--- NOTE | 2018-06-18 12:00 | Cardiology Progress Note ---
Date of Service June 18, 2018 Assessment & Plan (1) Embolic stroke: Hold anticoagulation per direction of gastroenterology due to presence of duodenal ulceration and melena. Restart intravenous heparin tomorrow if there is no sign of GI bleeding. Continue low-dose aspirin. Patient is afebrile and blood cultures are negative. (2) Paroxysmal atrial fibrillation: Remains in sinus rhythm on telemetry. Follow telemetry. Continue beta- malika. (3) HTN (hypertension): Controlled. Continue amlodipine and metoprolol. (4) Dyslipidemia: Continue atorvastatin. (5) Pericardial effusion: Continue colchicine. No evidence of tamponade physiology per echocardiogram. Avoid high-dose NSAIDs at this time in the setting of acute CVA and need for anticoagulation. Repeat limited transthoracic echocardiogram prior to discharge. Subjective Patient seen and examined at the bedside. Left-sided weakness unchanged. More alert today. Family friends at bedside. Remains in sinus rhythm on telemetry. No signs/symptoms of GI/ blood loss. Offers no complaints at this time. Review of Systems All systems reviewed & are unremarkable except as noted in HPI & below Physical Exam 2 Vital Signs (Past 24 Hours): Last Vital Signs Temp 36.5 C 06/18/18 11:42 Pulse 60 06/18/18 11:42 Resp 18 06/18/18 11:42 BP 122/78 06/18/18 11:42 Pulse Ox 96 06/18/18 11:42 Physical Exam: General: NAD, AAO x3, well nourished. Flat affect. HEENT: Right-sided frontal ecchymosis. Conjunctiva pink, no scleral icterus. Neck: No carotid bruits, the carotid upstrokes are brisk. No JVD. No HJR Heart: Regular normal S-1 and S-2 no S-3 or S-4 gallop. No murmurs or rub appreciated. PMI is not displaced. No RV heave. Lungs: Clear bilateral without rales , rhonchi, or wheeze. Abdomen: Normal bowel sounds. Soft. Nontender. No masses or organomegaly. No abdominal bruits. Extremities: No clubbing, cyanosis, or edema. Pulses: radial=2/4, Dorsalis pedis =2/4, posterior tibial=2/4. Neuro: Flat affect, however, alert and appropriate. + Left-sided weakness. No facial asymmetry.
[2018-06-18] MEDS: PANTOprazole 40 MG in SYRINGE 0 ML IV SCH (12:42)
--- NOTE | 2018-06-18 14:53 | Neurology Progress Note ---
Date of Service June 18, 2018 Assessment & Plan (1) Embolic stroke: 1. MRI brain- multiple areas of stroke repeated due to MS change on 2018 with no new findings 2. Eliquis and antiplatlet therapy on hold currently due to GI -EGD findings of bleeding ulcer 3. cardiology on board and directing the restart of anticoag - and further imaging needed for source of emboli all on hold at this time due to bleeding ulcer 4. PT/OT/speech for any discharge needs 5. continue treatment for infection, LP to date unremarkable 6. smoking cessation strongly urged 7. no further imaging neurology would recommend at this time 8. optimize HTN, DM, HLD LDL <70 9. TTE- EF 55-60 % no ASD possible PETROS as outpatient but currently on hold will be available for further input as needed. follow up with neurology 4-6 weeks after discharge from hospital or rehab if needed Christy Amaro PAC schedule Supervising Physician Co-Signing Physician Notes I have seen and discussed above patient with Dr Nahum Saldana, neurology I have seen Mr. Lennon today, reviewed his imaging studies, reviewed his case with Christy Amaro PA-C and the above note. Today he may be a little more alert a little more cooperative little less AB would like but has what appears to be a relatively dense hemiparesis on the left and a significant degree of neglect and strong elements of anosagnosia this is actually first they were in examination is a little more feasible due to slight increase in his level of cooperation. He seems to have a left field cut as well. Looking over the imaging studies the lesion responsible for the neglect I believe lies in the right thalamic zone and the visual issues are probably due to involvement of the right posterior cerebral cortex there is not a lot of motor strip involvement although admittedly there is some in these areas may be producing some degree of motor hemiparesis. All of this is actually quite academic has had multiple areas of infarction involving both hemispheres and will undoubtedly be cognitively impaired but may have impulse control issues will clearly need rehabilitation efforts once his medical problems are stabilized and the policy regarding his anticoagulation is finalized. We will see him again tomorrow. Nahum Ocampo is a 63 year old male who presented to the ED with confusion. He had a recent admission to [facility] 06/04 through 06/07 for pneumonia. He underwent cardiac catheterization that demonstrated widely patent coronary arteries. He was also found to have AF and Eliquis was started. He spontaneously converted to NSR. He was discharged on Levaquin for treatment of the pneumonia. He returned to work but was still feeling generally weak. He was found to be confused by his brother and was brought in to [facility] for evalution. The Levaquin was causing decreased appetite. He was admitted for further observation and test. LP in ED was unremarkable He is wake with voice command flat affect. cooperates with exam. denies CP, SOB , abdominal pain, N, V, headache. Physical Exam 2 Vital Signs (Past 24 Hours): Last Vital Signs Temp 36.5 C 06/18/18 11:42 Pulse 60 06/18/18 11:42 Resp 18 06/18/18 11:42 BP 122/78 06/18/18 11:42 Pulse Ox 96 06/18/18 11:42 Gen: alert with voice commend, NAD, flat affect lungs CTA CV RRR oriented to [facility] but not to date, then does want to answer questions left arm unable to lift against gravity unable to squeeze with hand, moves thumb minimally when asked to give thumbs up right biceps triceps, hand piping design specialist 5/5, hip flex 5/5 Results & Data Laboratory Results Abnormal lab results 06/17/18 06/18/18 Range/Units 16:05 07:02 WBC 14.14 H (4.8-10.8) K/uL RBC 3.94 L (4.7-6.1) M/uL Hgb 11.9 L (14.0-18.0) g/dL Hct 34.3 L (42-52) % Plt Count 88 L (130-400) K/uL MPV 11.7 H (7.4-10.4) fL Immature Gran # (Auto) 0.03 H (0.00-0.02) K/uL [place] # (Auto) 0.95 H (0.11-0.59) K/uL Eos # (Auto) 5.73 H (0-0.5) K/uL POC Glucose 117 H (70-99) Diagnostic Findings no new imaging
--- NOTE | 2018-06-18 20:04 | Hospitalist Progress Note ---
Date of Service June 18, 2018 Assessment & Plan (1) Altered mental status: possibly from Embolic stroke: as the MRI brain showed multiple areas of stroke of note patient received lumbar puncture in the ED and no evidence of meningitis current workup up to date with cardiology service and echocardiogram and carotid ultrasound have no found the source of emboli while there has been consideration of possible failure of Eliquis anticoagulation, cardiology service proposes that perhaps patient may have had complication previous to starting Eliquis as Eliquis was started on last hospital presentation (discharge date 06/07/18) patient currently on heparin drip as of 06/14/18 which is more than 12 hours after 06/13/18 lumbar puncture. there were discussions about resuming Eliquis but no eliquis was given on 06/14/18 as medical team awaited for planned CT head scan as ordered by Neurology service for the morning of 06/15/18 06/15/18: Medical doctor was informed by nursing that when patient was about to be transported to the CT head scan this morning, patient slid off of the wheelchair and landed on the abdomen - no loss of consciouness. Patient had head CT scan that did not show acute intracranial bleeding of the. However when returned from CT scan, patient had right forehead hematoma where he evidently must have bumped his head from that fall -discussed with cardiology service that given recent head injury, will avoid Eliquis at this time as it lacks readily available reversal agents. since patient does not have any new neurological deficits that patient can remain on heparin drip -given recent hospitalist evaluations of the patient, the patient before and after this fall appears to have problems with short term memory which may be attributed to recently found multiple areas of strokes -CT head results from 06/15/18: No acute intracranial hemorrhage, midline shift or territorial infarct. 06/15/18: In evening around 6 PM, nurse reports patient with large bowel movement of dark stool, heparin drip held, Fecal occult blood stool positive 06/16/18: CT head results from 05/16/19: Findings most compatible with evolving watershed infarcts. These are best demonstrated on most recent MRI. No hemorrhage or significant worsening allowing for differences in modality -possible left sided weakness of upper extremities -have discussed with Neurology service Dr. Saldana and that likely symptoms may be from vasogenic edema. Neurology service recommending repeat brain MRI on 06/1706/17/18: Brain MRI as Minimal progression in the innumerable bilateral acute/ subacute infarcts involving both cerebellar hemispheres, the frontal temporal parietal and occipital lobes, as well as the basal ganglia and thalami -however patient's left upper extremity motor deficits which had been noted previously is more pronounced today -sensory of left upper extremity appears intact but patient does not lift the left hand up and give hand chief growth officer which he can do with some weakness of the right upper extremity other related 06/17/18 updates -EGD performed on 06/17/18: multiple duodenal ulcers, the largest had bleeding vessel which was given epinephrine and cauterized -as per GI recommendations, proton pump IV daily for 2 days then oral BID PPI for 2 months, can resume aspirin 81 mg daily, can resume anticoagulation in 2 days 06/18/18: stable Hgb, considering resuming heparin drip on 06/19/18 or 06/20/18 -Neurology and Cardiology are writing that patient should resume Eliquis anticoagulation afterwards without PETROS due to presumed etiology of strokes from cardiac emboli -follow up with neurology 4-6 weeks after discharge from hospital (2) Leukocytosis: leukocytosis remains. WBC 14,000 with elevated neutrophils and eosinophils remains afebrile no identifiable source of infection at this time - no urinary tract infection, admission CSF normal, blood cultures no growth, no fever no antibiotics indicated at this time for now (3) Elevated troponin: -Downtrended from recent admission -No reports of chest pain, EKG on 06/13/18 demonstrates new T wave inversions anteriorly however recent cardiac cath demonstrated widely patent coronary arteries - no acute telemetry events at this time, continues to be in sinus rhythm Pericardial effusion: Continue colchicine. No evidence of tamponade physiology per echocardiogram. Avoid high-dose NSAIDs at this time in the setting of acute CVA and need for anticoagulation. Repeat limited transthoracic echocardiogram prior to discharge (4) Hepatitis C antibody test positive: -Had RNA testing performed in 2016 that was negative -No further workup at this time (5) Paroxysmal atrial fibrillation: -Currently in Normal sinus rhythm Gastrointestinal bleed -dark red stools noted on 06/15/18 and that is FOBT positive -EGD performed on 06/17/18: multiple duodenal ulcers, the largest had bleeding vessel which was given epinephrine and cauterized; as per GI recommendations, proton pump IV daily for 2 days then oral BID PPI for 2 months, can resume aspirin 81 mg daily, can resume anticoagulation in 2 days -06/18/18: stable Hgb, considering resuming heparin drip on 06/19/18 or 06/20/18 (6) HTN (hypertension): -BP controlled, continue amlodipine (7) Dyslipidemia: -Continue statin (8) DVT prophylaxis: SCDs for now Deconditioning: PT/OT as per patient and his brother Malcolm ([phone]) code status is DNR/DNI and that patient's power of contracts attorney is Malcolm Have discussed with specialists doctors involved in the care that discussions for procedures should also involve patient's brother Malcolm Subjective Patient appears to be processing information better today as per his brother Malcolm patient verbal and awake and alert at this time there is clearly a left sided weakness which is more confirmatory after these recent hospital days, cannot lift up left arm and there is some weakness of the left lower extremity Patient denies acute pain. denies shortness of breath Physical Exam 2 Vital Signs (Past 24 Hours): Last Vital Signs Temp 36.6 C 06/18/18 19:11 Pulse 60 06/18/18 19:11 Resp 19 06/18/18 19:11 BP 132/87 06/18/18 19:11 Pulse Ox 95 06/18/18 19:11 Constitutional: WD/WN, vitals as above Eyes: PERRL, conjunctivae normal, anicteric sclerae EOM intact bilaterally ENMT: external ear and nose normal, oropharynx normal Neck: trachea midline, no thyromegaly Respiratory: normal respiratory effort, lungs clear to auscultation Cardiovascular: RRR, no murmur, no edema Rate/Rhythm: regular rhythm and + bradycardic Gastrointestinal (Abdomen): normal bowel sounds, soft, nontender, no hepatosplenomegaly Musculoskeletal: Head/Neck/Chest: normocephalic and head atraumatic Extremities: + abnormal strength (sensory of left upper extremity appears intact but patient does not lift the left hand up and give hand chief growth officer which he can do with some weakness of the right upper extremity, also left leg weakness) Neurologic: PERRL, EOMI, accommodation nl, no face palsy, no dysarthria awake Psychiatric: Orientation: alert
[2018-06-19] MEDS: PANTOprazole 40 MG in DEXTROSE 5% 100 ML IV SCH ×5 (00:15→20:00)
[2018-06-19] MEDS: LEVOTHYROXINE SODIUM 125 MCG TABLET PO SCH (04:56)
[2018-06-19 06:23] LABS: Hematocrit (blood only) 34.3 % (42-52); Mean Corpuscular Volume 85.8 fL (80-100); RDW Coefficient of Variation 14.5 % (11.5-14.5); RDW Standard Deviation 45.2 fL (36.4-46.3); White Blood Count 12.39 K/uL (4.8-10.8)
[2018-06-19 06:27] LABS: Platelet Count 90 K/uL (130-400)
[2018-06-19 06:34] LABS: INR 1.2 (0.9-1.1); Partial Thromboplastin Ratio 1.2; Prothrombin Time 11.9 Seconds (9.0-12.0)
[2018-06-19 06:57] LABS: BUN Creatinine Ratio 15.2 (10-20); Calcium 8.4 mg/dl (8.5-10.1); Creatinine Clr Calc Pharmacy 69.8 ml/min; Est GFR (African American) 91.8; Est GFR (Non-African American) 79.2; Potassium 3.4 mmol/L (3.5-5.1)
[2018-06-19] MEDS: METOPROLOL TARTRATE 25 MG TAB PO SCH ×2 (07:58→20:33)
[2018-06-19] MEDS: AMLODIPINE BESYLATE 5 MG TAB PO SCH (07:58)
[2018-06-19] MEDS: ATORVASTATIN 40 MG TAB PO SCH ×2 (07:58→09:58)
[2018-06-19] MEDS: COLCHICINE 0.6 MG TAB PO SCH ×2 (07:59→20:35)
[2018-06-19] MEDS: ASPIRIN 81 MG ECTAB PO SCH (07:59)
[2018-06-19] MEDS ORDERED: Heparin IV Low Dose *NO* Bolus IV SCH (10:09)
--- NOTE | 2018-06-19 12:28 | Cardiology Progress Note ---
Date of Service June 19, 2018 Assessment & Plan (1) Embolic stroke: Restart intravenous anticoagulation today. Tentative plans to restart Eliquis in the next 24-48 hours if there are no signs of recurrent GI bleeding. (2) Paroxysmal atrial fibrillation: Remains in sinus rhythm on telemetry. Follow telemetry. Continue beta- malika. (3) HTN (hypertension): Controlled. Continue amlodipine and metoprolol. (4) Dyslipidemia: Continue atorvastatin. (5) Pericardial effusion: Continue colchicine. No evidence of tamponade physiology per echocardiogram. Avoid high-dose NSAIDs at this time in the setting of acute CVA and need for anticoagulation. Repeat limited echo in AM. Subjective Patient seen and examined at the bedside. Left-sided weakness unchanged. Remains in sinus rhythm. Affect is flat. Patient mildly lethargic and somewhat uncooperative. No edema, orthopnea, or PND. Denies chest discomfort or shortness of breath. No signs of recurrent gastrointestinal bleeding. Hemoglobin remained stable. Review of Systems All systems reviewed & are unremarkable except as noted in HPI & below Physical Exam 2 Vital Signs (Past 24 Hours): Last Vital Signs Temp 36.3 C L 06/19/18 11:17 Pulse 65 06/19/18 11:17 Resp 20 06/19/18 11:17 BP 127/81 06/19/18 11:17 Pulse Ox 95 06/19/18 11:17 Physical Exam: General: NAD, AAO x3, well nourished. Flat affect. HEENT: Normocephalic. Atraumatic. Conjunctiva pink, no scleral icterus. Neck: No carotid bruits, the carotid upstrokes are brisk. No JVD. No HJR Heart: Regular normal S-1 and S-2 no S-3 or S-4 gallop. No murmurs or rub appreciated. PMI is not displaced. No RV heave. Lungs: Clear bilateral without rales , rhonchi, or wheeze. Abdomen: Normal bowel sounds. Soft. Nontender. No masses or organomegaly. No abdominal bruits. Extremities: No clubbing, cyanosis, or edema. Pulses: radial=2/4, Dorsalis pedis =2/4, posterior tibial=2/4. Neuro: No facial asymmetry. Left-sided weakness. Left lower extremity withdraws to pain. Poor cooperation.
[2018-06-19] MEDS: HEPARIN LOW DOSE DEXTROSE 25,000 UNITS/500 ML IV SCH (12:38)
--- NOTE | 2018-06-19 13:34 | Neurology Progress Note ---
Date of Service June 19, 2018 Assessment & Plan (1) Embolic stroke: 1. MRI brain- multiple areas of stroke repeated due to MS change on 2018 with no new findings 2. Eliquis on hold currently due to GI -EGD findings of bleeding ulcer aspirin 81 mg restarted 3. cardiology on board and directing the restart of anticoag - and further imaging needed for source of emboli all on hold at this time due to bleeding ulcer cardiology repeating TTE tomorrow 4. PT/OT/speech for any discharge needs 5. continue treatment for infection, LP to date unremarkable 6. smoking cessation strongly urged 7. no further imaging neurology would recommend at this time 8. optimize HTN, DM, HLD LDL <70 9. TTE- EF 55-60 % no ASD possible PETROS as outpatient but currently on hold 10. may be an elemet of depression- psych consult may be appropriate prior to rehab follow up with neurology 4-6 weeks after discharge from hospital or rehab if needed Christy Amaro PAC schedule Supervising Physician Co-Signing Physician Notes I have seen and discussed above patient with Dr Nahum Saldana, neurology I seen Mr. Garcia today examined him and reviewed his laboratory studies and overall status with Christy Amaro PA-C I agree with her assessment. He may be slightly more in her day. Some at the bedside with his dietitian and she was able to get him to participate in making some food choices but his processing time was very slow he remains with a fairly dense hemiparesis, hemisensory deficit and hemineglect but the verity of his left field cut is less most of what I am seeing is neglect of bilateral he presented visual stimuli rather than an actual loss of visual perception in the left hemifield. He remains with a very flat affect and appears clinically depressed. At this point he continues on heparin and aspirin and the decision to start Eliquis is still on hold. Fortunately he remains in sinus rhythm. A transthoracic echo is on deck for tomorrow. Cardiology is clearly charge of all of these issues. At this point one might consider a psychiatry evaluation to determine whether initiation of antidepressants or even judicious use of stimulants might help improve his affect. Much of this would have to be decided in light of his history of paroxysmal atrial fibrillation and antidepressants and stimulants with heightened cardiac irritability might well be contraindicated. He is cleared on the rehabilitation medicine evaluation and a rehabilitation hospital stay post discharge. For now however these plans remain undecided pending the decision regarding Eliquis therapy We will check back tomorrow but again at some point neurology has very little more to offer and will simply see him in our outpatient clinic 4-6 weeks after this discharge for several weeks after his discharge from a rehabilitation facility Nahum Tyson Terrence is a 63 year old male who presented to the ED with confusion. He had a recent admission to [facility] 06/04 through 06/07 for pneumonia. He underwent cardiac catheterization that demonstrated widely patent coronary arteries. He was also found to have AF and Eliquis was started. He spontaneously converted to NSR. He was discharged on Levaquin for treatment of the pneumonia. He returned to work but was still feeling generally weak. He was found to be confused by his brother and was brought in to [facility] for evalution. The Levaquin was causing decreased appetite. He was admitted for further observation and test. LP in ED was unremarkable He is wake with voice command flat affect. cooperates limitedly with exam denies CP, SOB, abdominal pain, N, V, headache. Physical Exam 2 Vital Signs (Past 24 Hours): Last Vital Signs Temp 36.3 C L 06/19/18 11:17 Pulse 65 06/19/18 11:17 Resp 20 06/19/18 11:17 BP 127/81 06/19/18 11:17 Pulse Ox 95 06/19/18 11:17 Gen: alert flat affect lungs course breath sounds CV RRR left arm flaccid, slight movement in left thumb left leg lifts against gravity but not against resistance right hand rivet passer biceps triceps 5/5, hip flex 5/5 oriented to self, 2019, president prema Results & Data Laboratory Results Abnormal lab results 06/19/18 06/19/18 06/19/18 Range/Units 06:07 06:07 06:07 WBC 12.39 H (4.8-10.8) K/uL RBC 4.00 L (4.7-6.1) M/uL Hgb 12.0 L (14.0-18.0) g/dL Hct 34.3 L (42-52) % Plt Count 90 L (130-400) K/uL MPV 11.0 H (7.4-10.4) fL INR 1.2 H (0.9-1.1) Sodium 132 L (136-145) mmol/L Potassium 3.4 L (3.5-5.1) mmol/L Calcium 8.4 L (8.5-10.1) mg/dl Diagnostic Findings no new imaging
--- NOTE | 2018-06-19 14:18 | Hospitalist Progress Note ---
Date of Service June 19, 2018 Assessment & Plan (1) Acute CVA (cerebrovascular accident): likely Embolic in the setting of Paroxysmal A fib - was on Eliquis for Paroxysmal A fib prior to admission repeat Brain MRI: IMPRESSION: 1. Minimal progression in the innumerable bilateral acute/subacute infarcts involving both cerebellar hemispheres, the frontal temporal parietal and occipital lobes, as well as the basal ganglia and thalami. - discussed with Cardiology will resume Heparin drip today d/c ASA closely monitor for signs of GI Bleed monitor Plt level continue Protonix - on Statin - avoid hypotension - PT/OT (2) Paroxysmal atrial fibrillation: -Currently in Normal sinus rhythm (3) Upper GI bleed: -dark red stools noted on 06/15/18 and that is FOBT positive -EGD performed on 06/17/18: multiple duodenal ulcers, the largest had bleeding vessel which was given epinephrine and cauterized; as per GI recommendations, proton pump IV daily for 2 days then oral BID PPI for 2 months, can resume aspirin 81 mg daily, can resume anticoagulation in 2 days - Heparin drip resumed continue Protonix monitor closely (4) Leukocytosis: WBC improved to 12k afebrile no obvious source of infection cultures: negative continue to monitor may ultimately be secondary to Acute CVA, with multiple infarcts (5) Elevated troponin: -Downtrended from recent admission -No reports of chest pain, EKG on 06/13/18 demonstrates new T wave inversions anteriorly however recent cardiac cath demonstrated widely patent coronary arteries - no acute telemetry events at this time, continues to be in sinus rhythm Pericardial effusion: Continue colchicine. No evidence of tamponade physiology per echocardiogram. Avoid high-dose NSAIDs at this time in the setting of acute CVA and need for anticoagulation. Repeat limited transthoracic echocardiogram prior to discharge (6) Hepatitis C antibody test positive: -Had RNA testing performed in 2016 that was negative -No further workup at this time (7) HTN (hypertension): -BP controlled, continue amlodipine (8) Dyslipidemia: -Continue statin (9) DVT prophylaxis: Heparin drip Deconditioning: PT/OT as per patient and his brother Malcolm ([phone]) code status is DNR/DNI and that patient's power of criminal attorney is Malcolm Subjective ff up for acute cva seen resting in bed, appears somewhat drowsy, weak able to open eyes on command oriented to person and place able to follow simple commands- drip examiner's hand, raise hand denies headache, dizziness, nausea, shortness of breath, chest pain no other symptoms Physical Exam 2 Vital Signs (Past 24 Hours): Last Vital Signs Temp 36.3 C L 06/19/18 11:17 Pulse 65 06/19/18 11:17 Resp 20 06/19/18 11:17 BP 127/81 06/19/18 11:17 Pulse Ox 95 06/19/18 11:17 Physical Exam: General- oriented x 2, not in distress, speaks in sentences with no effort or accessory muscle use Eyes- anicteric Neck- no JVD Lungs- clear breath sounds bilaterally, no rales/wheezes Heart- normal rate, regular rhythm; no murmurs Abdomen- normal bowel sounds, nondistended, soft, nontender Extremities- no pretibial edema, no calf tenderness Neuro- drowsy, oriented x 2 motor 4/5 on the right 1/5 on the left sensation 100% on BL ext Skin- warm & dry Results & Data Laboratory Results Laboratory Results - last 24 hr 06/19/18 06/19/18 06/19/18 06:07 06:07 06:07 WBC 12.39 H RBC 4.00 L Hgb 12.0 L Hct 34.3 L MCV 85.8 MCH 30.0 MCHC 35.0 RDW Std Deviation 45.2 RDW Coeff of Martin 14.5 Plt Count 90 L MPV 11.0 H PT 11.9 INR 1.2 H APTT 31.0 PTT Ratio 1.2 Sodium 132 L Potassium 3.4 L Chloride 99 Carbon Dioxide 25 Anion Gap 8.0 BUN 15 D Creatinine 1.00 Est Cr Clr Drug Dosing 69.8 Est GFR ( Amer) 91.8 Est GFR (Non-Af Amer) 79.2 BUN/Creatinine Ratio 15.2 Glucose 85 Calcium 8.4 L
--- NOTE | 2018-06-19 17:04 | Consultation ---
Date of Consultation June 19, 2018 Assessment & Plan (1) Eosinophilia: This is a 63-year-old male who presents with a diffuse embolic stroke in the setting of elevated blood eosinophil levels status post a recent hospitalization for a pneumonia. The differential diagnosis includes drug reaction, eosinophilic pneumonia, hypereosinophilic syndrome, leukemia/ lymphoma. Regarding possibility of a drug reaction, the two new medications would include levofloxacin and Eliquis. Based on the patient's blood eosinophil levels, the start to increase significantly on June 05. This certainly would be consistent with the timing of initiation of medications. I recommend we avoid fluoroquinolones and Eliquis moving forward. However, it would be very unusual for these medications include a severe drug reaction without significant rash. The patient has not had any rashes. Other components and the differential include eosinophilic pneumonia, but there is no current sign of respiratory distress or continuing pneumonia. As result, hypereosinophilic syndromes and other hematologic abnormalities remain in the differential diagnosis. To further evaluate these possibilities, we will perform blood testing. Myeloid forms of hypereosinophilic syndrome often demonstrate elevated vitamin B12 levels, elevated tryptase, and [id number] translocation. We will check these levels now. We will also obtain flow cytometry to evaluate for leukemia and lymphoma markers. Once blood works been drawn, I recommend we treat with prednisone. The concern is that blood eosinophil levels this high put him at risk of eosinophilic infiltration into other organs including the heart, lungs, kidneys, liver, brain. On that end, eosinophils could potentially lead to vascular insult, and not outside the realm of possibility that may have been a factor in his stroke. Regarding her prednisone, I would treat with the range of 60 mg/day. In general, eosinophils tend to be very sensitive to corticosteroids. I recommend we continue to follow CBC with diff to ensure that the eosinophil levels decreasing. Once levels go below a level of 1500, the risk of organ dysfunction should drop significantly. History of Present Illness Attending Physician: Dwayne Brantley MD History of Present Illness This is a 63-year-old male who presents with an elevated blood eosinophil level in the 5502-9226 cell/mcl range. The patient was previously admitted on June 04 with a diagnosis with pneumonia, AFib, elevated tropopin. He was started on Eliquis and levofloxacin and discharge. At that time, his symptoms were improved. However, he re-presented to the ER on 06/13 with complaints of persistent confusion beginning sometime the previous night. His brother stated that stated that the patient had been unsteady and unsure when walking, not following commands, and could not find his car keys. He was found to have diffuse embolic stroke involving both hemispheres and the posterior circulation. He was also found admission to have an elevated blood eosinophil level 4580. Reviewing the CBCs from prior admission, the level was 880 on June 04 and 1600 on June 05. Reviewing his medications, he was started on antibiotics and Eliquis around this time. However, he did not have any rashes or other significant findings. He was not noted to be febrile. He did not have a significant elevation in creatinine or liver enzymes. The Eliquis and levofloxacin were stopped on admission. However, his blood eosinophil levels have continued to be elevated in the 1000s. Allergies Allergy/AdvReac Type Severity Reaction Status Date / Time morphine AdvReac Intermediate Nausea/Vomi Verified 06/13/18 14:09 ting codeine AdvReac Verified 06/17/18 12:00 Home Medications Home Medications Medication Instructions Recorded Confirmed Type amlodipine 10 mg PO QAM 06/04/18 06/13/18 History atorvastatin 40 mg PO QAM 06/04/18 06/13/18 History levothyroxine 125 mcg PO QAM 06/04/18 06/13/18 History apixaban [Eliquis] 5 mg PO BID #60 tab 06/07/18 06/13/18 Rx aspirin 81 mg PO DAILY 06/13/18 06/13/18 History Patient History Medical History Dyslipidemia (Chronic) Tobacco abuse (Resolved) Paroxysmal atrial fibrillation (Chronic) Thalamic infarction (Chronic) Continue care per primary hospitalist as well as cardiology HTN (hypertension) (Chronic) NSTEMI (non-ST elevated myocardial infarction) Surgical History History of thyroidectomy (Chronic) History of left knee surgery (Chronic) Family History Brother Diabetes Mother Hypertension Social History Current Living Situation: Alone Other Information That Helps Us Care for You: No Feels Safe at Home: Yes Safety Concerns: Feels Safe At This Time Smoking Status: Former smoker Tobacco Type: cigarettes Do You Dip or Chew Tobacco: No Smoking End Date: 06/26/18 Hx Alcohol Use: No Hx Substance Use: No Beliefs That Will Affect Care: None Communication Ability: Effective Review of Systems Constitutional: all normal. HEENT: as per HPI otherwise normal. Respiratory: as per HPI otherwise normal. Cardiovascular: all normal. Gastrointestinal: all normal. Skin: as per HPI otherwise normal. Endocrine: all normal. Hematologic: all normal. Musculoskeletal: all normal. Neurologic: all normal. Psychiatric: all normal. Vascular: all normal. Urinary: all normal. Physical Exam 2 Vital Signs (Past 24 Hours): Last Vital Signs Temp 36.4 C L 06/19/18 15:09 Pulse 64 06/19/18 15:09 Resp 18 06/19/18 15:09 BP 125/86 06/19/18 15:09 Pulse Ox 95 06/19/18 15:09 Physical Exam: General: alert and oriented. Head: normal in appearance Ears: tympanic membranes clear bilaterally Eyes: sclera anicteric, no conjunctival injection Nose: nasal mucosa without edema Throat: oropharynx clear, no cobblestoning, tonsil exam unremarkable Neck: without lymphadenopathy or thyromegaly. Trachea Midline. No masses appreciated. Lymphatics: No anterior cervical lymphadenopathy, no posterior cervical adenopathy Cardiovascular: regular rate and rhythm, normal S1 and S2 Lungs: Clear to auscultation bilaterally. No wheezing, rhonchi, crackles. Abdomen: Soft, non-tender, normal bowel sounds. Peripheral vascular and extremities: no cyanosis, clubbing, edema. Skin: normal in appearance. No rashes or lesions visualized.
[2018-06-19 19:18] LABS: Partial Thromboplastin Ratio 1.5; Partial Thromboplastin Time 38.9 Seconds (21.0-31.0)
[2018-06-19] MEDS ORDERED: HEPARIN IV BOLUS 4,500 UNITS in SYRINGE 0 ML IV ONE (19:45)
[2018-06-19] MEDS: ACETAMINOPHEN 325 MG TAB PO PRN (20:32)
[2018-06-20] MEDS: PANTOprazole 40 MG in DEXTROSE 5% 100 ML IV SCH ×4 (01:03→12:54)
[2018-06-20 02:58] LABS: Partial Thromboplastin Ratio 2.8
[2018-06-20 02:59] LABS: Partial Thromboplastin Time 73.8 Seconds (21.0-31.0)
[2018-06-20] MEDS: LEVOTHYROXINE SODIUM 125 MCG TABLET PO SCH (06:05)
[2018-06-20] MEDS: AMLODIPINE BESYLATE 5 MG TAB PO SCH (07:25)
[2018-06-20] MEDS: COLCHICINE 0.6 MG TAB PO SCH ×2 (07:26→21:32)
[2018-06-20] MEDS: METOPROLOL TARTRATE 25 MG TAB PO SCH ×2 (07:26→21:32)
[2018-06-20 09:18] LABS: Partial Thromboplastin Ratio 1.9
[2018-06-20 09:32] LABS: Partial Thromboplastin Time 48.5 Seconds (21.0-31.0)
[2018-06-20 10:11] LABS: Basophils # (auto) 0.02 K/uL (0-0.2); Basophils % (auto) 0.2 %; Eosinophils # (auto) 4.39 K/uL (0-0.5); Eosinophils % (auto) 36.4 %; Hematocrit (blood only) 35.8 % (42-52); Hemoglobin 12.3 g/dL (14.0-18.0); Immature Granulocytes # (auto) 0.03 K/uL (0.00-0.02); Immature Granulocytes % (auto) 0.2 %; Lymphocytes # (auto) 1.28 K/uL (1.2-3.4); Lymphocytes % (auto) 10.6 %; Mean Corpuscular Hgb Conc 34.4 g/dL (32-36); Mean Corpuscular Volume 86.7 fL (80-100); Mean Platelet Volume 11.9 fL (7.4-10.4); Monocytes # (auto) 0.89 K/uL (0.11-0.59); Monocytes % (auto) 7.4 %; Neutrophils # (auto) 5.44 K/uL (1.4-6.5); Neutrophils % (auto) 45.2 %; Platelet Count 109 K/uL (130-400); RDW Coefficient of Variation 14.7 % (11.5-14.5); RDW Standard Deviation 45.1 fL (36.4-46.3); Red Blood Count 4.13 M/uL (4.7-6.1); White Blood Count 12.05 K/uL (4.8-10.8)
[2018-06-20 10:21] LABS: BUN Creatinine Ratio 15.9 (10-20); Calcium 8.8 mg/dl (8.5-10.1); Creatinine Clr Calc Pharmacy 81.9 ml/min; Est GFR (African American) 95.2; Est GFR (Non-African American) 82.2; Potassium 3.6 mmol/L (3.5-5.1)
[2018-06-20] MEDS: predniSONE 20 MG TAB PO SCH (10:28)
--- NOTE | 2018-06-20 11:13 | Progress Note ---
Date of Service June 20, 2018 Assessment & Plan (1) Embolic stroke: (2) Eosinophilia: Blood work is still pending. I recommend that he be started on prednisone 60 milligrams daily with daily CBC with diff. I expect that this should be sufficient to reduce his eosinophil level in to a relatively normal range. It still remains to be determine the cause of his eosinophilia. His vitamin B12 level was within normal range. 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 However we will require the pending blood work to further characterize this. It may take a week or even longer fall of this come back. In the short term, would continue prednisone 60 milligrams daily for at least a week followed by a taper by 10 milligrams every few days. If the blood eosinophil level continues to be high despite the 60 milligram dose of prednisone, we may need to use a higher dose. It still is possible that this was medication allergy, even without cutaneous findings. For now, I recommended he continue to avoid fluoroquinolones and Eliquis. If he requires further anticoagulation, we will need to pick a different agent. Subjective This is a 63 year old male who presents with blood eosinophilia and embolic stroke. I saw him yesterday for consideration of hypereosinophilic syndrome and other potential etiologies. It appears that the lab work was drawn, and most of these are still pending. The vitamin B12 level was available, and within normal range. There are new issues today. The patient did not have any visual concerns today. He has not noted any changes since yesterday. He has not had any rashes, shortness of breath, abdominal pain. He has been afebrile with normal oxygen saturation. Physical Exam 2 Vital Signs (Past 24 Hours): Last Vital Signs Temp 36.8 C 06/20/18 08:03 Pulse 58 L 06/20/18 08:03 Resp 18 06/20/18 08:03 BP 138/89 06/20/18 08:03 Pulse Ox 98 06/20/18 08:03 Physical Exam: General: Flat affect, slightly drowsy, but answering questions. HEENT: sclera anicteric, no conjuctival injection. Nasal mucosa without edema. Tympanic membranes clear. Oropharynx clear. Throat clear. Neck without lymphadenopathy or thyromegaly. CVS: regular rate and rhythm, normal S1 and S2. Lungs: Clear to auscultation bilaterally. Abdomen: Soft, non-tender, normal bowel sounds. Ext: no cyanosis, clubbing, edema. Skin: No rashes Results & Data Diagnostic Findings Vitamin B12 544 pg/mL; all of the blood work pending
--- NOTE | 2018-06-20 12:38 | Cardiology Progress Note ---
Date of Service June 20, 2018 Assessment & Plan (1) Embolic stroke: Continue intravenous heparin. Per review of allergy notes, Eliquis may be implicated in hypereosinophilia. Case discussed with allergy/immunology. Will not restart Eliquis at this time, but rather, plan to initiate Pradaxa if there are no signs/symptoms of recurrent GI blood loss. (2) Paroxysmal atrial fibrillation: Remains in sinus rhythm on telemetry. Follow telemetry. Continue beta- malika. (3) HTN (hypertension): Controlled. Continue amlodipine and metoprolol. (4) Dyslipidemia: Continue atorvastatin. (5) Pericardial effusion: Continue colchicine. No evidence of tamponade physiology per echocardiogram. Avoid high-dose NSAIDs at this time in the setting of acute CVA and need for anticoagulation. Repeat limited demonstrates stable pericardial effusion without evidence of tamponade. Subjective Patient seen and examined at the bedside. More alert today. No change in left- sided weakness. No recurrent atrial fibrillation on telemetry. No signs/ symptoms of GI blood loss. Tolerating intravenous heparin. Reports poor appetite. Offers no other concerns/complaints. Review of Systems All systems reviewed & are unremarkable except as noted in HPI & below Physical Exam 2 Vital Signs (Past 24 Hours): Last Vital Signs Temp 37.0 C 06/20/18 11:09 Pulse 80 06/20/18 11:09 Resp 18 06/20/18 11:09 BP 128/85 06/20/18 11:09 Pulse Ox 94 06/20/18 11:09 Physical Exam: General: NAD, AAO x3, well nourished. Flat affect. HEENT: Normocephalic. Atraumatic. Conjunctiva pink, no scleral icterus. Neck: No carotid bruits, the carotid upstrokes are brisk. No JVD. No HJR Heart: Regular normal S-1 and S-2 no S-3 or S-4 gallop. No murmurs or rub appreciated. PMI is not displaced. No RV heave. Lungs: Clear bilateral without rales , rhonchi, or wheeze. Abdomen: Normal bowel sounds. Soft. Nontender. No masses or organomegaly. No abdominal bruits. Extremities: No clubbing, cyanosis, or edema. Pulses: radial=2/4, Dorsalis pedis =2/4, posterior tibial=2/4. Neuro: No facial asymmetry. Left-sided weakness. Left lower extremity withdraws to pain.
--- NOTE | 2018-06-20 14:31 | Hospitalist Progress Note ---
Date of Service June 20, 2018 Assessment & Plan (1) Acute CVA (cerebrovascular accident): likely Embolic in the setting of Paroxysmal A fib - was on Eliquis for Paroxysmal A fib prior to admission repeat Brain MRI: IMPRESSION: 1. Minimal progression in the innumerable bilateral acute/subacute infarcts involving both cerebellar hemispheres, the frontal temporal parietal and occipital lobes, as well as the basal ganglia and thalami. - tolerating heparin so far Hg stable at 12.3 closely monitor for signs of GI Bleed monitor Plt level continue Protonix at BID - on Statin - avoid hypotension - PT/OT - possible end organ damage secondary to hypereosinophilia consulted Allergy SV, discussed with Pathologist work up for hypereosinophilia in progress Prednisone 60mg po daily ordered, goal eosinophils < 1.5 (2) Paroxysmal atrial fibrillation: -Currently in Normal sinus rhythm (3) Upper GI bleed: -dark red stools noted on 06/15/18 and that is FOBT positive -EGD performed on 06/17/18: multiple duodenal ulcers, the largest had bleeding vessel which was given epinephrine and cauterized; as per GI recommendations, proton pump IV daily for 2 days then oral BID PPI for 2 months, can resume aspirin 81 mg daily, can resume anticoagulation in 2 days - tolerating Heparin drip so far continue Protonix BID monitor closely (4) Hypereosinophilic syndrome, idiopathic: - possible end organ damage secondary to hypereosinophilia consulted Allergy SVC, discussed with Pathologist work up for hypereosinophilia in progress Prednisone 60mg po daily ordered, goal eosinophils < 1.5 (5) Leukocytosis: WBC at 12k afebrile no obvious source of infection cultures: negative continue to monitor likely secondary to Acute CVA, with multiple infarcts (6) Elevated troponin: -Downtrended from recent admission -No reports of chest pain, EKG on 06/13/18 demonstrates new T wave inversions anteriorly however recent cardiac cath demonstrated widely patent coronary arteries - no acute telemetry events at this time, continues to be in sinus rhythm Pericardial effusion: Continue colchicine. No evidence of tamponade physiology per echocardiogram. Avoid high-dose NSAIDs at this time in the setting of acute CVA and need for anticoagulation. Repeat limited transthoracic echocardiogram prior to discharge (7) Hepatitis C antibody test positive: -Had RNA testing performed in 2016 that was negative -No further workup at this time (8) HTN (hypertension): -BP controlled, continue amlodipine (9) Dyslipidemia: -Continue statin (10) DVT prophylaxis: Heparin drip Deconditioning: PT/OT as per patient and his brother Malcolm ([phone]) code status is DNR/DNI and that patient's power of bankruptcy attorney is Malcolm Subjective ff up for acute cva laying bed, physical therapy in progress appears more alert oriented x 2 states he feels tired denies headache, dizziness, chest pain, dyspnea, nausea still unable to move left side poor appetite denies other symptoms no other symptoms Physical Exam 2 Vital Signs (Past 24 Hours): Last Vital Signs Temp 37.0 C 06/20/18 11:09 Pulse 80 06/20/18 11:09 Resp 18 06/20/18 11:09 BP 128/85 06/20/18 11:09 Pulse Ox 94 06/20/18 11:09 Physical Exam: General- oriented x 2, not in distress, speaks in sentences with no effort or accessory muscle use Eyes- anicteric Neck- no JVD Lungs- clear BS BL no rales/wheezes Heart- normal rate, regular rhythm; no murmurs Abdomen- normal bowel sounds, nondistended, soft, nontender Extremities- no pretibial edema, no calf tenderness Neuro- alert, oriented x 2; (+) left hemiparesis sensation 100% Skin- warm & dry Results & Data Laboratory Results Laboratory Results - last 24 hr 06/19/18 06/19/18 06/19/18 06:07 18:39 18:39 WBC RBC Hgb Hct MCV MCH MCHC RDW Std Deviation RDW Coeff of Martin Plt Count MPV Immature Gran % (Auto) Neut % (Auto) Lymph % (Auto) [place] % (Auto) Eos % (Auto) Baso % (Auto) Immature Gran # (Auto) Neut # (Auto) Lymph # (Auto) [place] # (Auto) Eos # (Auto) Baso # (Auto) Peripher Smr Path Cons APTT 38.9 H PTT Ratio 1.5 Sodium Potassium Chloride Carbon Dioxide Anion Gap BUN Creatinine Est Cr Clr Drug Dosing Est GFR ( Amer) Est GFR (Non-Af Amer) BUN/Creatinine Ratio Glucose Calcium Vitamin B12 544 06/20/18 06/20/18 06/20/18 01:54 08:43 08:51 WBC 12.05 H RBC 4.13 L Hgb 12.3 L Hct 35.8 L MCV 86.7 MCH 29.8 MCHC 34.4 RDW Std Deviation 45.1 RDW Coeff of Martin 14.7 H Plt Count 109 L MPV 11.9 H Immature Gran % (Auto) 0.2 Neut % (Auto) 45.2 Lymph % (Auto) 10.6 [place] % (Auto) 7.4 Eos % (Auto) 36.4 Baso % (Auto) 0.2 Immature Gran # (Auto) 0.03 H Neut # (Auto) 5.44 Lymph # (Auto) 1.28 [place] # (Auto) 0.89 H Eos # (Auto) 4.39 H Baso # (Auto) 0.02 Peripher Smr Path Cons APTT 73.8 H* 48.5 H* PTT Ratio 2.8 1.9 Sodium Potassium Chloride Carbon Dioxide Anion Gap BUN Creatinine Est Cr Clr Drug Dosing Est GFR ( Amer) Est GFR (Non-Af Amer) BUN/Creatinine Ratio Glucose Calcium Vitamin B12 06/20/18 08:51 WBC RBC Hgb Hct MCV MCH MCHC RDW Std Deviation RDW Coeff of Martin Plt Count MPV Immature Gran % (Auto) Neut % (Auto) Lymph % (Auto) [place] % (Auto) Eos % (Auto) Baso % (Auto) Immature Gran # (Auto) Neut # (Auto) Lymph # (Auto) [place] # (Auto) Eos # (Auto) Baso # (Auto) Peripher Smr Path Cons APTT PTT Ratio Sodium 131 L Potassium 3.6 Chloride 97 L Carbon Dioxide 25 Anion Gap 9.0 BUN 15 Creatinine 0.97 Est Cr Clr Drug Dosing 81.9 Est GFR ( Amer) 95.2 Est GFR (Non-Af Amer) 82.2 BUN/Creatinine Ratio 15.9 Glucose 92 Calcium 8.8 Vitamin B12
--- NOTE | 2018-06-20 14:46 | Neurology Progress Note ---
Date of Service June 20, 2018 Assessment & Plan (1) Embolic stroke: 1. MRI brain- multiple areas of stroke repeated due to MS change on 2018 with no new findings 2. Eliquis on hold currently due to GI -EGD findings of bleeding ulcer aspirin 81 mg restarted 3. cardiology on board and directing the restart of anticoag - and further imaging needed for source of emboli currently on Heparin gtt, cardiology for further management and start of oral agent 4. PT/OT/speech for any discharge needs 5. continue treatment for infection, LP to date unremarkable 6. smoking cessation strongly urged 7. no further imaging neurology would recommend at this time 8. optimize HTN, DM, HLD LDL <70 9. TTE- EF 55-60 % no ASD possible PETROS as outpatient but currently on hold 10. may be an element of depression- psych consult may be appropriate prior to rehab follow up with neurology 4-6 weeks after discharge from hospital or rehab if needed Christy Amaro PAC schedule Supervising Physician Co-Signing Physician Notes I have seen and discussed above patient with Dr Nahum Saldana, neurology I saw Mr. Garcia today, discussed his case with Christy Mancera PA-C, reviewed reviewed the above note and agree that he currently has made very little progress. 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 Eliquis is due to be started soon and rehabilitation efforts should ensue within the next few days as well. Again the hospitalist may want to consider having psychiatry come by and assess the situation and see if they would recommend any form of antidepressant therapy. Neurology will continue to follow him until he is transferred to a rehabilitation hospital and we will be happy to reassess him about 4-6 weeks after discharge but for now management of his anticoagulation is going to rest with cardiology Nahum Saldana MD Marbella Ocampo is a 63 year old male who presented to the ED with confusion. He had a recent admission to [facility] 06/04 through 06/07 for pneumonia. He underwent cardiac catheterization that demonstrated widely patent coronary arteries. He was also found to have AF and Eliquis was started. He spontaneously converted to NSR. He was discharged on Levaquin for treatment of the pneumonia. He returned to work but was still feeling generally weak. He was found to be confused by his brother and was brought in to [facility] for evalution. The Levaquin was causing decreased appetite. He was admitted for further observation and test. LP in ED was unremarkable He is wake with voice command flat affect. cooperates limiting exam denies CP, SOB, abdominal pain, N, V, headache. Physical Exam 2 Vital Signs (Past 24 Hours): Last Vital Signs Temp 37.0 C 06/20/18 11:09 Pulse 80 06/20/18 11:09 Resp 18 06/20/18 11:09 BP 128/85 06/20/18 11:09 Pulse Ox 94 06/20/18 11:09 Gen: alert NAD,minimal effort to follow commands, flat affect lungs course breath sounds, CV regular left hand unable to grasp, neglect to left left leg moves with stimulation but not with command right hand radiology aide biceps triceps 4+/5 right hip 4+/5 does not know hospital name today, 2019, and president Colleen Results & Data Laboratory Results Abnormal lab results 06/19/18 06/20/18 06/20/18 Range/Units 18:39 01:54 08:43 WBC (4.8-10.8) K/uL RBC (4.7-6.1) M/uL Hgb (14.0-18.0) g/dL Hct (42-52) % RDW Coeff of Martin (11.5-14.5) % Plt Count (130-400) K/uL MPV (7.4-10.4) fL Immature Gran # (Auto) (0.00-0.02) K/uL [place] # (Auto) (0.11-0.59) K/uL Eos # (Auto) (0-0.5) K/uL APTT 38.9 H 73.8 H* 48.5 H* (21.0-31.0) Seconds Sodium (136-145) mmol/L Chloride (98-107) mmol/L 06/20/18 06/20/18 Range/Units 08:51 08:51 WBC 12.05 H (4.8-10.8) K/uL RBC 4.13 L (4.7-6.1) M/uL Hgb 12.3 L (14.0-18.0) g/dL Hct 35.8 L (42-52) % RDW Coeff of Martin 14.7 H (11.5-14.5) % Plt Count 109 L (130-400) K/uL MPV 11.9 H (7.4-10.4) fL Immature Gran # (Auto) 0.03 H (0.00-0.02) K/uL [place] # (Auto) 0.89 H (0.11-0.59) K/uL Eos # (Auto) 4.39 H (0-0.5) K/uL APTT (21.0-31.0) Seconds Sodium 131 L (136-145) mmol/L Chloride 97 L (98-107) mmol/L Diagnostic Findings no new imaging
[2018-06-20] MEDS: HEPARIN LOW DOSE DEXTROSE 25,000 UNITS/500 ML IV SCH (15:51)
--- NOTE | 2018-06-20 19:38 | Oncology Consultation ---
Date of Consultation June 20, 2018 Imp: 63 year old male recently admitted with pneumonia 06/04 to 06/07 and also was found to have a fib and was discharged on eliquis and levaquin. He is readmitted with embolic stroke Leukocytosis with absolute eosinophilia and monocytosis and neutrophilia, eosinophilia is predominant, improving but still has high eosinophil count. Differential include drug induced eosinophilia, hypereosinophilic syndrome, myeloproliferative or lymphoma or autoimmune, flow cytometry [id number] PDGFR tryptase pending, also check BCR-ABL FISH and SOL-2 mutation. check YAZ RF, LDH , recommend check stool for ova and parasite and strongyloides serology I discussed bone marrow aspirate and biopsy with him if eosinophilia persist but he said he is not interested in having bone marrow aspirate and biopsy procedure. follow up in the office upon discharge. thank you for consult reason for consult: eosinophilia History of Present Illness Attending Physician: Dwayne Brantley MD HPI: 63 year old male recently hospitalization with pneumonia and A fib and was discharged with levaquin and eliquis. He is now readmitted with confusion and unsteadiness and found to have diffuse embolic stroke. On 06/04/18 eosinophils were 880, on 06/05/18 increased to 1640. oN 06/13/18 was increased to 4.58 and has ranged from 4390 to 7000 Range on this admission. He was evaluated by Allergy/immunology and was started on prednisone. Labs for flow cytometry typtase and [id number] are pending. He denies any chest pain or cough or shortness of breath or abdominal pain or vomiting or fevers or chills or night sweats or swollen glands or pruritus or rash. He is on aspirin. Had bleeding ulcer on EGD. eliquis has been held as well as off levaquin Allergies Allergy/AdvReac Type Severity Reaction Status Date / Time morphine AdvReac Intermediate Nausea/Vomi Verified 06/13/18 14:09 ting codeine AdvReac Verified 06/17/18 12:00 Home Medications Home Medications Medication Instructions Recorded Confirmed Type amlodipine 10 mg PO QAM 06/04/18 06/13/18 History atorvastatin 40 mg PO QAM 06/04/18 06/13/18 History levothyroxine 125 mcg PO QAM 06/04/18 06/13/18 History apixaban [Eliquis] 5 mg PO BID #60 tab 06/07/18 06/13/18 Rx aspirin 81 mg PO DAILY 06/13/18 06/13/18 History Patient History Medical History Dyslipidemia (Chronic) Tobacco abuse (Resolved) Paroxysmal atrial fibrillation (Chronic) Thalamic infarction (Chronic) Continue care per primary hospitalist as well as cardiology HTN (hypertension) (Chronic) NSTEMI (non-ST elevated myocardial infarction) Surgical History History of thyroidectomy (Chronic) History of left knee surgery (Chronic) Family History Brother Diabetes Mother Hypertension Social History Current Living Situation: Alone Other Information That Helps Us Care for You: No Feels Safe at Home: Yes Safety Concerns: Feels Safe At This Time Smoking Status: Former smoker Tobacco Type: cigarettes Do You Dip or Chew Tobacco: No Smoking End Date: 06/26/18 Hx Alcohol Use: No Hx Substance Use: No Beliefs That Will Affect Care: None Communication Ability: Effective Physical Exam 2 Vital Signs (Past 24 Hours): Last Vital Signs Temp 36.8 C 06/20/18 19:00 Pulse 65 06/20/18 19:00 Resp 18 06/20/18 19:00 BP 137/81 06/20/18 19:00 Pulse Ox 94 06/20/18 19:00 Gen: patient lying in bed, NAD, awake and alert HEENT:normocephalic Anicteric no pallor no erythema or exudate, no overt oral lesions LNs: no palpable adenopathy CV: S1 S2 RRR Abd: +BS soft NT/ND no guarding or rebound no palpable liver or spleen Ext: no edema neuro: knows he is in hospital, knows year 2019 +unable to grasp with left hand right hand grasp and leg 4+/5
[2018-06-20] MEDS: PANTOprazole 40 MG in SYRINGE 0 ML IV SCH (21:32)
[2018-06-21] MEDS: ACETAMINOPHEN 325 MG TAB PO PRN (03:27)
[2018-06-21] MEDS ORDERED: ACETAMINOPHEN 65 ML IV ONE (04:23)
[2018-06-21] MEDS ORDERED: IOVERSOL 100ml IV PRN (05:26)
[2018-06-21] MEDS: LEVOTHYROXINE SODIUM 125 MCG TABLET PO SCH (05:47)
[2018-06-21] MEDS ORDERED: OXYCODONE HCL IR 5 MG TAB (IMMEDIATE RELEASE) PO PRN (06:08)
--- NOTE | 2018-06-21 06:34 | CT Scan Report ---
CT head/brain wo con CLINICAL HISTORY: Acute change in mental status COMPARISON STUDY: 06/16/2018 TECHNIQUE: Axial CT of the brain is performed from the vertex to the skull base. IV contrast was not administered for this examination. A dose lowering technique was utilized adhering to the principles of ALARA. CT DOSE: 614.27 mGy.cm FINDINGS: No intra or extra-axial mass lesions are visualized. There is no CT evidence of acute cortical infarc tion. There is no evidence of midline shift. There is no acute hemorrhage. No calvarial fractures ar e visualized. There are patchy white matter hypodensities likely on a small vessel basis. Multiple small white tim er infarcts are again evident. There is a stable tiny calcification near the roof the third ventricle. There is a prominent pineal c alcification unchanged from the prior study. There is no evidence of pathologic ventricular dilatation. There is no evidence of acute sinusitis IMPRESSION: No acute intracranial findings Electronically signed by: Robert Nieves M.D. 06/21/2018 6:32 AM
--- NOTE | 2018-06-21 06:44 | CT Scan Report ---
CT abd pelvis IV con only CLINICAL HISTORY: Generalized abdominal pain COMPARISON STUDY: None. TECHNIQUE: The patient was scanned in a dynamic helical fashion during intravenous administration of 93 cc Optiray 320. A dose lowering technique was utilized adhering to the principles of ALARA. CT DOSE: 624.77 mGy.cm FINDINGS: Lower chest: The heart is enlarged. There is a small pericardial effusion. There is a small left pleu ral effusion. There are basilar atelectatic changes. Liver: There is a tiny left lobe hypodensity statistically representing a cyst. The portal vein and h epatic veins appear patent. Gallbladder: Cholelithiasis Spleen: Normal in size and attenuation. Pancreas: Unremarkable. Adrenal glands: Unremarkable. Kidneys: There is a 27 mm lower pole right renal hypodensity statistically representing a cyst. It do es however slightly exceed water attenuation. Bowel: There are no transition zones indicate bowel obstruction. There is colonic diverticulosis. The re are no acute peridiverticular inflammatory changes. There are no findings to indicate acute append icitis. There are multiple fluid-filled colonic loops. His could indicate a diarrheal illness. Peritoneum: There is no intraperitoneal free air or abdominal ascites. Vasculature: There is mild ectasia of the infrarenal abdominal aorta which measures 28 mm. The left c ommon iliac artery is mildly dilated measuring 21 mm. Adenopathy: None. Pelvic viscera: There is mild bladder wall thickening Skeletal structures: No destructive osseous lesions are seen. IMPRESSION: 1. No evidence bowel obstruction. No evidence of free air 2. Diverticulosis. No evidence of acute diverticulitis 3. No evidence of acute appendicitis 4. Multiple fluid-filled bowel loops. Correlate clinically in regards to a diarrheal illness 5. Mild bladder wall thickening 6. Cholelithiasis 7. Small pericardial effusion small left pleural effusion 8. Infrarenal aortic ectasia. Mild dilatation of the left common iliac artery which measures 21 mm. Electronically signed by: Robert Nieves M.D. 06/21/2018 6:42 AM
[2018-06-21 06:56] LABS: Basophils # (auto) 0.01 K/uL (0-0.2); Basophils % (auto) 0.1 %; Eosinophils # (auto) 0.26 K/uL (0-0.5); Eosinophils % (auto) 3.3 %; Hematocrit (blood only) 33.1 % (42-52); Hemoglobin 11.7 g/dL (14.0-18.0); Immature Granulocytes # (auto) 0.03 K/uL (0.00-0.02); Immature Granulocytes % (auto) 0.4 %; Lymphocytes # (auto) 1.12 K/uL (1.2-3.4); Lymphocytes % (auto) 14.1 %; Mean Corpuscular Hgb Conc 35.3 g/dL (32-36); Mean Corpuscular Volume 85.5 fL (80-100); Mean Platelet Volume 11.7 fL (7.4-10.4); Monocytes # (auto) 1.22 K/uL (0.11-0.59); Monocytes % (auto) 15.4 %; Neutrophils # (auto) 5.28 K/uL (1.4-6.5); Neutrophils % (auto) 66.7 %; Platelet Count 117 K/uL (130-400); RDW Coefficient of Variation 14.5 % (11.5-14.5); RDW Standard Deviation 44.6 fL (36.4-46.3); Red Blood Count 3.87 M/uL (4.7-6.1); White Blood Count 7.92 K/uL (4.8-10.8)
[2018-06-21 07:24] LABS: Albumin Level 2.7 gm/dl (3.4-5.0); BUN Creatinine Ratio 22.3 (10-20); Calcium 8.7 mg/dl (8.5-10.1); Creatinine Clr Calc Pharmacy 70.7 ml/min; Est GFR (African American) 80.9; Est GFR (Non-African American) 69.8; Magnesium 2.2 mg/dl (1.8-2.4); Partial Thromboplastin Ratio 1.6; Partial Thromboplastin Time 42.1 Seconds (21.0-31.0); Potassium 3.5 mmol/L (3.5-5.1)
[2018-06-21 07:27] LABS: Albumin Globulin Ratio 0.5 (0.9-2); Bilirubin,Total 0.7 mg/dl (0.2-1); Globulin 5.3 gm/dl (2.5-4.0)
[2018-06-21] MEDS ORDERED: HEPARIN IV BOLUS 3,000 UNITS in SYRINGE 0 ML IV ONE (08:00)
[2018-06-21] MEDS: ATORVASTATIN 40 MG TAB PO SCH (08:13)
[2018-06-21] MEDS: AMLODIPINE BESYLATE 5 MG TAB PO SCH (08:13)
[2018-06-21] MEDS: PANTOprazole 40 MG in SYRINGE 0 ML IV SCH ×2 (08:14→20:58)
[2018-06-21] MEDS: METOPROLOL TARTRATE 25 MG TAB PO SCH ×2 (08:14→20:59)
[2018-06-21] MEDS: predniSONE 20 MG TAB PO SCH (08:14)
[2018-06-21] MEDS: COLCHICINE 0.6 MG TAB PO SCH ×2 (11:20→20:58)
[2018-06-21] MEDS ORDERED: PANTOPRAZOLE BOLUS/DRIP 1 EA IV STA (11:25)
[2018-06-21] MEDS ORDERED: PANTOprazole 80 MG in DEXTROSE 5% 100 ML IV ONE (11:30)
[2018-06-21] MEDS ORDERED: PANTOprazole 40 MG in DEXTROSE 5% 100 ML IV SCH (11:45)
--- NOTE | 2018-06-21 12:01 | Hospitalist Progress Note ---
Date of Service June 21, 2018 Assessment & Plan (1) Acute CVA (cerebrovascular accident): likely Embolic in the setting of Paroxysmal A fib - was on Eliquis for Paroxysmal A fib prior to admission repeat Brain MRI: IMPRESSION: 1. Minimal progression in the innumerable bilateral acute/subacute infarcts involving both cerebellar hemispheres, the frontal temporal parietal and occipital lobes, as well as the basal ganglia and thalami. -(+) melena episode today Hg 11.7 from 12.3 denies GI symptoms hold Heparin drip for now check H&H restarted Protonix drip GI consulted- likely residual melena, but will correlate with repeat H&H - on Statin - avoid hypotension - PT/OT - possible end organ damage secondary to hypereosinophilia consulted Allergy SVC, discussed with Pathologist work up for hypereosinophilia in progress Prednisone 60mg po daily ordered, goal eosinophils < 1.5 (2) Depression: patient exhibiting signs of depression appetite is very poor will consult Psycjh may add Megace (3) Paroxysmal atrial fibrillation: -Currently in Normal sinus rhythm (4) Upper GI bleed: -dark red stools noted on 06/15/18 and that is FOBT positive -EGD performed on 06/17/18: multiple duodenal ulcers, the largest had bleeding vessel which was given epinephrine and cauterized; as per GI recommendations, proton pump IV daily for 2 days then oral BID PPI for 2 months, can resume aspirin 81 mg daily, can resume anticoagulation in 2 days - management as #1 (5) Hypereosinophilic syndrome, idiopathic: - possible end organ damage secondary to hypereosinophilia consulted Allergy SVC, discussed with Pathologist work up for hypereosinophilia in progress Prednisone 60mg po daily ordered, goal eosinophils < 1.5 (6) Leukocytosis: WBC at 12k afebrile no obvious source of infection cultures: negative continue to monitor likely secondary to Acute CVA, with multiple infarcts (7) Elevated troponin: -Downtrended from recent admission -No reports of chest pain, EKG on 06/13/18 demonstrates new T wave inversions anteriorly however recent cardiac cath demonstrated widely patent coronary arteries - no acute telemetry events at this time, continues to be in sinus rhythm Pericardial effusion: Continue colchicine. No evidence of tamponade physiology per echocardiogram. Avoid high-dose NSAIDs at this time in the setting of acute CVA and need for anticoagulation. Repeat limited transthoracic echocardiogram prior to discharge (8) Hepatitis C antibody test positive: -Had RNA testing performed in 2016 that was negative -No further workup at this time (9) HTN (hypertension): -BP controlled, continue amlodipine (10) Dyslipidemia: -Continue statin (11) DVT prophylaxis: Heparin drip held for now in light of melena Deconditioning: PT/OT as per patient and his brother Malcolm ([phone]) code status is DNR/DNI and that patient's power of traffic law attorney is Malcolm Subjective ff up for acute cva sitting up in bed, appears more alert answers more questions states he feels about the same denies headache, dizziness, new neuro symptoms no abdominal pain, nausea noted to have an episode of black tarry stools this AM patient's affect is flat, withdrawn denies other symptoms no other symptoms Physical Exam 2 Vital Signs (Past 24 Hours): Last Vital Signs Temp 36.7 C 06/21/18 07:22 Pulse 52 L 06/21/18 08:00 Resp 22 06/21/18 07:22 BP 142/83 H 06/21/18 07:22 Pulse Ox 96 06/21/18 07:22 Physical Exam: General- oriented x 2, not in distress, speaks in sentences with no effort or accessory muscle use Eyes- anicteric Neck- no JVD Lungs- clear breath sounds bilaterally Heart- normal rate, regular rhythm; no murmurs Abdomen- normal bowel sounds, nondistended, soft, nontender Extremities- no pretibial edema, no calf tenderness Neuro- alert, oriented x 2; left sided paresis- able to move left fingers today sensation 100% Skin- warm & dry Psych- flat affect, denies suicidal ideation Results & Data Laboratory Results Laboratory Results - last 24 hr 06/21/18 06/21/18 06/21/18 06:44 06:44 06:44 WBC 7.92 RBC 3.87 L Hgb 11.7 L Hct 33.1 L MCV 85.5 MCH 30.2 MCHC 35.3 RDW Std Deviation 44.6 RDW Coeff of Martin 14.5 Plt Count 117 L MPV 11.7 H Immature Gran % (Auto) 0.4 Neut % (Auto) 66.7 Lymph % (Auto) 14.1 Mclennan % (Auto) 15.4 Eos % (Auto) 3.3 Baso % (Auto) 0.1 Immature Gran # (Auto) 0.03 H Neut # (Auto) 5.28 Lymph # (Auto) 1.12 L Mclennan # (Auto) 1.22 H Eos # (Auto) 0.26 Baso # (Auto) 0.01 APTT 42.1 H PTT Ratio 1.6 Sodium Potassium Chloride Carbon Dioxide Anion Gap BUN Creatinine Est Cr Clr Drug Dosing Est GFR ( Amer) Est GFR (Non-Af Amer) BUN/Creatinine Ratio Glucose Calcium Magnesium Total Bilirubin AST ALT Alkaline Phosphatase Ammonia Lactate Dehydrogenase 333 H Total Protein Albumin Globulin Albumin/Globulin Ratio Lipase 06/21/18 06/21/18 06/21/18 06:44 06:44 12:03 WBC RBC Hgb 12.2 L Hct 34.4 L MCV MCH MCHC RDW Std Deviation RDW Coeff of Martin Plt Count MPV Immature Gran % (Auto) Neut % (Auto) Lymph % (Auto) Mclennan % (Auto) Eos % (Auto) Baso % (Auto) Immature Gran # (Auto) Neut # (Auto) Lymph # (Auto) Mclennan # (Auto) Eos # (Auto) Baso # (Auto) APTT PTT Ratio Sodium 131 L Potassium 3.5 Chloride 97 L Carbon Dioxide 26 Anion Gap 8.0 BUN 25 H D Creatinine 1.11 Est Cr Clr Drug Dosing 70.7 Est GFR ( Amer) 80.9 Est GFR (Non-Af Amer) 69.8 BUN/Creatinine Ratio 22.3 H Glucose 101 H Calcium 8.7 Magnesium 2.2 Total Bilirubin 0.7 AST 35 ALT 46 Alkaline Phosphatase 135 H Ammonia 17.6 Lactate Dehydrogenase Total Protein 8.0 Albumin 2.7 L Globulin 5.3 H Albumin/Globulin Ratio 0.5 L Lipase 167
[2018-06-21 12:22] LABS: Hematocrit (blood only) 34.4 % (42-52); Hemoglobin 12.2 g/dL (14.0-18.0)
--- NOTE | 2018-06-21 12:23 | Gastroenterology Progress Note ---
Date of Service June 21, 2018 Assessment & Plan (1) Melena: 63 year old male w/ AMS, MRI brain showed multiple areas of stroke started on heparin gtt which was held secondary to concern for melena s/p EGD w / multiple duodenal ulcers w/ visible vessel, treated w/ epi to be on IV PPI infusion. GI was asked to re-evaluate the pt 11:40 06/21/17. In the interim, heparin gtt was restarted. He was also started on high dose PO steroids. Today, moved bowels for what appears to be the first time since his EGD. Per chart review no prior BM documented, per pt and family this was his first stool. It was brown followed by some dark, tarry stool. Heparin gtt was stopped. PPI was started. GI to evaluate at 12:00. Pt is resting comfortable w/ stable vital signs. No nausea, vomiting. Rectal exam was performed, monitored by MIL Middleton with brown/ black stool. No BRBPR. - Vital signs - Repeat H&H - Can hold heparin gtt for now as was already completed - Can continue PPI that was started - If H&H stable, vitals remain stable would defer initiation of heparin gtt back to the primary service - No current role for endoscopy - In regards to steroids that were started, if using would recommend - PPI BID during admission - Carafate slurry QID - Then PO PPI BID x 2 months - Avoid NSAIDs. GI to follow labs, then sign off. Thank you for allowing us to participate in the care of this patient. Please call with any acute changes, questions or concerns. Please see addendum below with additional recommendation from my supervising physician. (2) Thalamic infarction: Supervising Physician Co-Signing Physician Notes I performed a history and physical examination of the patient, including specifically on physical exam - soft, nontender abdomen. I have discussed the patient's management with Licha. Please refer to the nurse practitioner's note for the documented findings and plan of care. GI recalled for concern of recurrent GI bleed however his H/H is stable and likely passed old blood. Plan: PPI BID Carafate. No contraindication to restart anticoagulation and will closely monitor for rebleeding, if H/H drops then will perform repeat EGD/ bleeding scan. Would avoid steroids as it will worsen his PUD. Recall GI if needed. Subjective GI recalled given a dark black stool. Family at bedside. In the interim, PO steroids and heparin gtt. No BM since EGD. Denies any GI complaints. No abd pain. No nausea, vomiting. No lightheadedness, dizziness. No fever, chills, CP, SOB. EGD: Normal esophagus.Normal stomach.Multiple duodenal ulcers, the largest had a visible vessel. Treated with bipolar cautery. Injected with Epi. Hemostasis achieved.Normal second portion of the duodenum. No specimens collected. Physical Exam 2 Vital Signs (Past 24 Hours): Last Vital Signs Temp 36.4 C L 06/21/18 12:12 Pulse 59 L 06/21/18 12:12 Resp 16 06/21/18 12:12 BP 130/78 06/21/18 12:12 Pulse Ox 96 06/21/18 12:12 Constitutional: + ill appearing; no acute distress Respiratory: normal respiratory effort, lungs clear to auscultation Cardiovascular: RRR, no murmur, no edema Gastrointestinal (Abdomen): normal bowel sounds, soft, nontender, no hepatosplenomegaly Rectal exam, monitored by MIL Middleton. Brown stool mixed with loose black stool. No BRB. Results & Data Laboratory Results 06/21/18 06/21/18 06/21/18 Range/Units 12:03 06:44 06:44 WBC (4.8-10.8) K/uL RBC (4.7-6.1) M/uL Hgb Pending (14.0-18.0) g/dL Hct Pending (42-52) % MCV (80-100) fL MCH (25-34) pg MCHC (32-36) g/dL RDW Std Deviation (36.4-46.3) fL RDW Coeff of Martin (11.5-14.5) % Plt Count (130-400) K/uL MPV (7.4-10.4) fL Immature Gran % (Auto) % Neut % (Auto) % Lymph % (Auto) % Graham % (Auto) % Eos % (Auto) % Baso % (Auto) % Immature Gran # (Auto) (0.00-0.02) K/uL Neut # (Auto) (1.4-6.5) K/uL Lymph # (Auto) (1.2-3.4) K/uL Graham # (Auto) (0.11-0.59) K/uL Eos # (Auto) (0-0.5) K/uL Baso # (Auto) (0-0.2) K/uL APTT (21.0-31.0) Seconds PTT Ratio Sodium 131 L (136-145) mmol/L Potassium 3.5 (3.5-5.1) mmol/L Chloride 97 L (98-107) mmol/L Carbon Dioxide 26 (21-32) mmol/L Anion Gap 8.0 (3-11) BUN 25 H D (7-18) mg/dl Creatinine 1.11 (0.6-1.4) mg/dl Est Cr Clr Drug Dosing 70.7 ml/min Est GFR ( Amer) 80.9 Est GFR (Non-Af Amer) 69.8 BUN/Creatinine Ratio 22.3 H (10-20) Glucose 101 H (70-99) mg/dl Calcium 8.7 (8.5-10.1) mg/dl Magnesium 2.2 (1.8-2.4) mg/dl Total Bilirubin 0.7 (0.2-1) mg/dl AST 35 (15-37) U/L ALT 46 (12-78) U/L Alkaline Phosphatase 135 H (45-117) U/L Ammonia 17.6 (11-32) umol/L Lactate Dehydrogenase (87-241) U/L Total Protein 8.0 (6.4-8.2) gm/dl Albumin 2.7 L (3.4-5.0) gm/dl Globulin 5.3 H (2.5-4.0) gm/dl Albumin/Globulin Ratio 0.5 L (0.9-2) Lipase 167 (73-393) U/L Rheumatoid Factor YAZ Screen Strongyloides IgG Ab [id number] BCR/abl t(9;22) (FISH) 06/21/18 06/21/18 06/21/18 Range/Units 06:44 06:44 06:44 WBC 7.92 (4.8-10.8) K/uL RBC 3.87 L (4.7-6.1) M/uL Hgb 11.7 L (14.0-18.0) g/dL Hct 33.1 L (42-52) % MCV 85.5 (80-100) fL MCH 30.2 (25-34) pg MCHC 35.3 (32-36) g/dL RDW Std Deviation 44.6 (36.4-46.3) fL RDW Coeff of Martin 14.5 (11.5-14.5) % Plt Count 117 L (130-400) K/uL MPV 11.7 H (7.4-10.4) fL Immature Gran % (Auto) 0.4 % Neut % (Auto) 66.7 % Lymph % (Auto) 14.1 % Graham % (Auto) 15.4 % Eos % (Auto) 3.3 % Baso % (Auto) 0.1 % Immature Gran # (Auto) 0.03 H (0.00-0.02) K/uL Neut # (Auto) 5.28 (1.4-6.5) K/uL Lymph # (Auto) 1.12 L (1.2-3.4) K/uL Graham # (Auto) 1.22 H (0.11-0.59) K/uL Eos # (Auto) 0.26 (0-0.5) K/uL Baso # (Auto) 0.01 (0-0.2) K/uL APTT 42.1 H (21.0-31.0) Seconds PTT Ratio 1.6 Sodium (136-145) mmol/L Potassium (3.5-5.1) mmol/L Chloride (98-107) mmol/L Carbon Dioxide (21-32) mmol/L Anion Gap (3-11) BUN (7-18) mg/dl Creatinine (0.6-1.4) mg/dl Est Cr Clr Drug Dosing ml/min Est GFR ( Amer) Est GFR (Non-Af Amer) BUN/Creatinine Ratio (10-20) Glucose (70-99) mg/dl Calcium (8.5-10.1) mg/dl Magnesium (1.8-2.4) mg/dl Total Bilirubin (0.2-1) mg/dl AST (15-37) U/L ALT (12-78) U/L Alkaline Phosphatase (45-117) U/L Ammonia (11-32) umol/L Lactate Dehydrogenase 333 H (87-241) U/L Total Protein (6.4-8.2) gm/dl Albumin (3.4-5.0) gm/dl Globulin (2.5-4.0) gm/dl Albumin/Globulin Ratio (0.9-2) Lipase (73-393) U/L Rheumatoid Factor YAZ Screen Strongyloides IgG Ab [id number] [id number] BCR/abl t(9;22) (FISH) 06/21/18 06/21/18 Range/Units 06:44 06:37 WBC (4.8-10.8) K/uL RBC (4.7-6.1) M/uL Hgb (14.0-18.0) g/dL Hct (42-52) % MCV (80-100) fL MCH (25-34) pg MCHC (32-36) g/dL RDW Std Deviation (36.4-46.3) fL RDW Coeff of Martin (11.5-14.5) % Plt Count (130-400) K/uL MPV (7.4-10.4) fL Immature Gran % (Auto) % Neut % (Auto) % Lymph % (Auto) % Graham % (Auto) % Eos % (Auto) % Baso % (Auto) % Immature Gran # (Auto) (0.00-0.02) K/uL Neut # (Auto) (1.4-6.5) K/uL Lymph # (Auto) (1.2-3.4) K/uL Graham # (Auto) (0.11-0.59) K/uL Eos # (Auto) (0-0.5) K/uL Baso # (Auto) (0-0.2) K/uL APTT (21.0-31.0) Seconds PTT Ratio Sodium (136-145) mmol/L Potassium (3.5-5.1) mmol/L Chloride (98-107) mmol/L Carbon Dioxide (21-32) mmol/L Anion Gap (3-11) BUN (7-18) mg/dl Creatinine (0.6-1.4) mg/dl Est Cr Clr Drug Dosing ml/min Est GFR ( Amer) Est GFR (Non-Af Amer) BUN/Creatinine Ratio (10-20) Glucose (70-99) mg/dl Calcium (8.5-10.1) mg/dl Magnesium (1.8-2.4) mg/dl Total Bilirubin (0.2-1) mg/dl AST (15-37) U/L ALT (12-78) U/L Alkaline Phosphatase (45-117) U/L Ammonia (11-32) umol/L Lactate Dehydrogenase (87-241) U/L Total Protein (6.4-8.2) gm/dl Albumin (3.4-5.0) gm/dl Globulin (2.5-4.0) gm/dl Albumin/Globulin Ratio (0.9-2) Lipase (73-393) U/L Rheumatoid Factor Pending YAZ Screen Pending Strongyloides IgG Ab Pending JAK2 [id number] Pending BCR/abl t(9;22) (FISH) Pending
--- NOTE | 2018-06-21 13:56 | Cardiology Progress Note ---
Date of Service June 21, 2018 Assessment & Plan (1) Embolic stroke: Reported recurrent melena by nursing staff. Hemoglobin remained stable. Intravenous heparin placed on hold. Will await gastroenterology input regarding withholding anticoagulation at this time. Will need a definitive recommendation from gastroenterology regarding timing of restarting anticoagulation in this patient with embolic cerebrovascular accident. Per discussion with histology specialist, prefer Pradaxa to Eliquis when patient cleared to restart anticoagulation due to presence of eosinophilia. (2) Paroxysmal atrial fibrillation: Remains in sinus rhythm on telemetry. Follow telemetry. Continue beta- malika. (3) HTN (hypertension): Controlled. Continue amlodipine and metoprolol. (4) Dyslipidemia: Continue atorvastatin. (5) Pericardial effusion: Continue colchicine. Pericardial effusion stable per repeat echocardiogram 06/20/18. No evidence of tamponade. Avoid high-dose NSAIDs at this time in the setting of acute CVA, peptic ulcer disease with GI bleeding, and need for long-term anticoagulation. Subjective Patient seen and examined at the bedside. Reports of melena per nursing this afternoon. Family present at bedside. Intravenous heparin infusion discontinued. Hemoglobin remains stable. Left-sided weakness unchanged. Patient is awake and alert, however, affect remains flat. Review of Systems All systems reviewed & are unremarkable except as noted in HPI & below Physical Exam 2 Vital Signs (Past 24 Hours): Last Vital Signs Temp 36.4 C L 06/21/18 12:12 Pulse 59 L 06/21/18 12:12 Resp 16 06/21/18 12:12 BP 130/78 06/21/18 12:12 Pulse Ox 96 06/21/18 12:12 Physical Exam: General: NAD, AAO x3, well nourished. Flat affect. HEENT: Normocephalic. Atraumatic. Conjunctiva pink, no scleral icterus. Neck: No carotid bruits, the carotid upstrokes are brisk. No JVD. No HJR Heart: Regular normal S-1 and S-2 no S-3 or S-4 gallop. No murmurs or rub appreciated. PMI is not displaced. No RV heave. Lungs: Clear bilateral without rales , rhonchi, or wheeze. Abdomen: Normal bowel sounds. Soft. Nontender. No masses or organomegaly. No abdominal bruits. Extremities: No clubbing, cyanosis, or edema. Pulses: radial=2/4, Dorsalis pedis =2/4, posterior tibial=2/4. Neuro: No facial asymmetry. Left-sided weakness. Left lower extremity withdraws to pain.
--- NOTE | 2018-06-21 14:20 | Psychiatric Consultation ---
Date of Consultation June 21, 2018 Impression / Recommendations Impression Psychiatry has been asked to see this 63-year-old man because of a fairly acute change in his mental status. In speaking with his nephew and 2 of his friends, the patient reportedly had been doing quite well as recently as several weeks ago. 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 Currently, he is oriented to person, but not to time, location, or situation. He makes vague references to me about Queen Bell Diamond's beheading, but cannot, or does not, explain the reference. The patient's family indicates that the patient has mentioned Bell Diamond several times, and they also were not clear as to the reasons. The patient does tell me that he is feeling depressed, but notes that this is because "[He][has] not been feeling well." He also tells me that he has no appetite. His family reports that his poor appetite has been related to a certain unpleasant metallic taste that he experiences when he salivates during mastication. Thalamic infarctions frequently result in symptoms that include lack of interest or enthusiasm, memory loss, confusion, and sleep disturbance. While the patient does endorse feelings of depression, his family reports that he does not have a psychiatric history and, more specifically, does not have a past history of depression. While the patient may have a depressed mood, within the context of his multiple medical and neurological problems, I would doubts that the mental status changes that we are seeing are attributable to depression, although depression may play an exacerbating role. Lamotrigine has been beneficial in such cases, and I would recommend a trial of lamotrigine starting at 25 mg and increasing by 25 mg every two weeks up to 200 mg, as tolerated and indicated by response. Will need to be monitored for adverse reactions, particularly Jauregui-Erik Syndrome ( stop if spreading rash develops). Also, be aware that pantaprazole may decrease the efficacy of levothyroxin. The waxing and waning nature of the patient's mental status changes, as described by friends and family, combined with the neurological findings suggest that a possible explanation for what we are seeing is complex partial seizures. Appetite stimulants such as megestrol 400-800 mg daily may be considered. Inventory Assets Strengths: Supportive friends and family. Positive work history. Needs: Acute mental status change. Disoriented. Confused. Anorexic. Multiple somatic illnesses, including multi-infarct. Risk Factors Assessment Male: Yes : Yes Do You Have Access To A Gun?: No (He says not, but the patient is not a reliable felt carbonizer.) Health Problems: Yes Mental Health Diagnoses: No Substance Use Disorders: No Previous Attempt: No Previous Attempt; Highly Lethal: No Previous Attempt; Planned: No Previous Attempt; Didn't Tell Anyone: No Family History of Suicide: No Previous Psychiatric Hospitalization: No Hopelessness: No Smoker: No Protective Factors Assessment : No Responsible for Young Children: No Employed: Yes Stable Relationships: Yes Supportive Family: Yes Absence of Any Risk Factors Above: No CPT Code 10271 Psych History Chief Complaint "It's about Bell Diamond". History of Present Illness 63 year old male who presented to the ED with confusion. Patient was recently admitted to [facility] 06/04 through 06/07 for pneumonia. Patient also had an elevated troponin during previous admission and underwent cardiac catheterization that demonstrated widely patent coronary arteries. He also developed atrial fibrillation and was placed on Eliquis for anticoagulation. He spontaneously converted to NSR and heart rate remained in the 60s during hospitalization therefore rate controlling medication was not prescribed at discharge. Patient was discharged on Levaquin for treatment of the pneumonia. 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 He reports that this morning he developed confusion and reports that he had difficulty operating his cell phone. He was able to call his brother who then came to see him. Patient's brother is at the bedside currently and reports that when he arrived to the patient's house, the patient did appear confused and very indecisive. There is no reported unilateral weakness, numbness, tingling; no facial droop or slurred speech. Patient denies headache and neck stiffness. He reports that his symptoms of pneumonia have resolved, he denies shortness of breath, cough, sputum production. No fevers or chills. He reports that the Levaquin was giving him a poor taste in his mouth and therefore he had a decreased appetite. He denies abdominal pain, nausea, vomiting, diarrhea. No urinary symptoms. In the ED, patient is hemodynamically stable. Labs show WBC 16 K, eosinophils 4.5 K. CXR shows persistent left retrocardiac infiltrate. Head CT is negative for acute intracranial findings. Lumbar puncture was performed that does not suggest meningitis. Patient was given IVF and IV ceftriaxone. Psychiatry is being consulted because of his mental status changes and his poor appetite. The patient reports that he has been feeling depressed for "about a week" within the context of not feeling well. However, he also makes reference to what he refers to "Some weird shit," but is reluctant to discuss the details, other than to say that it has to do with Bell Diamond, her execution by sanjeev, and her "." an MRI of 06/13/18 wo/w contrast revealed "Minimal progression in the innumerable bilateral acute/subacute infarcts involving both cerebellar hemispheres, the frontal temporal parietal and occipital lobes, as well as the basal ganglia and thalami." Reports from his nephew, 2 close personal friends are that the patient's mental status has waxed and waned, sometimes over the course of several hours. The patient reports that he has no psychiatric history, no previous history of feeling depressed, no history of taking psychiatric medications, no history of self-injurious behaviors, and no history of psychiatric hospitalization. Past Psychiatric History Do You Have Access To A Gun?: No (He says not, but the patient is not a reliable felt carbonizer.) Allergies Allergy/AdvReac Type Severity Reaction Status Date / Time morphine AdvReac Intermediate Nausea/Vomi Verified 06/13/18 14:09 ting codeine AdvReac Verified 06/17/18 12:00 Home Medications Home Medications Medication Instructions Recorded Confirmed Type amlodipine 10 mg PO QAM 06/04/18 06/13/18 History atorvastatin 40 mg PO QAM 06/04/18 06/13/18 History levothyroxine 125 mcg PO QAM 06/04/18 06/13/18 History apixaban [Eliquis] 5 mg PO BID #60 tab 06/07/18 06/13/18 Rx aspirin 81 mg PO DAILY 06/13/18 06/13/18 History Personal History Beliefs That Will Affect Care: None Patient History Medical History Dyslipidemia (Chronic) Tobacco abuse (Resolved) Paroxysmal atrial fibrillation (Chronic) Thalamic infarction (Chronic) Continue care per primary hospitalist as well as cardiology HTN (hypertension) (Chronic) NSTEMI (non-ST elevated myocardial infarction) Surgical History History of thyroidectomy (Chronic) History of left knee surgery (Chronic) Family History Brother Diabetes Mother Hypertension Social History Current Living Situation: Alone Other Information That Helps Us Care for You: No Feels Safe at Home: Yes Safety Concerns: Feels Safe At This Time Smoking Status: Former smoker Tobacco Type: cigarettes Do You Dip or Chew Tobacco: No Smoking End Date: 06/26/18 Hx Alcohol Use: No Hx Substance Use: No Beliefs That Will Affect Care: None Communication Ability: Effective Physical Exam Psychiatric Orientation: oriented to person The patient is not oriented to date. He tells me that it is May 06 and he is uncertain of the year. He also is not oriented to situation: Specifically, he cannot tell me why he is in the hospital and tells me that he cannot identify any of his somatic diagnoses. The patient was seen lying in bed, dressed in hospital gown. Eye Contact: + poor eye contact Motor Behavior: + psychomotor retardation The patient's speech is soft, halting, and there is generally a lapse of 15 seconds or longer before he offers a response. Often, his responses given in the form of one word answers, such as "yes" or "no." Affect: + constricted affect Mood: + depressed mood Thought Process: + thought blocking The patient at times appears to be about to provide information, and then falls silent after ordering an introductory sentence. No systematized delusional beliefs were identified in the patient's thought content. However, he makes vague references to what he refers to as "Some weird shit" when I ask him if anything unusual or distressing has been occurring at home. He spontaneously offered that he had reference to something that has to do with the [place] Queen Bell Diamond, her beheading, and what he refers to as "her ." He also stated, "it is current," when I ask for clarification, he said "it was current when it happened." Suicidal Thoughts: denies suicidal thoughts Homicidal Thoughts: denies homicidal thoughts Hallucinations: + auditory hallucinations and + visual hallucinations The patient's memory appears to be impaired. He does not respond to formal testing, but tells me that today's date is "May 06," and has difficulty recalling the year. When asked if there has been a recent holiday, he was unable to reference [place] or [place]. During the interview, a young woman entered the room and when I asked the patient who the woman was, he said "she is my son's daughter." I reminded him that he had told me that he only has 1 child, a daughter, not a son, and he said, "I mean, she is my brother's daughter.") Later, I was able to speak privately with a young woman and she told me that she was in no way related to the patient but, instead, was a close friend of the family.) Estimated Intelligence: average estimated intelligence Insight: + severely impaired insight Judgement: + impaired judgement Vital Signs (Past 24 Hours) Last Vital Signs Temp 36.4 C L 06/21/18 12:12 Pulse 59 L 06/21/18 12:12 Resp 16 06/21/18 12:12 BP 130/78 06/21/18 12:12 Pulse Ox 96 06/21/18 12:12 Review of Systems All systems reviewed & are unremarkable except as noted in HPI & below Results & Data Medications Administered Acetaminophen (Tylenol) 650 mg PO Q4H PRN PRN Reason: Pain or Fever Stop: 07/13/18 16:33 Last Admin: 06/19/18 20:32 Dose: 650 mg [facility]: 07/21/18 06:44 Last Admin: 06/21/18 08:13 Dose: 5 mg Atorvastatin Calcium (Lipitor) 40 mg PO [facility] Stop: 07/14/18 08:59 Last Admin: 06/21/18 08:13 Dose: 40 mg Admin: 06/19/18 09:58 Dose: 40 mg Admin: 06/19/18 07:58 Dose: 40 mg Admin: 06/18/18 08:45 Dose: 40 mg Admin: 06/17/18 09:08 Dose: Not Given Admin: 06/16/18 08:00 Dose: 40 mg Admin: 06/15/18 08:15 Dose: 40 mg Admin: 06/14/18 08:24 Dose: 40 mg Colchicine (Colcrys) 0.6 mg PO BID [facility] Stop: 07/14/18 20:59 Last Admin: 06/21/18 11:20 Dose: Not Given Admin: 06/20/18 21:32 Dose: 0.6 mg Admin: 06/20/18 07:26 Dose: 0.6 mg Admin: 06/19/18 20:35 Dose: 0.6 mg Admin: 06/19/18 07:59 Dose: 0.6 mg Admin: 06/18/18 20:45 Dose: 0.6 mg Admin: 06/18/18 08:46 Dose: 0.6 mg Admin: 06/17/18 20:19 Dose: 0.6 mg Admin: 06/17/18 09:08 Dose: Not Given Admin: 06/16/18 20:52 Dose: 0.6 mg Admin: 06/16/18 07:58 Dose: 0.6 mg Admin: 06/15/18 20:12 Dose: 0.6 mg Admin: 06/15/18 08:15 Dose: 0.6 mg Admin: 06/14/18 21:12 Dose: 0.6 mg Heparin Sodium/Dextrose (Heparin Sodium/Dextrose) 25,000 units in 500 mls @ 20 mls/hr IV .Q0M MYRANDA; Protocol Stop: 07/19/18 11:56 Last Titration: 06/21/18 13:33 Dose: 1,000 units/hr, 20 mls/hr Titration: 06/21/18 11:31 Dose: 0 units/hr, 0 mls/hr Titration: 06/21/18 07:35 Dose: 1,000 units/hr, 20 mls/hr Titration: 06/21/18 06:46 Dose: 950 units/hr, 19 mls/hr Titration: 06/21/18 06:20 Dose: 950 units/hr, 19 mls/hr Titration: 06/21/18 05:12 Dose: 0 units/hr, 0 mls/hr Admin: 06/20/18 15:51 Dose: 950 units/hr, 19 mls/hr Titration: 06/20/18 15:50 Dose: 0 units/hr, 0 mls/hr Titration: 06/20/18 09:44 Dose: 950 units/hr, 19 mls/hr Titration: 06/20/18 08:55 Dose: 900 units/hr, 18 mls/hr Titration: 06/20/18 02:40 Dose: 950 units/hr, 19 mls/hr Titration: 06/19/18 19:51 Dose: 1,000 units/hr, 20 mls/hr Titration: 06/19/18 15:03 Dose: 850 units/hr, 17 mls/hr Admin: 06/19/18 12:38 Dose: 850 units/hr, 17 mls/hr Ioversol (Optiray 320 100ml) 100 ml IV ONCE PRN PRN Reason: Interaction Checking Stop: 06/25/18 05:25 Last Admin: 06/21/18 05:27 Dose: 93 ml Levothyroxine Sodium (Synthroid) 125 mcg PO DAILYBB [facility] Stop: 07/14/18 06:29 Last Admin: 06/21/18 05:47 Dose: 125 mcg Admin: 06/20/18 06:05 Dose: 125 mcg Admin: 06/19/18 04:56 Dose: 125 mcg Admin: 06/18/18 05:40 Dose: 125 mcg Admin: 06/17/18 07:37 Dose: Not Given Admin: 06/16/18 06:09 Dose: 125 mcg Admin: 06/15/18 05:52 Dose: 125 mcg Admin: 06/14/18 05:54 Dose: 125 mcg Lorazepam (Ativan) 1 mg PO BID PRN PRN Reason: Anxiety/Insomnia Stop: 07/14/18 20:00 Last Admin: 06/14/18 21:12 Dose: 1 mg Metoprolol Tartrate (Lopressor) 12.5 mg PO BID [facility] Stop: 07/14/18 20:59 Last Admin: 06/21/18 08:14 Dose: Not Given Admin: 06/20/18 21:32 Dose: 12.5 mg Admin: 06/20/18 07:26 Dose: 12.5 mg Admin: 06/19/18 20:33 Dose: 12.5 mg Admin: 06/19/18 07:58 Dose: 12.5 mg Admin: 06/18/18 20:45 Dose: 12.5 mg Admin: 06/18/18 08:45 Dose: 12.5 mg Admin: 06/17/18 20:18 Dose: Not Given Admin: 06/17/18 09:08 Dose: Not Given Admin: 06/16/18 20:52 Dose: 12.5 mg Admin: 06/16/18 07:59 Dose: 12.5 mg Admin: 06/15/18 20:12 Dose: 12.5 mg Admin: 06/15/18 08:16 Dose: 12.5 mg Admin: 06/14/18 21:12 Dose: 12.5 mg Ondansetron HCl (Zofran) 4 mg IV Q6H PRN PRN Reason: Nausea Stop: 07/17/18 08:09 Last Admin: 06/17/18 08:27 Dose: 4 mg Prednisone (Prednisone) 60 mg PO DAILY MYRANDA Stop: 07/20/18 09:59 Last Admin: 06/21/18 08:14 Dose: 60 mg Admin: 06/20/18 10:28 Dose: 60 mg
--- NOTE | 2018-06-21 14:36 | Progress Note ---
Date of Service June 21, 2018 Assessment & Plan (1) Embolic stroke: (2) Eosinophilia: Blood work is still pending. I recommend that he be started on prednisone 60 milligrams daily with daily CBC with diff. I expect that this should be sufficient to reduce his eosinophil level in to a relatively normal range. It still remains to be determine the cause of his eosinophilia. His vitamin B12 level was within normal range. 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 His Strongyloides antibody level is still pending. However we will require the pending blood work to further characterize this. It may take a week or even longer for all of this come back. It still is possible that this was medication allergy, even without cutaneous findings. For now, I recommended he continue to avoid fluoroquinolones and Eliquis. I will list these is allergies, pending a more definitive answer. Will we see him as an outpatient, can consider patch testing to these medications. If he requires further anticoagulation, we will need to pick a different agent. I spoke to Cardiology yesterday about alternatives, and I believe that either Pradaxa or Xarelto would be safe alternatives. In the short term, would continue prednisone 60 milligrams daily for at least a week followed by a taper by 10 milligrams every few days. His blood eosinophil level has responded nicely to prednisone and has decreased to 260 cells/mcl today. I would recheck another level tomorrow, and if still low, further risk of end organ damage from elevated blood eosinophils would be minimal. As we taper the prednisone, I would recommend that we recheck levels at that point to screen for potential rebound blood eosinophils. If the patient will be leaving to go to rehab, I recommend that CBCs every few days should be arranged. If the level start to go back up off of the prednisone, then this medication may need to be restarted and/or increased with a slower taper. It may be prudent to keep him on a dose of 20-30 milligrams until I can see him in my outpatient clinic within two weeks or so his discharge. Please let me know if he needs assistance making this follow-up. Subjective This is a 63 year old male who presents with blood eosinophilia and embolic stroke. I saw him for consideration of hypereosinophilic syndrome and other potential etiologies. It appears that the lab work was drawn, and most of these are still pending. The vitamin B12 level was available, and within normal range. There are new issues today. His affect seem to be little bit better today, and he was much more responsive to my questions. Otherwise, he has not had any rashes, shortness of breath, abdominal pain. He has been afebrile with normal oxygen saturation. He was seen by Hematology yesterday and additional serology was ordered including Strongyloides and leukemia markers. Physical Exam 2 Vital Signs (Past 24 Hours): Last Vital Signs Temp 36.4 C L 06/21/18 12:12 Pulse 59 L 06/21/18 12:12 Resp 16 06/21/18 12:12 BP 130/78 06/21/18 12:12 Pulse Ox 96 06/21/18 12:12 Physical Exam: General: Flat affect, someone improved from yesterday, answering questions appropriately HEENT: sclera anicteric, no conjuctival injection. Nasal mucosa without edema. Tympanic membranes clear. Oropharynx clear. Throat clear. Neck without lymphadenopathy or thyromegaly. CVS: regular rate and rhythm, normal S1 and S2. Lungs: Clear to auscultation bilaterally. Abdomen: Soft, non-tender, normal bowel sounds. Ext: no cyanosis, clubbing, edema. Skin: No rashes
[2018-06-21] MEDS: lamoTRIgine 25 MG TAB PO SCH (17:23)
--- NOTE | 2018-06-21 17:42 | Hospitalist Progress Note ---
Date of Service June 21, 2018 Assessment & Plan (1) Acute CVA (cerebrovascular accident): likely Embolic in the setting of Paroxysmal A fib - was on Eliquis for Paroxysmal A fib prior to admission repeat Brain MRI: IMPRESSION: 1. Minimal progression in the innumerable bilateral acute/subacute infarcts involving both cerebellar hemispheres, the frontal temporal parietal and occipital lobes, as well as the basal ganglia and thalami. -(+) melena episode today Hg 11.7 from 12.3 denies GI symptoms hold Heparin drip for now check H&H restarted Protonix drip GI consulted- likely residual melena, but will correlate with repeat H&H - on Statin - avoid hypotension - PT/OT - possible end organ damage secondary to hypereosinophilia consulted Allergy SVC, discussed with Pathologist work up for hypereosinophilia in progress Prednisone 60mg po daily ordered, goal eosinophils < 1.5 (2) Depression: patient exhibiting signs of depression appetite is very poor will consult Psycjh may add Megace (3) Paroxysmal atrial fibrillation: -Currently in Normal sinus rhythm (4) Upper GI bleed: -dark red stools noted on 06/15/18 and that is FOBT positive -EGD performed on 06/17/18: multiple duodenal ulcers, the largest had bleeding vessel which was given epinephrine and cauterized; as per GI recommendations, proton pump IV daily for 2 days then oral BID PPI for 2 months, can resume aspirin 81 mg daily, can resume anticoagulation in 2 days - management as #1 (5) Hypereosinophilic syndrome, idiopathic: - possible end organ damage secondary to hypereosinophilia consulted Allergy SVC, discussed with Pathologist work up for hypereosinophilia in progress Prednisone 60mg po daily ordered, goal eosinophils < 1.5 (6) Leukocytosis: WBC at 12k afebrile no obvious source of infection cultures: negative continue to monitor likely secondary to Acute CVA, with multiple infarcts (7) Elevated troponin: -Downtrended from recent admission -No reports of chest pain, EKG on 06/13/18 demonstrates new T wave inversions anteriorly however recent cardiac cath demonstrated widely patent coronary arteries - no acute telemetry events at this time, continues to be in sinus rhythm Pericardial effusion: Continue colchicine. No evidence of tamponade physiology per echocardiogram. Avoid high-dose NSAIDs at this time in the setting of acute CVA and need for anticoagulation. Repeat limited transthoracic echocardiogram prior to discharge (8) Hepatitis C antibody test positive: -Had RNA testing performed in 2016 that was negative -No further workup at this time (9) HTN (hypertension): -BP controlled, continue amlodipine (10) Dyslipidemia: -Continue statin (11) DVT prophylaxis: Heparin drip held for now in light of melena Deconditioning: PT/OT as per patient and his brother Malcolm ([phone]) code status is DNR/DNI and that patient's power of deputy attorney general is Malcolm Subjective ff up for acute cva sitting up in bed, comfortable more alert and conversant today as per family mem Physical Exam 2 Vital Signs (Past 24 Hours): Last Vital Signs Temp 36.6 C 06/21/18 15:39 Pulse 59 L 06/21/18 15:39 Resp 18 06/21/18 15:39 BP 128/78 06/21/18 15:39 Pulse Ox 94 06/21/18 15:39
[2018-06-21 19:58] LABS: Hematocrit (blood only) 33.4 % (42-52); Hemoglobin 11.7 g/dL (14.0-18.0)
[2018-06-21 20:12] LABS: Partial Thromboplastin Ratio 1.9
[2018-06-21 20:14] LABS: Partial Thromboplastin Time 49.8 Seconds (21.0-31.0)
[2018-06-21] MEDS ORDERED: Nursing to Pharmacy Communication ONE (22:20)
[2018-06-21 23:55] LABS: Hematocrit (blood only) 32.2 % (42-52); Hemoglobin 11.5 g/dL (14.0-18.0)
[2018-06-22] MEDS: LEVOTHYROXINE SODIUM 125 MCG TABLET PO SCH (06:06)
[2018-06-22 07:01] LABS: Partial Thromboplastin Time 77.4 Seconds (21.0-31.0)
[2018-06-22] MEDS: HEPARIN LOW DOSE DEXTROSE 25,000 UNITS/500 ML IV SCH ×2 (07:19→19:09)
[2018-06-22] MEDS: PANTOprazole 40 MG in SYRINGE 0 ML IV SCH ×2 (09:07→20:20)
[2018-06-22] MEDS: ATORVASTATIN 40 MG TAB PO SCH (09:08)
[2018-06-22] MEDS: METOPROLOL TARTRATE 25 MG TAB PO SCH ×2 (09:08→20:30)
[2018-06-22] MEDS: AMLODIPINE BESYLATE 5 MG TAB PO SCH (09:08)
[2018-06-22] MEDS: lamoTRIgine 25 MG TAB PO SCH (09:09)
[2018-06-22] MEDS: COLCHICINE 0.6 MG TAB PO SCH ×2 (09:09→20:30)
[2018-06-22] MEDS: predniSONE 20 MG TAB PO SCH (09:09)
--- NOTE | 2018-06-22 10:56 | Progress Note ---
Date of Service June 22, 2018 Subjective I have seen and examined the patient today, he feels fine. He was started back on Heparin drip yesterday and his H/H remains stable ( Hgb of 11.9 on 06/18 and last night is 11.5) . No rectal bleeding. I performed a rectal exam and the stool was liquid dark brown with no melena or bleeding. Abdomen is soft non tender. Recommend: There is no ongoing overt GI bleeding at this point despite being fully Heparinized. Can proceed with starting Pradaxa now from GI standpoint. I discussed with the patient and primary team previously, there is always a risk of recurrent GI bleeding in the future while on AC but if the benefit outweights the risk then AC should be given. PO Carafate for 2 weeks. PO PPI BID for 2 months. Please recall GI if any further questions or concerns. Physical Exam 2 Vital Signs (Past 24 Hours): Last Vital Signs Temp 36.2 C L 06/22/18 07:53 Pulse 57 L 06/22/18 07:53 Resp 20 06/22/18 07:53 BP 137/80 06/22/18 07:53 Pulse Ox 94 06/22/18 07:53
[2018-06-22 11:01] LABS: Appearance Urine Clear (Clear); Bilirubin Urine Negative (Negative); Blood Urine Negative (Negative); Color Urine Yellow; Glucose Urine UA Negative (Negative); Ketones Urine Negative (Negative); Leukocyte Esterase Urine Negative (Negative); Nitrite Urine Negative (Negative); Protein Urine Negative (Negative); Specific Gravity Urine 1.021 (1.000-1.030); Urobilinogen Urine Negative (Negative); pH Urine 5.5 (4.5-7.5)
--- NOTE | 2018-06-22 11:16 | Cardiology Progress Note ---
Date of Service June 22, 2018 Assessment & Plan (1) Embolic stroke: No changes in neurologic pattern. No atrial arrhythmias on telemetry. No evidence of ongoing bleeding. Hypereosinophilia being treated. Would initiate Pradaxa, discontinue heparin (2) Paroxysmal atrial fibrillation: Remains in sinus rhythm on telemetry. Follow telemetry. Continue beta- malika. (3) HTN (hypertension): Controlled. Continue amlodipine and metoprolol. (4) Dyslipidemia: Continue atorvastatin. (5) Pericardial effusion: Continue colchicine. Subjective Patient seen and examined at the bedside. No further GI issues of been reported. Patient remains in sinus rhythm on telemetry without recurrence of atrial arrhythmias Physical Exam 2 Vital Signs (Past 24 Hours): Last Vital Signs Temp 36.2 C L 06/22/18 07:53 Pulse 57 L 06/22/18 07:53 Resp 20 06/22/18 07:53 BP 137/80 06/22/18 07:53 Pulse Ox 94 06/22/18 07:53 Physical Exam: General: NAD, AAO x3, well nourished. Flat affect. HEENT: Normocephalic. Atraumatic. Conjunctiva pink, no scleral icterus. Neck: No carotid bruits, the carotid upstrokes are brisk. No JVD. No HJR Heart: Regular normal S-1 and S-2 no S-3 or S-4 gallop. No murmurs or rub appreciated. PMI is not displaced. No RV heave. Lungs: Clear bilateral without rales , rhonchi, or wheeze. Abdomen: Normal bowel sounds. Soft. Nontender. No masses or organomegaly. No abdominal bruits. Extremities: No clubbing, cyanosis, or edema. Pulses: radial=2/4, Dorsalis pedis =2/4, posterior tibial=2/4. Neuro: No facial asymmetry. Marked left-sided weakness with neglect left lower extremity withdraws to pain. Results & Data Laboratory Results Laboratory Results - last 24 hr 06/21/18 06/21/18 06/21/18 12:03 19:34 19:34 Hgb 12.2 L 11.7 L Hct 34.4 L 33.4 L APTT 49.8 H* PTT Ratio 1.9 Urine Color Urine Appearance Urine pH Ur Specific [place] Urine Protein Urine Glucose (UA) Urine Ketones Urine Blood Urine Nitrite Urine Bilirubin Urine Urobilinogen Ur Leukocyte Esterase Stl C. diff Tox B Gene 06/21/18 06/22/18 06/22/18 23:48 05:58 Unknown Hgb 11.5 L Hct 32.2 L APTT 77.4 H* PTT Ratio 3.0 Urine Color Yellow Urine Appearance Clear Urine pH 5.5 Ur Specific [place] 1.021 Urine Protein Negative Urine Glucose (UA) Negative Urine Ketones Negative Urine Blood Negative Urine Nitrite Negative Urine Bilirubin Negative Urine Urobilinogen Negative Ur Leukocyte Esterase Negative Stl C. diff Tox B Gene 06/22/18 Unknown Hgb Hct APTT PTT Ratio Urine Color Urine Appearance Urine pH Ur Specific [place] Urine Protein Urine Glucose (UA) Urine Ketones Urine Blood Urine Nitrite Urine Bilirubin Urine Urobilinogen Ur Leukocyte Esterase Stl C. diff Tox B Gene TNP
[2018-06-22] MEDS: SUCRALFATE 1 GM/10 ML UDC PO SCH ×3 (12:15→20:29)
[2018-06-22] MEDS: DABIGATRAN ETEXILATE 75 MG CAP PO SCH ×2 (12:15→20:30)
[2018-06-22 12:35] LABS: Eosinophils # (auto) 0.07 K/uL (0-0.5); Hemoglobin 11.4 g/dL (14.0-18.0); Immature Granulocytes # (auto) 0.02 K/uL (0.00-0.02); Immature Granulocytes % (auto) 0.3 %; Lymphocytes # (auto) 0.72 K/uL (1.2-3.4); Lymphocytes % (auto) 10.4 %; Mean Corpuscular Hgb Conc 35.6 g/dL (32-36); Mean Platelet Volume 11.7 fL (7.4-10.4); Monocytes # (auto) 0.34 K/uL (0.11-0.59); Monocytes % (auto) 4.9 %; Neutrophils % (auto) 83.4 %; Platelet Count 153 K/uL (130-400); RDW Coefficient of Variation 14.9 % (11.5-14.5); RDW Standard Deviation 45.8 fL (36.4-46.3); Red Blood Count 3.72 M/uL (4.7-6.1); White Blood Count 6.95 K/uL (4.8-10.8)
[2018-06-22 12:54] LABS: BUN Creatinine Ratio 25.3 (10-20); Creatinine Clr Calc Pharmacy 81.9 ml/min; Est GFR (African American) 95.2; Est GFR (Non-African American) 82.2; Potassium 3.4 mmol/L (3.5-5.1)
[2018-06-22] MEDS: LORazepam 1 MG TAB PO PRN (17:56)
--- NOTE | 2018-06-22 18:08 | Hospitalist Progress Note ---
Date of Service June 22, 2018 Assessment & Plan (1) Acute CVA (cerebrovascular accident): likely Embolic in the setting of Paroxysmal A fib - was on Eliquis for Paroxysmal A fib prior to admission repeat Brain MRI: IMPRESSION: 1. Minimal progression in the innumerable bilateral acute/subacute infarcts involving both cerebellar hemispheres, the frontal temporal parietal and occipital lobes, as well as the basal ganglia and thalami. - Hg remains around 11 discussed with GI, ok to proceed with anticoagulation change heparin to Pradaxa monitor for melena continue Protonix BID - on Statin - avoid hypotension - PT/OT - possible end organ damage secondary to hypereosinophilia consulted Allergy SVC, discussed with Pathologist work up for hypereosinophilia in progress Prednisone 60mg po daily ordered, goal eosinophils < 1.5 eosinophils down to .26 monitr (2) Depression: patient exhibiting signs of depression appetite is very poor Psych consulted Lamictal started may consider Dronabinol (3) Paroxysmal atrial fibrillation: -Currently in Normal sinus rhythm (4) Upper GI bleed: -dark red stools noted on 06/15/18 and that is FOBT positive -EGD performed on 06/17/18: multiple duodenal ulcers, the largest had bleeding vessel which was given epinephrine and cauterized; as per GI recommendations, proton pump IV daily for 2 days then oral BID PPI for 2 months, can resume aspirin 81 mg daily, can resume anticoagulation in 2 days - management as #1 (5) Hypereosinophilic syndrome, idiopathic: - management per #1 (6) Leukocytosis: afebrile no obvious source of infection cultures: negative continue to monitor likely secondary to Acute CVA, with multiple infarcts (7) Elevated troponin: -Downtrended from recent admission -No reports of chest pain, EKG on 06/13/18 demonstrates new T wave inversions anteriorly however recent cardiac cath demonstrated widely patent coronary arteries - no acute telemetry events at this time, continues to be in sinus rhythm Pericardial effusion: Continue colchicine. No evidence of tamponade physiology per echocardiogram. Avoid high-dose NSAIDs at this time in the setting of acute CVA and need for anticoagulation. Repeat limited transthoracic echocardiogram prior to discharge (8) Hepatitis C antibody test positive: -Had RNA testing performed in 2016 that was negative -No further workup at this time (9) HTN (hypertension): -BP controlled, continue amlodipine (10) Dyslipidemia: -Continue statin (11) DVT prophylaxis: transitioned to Pradaxa Deconditioning: PT/OT as per patient and his brother Danie ([phone]) code status is DNR/DNI and that patient's power of county attorney is Danie discussed again with patient's brother danie he is agreeable and comfortable with plan of care Subjective ff up for acute CVA seen with family at bedside patient alert, more expressive smiling more states he feels about the same still has very poor appetite, food tastes "yuck" able to move left hand and leg more no other symptoms Physical Exam 2 Vital Signs (Past 24 Hours): Last Vital Signs Temp 36.7 C 06/22/18 15:30 Pulse 60 06/22/18 15:30 Resp 16 06/22/18 15:30 BP 126/73 06/22/18 15:30 Pulse Ox 92 06/22/18 15:30 Physical Exam: General- oriented x 3, not in distress, speaks in sentences with no effort or accessory muscle use Eyes- anicteric Neck- no JVD Lungs- clear breath sounds bilaterally Heart- normal rate, regular rhythm; no murmurs Abdomen- normal bowel sounds, nondistended, soft, nontender Extremities- no pretibial edema, no calf tenderness Neuro- alert, oriented x 2 left side: 2-3/5 right 5/5 sensation 100% Skin- warm & dry Results & Data Laboratory Results Laboratory Results - last 24 hr 06/21/18 06/21/18 06/21/18 19:34 19:34 23:48 WBC RBC Hgb 11.7 L 11.5 L Hct 33.4 L 32.2 L MCV MCH MCHC RDW Std Deviation RDW Coeff of Martin Plt Count MPV Immature Gran % (Auto) Neut % (Auto) Lymph % (Auto) [place] % (Auto) Eos % (Auto) Baso % (Auto) Immature Gran # (Auto) Neut # (Auto) Lymph # (Auto) [place] # (Auto) Eos # (Auto) Baso # (Auto) APTT 49.8 H* PTT Ratio 1.9 Sodium Potassium Chloride Carbon Dioxide Anion Gap BUN Creatinine Est Cr Clr Drug Dosing Est GFR ( Amer) Est GFR (Non-Af Amer) BUN/Creatinine Ratio Glucose Calcium Urine Color Urine Appearance Urine pH Ur Specific [place] Urine Protein Urine Glucose (UA) Urine Ketones Urine Blood Urine Nitrite Urine Bilirubin Urine Urobilinogen Ur Leukocyte Esterase Stl C. diff Tox B Gene 06/22/18 06/22/18 06/22/18 05:58 12:17 12:17 WBC 6.95 RBC 3.72 L Hgb 11.4 L Hct 32.0 L MCV 86.0 MCH 30.6 MCHC 35.6 RDW Std Deviation 45.8 RDW Coeff of [place] 14.9 H Plt Count 153 MPV 11.7 H Immature Gran % (Auto) 0.3 Neut % (Auto) 83.4 Lymph % (Auto) 10.4 [place] % (Auto) 4.9 Eos % (Auto) 1.0 Baso % (Auto) 0.0 Immature Gran # (Auto) 0.02 Neut # (Auto) 5.80 Lymph # (Auto) 0.72 L [place] # (Auto) 0.34 Eos # (Auto) 0.07 Baso # (Auto) 0.00 APTT 77.4 H* PTT Ratio 3.0 Sodium 132 L Potassium 3.4 L Chloride 101 Carbon Dioxide 26 Anion Gap 5.0 BUN 24 H Creatinine 0.97 Est Cr Clr Drug Dosing 81.9 Est GFR ( Amer) 95.2 Est GFR (Non-Af Amer) 82.2 BUN/Creatinine Ratio 25.3 H Glucose 109 H Calcium 9.0 Urine Color Urine Appearance Urine pH Ur Specific [place] Urine Protein Urine Glucose (UA) Urine Ketones Urine Blood Urine Nitrite Urine Bilirubin Urine Urobilinogen Ur Leukocyte Esterase Stl C. diff Tox B Gene 06/22/18 06/22/18 Unknown Unknown WBC RBC Hgb Hct MCV MCH MCHC RDW Std Deviation RDW Coeff of [place] Plt Count MPV Immature Gran % (Auto) Neut % (Auto) Lymph % (Auto) [place] % (Auto) Eos % (Auto) Baso % (Auto) Immature Gran # (Auto) Neut # (Auto) Lymph # (Auto) [place] # (Auto) Eos # (Auto) Baso # (Auto) APTT PTT Ratio Sodium Potassium Chloride Carbon Dioxide Anion Gap BUN Creatinine Est Cr Clr Drug Dosing Est GFR ( Amer) Est GFR (Non-Af Amer) BUN/Creatinine Ratio Glucose Calcium Urine Color Yellow Urine Appearance Clear Urine pH 5.5 Ur Specific [place] 1.021 Urine Protein Negative Urine Glucose (UA) Negative Urine Ketones Negative Urine Blood Negative Urine Nitrite Negative Urine Bilirubin Negative Urine Urobilinogen Negative Ur Leukocyte Esterase Negative Stl C. diff Tox B Gene TNP
[2018-06-22] MEDS ORDERED: POTASSIUM CHLORIDE 10 MEQ TABCR PO ONE (18:50)
[2018-06-23] MEDS: LEVOTHYROXINE SODIUM 125 MCG TABLET PO SCH (06:27)
[2018-06-23 06:47] LABS: Partial Thromboplastin Ratio 1.6; Partial Thromboplastin Time 41.3 Seconds (21.0-31.0)
[2018-06-23 07:53] LABS: Eosinophils % (auto) 1.4 %; Hematocrit (blood only) 30.8 % (42-52); Hemoglobin 10.7 g/dL (14.0-18.0); Immature Granulocytes # (auto) 0.01 K/uL (0.00-0.02); Immature Granulocytes % (auto) 0.1 %; Lymphocytes # (auto) 1.36 K/uL (1.2-3.4); Lymphocytes % (auto) 18.4 %; Mean Corpuscular Hgb Conc 34.7 g/dL (32-36); Mean Corpuscular Volume 86.5 fL (80-100); Mean Platelet Volume 11.3 fL (7.4-10.4); Monocytes # (auto) 0.98 K/uL (0.11-0.59); Monocytes % (auto) 13.3 %; Neutrophils # (auto) 4.93 K/uL (1.4-6.5); Neutrophils % (auto) 66.8 %; Platelet Count 165 K/uL (130-400); RDW Coefficient of Variation 14.9 % (11.5-14.5); Red Blood Count 3.56 M/uL (4.7-6.1); White Blood Count 7.38 K/uL (4.8-10.8)
[2018-06-23 08:24] LABS: BUN Creatinine Ratio 29.6 (10-20); Calcium 8.9 mg/dl (8.5-10.1); Creatinine Clr Calc Pharmacy 73.6 ml/min; Est GFR (African American) 83.6; Est GFR (Non-African American) 72.2; Potassium 3.8 mmol/L (3.5-5.1)
[2018-06-23] MEDS: SUCRALFATE 1 GM/10 ML UDC PO SCH ×6 (09:21→20:38)
[2018-06-23] MEDS: PANTOprazole 40 MG in SYRINGE 0 ML IV SCH ×2 (09:21→20:36)
[2018-06-23] MEDS: COLCHICINE 0.6 MG TAB PO SCH ×3 (09:21→20:38)
[2018-06-23] MEDS: DABIGATRAN ETEXILATE 75 MG CAP PO SCH ×3 (09:21→20:39)
[2018-06-23] MEDS: predniSONE 20 MG TAB PO SCH ×2 (09:21→12:27)
[2018-06-23] MEDS: lamoTRIgine 25 MG TAB PO SCH (09:22)
[2018-06-23] MEDS: METOPROLOL TARTRATE 25 MG TAB PO SCH ×2 (09:22→20:35)
[2018-06-23] MEDS: AMLODIPINE BESYLATE 5 MG TAB PO SCH ×2 (09:22→12:26)
[2018-06-23] MEDS: ATORVASTATIN 40 MG TAB PO SCH ×2 (09:22→12:26)
[2018-06-23] MEDS: ONDANSETRON INJ 2 MG/ML 2 ML VIAL IV PRN (09:31)
--- NOTE | 2018-06-23 10:33 | Hospitalist Progress Note ---
Date of Service June 23, 2018 delayed entry date of service as noted above Assessment & Plan (1) Acute CVA (cerebrovascular accident): likely Embolic in the setting of Paroxysmal A fib - was on Eliquis for Paroxysmal A fib prior to admission repeat Brain MRI: IMPRESSION: 1. Minimal progression in the innumerable bilateral acute/subacute infarcts involving both cerebellar hemispheres, the frontal temporal parietal and occipital lobes, as well as the basal ganglia and thalami. - Hg remains around 10-11 discussed with GI, ok to continue Pradaxa monitor for melena continue Protonix BID - on Statin - avoid hypotension - PT/OT - possible end organ damage secondary to hypereosinophilia consulted Allergy SVC, discussed with Pathologist work up for hypereosinophilia in progress Prednisone 60mg po daily ordered, goal eosinophils < 1.5 eosinophils significantly improved monitor (2) Depression: patient exhibiting signs of depression appetite is very poor Psych consulted Lamictal started started Dronabinol (3) Paroxysmal atrial fibrillation: -Currently in Normal sinus rhythm (4) Upper GI bleed: -dark red stools noted on 06/15/18 and that is FOBT positive -EGD performed on 06/17/18: multiple duodenal ulcers, the largest had bleeding vessel which was given epinephrine and cauterized; as per GI recommendations, proton pump IV daily for 2 days then oral BID PPI for 2 months, can resume aspirin 81 mg daily, can resume anticoagulation in 2 days - management as #1 (5) Hypereosinophilic syndrome, idiopathic: - management per #1 (6) Leukocytosis: afebrile no obvious source of infection cultures: negative continue to monitor likely secondary to Acute CVA, with multiple infarcts (7) Elevated troponin: -Downtrended from recent admission -No reports of chest pain, EKG on 06/13/18 demonstrates new T wave inversions anteriorly however recent cardiac cath demonstrated widely patent coronary arteries - no acute telemetry events at this time, continues to be in sinus rhythm Pericardial effusion: Continue colchicine. No evidence of tamponade physiology per echocardiogram. Avoid high-dose NSAIDs at this time in the setting of acute CVA and need for anticoagulation. Repeat limited transthoracic echocardiogram prior to discharge (8) Hepatitis C antibody test positive: -Had RNA testing performed in 2016 that was negative -No further workup at this time (9) HTN (hypertension): -BP controlled, continue amlodipine (10) Dyslipidemia: -Continue statin (11) DVT prophylaxis: transitioned to Pradaxa Deconditioning: PT/OT as per patient and his brother Malcolm ([phone]) code status is DNR/DNI and that patient's power of securities attorney is Malcolm Subjective ff up for acute CVA seen resting in bed, comfortable still has poor appetite initially declining meds denies headache, dizziness, chest pain, dyspnea no new neuro symptoms no abdominal pain no other symptoms Physical Exam 2 Vital Signs (Past 24 Hours): Last Vital Signs Temp 36.6 C 06/23/18 07:06 Pulse 52 L 06/23/18 09:35 Resp 18 06/23/18 07:06 BP 128/75 06/23/18 09:35 Pulse Ox 95 06/23/18 07:06 Physical Exam: General- oriented x 2, not in distress, speaks in sentences with no effort or accessory muscle use Eyes- anicteric Neck- no JVD Lungs- clear BS BL Heart- normal rate, regular rhythm; no murmurs Abdomen- normal bowel sounds, nondistended, soft, nontender Extremities- no pretibial edema, no calf tenderness Neuro- alert, oriented x 3; motor 2/5 on the left, 5/5 on the right no new findings Skin- warm & dry Results & Data Laboratory Results noted and reviewed
[2018-06-23] MEDS: D5NSS + 20MEQ KCL 20 MEQ/1,000 ML BAG IV SCH (11:49)
--- NOTE | 2018-06-23 14:17 | Progress Note ---
Date of Service June 23, 2018 Subjective I have seen and examined the patient, denies abdominal pain today and no BM since yesterday. No rectal bleeding. No nausea or vomiting. Started on Pradaxa and remains on high dose Prednisone for hypereosinophilic syndrome. On exam abdomen is soft, nontender. Labs: Hgb 11.4 to 10.7 BUN going up. Recommend: - Doubt ongoing GI bleed but will repeat Stat CBC. - If Hgb remains to drop then will plan for 2nd look EGD tomorrow. - Continue PPI and Carafate. Physical Exam 2 Vital Signs (Past 24 Hours): Last Vital Signs Temp 36.4 C L 06/23/18 11:05 Pulse 56 L 06/23/18 11:05 Resp 16 06/23/18 11:05 BP 130/77 06/23/18 11:05 Pulse Ox 94 06/23/18 11:05
[2018-06-23 14:29] LABS: Hematocrit (blood only) 32.4 % (42-52); Hemoglobin 11.2 g/dL (14.0-18.0); Mean Corpuscular Volume 87.3 fL (80-100); Mean Platelet Volume 11.4 fL (7.4-10.4); Platelet Count 178 K/uL (130-400); RDW Coefficient of Variation 15.1 % (11.5-14.5); RDW Standard Deviation 47.2 fL (36.4-46.3); Red Blood Count 3.71 M/uL (4.7-6.1); White Blood Count 6.81 K/uL (4.8-10.8)
[2018-06-23 14:31] LABS: Mean Corpuscular Hgb Conc 34.6 g/dL (32-36)
[2018-06-23] MEDS: LORazepam 1 MG TAB PO PRN (16:12)
[2018-06-23] MEDS: DRONABINOL 2.5 MG CAP PO SCH (20:53)
[2018-06-24] MEDS: D5NSS + 20MEQ KCL 20 MEQ/1,000 ML BAG IV SCH ×2 (00:40→12:37)
[2018-06-24 06:12] LABS: Eosinophils # (auto) 0.01 K/uL (0-0.5); Eosinophils % (auto) 0.1 %; Hematocrit (blood only) 31.5 % (42-52); Hemoglobin 10.7 g/dL (14.0-18.0); Immature Granulocytes # (auto) 0.02 K/uL (0.00-0.02); Immature Granulocytes % (auto) 0.3 %; Lymphocytes % (auto) 17.6 %; Mean Corpuscular Volume 87.7 fL (80-100); Mean Platelet Volume 11.6 fL (7.4-10.4); Monocytes # (auto) 0.85 K/uL (0.11-0.59); Monocytes % (auto) 11.5 %; Neutrophils % (auto) 70.5 %; Platelet Count 190 K/uL (130-400); Red Blood Count 3.59 M/uL (4.7-6.1); White Blood Count 7.38 K/uL (4.8-10.8)
[2018-06-24] MEDS: LEVOTHYROXINE SODIUM 125 MCG TABLET PO SCH (06:21)
[2018-06-24 06:37] LABS: Partial Thromboplastin Ratio 1.7; Partial Thromboplastin Time 43.8 Seconds (21.0-31.0)
[2018-06-24 06:40] LABS: BUN Creatinine Ratio 26.3 (10-20); Calcium 8.9 mg/dl (8.5-10.1); Creatinine Clr Calc Pharmacy 74.3 ml/min; Est GFR (African American) 84.6; Potassium 4.1 mmol/L (3.5-5.1)
[2018-06-24] MEDS: ATORVASTATIN 40 MG TAB PO SCH (09:36)
[2018-06-24] MEDS: lamoTRIgine 25 MG TAB PO SCH (09:36)
[2018-06-24] MEDS: PANTOprazole 40 MG in SYRINGE 0 ML IV SCH ×2 (09:36→20:48)
[2018-06-24] MEDS: predniSONE 20 MG TAB PO SCH (09:37)
[2018-06-24] MEDS: AMLODIPINE BESYLATE 5 MG TAB PO SCH (09:37)
[2018-06-24] MEDS: COLCHICINE 0.6 MG TAB PO SCH ×2 (09:37→20:48)
[2018-06-24] MEDS: DABIGATRAN ETEXILATE 75 MG CAP PO SCH ×2 (09:38→20:48)
[2018-06-24] MEDS: METOPROLOL TARTRATE 25 MG TAB PO SCH ×2 (09:38→20:48)
[2018-06-24] MEDS: SUCRALFATE 1 GM/10 ML UDC PO SCH ×5 (09:39→21:00)
--- NOTE | 2018-06-24 18:45 | Hospitalist Progress Note ---
Date of Service June 24, 2018 Assessment & Plan (1) Acute CVA (cerebrovascular accident): likely Embolic in the setting of Paroxysmal A fib - was on Eliquis for Paroxysmal A fib prior to admission repeat Brain MRI: IMPRESSION: 1. Minimal progression in the innumerable bilateral acute/subacute infarcts involving both cerebellar hemispheres, the frontal temporal parietal and occipital lobes, as well as the basal ganglia and thalami. - Hg remains around 10-11 discussed with GI, ok to continue Pradaxa monitor for melena continue Protonix BID monitor H&H - on Statin - avoid hypotension - PT/OT - possible end organ damage secondary to hypereosinophilia consulted Allergy SVC, discussed with Pathologist work up for hypereosinophilia in progress Prednisone 60mg po daily ordered, goal eosinophils < 1.5 eosinophils significantly improved lower Prednisone to 40mg po daily for now, monitor eosinophils (2) Depression: patient exhibiting signs of depression appetite is very poor Psych consulted Lamictal started started Dronabinol (3) Paroxysmal atrial fibrillation: -Currently in Normal sinus rhythm (4) Upper GI bleed: -dark red stools noted on 06/15/18 and that is FOBT positive -EGD performed on 06/17/18: multiple duodenal ulcers, the largest had bleeding vessel which was given epinephrine and cauterized; as per GI recommendations, proton pump IV daily for 2 days then oral BID PPI for 2 months, can resume aspirin 81 mg daily, can resume anticoagulation in 2 days - management as #1 (5) Hypereosinophilic syndrome, idiopathic: - management per #1 (6) Leukocytosis: afebrile no obvious source of infection cultures: negative continue to monitor likely secondary to Acute CVA, with multiple infarcts (7) Elevated troponin: -Downtrended from recent admission -No reports of chest pain, EKG on 06/13/18 demonstrates new T wave inversions anteriorly however recent cardiac cath demonstrated widely patent coronary arteries - no acute telemetry events at this time, continues to be in sinus rhythm Pericardial effusion: Continue colchicine. No evidence of tamponade physiology per echocardiogram. Avoid high-dose NSAIDs at this time in the setting of acute CVA and need for anticoagulation. Repeat limited transthoracic echocardiogram prior to discharge (8) Hepatitis C antibody test positive: -Had RNA testing performed in 2016 that was negative -No further workup at this time (9) HTN (hypertension): -BP controlled, continue amlodipine (10) Dyslipidemia: -Continue statin (11) DVT prophylaxis: transitioned to Pradaxa Deconditioning: PT/OT as per patient and his brother Malcolm ([phone]) code status is DNR/DNI and that patient's power of consumer attorney is Malcolm Subjective ff up for acute CVA resting in bed, comfortable had some lunch today, few bites for dinner patient appears brighter states he feels ok overall able to move left side better had 1 small episode of melena no abdominal pain no other symptoms Physical Exam 2 Vital Signs (Past 24 Hours): Last Vital Signs Temp 36.7 C 06/24/18 15:00 Pulse 56 L 06/24/18 15:00 Resp 20 06/24/18 15:00 BP 149/82 H 06/24/18 15:00 Pulse Ox 95 06/24/18 15:00 Physical Exam: General- oriented x 3, not in distress, speaks in sentences with no effort or accessory muscle use Eyes- anicteric Neck- no JVD Lungs- clear BS BL no rales/wheezes Heart- normal rate, regular rhythm; no murmurs Abdomen- normal bowel sounds, nondistended, soft, nontender Extremities- no pretibial edema, no calf tenderness Neuro- alert, oriented x 3;left side 2-3/5, right 5/5 Skin- warm & dry Results & Data Laboratory Results Laboratory Results - last 24 hr 06/19/18 06/24/18 06/24/18 18:39 05:43 05:43 WBC 7.38 RBC 3.59 L Hgb 10.7 L Hct 31.5 L MCV 87.7 MCH 29.8 MCHC 34.0 RDW Std Deviation 48.0 H RDW Coeff of [place] 15.0 H Plt Count 190 MPV 11.6 H Immature Gran % (Auto) 0.3 Neut % (Auto) 70.5 Lymph % (Auto) 17.6 [place] % (Auto) 11.5 Eos % (Auto) 0.1 Baso % (Auto) 0.0 Immature Gran # (Auto) 0.02 Neut # (Auto) 5.20 Lymph # (Auto) 1.30 [place] # (Auto) 0.85 H Eos # (Auto) 0.01 Baso # (Auto) 0.00 APTT 43.8 H PTT Ratio 1.7 Sodium Potassium Chloride Carbon Dioxide Anion Gap BUN Creatinine Est Cr Clr Drug Dosing Est GFR ( Amer) Est GFR (Non-Af Amer) BUN/Creatinine Ratio Glucose Calcium Flow Cytometry Comment See Comment 06/24/18 06/24/18 05:43 11:53 WBC RBC Hgb 10.1 L Hct MCV MCH MCHC RDW Std Deviation RDW Coeff of [place] Plt Count MPV Immature Gran % (Auto) Neut % (Auto) Lymph % (Auto) [place] % (Auto) Eos % (Auto) Baso % (Auto) Immature Gran # (Auto) Neut # (Auto) Lymph # (Auto) [place] # (Auto) Eos # (Auto) Baso # (Auto) APTT PTT Ratio Sodium 136 Potassium 4.1 Chloride 105 Carbon Dioxide 27 Anion Gap 4.0 BUN 28 H Creatinine 1.07 Est Cr Clr Drug Dosing 74.3 Est GFR ( Amer) 84.6 Est GFR (Non-Af Amer) 73.0 BUN/Creatinine Ratio 26.3 H Glucose 104 H Calcium 8.9 Flow Cytometry Comment
[2018-06-24] MEDS: DRONABINOL 2.5 MG CAP PO SCH (20:48)
[2018-06-25] MEDS: D5NSS + 20MEQ KCL 20 MEQ/1,000 ML BAG IV SCH ×2 (01:53→15:58)
[2018-06-25] MEDS: LEVOTHYROXINE SODIUM 125 MCG TABLET PO SCH (06:13)
[2018-06-25 06:30] LABS: Eosinophils # (auto) 0.06 K/uL (0-0.5); Eosinophils % (auto) 0.8 %; Hematocrit (blood only) 29.5 % (42-52); Hemoglobin 10.3 g/dL (14.0-18.0); Immature Granulocytes # (auto) 0.01 K/uL (0.00-0.02); Immature Granulocytes % (auto) 0.1 %; Lymphocytes # (auto) 1.71 K/uL (1.2-3.4); Lymphocytes % (auto) 22.7 %; Mean Corpuscular Hgb Conc 34.9 g/dL (32-36); Mean Corpuscular Volume 88.1 fL (80-100); Mean Platelet Volume 11.8 fL (7.4-10.4); Monocytes % (auto) 10.6 %; Neutrophils # (auto) 4.94 K/uL (1.4-6.5); Neutrophils % (auto) 65.8 %; Platelet Count 215 K/uL (130-400); RDW Coefficient of Variation 15.1 % (11.5-14.5); RDW Standard Deviation 48.1 fL (36.4-46.3); Red Blood Count 3.35 M/uL (4.7-6.1); White Blood Count 7.52 K/uL (4.8-10.8)
[2018-06-25 06:32] LABS: Partial Thromboplastin Ratio 1.6; Partial Thromboplastin Time 42.3 Seconds (21.0-31.0)
[2018-06-25 06:53] LABS: BUN Creatinine Ratio 21.1 (10-20); Creatinine Clr Calc Pharmacy 74.3 ml/min; Est GFR (African American) 84.6; Potassium 3.7 mmol/L (3.5-5.1)
[2018-06-25] MEDS ORDERED: predniSONE 20 MG TAB PO SCH (09:00)
[2018-06-25] MEDS: PANTOprazole 40 MG in SYRINGE 0 ML IV SCH (09:19)
[2018-06-25] MEDS: lamoTRIgine 25 MG TAB PO SCH (09:19)
[2018-06-25] MEDS: ATORVASTATIN 40 MG TAB PO SCH (09:20)
[2018-06-25] MEDS: DABIGATRAN ETEXILATE 75 MG CAP PO SCH ×2 (09:20→20:36)
[2018-06-25] MEDS: AMLODIPINE BESYLATE 5 MG TAB PO SCH (09:21)
[2018-06-25] MEDS: METOPROLOL TARTRATE 25 MG TAB PO SCH ×2 (09:21→20:38)
[2018-06-25] MEDS: SUCRALFATE 1 GM/10 ML UDC PO SCH ×4 (09:22→20:36)
[2018-06-25] MEDS: COLCHICINE 0.6 MG TAB PO SCH ×2 (09:22→20:38)
--- NOTE | 2018-06-25 11:30 | Progress Note ---
Date of Service June 25, 2018 Assessment & Plan (1) Embolic stroke: (2) Eosinophilia: This is a 63-year-old male who presents with elevated blood eosinophil level and an embolic stroke. His eosinophils have come down to normal range and responded very well to the prednisone. Blood work is still pending. I recommend that he be started on prednisone 60 milligrams daily with daily CBC with diff. I expect that this should be sufficient to reduce his eosinophil level in to a relatively normal range. It still remains to be determine the cause of his eosinophilia. His vitamin B12 level was within normal range. 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 His Strongyloides antibody level is still pending. Flow cytometry panel did not show any evidence of leukemia/lymphoma. The additional blood work is still pending. It may take a week or even longer for all of this come back. It still is possible that this was medication allergy, even without cutaneous findings. For now, I recommended he continue to avoid fluoroquinolones and Eliquis. I will list these is allergies, pending a more definitive answer. Will we see him as an outpatient, can consider patch testing to these medications. He will be be receiving Pradaxa for anticoagulation, and I believe that this should be safe. In the short term, would continue prednisone 60 milligrams daily for at least a week followed by a taper by 10 milligrams every few days. I recommend that once levels are taper down to about 30 milligrams or so, that he be kept in this until I can see him for follow-up, hopefully about two weeks after discharge. Please let me know if any assistance is needed to set this visit up. I will followup on the pending labwork in the outpatient setting. I will sign off, but will continue to monitor blood work, and if needed, can see him if anything new comes up. Subjective This is a 63 year old male who presents with blood eosinophilia and embolic stroke. I saw him for consideration of hypereosinophilic syndrome and other potential etiologies. It appears that the lab work was drawn, and most of these are still pending. The vitamin B12 level was available, and within normal range. The flow cytometry panel did not show any abnormalities. There are new issues today. His affect seem to be little bit better today, and he was much more responsive to my questions. Otherwise, he has not had any rashes , shortness of breath, abdominal pain. He has been afebrile with normal oxygen saturation. Physical Exam 2 Vital Signs (Past 24 Hours): Last Vital Signs Temp 36.6 C 06/25/18 07:30 Pulse 49 L 06/25/18 07:30 Resp 18 06/25/18 07:30 BP 150/87 H 06/25/18 07:30 Pulse Ox 99 06/25/18 07:30 Physical Exam: HEENT: sclera anicteric, no conjuctival injection. Nasal mucosa without edema. Tympanic membranes clear. Oropharynx clear. Throat clear. Neck without lymphadenopathy or thyromegaly. CVS: regular rate and rhythm, normal S1 and S2. Lungs: Clear to auscultation bilaterally. Abdomen: Soft, non-tender, normal bowel sounds. Ext: no cyanosis, clubbing, edema. Skin: normal, no rashes
[2018-06-25] MEDS ORDERED: predniSONE 20 MG TAB PO STA (18:00)
[2018-06-25 18:56] LABS: Anti Nuclear Antibody Screen POSITIVE (NEGATIVE); Rheumatoid Factor < 14 IU/ML (<14)
[2018-06-25] MEDS: DRONABINOL 2.5 MG CAP PO SCH (20:35)
[2018-06-25] MEDS: PANTOprazole 40 MG TAB PO SCH (20:39)
[2018-06-26] MEDS: D5NSS + 20MEQ KCL 20 MEQ/1,000 ML BAG IV SCH (04:26)
[2018-06-26] MEDS: LEVOTHYROXINE SODIUM 125 MCG TABLET PO SCH (05:43)
[2018-06-26 07:35] LABS: ANA Pattern HOMOGENEOUS; ANA Titer 1:40 TITER (<1:40)
[2018-06-26 07:41] LABS: Eosinophils # (auto) 0.02 K/uL (0-0.5); Eosinophils % (auto) 0.3 %; Hematocrit (blood only) 29.8 % (42-52); Hemoglobin 10.3 g/dL (14.0-18.0); Immature Granulocytes # (auto) 0.03 K/uL (0.00-0.02); Immature Granulocytes % (auto) 0.4 %; Lymphocytes # (auto) 1.14 K/uL (1.2-3.4); Mean Corpuscular Hgb Conc 34.6 g/dL (32-36); Mean Corpuscular Volume 87.6 fL (80-100); Mean Platelet Volume 11.7 fL (7.4-10.4); Monocytes % (auto) 8.9 %; Neutrophils # (auto) 4.93 K/uL (1.4-6.5); Neutrophils % (auto) 73.4 %; Platelet Count 232 K/uL (130-400); RDW Coefficient of Variation 15.1 % (11.5-14.5); RDW Standard Deviation 48.1 fL (36.4-46.3); White Blood Count 6.72 K/uL (4.8-10.8)
[2018-06-26 07:56] LABS: Partial Thromboplastin Ratio 1.5; Partial Thromboplastin Time 38.7 Seconds (21.0-31.0)
[2018-06-26 08:12] LABS: BUN Creatinine Ratio 18.3 (10-20); Calcium 8.4 mg/dl (8.5-10.1); Creatinine Clr Calc Pharmacy 75.7 ml/min; Est GFR (African American) 86.5; Est GFR (Non-African American) 74.7; Potassium 3.8 mmol/L (3.5-5.1)
[2018-06-26] MEDS: METOPROLOL TARTRATE 25 MG TAB PO SCH (08:20)
[2018-06-26] MEDS: ATORVASTATIN 40 MG TAB PO SCH (08:20)
[2018-06-26] MEDS: DABIGATRAN ETEXILATE 75 MG CAP PO SCH (08:22)
[2018-06-26] MEDS: COLCHICINE 0.6 MG TAB PO SCH (08:22)
[2018-06-26] MEDS: lamoTRIgine 25 MG TAB PO SCH (08:22)
[2018-06-26] MEDS: SUCRALFATE 1 GM/10 ML UDC PO SCH ×2 (08:22→13:54)
[2018-06-26] MEDS: PANTOprazole 40 MG TAB PO SCH (08:22)
[2018-06-26] MEDS: AMLODIPINE BESYLATE 5 MG TAB PO SCH (08:27)
[2018-06-26] MEDS ORDERED: predniSONE 20 MG TAB PO SCH (09:00)
--- NOTE | 2018-06-26 10:26 | Hospitalist Progress Note ---
Date of Service June 26, 2018 Assessment & Plan (1) Acute CVA (cerebrovascular accident): likely Embolic in the setting of Paroxysmal A fib, Hypereosinophila - was already on Eliquis for Paroxysmal A fib prior to admission repeat Brain MRI: IMPRESSION: 1. Minimal progression in the innumerable bilateral acute/subacute infarcts involving both cerebellar hemispheres, the frontal temporal parietal and occipital lobes, as well as the basal ganglia and thalami. - Cardiology and Neurology evaluated patient decision was to continue anticoagulation initially placed on IV Heparin but developed Upper GI Bleed s/p EGD, (+) Duodenal ulcer , treated with epineprhine and cauterization - cleared by GI to resume anticoagulation heparin IV drip restarted, transitioned to Pradaxa as per Cardiology recommendation given Protonix along with Pradaxa Hg stable at around 10-11 so far monitor Hg in 5 days then regularly - Multiple Brain Infarcts also possible end organ damage secondary to hypereosinophilia consulted Allergy [facility] Dr. Marvin Damian, discussed with Pathologist etiology unclear, could be secondary to Levaquin or Eliquis allergy as patient 's eosinophil level was normal prior to starting these medications work up for hypereosinophilia in progress Prednisone 60mg po daily ordered, goal eosinophils < 1.5 eosinophils significantly improved- from 5 to 0.02 on discharge day completed 7 days of prednisone, start Prednisone 50mg x 3 days, taper prednisone by 10 mg every 3 days, until 30mg- continue this dose until seen at [facility] by Dr. Wong 2 weeks after discharge from the hospital GI recommends Sucralfate QID while patient is taking Prednisone - also on Statin - overall, left sided hemiparesis is improving continue intensive PT/OT in Rehab (2) Depression: patient exhibiting signs of depression appetite is very poor Psych consulted Lamictal 25mg daily started, to be uptitrated based on response as outline below --per Psych Dr. Ewing: " I would recommend a trial of lamotrigine starting at 25 mg and increasing by 25 mg every two weeks up to 200 mg, as tolerated and indicated by response. Will need to be monitored for adverse reactions, particularly Jauregui-Erik Syndrome (stop if spreading rash develops). " started Dronabinol -- overall, mood seems to be improving and appetite also somewhat improving continue to monitor (3) Paroxysmal atrial fibrillation: -Currently in Normal sinus rhythm - on Metoprolol 12.5mg BID but mostly held due to bradycardia - monitor (4) Upper GI bleed: -dark red stools noted on 06/15/18 and that is FOBT positive -EGD performed on 06/17/18: multiple duodenal ulcers, the largest had bleeding vessel which was given epinephrine and cauterized; as per GI recommendations, proton pump IV daily for 2 days then oral BID PPI for 2 months - management as #1 (5) Hypereosinophilic syndrome, idiopathic: - management per #1 (6) Leukocytosis: afebrile no obvious source of infection cultures: negative continue to monitor likely secondary to Acute CVA, with multiple infarcts (7) Elevated troponin: -Downtrended from recent admission -No reports of chest pain, EKG on 06/13/18 demonstrates new T wave inversions anteriorly however recent cardiac cath demonstrated widely patent coronary arteries - no acute telemetry events at this time, continues to be in sinus rhythm Pericardial effusion: - Continue colchicine. No evidence of tamponade physiology per echocardiogram. Avoid high-dose NSAIDs at this time in the setting of acute CVA and need for anticoagulation. Repeat limited transthoracic echocardiogram prior to discharge -repeat echo ordered and results pending - will need to ff up with [employer] Dr. Mijares in 2 weeks (8) Hepatitis C antibody test positive: -Had RNA testing performed in 2016 that was negative -No further workup at this time (9) HTN (hypertension): -BP controlled, continue amlodipine (10) Dyslipidemia: -Continue statin (11) DVT prophylaxis: transitioned to Pradaxa Deconditioning: PT/OT ff up with: Neurologist Dr. Saldana in 3-[address] Wong in [address] [address] Mijares in 2-[address] Ewing in 2-3 weeks discussed with patient and his brother Malcolm at length and in detail all questions answered they are understanding, agreeable with plan of care Subjective ff up for acute CVA seen resting in bedside chair, just had PT alert, brighter family at bedside, they are happy to see him able to move l side better appetite improving slowly denies headache, dizziness, chest pain, dyspnea, palpitations, nausea/vomiting, abdominal pain no melena/hematochezia noted no other symptoms Physical Exam 2 Vital Signs (Past 24 Hours): Last Vital Signs Temp 36.8 C 06/26/18 07:47 Pulse 46 L 06/26/18 08:19 Resp 18 06/26/18 07:47 BP 150/85 H 06/26/18 08:19 Pulse Ox 98 06/26/18 07:47 Physical Exam: General- oriented x 2, not in distress, speaks in sentences with no effort or accessory muscle use Eyes- anicteric Neck- no JVD Lungs- clear breath sounds bilaterally Heart- normal rate, regular rhythm; no murmurs Abdomen- normal bowel sounds, nondistended, soft, nontender Extremities- no pretibial edema, no calf tenderness Neuro- alert, oriented x 3; right 5/5, upper left: 2-3/5 lower left: 3-4/5 sensation: 100% on all ext no other gross focal neurologic deficits Skin- warm & dry Results & Data Laboratory Results Laboratory Results - last 24 hr 06/19/18 06/19/18 06/21/18 18:39 18:39 06:37 WBC RBC Hgb Hct MCV MCH MCHC RDW Std Deviation RDW Coeff of Martin Plt Count MPV Immature Gran % (Auto) Neut % (Auto) Lymph % (Auto) [place] % (Auto) Eos % (Auto) Baso % (Auto) Immature Gran # (Auto) Neut # (Auto) Lymph # (Auto) [place] # (Auto) Eos # (Auto) Baso # (Auto) APTT PTT Ratio Sodium Potassium Chloride Carbon Dioxide Anion Gap BUN Creatinine Est Cr Clr Drug Dosing Est GFR ( Amer) Est GFR (Non-Af Amer) BUN/Creatinine Ratio Glucose Calcium Tryptase 3 Stool Ova & Parasites Stool O & P Source Parasite Trichrome Stool Comments Rheumatoid Factor YAZ Screen YAZ Titer YAZ Pattern Strongyloides IgG Ab JAK2 [id number] See Comment T-Cell Gene Rearr Gamma See Comment 06/21/18 06/22/18 06/26/18 06:44 Unknown 07:17 WBC RBC Hgb Hct MCV MCH MCHC RDW Std Deviation RDW Coeff of Martin Plt Count MPV Immature Gran % (Auto) Neut % (Auto) Lymph % (Auto) [place] % (Auto) Eos % (Auto) Baso % (Auto) Immature Gran # (Auto) Neut # (Auto) Lymph # (Auto) [place] # (Auto) Eos # (Auto) Baso # (Auto) APTT 38.7 H PTT Ratio 1.5 Sodium Potassium Chloride Carbon Dioxide Anion Gap BUN Creatinine Est Cr Clr Drug Dosing Est GFR ( Amer) Est GFR (Non-Af Amer) BUN/Creatinine Ratio Glucose Calcium Tryptase Stool Ova & Parasites SEE NOTE Stool O & P Source OTHER-STOOL Parasite Trichrome SEE NOTE Stool Comments DNR Rheumatoid Factor < 14 YAZ Screen POSITIVE A YAZ Titer 1:40 A YAZ Pattern HOMOGENEOUS A Strongyloides IgG Ab NEGATIVE JAK2 [id number] T-Cell Gene Rearr Gamma 06/26/18 06/26/18 07:17 07:17 WBC 6.72 RBC 3.40 L Hgb 10.3 L Hct 29.8 L MCV 87.6 MCH 30.3 MCHC 34.6 RDW Std Deviation 48.1 H RDW Coeff of Martin 15.1 H Plt Count 232 MPV 11.7 H Immature Gran % (Auto) 0.4 Neut % (Auto) 73.4 Lymph % (Auto) 17.0 [place] % (Auto) 8.9 Eos % (Auto) 0.3 Baso % (Auto) 0.0 Immature Gran # (Auto) 0.03 H Neut # (Auto) 4.93 Lymph # (Auto) 1.14 L [place] # (Auto) 0.60 H Eos # (Auto) 0.02 Baso # (Auto) 0.00 APTT PTT Ratio Sodium 135 L Potassium 3.8 Chloride 103 Carbon Dioxide 25 Anion Gap 7.0 BUN 19 H Creatinine 1.05 Est Cr Clr Drug Dosing 75.7 Est GFR ( Amer) 86.5 Est GFR (Non-Af Amer) 74.7 BUN/Creatinine Ratio 18.3 Glucose 103 H Calcium 8.4 L Tryptase Stool Ova & Parasites Stool O & P Source Parasite Trichrome Stool Comments Rheumatoid Factor YAZ Screen YAZ Titer YAZ Pattern Strongyloides IgG Ab JAK2 [id number] T-Cell Gene Rearr Gamma
[2018-06-26] MEDS ORDERED: STROKE PATIENT DISCHARGE STA (11:00)
--- NOTE | 2018-06-26 11:06 | Discharge Summary ---
Date of Service June 26, 2018 Admission HPI Per Admitting Provider 63 year old male who presented to the ED with confusion. Patient was recently admitted to [facility] 06/04 through 06/07 for pneumonia. Patient also had an elevated troponin during previous admission and underwent cardiac catheterization that demonstrated widely patent coronary arteries. He also developed atrial fibrillation and was placed on Eliquis for anticoagulation. He spontaneously converted to NSR and heart rate remained in the 60s during hospitalization therefore rate controlling medication was not prescribed at discharge. Patient was discharged on Levaquin for treatment of the pneumonia. 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 He reports that this morning he developed confusion and reports that he had difficulty operating his cell phone. He was able to call his brother who then came to see him. Patient's brother is at the bedside currently and reports that when he arrived to the patient's house, the patient did appear confused and very indecisive. There is no reported unilateral weakness, numbness, tingling; no facial droop or slurred speech. Patient denies headache and neck stiffness. He reports that his symptoms of pneumonia have resolved, he denies shortness of breath, cough, sputum production. No fevers or chills. He reports that the Levaquin was giving him a poor taste in his mouth and therefore he had a decreased appetite. He denies abdominal pain, nausea, vomiting, diarrhea. No urinary symptoms. In the ED, patient is hemodynamically stable. Labs show WBC 16 K, eosinophils 4.5 K. CXR shows persistent left retrocardiac infiltrate. Head CT is negative for acute intracranial findings. Lumbar puncture was performed that does not suggest meningitis. Patient was given IVF and IV ceftriaxone. Psychiatry is being consulted because of his mental status changes and his poor appetite. The patient reports that he has been feeling depressed for "about a week" within the context of not feeling well. However, he also makes reference to what he refers to "Some weird shit," but is reluctant to discuss the details, other than to say that it has to do with [employer], her execution by sanjeev, and her "." an MRI of 06/13/18 wo/w contrast revealed "Minimal progression in the innumerable bilateral acute/subacute infarcts involving both cerebellar hemispheres, the frontal temporal parietal and occipital lobes, as well as the basal ganglia and thalami." Reports from his nephew, 2 close personal friends are that the patient's mental status has waxed and waned, sometimes over the course of several hours. The patient reports that he has no psychiatric history, no previous history of feeling depressed, no history of taking psychiatric medications, no history of self-injurious behaviors, and no history of psychiatric hospitalization. Admission Exam Per Admitting Provider Vital Signs (Past 24 Hours): Last Vital Signs Temp 36.4 C L 06/13/18 12:47 Pulse 75 06/13/18 15:36 Resp 19 06/13/18 16:06 BP 140/85 06/13/18 15:36 Pulse Ox 92 06/13/18 14:48 Constitutional: WD/WN, vitals as above Eyes: PERRL, conjunctivae normal, anicteric sclerae ENMT: external ear and nose normal, oropharynx normal Neck: no nuchal rigidity Respiratory: normal respiratory effort; no respiratory distress Auscultation: + diminished lung sounds Cardiovascular: Rate/Rhythm: regular rate and regular rhythm Vessels: normal peripheral pulses Extremities: no edema Gastrointestinal (Abdomen): normal bowel sounds, soft, nontender, no hepatosplenomegaly Musculoskeletal: no cyanosis or clubbing, extremities motor strength 5/5 Skin: no rashes, warm and dry Neurologic: PERRL, EOMI, accommodation nl, no face palsy, no dysarthria CN' s II-XI intact bilaterally and awake Cranial Nerves: normal facial strength and tongue midline Coordination: normal [id number] test and normal heel-to- charles test Psychiatric: A+Ox3, euthymic affect Principal Diagnosis ACUTE CVA, LEFT SIDED WEAKNESS; LIKELY THROMBOEMBOLIC Discharge Exam Vital Signs (Past 24 Hours): Last Vital Signs Temp 36.8 C 06/26/18 07:47 Pulse 46 L 06/26/18 08:19 Resp 18 06/26/18 07:47 BP 150/85 H 06/26/18 08:19 Pulse Ox 98 06/26/18 07:47 Physical Exam: General- oriented x 2, not in distress, speaks in sentences with no effort or accessory muscle use Eyes- anicteric Neck- no JVD Lungs- clear breath sounds bilaterally Heart- normal rate, regular rhythm; no murmurs Abdomen- normal bowel sounds, nondistended, soft, nontender Extremities- no pretibial edema, no calf tenderness Neuro- alert, oriented x 3; right 5/5, upper left: 2-3/5 lower left: 3-4/5 sensation: 100% on all ext no other gross focal neurologic deficits Skin- warm & dry Discharge Data Allergies Allergy/AdvReac Type Severity Reaction Status Date / Time apixaban [From Eliquis] Allergy Unknown eosinophili Unverified 06/21/18 16:41 a levofloxacin Allergy Unknown Timing Unverified 06/21/18 16:42 correlates with eosinophilia morphine AdvReac Intermediate Nausea/Vomi Verified 06/13/18 14:09 ting codeine AdvReac Verified 06/17/18 12:00 Consultations 06/13/18 14:47 ED Decision to Admit Stat 06/13/18 16:34 Consult Case Management - Discharge Planning Routine 06/13/18 20:05 Consult Neurology Routine 06/14/18 09:43 Consult Cardiology Routine 06/15/18 18:30 Consult Gastroenterology Routine 06/19/18 15:57 Consult Allergy / Immunology Routine 06/19/18 16:25 Consult Hematology Routine 06/21/18 12:26 Consult Psychiatry Routine Procedures Performed Operation Date: 06/17/18 09:50 Actual Procedures p Esophagogastroduodenoscopy with hemostasis of bleeding ulcer Dr Anthony( Not Applicable) - Mitra Anthony MD Ordered Studies 06/13/18 12:57 CT head/brain wo con Stat IMPRESSION: There is no hemorrhage, mass effect, or evidence of acute territorial ischemia by CT criteria. 06/13/18 16:34 MR brain wo/w con Routine IMPRESSION: 1. Innumerable predominantly subcentimeter foci of acute to subacute infarction involves the bilateral cerebral hemispheres and to a lesser extent the cerebellar hemispheres. These findings are most pronounced within the watershed distributions between the anterior and middle cerebral arterial territories with additional infarctions noted about the bilateral parietal and occipital lobes within the posterior cerebral artery territory. A proximal embolic cause is the primary differential consideration. Correlation with echocardiogram recommended. 2. No acute intracranial hemorrhage or midline shift. 3. Chronic microvascular ischemic changes. 4. No abnormal enhancement. 06/13/18 20:05 US carotid doppler BI Routine IMPRESSION: 1. No hemodynamically significant stenosis or significant atherosclerotic plaquing. 2. Normal antegrade vertebral flow bilaterally. 06/14/18 08:07 US venous doppler LE BI Stat IMPRESSION: No evidence of lower extremity DVT. 06/15/18 07:00 CT head/brain wo con Routine IMPRESSION: 1. No acute intracranial hemorrhage, midline shift or territorial infarct. 2. Subacute infarctions about the cerebral hemispheres are better seen on comparison brain MRI. 06/17/18 08:00 MR brain wo con Routine IMPRESSION: 1. Minimal progression in the innumerable bilateral acute/subacute infarcts involving both cerebellar hemispheres, the frontal temporal parietal and occipital lobes, as well as the basal ganglia and thalami. 06/21/18 04:20 CT abd pelvis IV con only Urgent IMPRESSION: 1. No evidence bowel obstruction. No evidence of free air 2. Diverticulosis. No evidence of acute diverticulitis 3. No evidence of acute appendicitis 4. Multiple fluid-filled bowel loops. Correlate clinically in regards to a diarrheal illness 5. Mild bladder wall thickening 6. Cholelithiasis 7. Small pericardial effusion small left pleural effusion 8. Infrarenal aortic ectasia. Mild dilatation of the left common iliac artery which measures 21 mm. 06/21/18 04:21 CT head/brain wo con Urgent Hospital Course (1) Acute CVA (cerebrovascular accident): likely Embolic in the setting of Paroxysmal A fib, Hypereosinophila - was already on Eliquis for Paroxysmal A fib prior to admission repeat Brain MRI: IMPRESSION: 1. Minimal progression in the innumerable bilateral acute/subacute infarcts involving both cerebellar hemispheres, the frontal temporal parietal and occipital lobes, as well as the basal ganglia and thalami. - Cardiology and Neurology evaluated patient decision was to continue anticoagulation initially placed on IV Heparin but developed Upper GI Bleed s/p EGD, (+) Duodenal ulcer , treated with epineprhine and cauterization - cleared by GI to resume anticoagulation heparin IV drip restarted, transitioned to Pradaxa as per Cardiology recommendation given Protonix along with Pradaxa Hg stable at around 10-11 so far monitor Hg in 5 days then regularly - Multiple Brain Infarcts also possible end organ damage secondary to hypereosinophilia consulted Allergy C Dr. Marvin Damian, discussed with Pathologist etiology unclear, could be secondary to Levaquin or Eliquis allergy as patient 's eosinophil level was normal prior to starting these medications work up for hypereosinophilia in progress Prednisone 60mg po daily ordered, goal eosinophils < 1.5 eosinophils significantly improved- from 5 to 0.02 on discharge day completed 7 days of prednisone, start Prednisone 50mg x 3 days, taper prednisone by 10 mg every 3 days, until 30mg- continue this dose until seen at the [facility] by Dr. Wong 2 weeks after discharge from the hospital GI recommends Sucralfate QID while patient is taking Prednisone - also on Statin - overall, left sided hemiparesis is improving continue intensive PT/OT in Rehab (2) Depression: patient exhibiting signs of depression appetite is very poor Psych consulted Lamictal 25mg daily started, to be uptitrated based on response as outline below --per Psych Dr. Ewing: " I would recommend a trial of lamotrigine starting at 25 mg and increasing by 25 mg every two weeks up to 200 mg, as tolerated and indicated by response. Will need to be monitored for adverse reactions, particularly Jauregui-Erik Syndrome (stop if spreading rash develops). " started Dronabinol -- overall, mood seems to be improving and appetite also somewhat improving continue to monitor (3) Paroxysmal atrial fibrillation: -Currently in Normal sinus rhythm - on Metoprolol 12.5mg BID but mostly held due to bradycardia - monitor (4) Upper GI bleed: -dark red stools noted on 06/15/18 and that is FOBT positive -EGD performed on 06/17/18: multiple duodenal ulcers, the largest had bleeding vessel which was given epinephrine and cauterized; as per GI recommendations, proton pump IV daily for 2 days then oral BID PPI for 2 months - management as #1 (5) Hypereosinophilic syndrome, idiopathic: - management per #1 (6) Leukocytosis: afebrile no obvious source of infection cultures: negative continue to monitor likely secondary to Acute CVA, with multiple infarcts (7) Elevated troponin: -Downtrended from recent admission -No reports of chest pain, EKG on 06/13/18 demonstrates new T wave inversions anteriorly however recent cardiac cath demonstrated widely patent coronary arteries - no acute telemetry events at this time, continues to be in sinus rhythm Pericardial effusion: - Continue colchicine. No evidence of tamponade physiology per echocardiogram. Avoid high-dose NSAIDs at this time in the setting of acute CVA and need for anticoagulation. Repeat limited transthoracic echocardiogram prior to discharge -repeat echo ordered and results pending - will need to ff up with [facility] Dr. Mijares in 2 weeks (8) Hepatitis C antibody test positive: -Had RNA testing performed in 2016 that was negative -No further workup at this time (9) HTN (hypertension): -BP controlled, continue amlodipine (10) Dyslipidemia: -Continue statin (11) Abnormal CT of the abdomen: CT abdomen: Infrarenal aortic ectasia. Mild dilatation of the left common iliac artery which measures 21 mm. -- further work up and ff up as outpatient (12) DVT prophylaxis: transitioned to Pradaxa Deconditioning: PT/OT ff up with: Neurologist Dr. Saldana in 3-[address] Wong in [address] Mijares in 2-[address] Ewing in 2-3 weeks discussed with patient and his brother Malcolm at length and in detail all questions answered they are understanding, agreeable with plan of care Total Time Total Time Spent Total Time Spent (In Minutes): 80 minutes Total Time Includes: Examination of the Patient, Discharge Planning and Medication Reconciliation Discharge Plan Discharge Items Patient Disposition: Transfer Inpatient Rehab Fac Reason For Visit: ALTERED MENTAL STATUS Discharge Diagnosis: ACUTE CVA, LEFT SIDED WEAKNESS Discharge Goals: Diagnostic testing and Therapeutic intervention Activity: As commented below Activity Comment: CONTINUE PT/OT, NEEDS ASSISTANCE, FALL PRECAUTIONS Non-emergency contact: Primary Care Provider Call non-emergency contact if: you have any medication questions Diet: Heart Healthy Diet Comment: ASPIRATION PRECAUTIONS PLEASE Addtl Provider Instructions: PLEASE REFER TO ACCOMPANYING HOSPITAL DISCHARGE SUMMARY: ff up with: Neurologist Dr. Saldana in 3-[address] Wong in [address] Mijares in 2-[address] Ewing in 2-3 weeks Who to Call and When: Medical Emergencies: Call 911 immediately if you experience any of the following warning signs and symptoms of Stroke: Sudden numbness or weakness of the face, arm or leg, especially on one side of the body Sudden confusion, trouble speaking or understanding Sudden trouble seeing in one or both eyes Sudden trouble walking, dizziness, loss of balance or coordination Sudden severe headache with no cause Do not delay calling 911 if you experience any warning signs or symptoms of a stroke. Delay in seeking medical attention may affect what treatments can be given to you. Risk Factors for Stroke: You can reduce your chances of stroke by working with your medical provider to adopt a healthy lifestyle. Some specific ways to lower your chance of stroke are: If you are a smoker, now is the time to stop smoking cigarettes If you are diabetic, improve the control of your blood sugars Avoid excessive amounts of alcohol Control high blood pressure Lose weight if you are overweight Be sure to lead an active lifestyle Eat a healthy diet low in salt, cholesterol and fat You should know about other risk factors for stroke that you are unable to control. These include: Age 55 years or older Male gender Certain racial groups: , or / Family History of Stroke, Mini stroke or Heart Attack Sickle Cell Disease It is important for you to keep your follow up appointments with your medical provider. Prescriptions: New dabigatran etexilate [Pradaxa] 75 mg Capsule 150 mg PO BID 30 Days Qty: 120 RF: 1 amlodipine [Norvasc] 5 mg Tablet 5 mg PO QAM 30 Days Qty: 30 RF: 1 metoprolol tartrate 25 mg Tablet 12.5 mg PO BID 30 Days Qty: 30 RF: 1 lamotrigine 25 mg Tablet 25 mg PO QAM 30 Days Qty: 30 RF: 0 dronabinol 2.5 mg Capsule 2.5 mg PO HS 7 Days Qty: 7 RF: 0 pantoprazole 40 mg Tablet,Delayed Release (Dr/Ec) 40 mg PO BID 30 Days Qty: 60 RF: 1 sucralfate 100 mg/mL Suspension 10 ml PO QID 30 Days Qty: 1200 RF: 0 colchicine [Colcrys] 0.6 mg Tablet 0.6 mg PO BID 30 Days Qty: 60 RF: 1 prednisone 10 mg tablet 10 mg PO DAILY Qty: 42 RF: 1 Continue atorvastatin 40 mg tablet 40 mg PO QAM RF: 0 levothyroxine 125 mcg tablet 125 mcg PO QAM RF: 0 Discontinued amlodipine 10 mg tablet 10 mg PO QAM RF: 0 apixaban [Eliquis] 5 mg Tablet 5 mg PO BID Qty: 60 RF: 3 aspirin 81 mg Tablet,Delayed Release (Dr/Ec) 81 mg PO DAILY RF: 0 Stand-Alone Forms: Medications to Prevent Stroke, [facility] Discharge Orders: Discharge Order (Routine); Ordered 06/26/18 Ordered By: Dwayne Brantley Skilled Items Patient informed of condition?: Yes DNR: Yes Discharge Level of Care: Acute rehab Communicable Disease: No Discharge Prognosis: Improving Admission Data Admit Date/Time: 06/13/18 21:50 Attending Provider: Maribell Narayanan Admit Provider: Chinedu Bravo Primary Care Provider: Nahum Lauren Other Providers: Rohith Sevilla ; Chinedu Bravo ; Christy Preciado ; Kai Neville ; Marcelino Ochoa ; Nati Wong ; Quirino Leon ; Bowen Ewing ; Dwayne Brantley Service: Telemetry
--- NOTE | 2018-08-02 13:08 | Coding Query ---
CODING QUERY To promote full compliance with coding requirements relating to patient care, provider participation is requested in all cases of duct layer uncertainty. Please assist us with the question(s) below: Coding Question(s): Please clarify if the left sided hemiparesis was due to CVA Physician's Response(s): Agree. left sided hemiparesis was due to CVA Thank you Sandra Batista Principal Diagnosis: "that condition established after study, to be chiefly responsible for occasioning the admission of the patient to the hospital for care." Co-Existing Principal Diagnosis: "when two or more diagnoses equally meet the criteria for principal diagnosis as determined by the circumstances of admission, diagnostic work up, and/or therapy provided, and the Alphabetic Index, Tabular List, or another coding guideline does not provide sequencing direction, any one of the diagnoses may be sequenced first." "When the physician has documented what appears to be a current diagnosis in the body of the record, but has not included the diagnosis in the final diagnostic statement, the physician should be asked whether the diagnosis should be added." (Source [facility]oding [facility] 2 QTR90. p3-4) PRASANTH
== END 2018-06-26 15:20 | DRG 64 ==
LOC: 2S 12:44 → ED 12:44 → 2S 16:06 → SUATTDRO 21:50 → 2S 06-14 03:40 → 2N 06-19 21:15

== ENCOUNTER 2018-11-28 07:46 | Inpatient (IN) ==
--- OUTSIDE RECORDS SUMMARY | 2018-11-28 07:48 | External Medical Summary | Continuity of Care Document ---
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 Refills: 0 Atorvastatin Calcium 40 MG Oral Tablet; TAKE 1 TABLET DAILY DIRECTED. 90 Tablet Bottle Refills: 0 Colcrys 0.6 MG Oral Tablet; TAKE 1 TABLET TWICE DAILY DIR ECTED. Refills: 0 Pradaxa 75 MG Oral Capsule; TAKE 1 CAPSULE TWICE DAILY. Refills: 0 Docusate Sodium CAPS Refills: 0 lamoTRIgine TABS; TAKE 125 MG Daily Refills: 0 Metoprolol Tartrate 25 MG Oral Tablet; TAKE 0.5 TABLET Daily Refills: 0 Pantoprazole Sodium 40 MG Oral Tablet Delayed Release; Take 1 tablet daily Refills: 0 Bisacodyl 10 MG Rectal Suppository Refills: 0 LORazepam 1 MG Oral Tablet; TAKE 1 TABLET EVERY 6 HOURS N EEDED FOR ANXIETY. Refills: 0 MiraLax Oral Packet Refills: 0 Procedures History of Thyroid Surgery Status: Compl eted Immunizations Immunizations not documented Family History Brother Family history of diabetes mellitus (V18.0) (Z83.3) Status: Active Social History - Smoking Status Current every day smoker Plan of Treatment Planned Observations Planned Goals not documented Results No Known Results Results not documented Encounters Appointment; Nati Wong M.D. 11-Jul-2018 11:00 Encounter Diagnosis: Problem not documented Appointment; Susie Newman CRNP 08-Nov-2017 16:30 Encounter Diagnosis: Problem not documented Appointment; Curtis Reid M.D. 14-Feb-2017 10:10 Encounter Diagnosis: Problem not documented Appointment; Nati Wong M.D. 08-Aug-2018 10:00 Encounter Diagnosis: Problem not documented
[2018-11-28] MEDS ORDERED: SUCRALFATE 1 GM TAB PO STA (08:20)
[2018-11-28 08:28] LABS: Basophils # (auto) 0.01 K/uL (0-0.2); Basophils % (auto) 0.1 %; Eosinophils # (auto) 0.03 K/uL (0-0.5); Eosinophils % (auto) 0.4 %; Hematocrit (blood only) 35.5 % (42-52); Hemoglobin 11.7 g/dL (14.0-18.0); Lymphocytes % (auto) 15.3 %; Mean Corpuscular Volume 87.4 fL (80-100); Mean Platelet Volume 10.3 fL (7.4-10.4); Monocytes # (auto) 0.59 K/uL (0.11-0.59); Monocytes % (auto) 7.5 %; Neutrophils # (auto) 6.03 K/uL (1.4-6.5); Neutrophils % (auto) 76.7 %; Platelet Count 257 K/uL (130-400); RDW Coefficient of Variation 14.9 % (11.5-14.5); RDW Standard Deviation 47.6 fL (36.4-46.3); Red Blood Count 4.06 M/uL (4.7-6.1); White Blood Count 7.86 K/uL (4.8-10.8)
[2018-11-28 08:41] LABS: Partial Thromboplastin Ratio 1.2; Partial Thromboplastin Time 31.7 Seconds (21.0-31.0); Prothrombin Time 10.6 Seconds (9.0-12.0)
--- NOTE | 2018-11-28 08:41 | XRay Report ---
XR chest 1V portable CLINICAL HISTORY: Chest Pain COMPARISON STUDY: Chest CT June 04, 2018. Chest radiograph June 13, 2018. FINDINGS: There is no pneumothorax or pleural effusion. Linear left basilar opacity favors atelectasi s or scarring. There is no consolidation to suggest pneumonia. Note is made of mild cardiomegaly with out evidence for pulmonary edema. IMPRESSION: No acute cardiopulmonary findings. Electronically signed by: Sabas Duarte M.D. 11/28/2018 8:40 AM
[2018-11-28 08:45] LABS: Alanine Aminotransferase 15 U/L (12-78); Albumin Level 3.9 gm/dl (3.4-5.0); Aspartate Aminotransferase 14 U/L (15-37); BUN Creatinine Ratio 14.8 (10-20); Blood Urea Nitrogen 19 mg/dl (7-18); Calcium 9.2 mg/dl (8.5-10.1); Carbon Dioxide 27 mmol/L (21-32); Chloride 105 mmol/L (98-107); Creatinine Clr Calc Pharmacy 63.1 ml/min; Est GFR (African American) 69.4; Est GFR (Non-African American) 59.9; Glucose 114 mg/dl (70-99); Potassium 3.6 mmol/L (3.5-5.1); Sodium 139 mmol/L (136-145)
[2018-11-28] MEDS ORDERED: KETOROLAC 30 MG/ML VIAL IV ONE (08:48)
--- NOTE | 2018-11-28 08:48 | XRay Report ---
XR abdomen min 2V HISTORY: 63 years-old Male LUQ abdominal and chest pain acute atypical chest pain with acute left up per quadrant abdominal pain COMPARISON: Chest radiograph 11/28/2018, CT abdomen and pelvis 06/21/2018 TECHNIQUE: 2 views of the abdomen. FINDINGS: Heart appears enlarged. No pneumatosis or pneumoperitoneum. Bowel gas pattern is nonobstructive. No u rolith. Calcifications of the pelvis are suggestive of probable phleboliths. Vascular calcifications are noted. No acute fracture. Mild lumbar levoscoliosis. IMPRESSION: 1. Nonobstructive bowel gas pattern without pneumoperitoneum. 2. No urolith identified. The above report was generated using voice recognition software. It may contain grammatical, syntax o r spelling errors. Electronically signed by: Tom Traore M.D. 11/28/2018 8:47 AM
[2018-11-28 08:50] LABS: Albumin Globulin Ratio 0.9 (0.9-2); Alkaline Phosphatase 102 U/L (45-117); Bilirubin,Total 0.4 mg/dl (0.2-1); Globulin 4.3 gm/dl (2.5-4.0); Total Protein 8.2 gm/dl (6.4-8.2); Troponin I < 0.015 ng/ml (0-0.045)
--- NOTE | 2018-11-28 09:02 | Emergency Department Note ---
ED Visit Note I assisted Dr. Crespo with the care of this patient. Please refer to his note for more details. . Resident Activity Tracking Resident Involvement: Resident Care Provided Care Provided: Adult ED
[2018-11-28 09:12] LABS: D Dimer 190 ug/L FEU (0-500)
[2018-11-28] MEDS ORDERED: ONDANSETRON INJ 2 MG/ML 2 ML VIAL IV STA (09:16)
[2018-11-28] MEDS ORDERED: HYDROmorphone INJ 0.5 MG/0.5 ML SYR IV STA (09:16)
[2018-11-28] MEDS ORDERED: IOVERSOL 100ml IV PRN (09:58)
--- NOTE | 2018-11-28 10:35 | CT Scan Report ---
CT OF THE ABDOMEN AND PELVIS WITH CONTRAST CLINICAL HISTORY: Abdominal pain radiating to back. Evaluate for acute pancreatitis. COMPARISON STUDY: CT of the abdomen and pelvis June 21, 2018. Abdominal series performed earlier today. TECHNIQUE: Following IV administration of 94 mL of Optiray-320, axial images of the abdomen and pelvi s were obtained from the lung bases to the proximal femurs. Images were reviewed in the axial, sagitt al, and coronal planes. IV contrast was administered without complication. Automated exposure contro l was utilized for the study. A dose lowering technique was utilized adhering to the principles of A NAHUN. CT DOSE: 373.52 mGy.cm FINDINGS: The heart is mildly enlarged. The liver, spleen, adrenal glands and kidneys are unremarkabl e with exception of a few suspected renal cyst. A few renal lesions are too small to characterize. Th ere is scarring within the upper pole of the left kidney. There are gallstones within the gallbladder . The gallbladder is mildly distended. There is minimal pericholecystic infiltration. There is a prob able 5 mm stone within the cystic duct on axial image 107 of 446. There is no biliary or pancreatic d uctal dilatation. There are pancreatic parenchymal calcifications. A well-defined pancreatic mass is not identified. However, there is fullness within the pancreatic head. This is probably within normal limits. There is slight apparent mass effect upon the portosplenic confluence. No evidence for a bow el obstruction. The infrarenal aorta is ectatic. The appendix is normal. There is colonic diverticulo sis without evidence for acute diverticulitis. There are no suspicious osseous lesions. IMPRESSION: 1. Cholelithiasis, mild gallbladder distention and mild pericholecystic infiltration with a suspected 5 mm stone within the cystic duct. The findings suggest acute cholecystitis. 2. Slight fullness within the pancreatic head with apparent mass effect upon the portosplenic conflue nce. A definite mass is not identified and the findings may be within normal limits. However, a nonem ergent MRI of the pancreas once acute symptoms resolve is recommended to exclude a pancreatic lesion. 3. No biliary or pancreatic ductal dilatation. Electronically signed by: Sabas Duarte M.D. 11/28/2018 10:34 AM
--- NOTE | 2018-11-28 12:20 | Ultrasound Report ---
US gallbladder HISTORY: 63 years-old Male acute cholecystitis on CT acute right upper quadrant abdominal pain COMPARISON: CT abdomen and pelvis of same day TECHNIQUE: Multiple real time sonographic images of the abdominal right upper quadrant were obtained assessing grayscale appearance and color flow FINDINGS: Pancreas is mostly obscured by bowel gas. Liver is unremarkable without focal mass or intrahepatic bi liary ductal dilation. Gallbladder distention with wall thickening measuring up to 4 mm. Echogenic fo ci within the dependent gallbladder lumen are noted without posterior acoustic shadowing. No perichol ecystic fluid identified. Sonographic Coley sign unable to be assessed secondary to recent pain medi cation administration. Common bile duct measures 8 mm. 3 mm echogenic focus within the common bile du ct is noted. No hydronephrosis. 2.3 cm cyst of the inferior pole right kidney. IMPRESSION: 1. Gallbladder distention with gallbladder sludge and mild gallbladder wall thickening. No definite s hadowing cholelithiasis or pericholecystic fluid identified. Correlate clinically to exclude acute ch olecystitis. 2. Mild dilation of the common bile duct with equivocal choledocholithiasis. The above report was generated using voice recognition software. It may contain grammatical, syntax o r spelling errors. Electronically signed by: Tom Traore M.D. 11/28/2018 12:19 PM
--- NOTE | 2018-11-28 14:02 | Gastrointestinal Consultation ---
Date of Consultation November 28, 2018 Assessment & Plan (1) LUQ abdominal pain: (2) Choledocholithiasis: Pt is a 63 y/o male presented w LUQ abd pain radiating to back, upon evaluation, CT & u/s abd imaging concerning for possible cholecystitis w possible cystic duct or CBD stone, pancreas fullness though LFTs and Lipase are normal. His hx is pertinent for recent embolic stroke & duodenal ulcers w bleeding in May. He is currently in Pradaxa last dose this AM - Keep NPO for now - Will obtain MRCP to r/o biliary stone. If positive will determine timing of ERCP (need to be off Pradaxa at least 3 days) - Recommend Surgery consult for possible cholecystitis Supervising Physician Co-Signing Physician Notes I saw and evaluated the patient. He presented with left-sided abdominal discomfort and was admitted for observation. The patient does have evidence of cholelithiasis on CT scan with a stone in the cystic neck. At the time of our evaluation this afternoon the patient is pain-free. His history is notable for stroke earlier this year in addition to a duodenal ulcer which required therapeutic endoscopy 6 months ago. Physical examination No obvious distress Abdomen soft nontender no hepatosplenomegaly appreciated Impression Patient presenting with left-sided abdominal discomfort I doubt this is related to gallstone disease based on the interpretation of the CT scan. The patient is on anticoagulation and had his last dose today. We will have the patient undergo MRCP for further evaluation. If negative I would then suggest further evaluation with an upper endoscopy and endoscopic ultrasound over the next few weeks to evaluate the pancreatic head fullness CT today. Recommendations MRCP Further recommendations pending results of MRI, likely to recommend endoscopic ultrasound and upper endoscopy History of Present Illness Reason for Consultation: Possible choledocholithiasis Requesting Physician: Dr. Harvinder Crespo Attending Physician: Dr. Dorcas Zhong History of Present Illness Pt is a 63 y/o male w PMHx of Hep C antibody + but negative RNA, HTN, Afib, duodenal ulcers, Embolic stroke in May currently on Pradaxa who presented to ED w c/o LUQ abd pain radiating to back x 3 weeks. Denies any fever, chills, n/v, bowel habit changes. Pain resolved after Dilaudid in ED. His workup CT abd/pelvis is pertinent for cholelithiasis, mild gallbladder distention and mild pericholecystic infiltration with a suspected 5 mm stone within the cystic duct, suspected acute cholecystitis. He does have sligth fullness of pancreatic mass w /o a definite mass identified. No biliary or pancreatic ductal dilation. However u/s showed CBD of 8mm and possible 3mm CBD stone. His LFTs and Lipase were normal Allergies Allergy/AdvReac Type Severity Reaction Status Date / Time apixaban [From Eliquis] Allergy Unknown eosinophili Unverified 11/28/18 08:00 a levofloxacin Allergy Unknown Timing Unverified 11/28/18 08:00 correlates with eosinophilia morphine AdvReac Intermediate Nausea/Vomi Verified 11/28/18 08:00 ting codeine AdvReac Verified 11/28/18 08:00 Home Medications Home Medications Medication Instructions Recorded Confirmed Type levothyroxine 125 mcg PO QAM 06/04/18 11/28/18 History amlodipine 2.5 mg PO DAILY 11/28/18 11/28/18 History atorvastatin 80 mg PO DAILY 11/28/18 11/28/18 History baclofen 10 mg PO TID PRN 11/28/18 11/28/18 History dabigatran etexilate [Pradaxa] 150 mg PO BID 11/28/18 11/28/18 History ezetimibe 10 mg PO QAM 11/28/18 11/28/18 History metoprolol tartrate 12.5 mg PO BID 11/28/18 11/28/18 History pantoprazole 40 mg PO QAM 11/28/18 11/28/18 History sucralfate 1 g PO ACHS 11/28/18 11/28/18 History Patient History Medical History CVA (cerebral vascular accident) (Chronic) Depression (Chronic) Hypereosinophilic syndrome, idiopathic (Resolved) Upper GI bleed (Resolved) Pericardial effusion (Resolved) Dyslipidemia (Chronic) 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) Tobacco abuse (Resolved) Paroxysmal atrial fibrillation (Chronic) HTN (hypertension) (Chronic) Surgical History History of thyroidectomy (Chronic) History of left knee surgery (Chronic) Family History Brother Diabetes Mother Hypertension Social History Preferred Language: [place] Communication Ability: Effective Visual Impairment: No Limitations Beliefs That Will Affect Care: None Current Living Situation: Alone Feels Safe at Home: Yes Smoking Status: Former smoker Tobacco Type: cigarettes Second Hand Exposure: No Hx Alcohol Use: No Hx Substance Use: No Review of Systems Review of Systems: All systems reviewed & are unremarkable except as noted in HPI & below Physical Exam Constitutional: WD/WN, vitals as above well groomed, cooperative and comfortable Eyes: PERRL, conjunctivae normal, anicteric sclerae ENMT: external ear and nose normal, oropharynx normal Respiratory: normal respiratory effort, lungs clear to auscultation Cardiovascular: RRR, no murmur, no edema Gastrointestinal (Abdomen): normal bowel sounds, soft, nontender, no hepatosplenomegaly Skin: no rashes, warm and dry no jaundice Psychiatric: A+Ox3, euthymic affect Lymphatic: no lymphedema Results & Data Vital Signs (Past 12 Hours) Vital Signs Temp Pulse Pulse Resp BP BP Pulse Ox 11/28/18 13:32 51 L 14 156/87 H 94 11/28/18 13:01 45 L 13 139/83 92 11/28/18 12:31 46 L 17 132/86 95 11/28/18 12:02 46 L 10 L 152/85 H 94 11/28/18 11:56 46 L 18 151/93 H 95 11/28/18 11:54 46 L 19 151/93 H 95 11/28/18 11:01 48 L 14 121/85 96 11/28/18 10:31 49 L 12 128/82 96 11/28/18 10:06 60 29 H 160/102 H 11/28/18 09:31 49 L 15 165/90 H 100 11/28/18 09:01 60 16 159/90 H 100 11/28/18 09:00 49 L 16 153/85 H 99 11/28/18 08:43 166/91 H 93 11/28/18 08:31 58 L 18 170/93 H 98 11/28/18 08:19 100 11/28/18 08:07 65 20 166/96 H 99 07/11/19 07:50 36.4 C L 53 L 18 153/82 H 100
--- NOTE | 2018-11-28 14:45 | Emergency Department Note ---
Entered by Mary Hand acting as a scribe for Harvinder Crespo History of Present Illness General Chief complaint: Chest Pain Stated complaint: CHEST PAIN Time Seen by Provider: 11/28/18 07:54 Source: patient and old records reviewed History of Present Illness Provider complaint: chest pain Onset (ago): hour(s) (0400 this morning) Location: chest Radiation: back, neck, extremity (arms) and other (jaw) Maximum Pain Intensity: 8 Quality: + other (pain) Associated symptoms: + denies other symptoms (diarrhea) and + other (abdominal pain); no nausea/vomiting The patient is a 63 year old male who presents to the Emergency Department with complaints of chest pain and abdominal pain beginning at 0400 this morning. He states that he was not diaphoretic or short of breath with the pain but states that it has radiated to his back, neck, arms, and jaw. The patient denies a history of abdominal surgeries. The patient denies any trauma to his abdomen. He denies having nausea, vomiting, or diarrhea. He states that he did have a bowel movement this morning and that it was normal. He does report recent travel to [place] last week. He reports a history of atrial fibrillation. He states that he is on Pradaxa but has missed some doses. The patient also reports a history of an ulcer but states that he has not been taking his Carafate. Home Medications Home Medications Medication Instructions Recorded Confirmed Type atorvastatin 40 mg PO QAM 06/04/18 11/28/18 History levothyroxine 125 mcg PO QAM 06/04/18 11/28/18 History baclofen 10 mg PO TID PRN 11/28/18 11/28/18 History dabigatran etexilate [Pradaxa] 150 mg PO BID 11/28/18 11/28/18 History ezetimibe 10 mg PO QAM 11/28/18 11/28/18 History metoprolol tartrate 12.5 mg PO BID 11/28/18 11/28/18 History pantoprazole 40 mg PO QAM 11/28/18 11/28/18 History sucralfate 1 g PO ACHS 11/28/18 11/28/18 History Allergies Allergy/AdvReac Type Severity Reaction Status Date / Time apixaban [From Eliquis] Allergy Unknown eosinophili Unverified 11/28/18 08:00 a levofloxacin Allergy Unknown Timing Unverified 11/28/18 08:00 correlates with eosinophilia morphine AdvReac Intermediate Nausea/Vomi Verified 11/28/18 08:00 ting codeine AdvReac Verified 11/28/18 08:00 Past Med/Surg History Medical History Dyslipidemia (Chronic) Tobacco abuse (Resolved) Paroxysmal atrial fibrillation (Chronic) Thalamic infarction (Chronic) Continue care per primary hospitalist as well as cardiology HTN (hypertension) (Chronic) NSTEMI (non-ST elevated myocardial infarction) Surgical History History of thyroidectomy (Chronic) History of left knee surgery (Chronic) Family History Brother Diabetes Mother Hypertension Social History Preferred Language: Kazakh Communication Ability: Effective Visual Impairment: No Limitations Beliefs That Will Affect Care: None Current Living Situation: Alone Feels Safe at Home: Yes Smoking Status: Never smoker Tobacco Type: cigarettes Second Hand Exposure: No Hx Alcohol Use: No Hx Substance Use: No Review of Systems See HPI for pertinent positives & negatives. and A total of 10 systems reviewed and were otherwise negative Physical Exam Vital Signs Vital Signs - 24 hr 11/28/18 07:50 11/28/18 08:07 11/28/18 08:19 Temperature 36.4 C L Temperature Source Oral Sepsis Recent Fever Within 48 Hours No Sepsis New/Unexplained Change in Mental Status No Sepsis Action Taken by Nursing No Action Required Pulse Rate 53 L Pulse Rate [Apical] 65 Pulse Rate from SpO2 Sensor Respiratory Rate 18 20 Blood Pressure 153/82 H Blood Pressure [Left Arm] 166/96 H Blood Pressure Mean 105 Blood Pressure Mean [Left Arm] 119 Pulse Oximetry 100 99 100 Oxygen Delivery Method Room Air Room Air Room Air 11/28/18 08:31 11/28/18 08:43 11/28/18 09:00 Temperature Temperature Source Sepsis Recent Fever Within 48 Hours Sepsis New/Unexplained Change in Mental Status Sepsis Action Taken by Nursing Pulse Rate 58 L 49 L Pulse Rate [Apical] Pulse Rate from SpO2 Sensor 60 61 49 L Respiratory Rate 18 16 Blood Pressure 170/93 H 166/91 H 153/85 H Blood Pressure [Left Arm] Blood Pressure Mean 118 116 107 Blood Pressure Mean [Left Arm] Pulse Oximetry 98 93 99 Oxygen Delivery Method 11/28/18 09:01 11/28/18 09:31 11/28/18 10:06 Temperature Temperature Source Sepsis Recent Fever Within 48 Hours Sepsis New/Unexplained Change in Mental Status Sepsis Action Taken by Nursing Pulse Rate 60 49 L 60 Pulse Rate [Apical] Pulse Rate from SpO2 Sensor 52 L 50 L Respiratory Rate 16 15 29 H Blood Pressure 159/90 H 165/90 H 160/102 H Blood Pressure [Left Arm] Blood Pressure Mean 113 115 121 Blood Pressure Mean [Left Arm] Pulse Oximetry 100 100 Oxygen Delivery Method 11/28/18 10:31 11/28/18 11:01 11/28/18 11:54 Temperature Temperature Source Sepsis Recent Fever Within 48 Hours Sepsis New/Unexplained Change in Mental Status Sepsis Action Taken by Nursing Pulse Rate 49 L 48 L 46 L Pulse Rate [Apical] Pulse Rate from SpO2 Sensor 49 L 49 L 46 L Respiratory Rate 12 14 19 Blood Pressure 128/82 121/85 151/93 H Blood Pressure [Left Arm] Blood Pressure Mean 97 97 112 Blood Pressure Mean [Left Arm] Pulse Oximetry 96 96 95 Oxygen Delivery Method 11/28/18 11:56 11/28/18 12:02 11/28/18 12:31 Temperature Temperature Source Sepsis Recent Fever Within 48 Hours Sepsis New/Unexplained Change in Mental Status Sepsis Action Taken by Nursing Pulse Rate 46 L 46 L Pulse Rate [Apical] 46 L Pulse Rate from SpO2 Sensor 45 L 45 L Respiratory Rate 18 10 L 17 Blood Pressure 152/85 H 132/86 Blood Pressure [Left Arm] 151/93 H Blood Pressure Mean 107 101 Blood Pressure Mean [Left Arm] 112 Pulse Oximetry 95 94 95 Oxygen Delivery Method Room Air 11/28/18 13:01 11/28/18 13:32 11/28/18 14:14 Temperature Temperature Source Sepsis Recent Fever Within 48 Hours Sepsis New/Unexplained Change in Mental Status Sepsis Action Taken by Nursing Pulse Rate 45 L 51 L Pulse Rate [Apical] 49 L Pulse Rate from SpO2 Sensor 46 L 51 L Respiratory Rate 13 14 18 Blood Pressure 139/83 156/87 H Blood Pressure [Left Arm] 137/90 Blood Pressure Mean 101 110 Blood Pressure Mean [Left Arm] 105 Pulse Oximetry 92 94 97 Oxygen Delivery Method Room Air 11/28/18 14:15 11/28/18 14:31 Temperature Temperature Source Sepsis Recent Fever Within 48 Hours Sepsis New/Unexplained Change in Mental Status Sepsis Action Taken by Nursing Pulse Rate Pulse Rate [Apical] Pulse Rate from SpO2 Sensor 49 L 46 L Respiratory Rate Blood Pressure 137/90 138/87 Blood Pressure [Left Arm] Blood Pressure Mean 105 104 Blood Pressure Mean [Left Arm] Pulse Oximetry 98 95 Oxygen Delivery Method GENERAL: He is oriented to person, place, and time. He appears well-developed and well-nourished. He does not appear distressed. HENT: Exam performed. - Head: Normocephalic and atraumatic. - Right Ear: External ear normal. No mastoid tenderness. - Left Ear: External ear normal. No mastoid tenderness. - Mouth/Throat: The oropharynx is clear and moist. No trismus in the jaw. No dental abscesses or uvula swelling. No oropharyngeal exudate or tonsillar abscesses. EYES: Conjunctivae and EOM are normal. Pupils are equal, round, and reactive to light. Right eye exhibits no discharge. Left eye exhibits no discharge. No scleral icterus. NECK: Normal range of motion. Neck supple. No JVD present. No spinous process tenderness present. No carotid bruit present. No rigidity. No tracheal deviation and normal range of motion present. No Brudzinski's sign and no Kernig's sign noted. CV: Normal rate, regular rhythm, normal heart sounds and intact distal pulses. There is no peripheral edema. Palpable radial pulses bue. PULM/CHEST: Effort normal and breath sounds normal. No respiratory distress. No stridor. He has no wheezes. He has no rales. - Chest Wall: He exhibits no tenderness. ABD: The abdomen is soft. Bowel sounds are normal. He has no distension. No mass is present. There is pain with palpation in the epigastrium and left upper quadrant. There is no rebound, no guarding, no Coley's sign and no tenderness at McBurney's point. Rovsig negative. MUSC/SKEL: Normal range of motion. There is no peripheral edema, tenderness or deformity. LYMPH: No cervical adenopathy. NEURO: He is alert and oriented to person, place, and time. He has normal strength. No cranial nerve deficit or sensory deficit. Coordination and gait normal. GCS eye subscore is 4. GCS verbal subscore is 5. GCS motor subscore is 6. Cerebellar tests wnl. SKIN: Skin is warm and dry. He is not diaphoretic. PSYCH: He has a normal mood and affect. Behavior is normal. Judgment and thought content normal. Course 0800: The patient was evaluated by Dr. Gay-Resident. 0844: The patient was evaluated in room B7. A history and physical were performed. Review of EMR shows that the patient had T-Wave inversions during his last admission which was in May. He had a cardiac catheterization done which was normal. The patient also has a history of a CVA, hypertension, and hyperlipidemia. 0938: The patient's vital signs are still stable. He is still reporting pain in his epigastric and left upper quadrant abdominal pain. The patient had no right upper quadrante tenderness. Negative Coley's sign. He was given 1 dose of Dilaudid. We will get a CT of his abdomen. 1311: CT of the abdomen showed cholelithiasis with suspected 5 mm stone in the cystic duct concerning for acute cholecystitis. There is also a pancreatic mass possibly seen at the head of the pancreas. Ultrasound of the right upper quadrant showed gallbladder distention with sludge and gallbladder wall thickening. Again repeat abdominal exams showed no pain on palpation of the right upper quadrant, pain on palpation of the epigastric area, Coley sign negative. Dr. Gay discussed the patient's case with Gregg MONSIVAIS who will see the patient to see if they need to do an ERCP. She also stated that there is pancreatitis shadowing and fullness so there may be a mass. 1313: Dr. Gay discussed the patient's case with Mary Kay Cole who has accepted the patient but requested we also talk to Surgery. Dr. Ruby was made aware of the patient. Consultations Consultation #1: Gregg MONSIVAIS Time: 13:11 Consultation #2: Mary Kay Cole Time: 13:13 Administered Medications Ioversol (Optiray 320 100ml) 94 ml IV ONCE PRN PRN Reason: Interaction Checking Stop: 12/02/18 09:57 Last Admin: 11/28/18 09:58 Dose: 94 ml Documented by: [id number] Discontinued Medications Hydromorphone HCl (Dilaudid) 0.5 mg IV NOW STA Stop: 11/28/18 09:17 Last Admin: 11/28/18 09:28 Dose: 0.5 mg Documented by: [id number] Ketorolac Tromethamine (Toradol) 30 mg IV NOW ONE Stop: 11/28/18 08:49 Last Admin: 11/28/18 08:52 Dose: 30 mg Documented by: [id number] Ondansetron HCl (Zofran) 4 mg IV NOW STA Stop: 11/28/18 09:17 Last Admin: 11/28/18 09:27 Dose: 4 mg Documented by: [id number] Sucralfate (Carafate Tab) 1 gm PO NOW STA Stop: 11/28/18 08:21 Last Admin: 11/28/18 08:23 Dose: 1 gm Documented by: [id number] Medical Decision Making Medical Records Attestation: I reviewed the patient's medical records. Home Medications Current Medication List: was personally reviewed by me Laboratory Data Attestation: I reviewed the patient's lab results. Result diagrams: 11/28/18 08:00 11/28/18 08:00 Lab Results 11/28/18 11/28/18 11/28/18 Range/Units 08:00 08:00 08:00 WBC 7.86 (4.8-10.8) K/uL RBC 4.06 L (4.7-6.1) M/uL Hgb 11.7 L (14.0-18.0) g/dL Hct 35.5 L (42-52) % MCV 87.4 (80-100) fL MCH 28.8 (25-34) pg MCHC 33.0 (32-36) g/dL RDW Std Deviation 47.6 H (36.4-46.3) fL RDW Coeff of Martin 14.9 H (11.5-14.5) % Plt Count 257 (130-400) K/uL MPV 10.3 (7.4-10.4) fL Immature Gran % (Auto) 0.0 % Neut % (Auto) 76.7 % Lymph % (Auto) 15.3 % Oxford % (Auto) 7.5 % Eos % (Auto) 0.4 % Baso % (Auto) 0.1 % Immature Gran # (Auto) 0.00 (0.00-0.02) K/uL Neut # (Auto) 6.03 (1.4-6.5) K/uL Lymph # (Auto) 1.20 (1.2-3.4) K/uL Oxford # (Auto) 0.59 (0.11-0.59) K/uL Eos # (Auto) 0.03 (0-0.5) K/uL Baso # (Auto) 0.01 (0-0.2) K/uL PT 10.6 (9.0-12.0) Seconds INR 1.0 (0.9-1.1) APTT 31.7 H (21.0-31.0) Seconds PTT Ratio 1.2 D-Dimer (0-500) ug/L FEU Sodium 139 (136-145) mmol/L Potassium 3.6 (3.5-5.1) mmol/L Chloride 105 (98-107) mmol/L Carbon Dioxide 27 (21-32) mmol/L Anion Gap 7.0 (3-11) BUN 19 H (7-18) mg/dl Creatinine 1.26 (0.6-1.4) mg/dl Est Cr Clr Drug Dosing 63.1 ml/min Est GFR ( Amer) 69.4 Est GFR (Non-Af Amer) 59.9 BUN/Creatinine Ratio 14.8 (10-20) Glucose 114 H (70-99) mg/dl Calcium 9.2 (8.5-10.1) mg/dl Total Bilirubin 0.4 (0.2-1) mg/dl AST 14 L (15-37) U/L ALT 15 (12-78) U/L Alkaline Phosphatase 102 (45-117) U/L Troponin I < 0.015 (0-0.045) ng/ml Total Protein 8.2 (6.4-8.2) gm/dl Albumin 3.9 (3.4-5.0) gm/dl Globulin 4.3 H (2.5-4.0) gm/dl Albumin/Globulin Ratio 0.9 (0.9-2) Lipase 173 (73-393) U/L 11/28/18 Range/Units 08:00 WBC (4.8-10.8) K/uL RBC (4.7-6.1) M/uL Hgb (14.0-18.0) g/dL Hct (42-52) % MCV (80-100) fL MCH (25-34) pg MCHC (32-36) g/dL RDW Std Deviation (36.4-46.3) fL RDW Coeff of Martin (11.5-14.5) % Plt Count (130-400) K/uL MPV (7.4-10.4) fL Immature Gran % (Auto) % Neut % (Auto) % Lymph % (Auto) % Oxford % (Auto) % Eos % (Auto) % Baso % (Auto) % Immature Gran # (Auto) (0.00-0.02) K/uL Neut # (Auto) (1.4-6.5) K/uL Lymph # (Auto) (1.2-3.4) K/uL Oxford # (Auto) (0.11-0.59) K/uL Eos # (Auto) (0-0.5) K/uL Baso # (Auto) (0-0.2) K/uL PT (9.0-12.0) Seconds INR (0.9-1.1) APTT (21.0-31.0) Seconds PTT Ratio D-Dimer 190 (0-500) ug/L FEU Sodium (136-145) mmol/L Potassium (3.5-5.1) mmol/L Chloride (98-107) mmol/L Carbon Dioxide (21-32) mmol/L Anion Gap (3-11) BUN (7-18) mg/dl Creatinine (0.6-1.4) mg/dl Est Cr Clr Drug Dosing ml/min Est GFR ( Amer) Est GFR (Non-Af Amer) BUN/Creatinine Ratio (10-20) Glucose (70-99) mg/dl Calcium (8.5-10.1) mg/dl Total Bilirubin (0.2-1) mg/dl AST (15-37) U/L ALT (12-78) U/L Alkaline Phosphatase (45-117) U/L Troponin I (0-0.045) ng/ml Total Protein (6.4-8.2) gm/dl Albumin (3.4-5.0) gm/dl Globulin (2.5-4.0) gm/dl Albumin/Globulin Ratio (0.9-2) Lipase (73-393) U/L Imaging Data Radiologist's Impression: Radiology results as stated below per my review and the radiologist's interpretation: XR chest 1V portable CLINICAL HISTORY: Chest Pain COMPARISON STUDY: Chest CT June 04, 2018. Chest radiograph June 13, 2018. FINDINGS: There is no pneumothorax or pleural effusion. Linear left basilar opacity favors atelectasis or scarring. There is no consolidation to suggest pneumonia. Note is made of mild cardiomegaly without evidence for pulmonary edema. IMPRESSION: No acute cardiopulmonary findings. Electronically signed by: Sabas Duarte M.D. 11/28/2018 8:40 AM XR abdomen min 2V HISTORY: 63 years-old Male LUQ abdominal and chest pain acute atypical chest pain with acute left upper quadrant abdominal pain COMPARISON: Chest radiograph 11/28/2018, CT abdomen and pelvis 06/21/2018 TECHNIQUE: 2 views of the abdomen. FINDINGS: Heart appears enlarged. No pneumatosis or pneumoperitoneum. Bowel gas pattern is nonobstructive. No urolith. Calcifications of the pelvis are suggestive of probable phleboliths. Vascular calcifications are noted. No acute fracture. Mild lumbar levoscoliosis. IMPRESSION: 1. Nonobstructive bowel gas pattern without pneumoperitoneum. 2. No urolith identified. The above report was generated using voice recognition software. It may contain grammatical, syntax or spelling errors. Electronically signed by: Tom Traore M.D. 11/28/2018 8:[address] OF THE ABDOMEN AND PELVIS WITH CONTRAST CLINICAL HISTORY: Abdominal pain radiating to back. Evaluate for acute pancreatitis. COMPARISON STUDY: CT of the abdomen and pelvis June 21, 2018. Abdominal series performed earlier today. TECHNIQUE: Following IV administration of 94 mL of Optiray-320, axial images of the abdomen and pelvis were obtained from the lung bases to the proximal femurs. Images were reviewed in the axial, sagittal, and coronal planes. IV contrast was administered without complication. Automated exposure control was utilized for the study. A dose lowering technique was utilized adhering to the principles of ALARA. CT DOSE: 373.52 mGy.cm FINDINGS: The heart is mildly enlarged. The liver, spleen, adrenal glands and kidneys are unremarkable with exception of a few suspected renal cyst. A few renal lesions are too small to characterize. There is scarring within the upper pole of the left kidney. There are gallstones within the gallbladder. The gallbladder is mildly distended. There is minimal pericholecystic infiltration. There is a probable 5 mm stone within the cystic duct on axial image 107 of 446. There is no biliary or pancreatic ductal dilatation. There are pancreatic parenchymal calcifications. A well-defined pancreatic mass is not identified. However, there is fullness within the pancreatic head. This is probably within normal limits. There is slight apparent mass effect upon the portosplenic confluence. No evidence for a bowel obstruction. The infrarenal aorta is ectatic. The appendix is normal. There is colonic diverticulosis without eviden ce for acute diverticulitis. There are no suspicious osseous lesions. IMPRESSION: 1. Cholelithiasis, mild gallbladder distention and mild pericholecystic infiltration with a suspected 5 mm stone within the cystic duct. The findings suggest acute cholecystitis. 2. Slight fullness within the pancreatic head with apparent mass effect upon the portosplenic confluence. A definite mass is not identified and the findings may be within normal limits. However, a nonemergent MRI of the pancreas once acute symptoms resolve is recommended to exclude a pancreatic lesion. 3. No biliary or pancreatic ductal dilatation. Electronically signed by: Sabas Duarte M.D. 11/28/2018 10:34 AM US gallbladder HISTORY: 63 years-old Male acute cholecystitis on CT acute right upper quadrant abdominal pain COMPARISON: CT abdomen and pelvis of same day TECHNIQUE: Multiple real time sonographic images of the abdominal right upper quadrant were obtained assessing grayscale appearance and color flow FINDINGS: Pancreas is mostly obscured by bowel gas. Liver is unremarkable without focal mass or intrahepatic biliary ductal dilation. Gallbladder distention with wall thickening measuring up to 4 mm. Echogenic foci within the dependent gallbladder lumen are noted without posterior acoustic shadowing. No pericholecystic fluid identified. Sonographic Coley sign unable to be assessed secondary to recent pain medication administration. Common bile duct measures 8 mm. 3 mm echogenic focus within the common bile duct is noted. No hydronephrosis. 2.3 cm cyst of the inferior pole right kidney. IMPRESSION: 1. Gallbladder distention with gallbladder sludge and mild gallbladder wall thickening. No definite shadowing cholelithiasis or pericholecystic fluid identified. Correlate clinically to exclude acute cholecystitis. 2. Mild dilation of the common bile duct with equivocal choledocholithiasis. The above report was generated using voice recognition software. It may contain grammatical, syntax or spelling errors. Electronically signed by: Tom Traore M.D. 11/28/2018 12:19 PM ECG Data Attestation: I personally reviewed and interpreted this ECG as follows: Indication: chest pain Rate (beats per minute): 49 Rhythm: sinus bradycardia Findings: + other (R, QRS, QTC within normal limits) and + RBBB; no ST depr ession, no ST elevation and no acute ischemic change Blood Pressure Blood Pressure Findings: Elevated blood pressure Blood Pressure Disposition: further management by hospitalist SVITLANA Narrative 0800: The patient was evaluated by Dr. Gay-Resident. 0844: The patient was evaluated in room B7. A history and physical were performed. Review of EMR shows that the patient had T-Wave inversions during his last admission which was in May. He had a cardiac catheterization done which was normal. The patient also has a history of a CVA, hypertension, and hyperlipidemia. 0938: The patient's vital signs are still stable. He is still reporting pain in his epigastric and left upper quadrant abdominal pain. The patient had no right upper quadrante tenderness. Negative Coley's sign. He was given 1 dose of Dilaudid. We will get a CT of his abdomen. 1311: CT of the abdomen showed cholelithiasis with suspected 5 mm stone in the cystic duct concerning for acute cholecystitis. There is also a pancreatic mass possibly seen at the head of the pancreas. Ultrasound of the right upper quadrant showed gallbladder distention with sludge and gallbladder wall thickening. Again repeat abdominal exams showed no pain on palpation of the right upper quadrant, pain on palpation of the epigastric area, Coley sign negative. Dr. Gay discussed the patient's case with Gregg Nunes PA-C GI who will see the patient to see if they need to do an ERCP. She also stated that there is pancreatitis shadowing and fullness so there may be a mass. 1313: Dr. Gay discussed the patient's case with Mary Kay Cole who has accepted the patient but requested we also talk to Surgery. Dr. Ruby was made aware of the patient. Impression & Plan Choledocholithiasis, Pancreatic mass Discharge Plan Visit Data Chief Complaint: Chest Pain Stated Complaint: CHEST PAIN ED Provider: Harvinder Crespo ED Midlevel Provider: Clive Gay Discharge Problem: Choledocholithiasis, Pancreatic mass Patient Disposition: Being Evaluated by Hospitalist Forms Stand Alone Forms: Call Back Authorization, My [facility] Prescriptions Prescriptions: No Action atorvastatin 40 mg tablet 40 mg PO QAM RF: 0 levothyroxine 125 mcg tablet 125 mcg PO QAM RF: 0 sucralfate 1 gram Tablet 1 g PO ACHS RF: 0 baclofen 10 mg Tablet 10 mg PO TID PRN (Reason: Muscle Spasm) RF: 0 pantoprazole 40 mg Tablet,Delayed Release (Dr/Ec) 40 mg PO QAM RF: 0 ezetimibe 10 mg Tablet 10 mg PO QAM RF: 0 metoprolol tartrate 25 mg Tablet 12.5 mg PO BID RF: 0 Pradaxa 150 mg Capsule 150 mg PO BID RF: 0 Referrals Referrals: Nahum Lauren MD [Primary Care Provider] - The scribe's documentation has been prepared under my direction and personally reviewed by me in its entirety. I confirm that the note above accurately reflects all work, treatment, procedures, and medical decision making performed by me.
--- NOTE | 2018-11-28 15:38 | Surgery Consultation ---
Date of Consultation November 28, 2018 Assessment & Plan (1) LUQ abdominal pain: Equivocal findings for acute cholecystitis, no urgency for cholecystectomy. Await further work-up, will follow for possible cholecystectomy. Supervising Physician Co-Signing Physician Notes Patient S&E, agree with above. 63 y/o male with left sided abd pain and gas bloating. Labs normal, pain now resolved. CT with possible cholecystitis, also pancreatic head fullness. US with stones, possible cholecystitis, and possible cbd stone. On pradaxa. Now pain free. Agree with admission, MRCP, hold a/c. Clinically does not appear to be consistent with acute cholecystitis. Will follow. History of Present Illness History of Present Illness 63 y/o male admitted today for LUQ pain. First had this 3 weeks ago after eating ice cream, 2 weeks ago after eating pizza, and again this morning. No history of RUQ pain or fatty food intolerance prior to this. U/S suggests CBD stone, MRCP is pending. He is on Pradaxa after CVA in May 2018. Allergies Allergy/AdvReac Type Severity Reaction Status Date / Time apixaban [From Eliquis] Allergy Unknown eosinophili Unverified 11/28/18 08:00 a levofloxacin Allergy Unknown Timing Unverified 11/28/18 08:00 correlates with eosinophilia morphine AdvReac Intermediate Nausea/Vomi Verified 11/28/18 08:00 ting codeine AdvReac Verified 11/28/18 08:00 Home Medications Home Medications Medication Instructions Recorded Confirmed Type levothyroxine 125 mcg PO QAM 06/04/18 11/28/18 History amlodipine 2.5 mg PO DAILY 11/28/18 11/28/18 History atorvastatin 80 mg PO DAILY 11/28/18 11/28/18 History baclofen 10 mg PO TID PRN 11/28/18 11/28/18 History dabigatran etexilate [Pradaxa] 150 mg PO BID 11/28/18 11/28/18 History ezetimibe 10 mg PO QAM 11/28/18 11/28/18 History metoprolol tartrate 12.5 mg PO BID 11/28/18 11/28/18 History pantoprazole 40 mg PO QAM 11/28/18 11/28/18 History sucralfate 1 g PO ACHS 11/28/18 11/28/18 History Patient History Medical History CVA (cerebral vascular accident) (Chronic) Depression (Chronic) Hypereosinophilic syndrome, idiopathic (Resolved) Upper GI bleed (Resolved) Pericardial effusion (Resolved) Dyslipidemia (Chronic) 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) Tobacco abuse (Resolved) Paroxysmal atrial fibrillation (Chronic) HTN (hypertension) (Chronic) Surgical History History of thyroidectomy (Chronic) History of left knee surgery (Chronic) Family History Brother Diabetes Mother Hypertension Social History Preferred Language: Portuguese Communication Ability: Effective Visual Impairment: No Limitations Beliefs That Will Affect Care: None Current Living Situation: Alone Feels Safe at Home: Yes Smoking Status: Former smoker Tobacco Type: cigarettes Second Hand Exposure: No Hx Alcohol Use: No Hx Substance Use: No Review of Systems Gastrointestinal: + abdominal pain, + bloating and + nausea; no change in stools Physical Exam Constitutional: WD/WN, vitals as above Respiratory: + respiratory distress Cardiovascular: Rate/Rhythm: regular rate Gastrointestinal (Abdomen): Inspection/Auscultation: abdomen not distended Percussion/Palpation: abdomen soft; abdomen nontender and no hepatomegaly Results & Data Vital Signs (Past 12 Hours) Vital Signs Temp Pulse Pulse Resp BP BP Pulse Ox 11/28/18 14:31 138/87 95 11/28/18 14:15 137/90 98 11/28/18 14:14 49 L 18 137/90 97 11/28/18 13:32 51 L 14 156/87 H 94 11/28/18 13:01 45 L 13 139/83 92 11/28/18 12:31 46 L 17 132/86 95 11/28/18 12:02 46 L 10 L 152/85 H 94 11/28/18 11:56 46 L 18 151/93 H 95 11/28/18 11:54 46 L 19 151/93 H 95 11/28/18 11:01 48 L 14 121/85 96 11/28/18 10:31 49 L 12 128/82 96 11/28/18 10:06 60 29 H 160/102 H 11/28/18 09:31 49 L 15 165/90 H 100 11/28/18 09:01 60 16 159/90 H 100 11/28/18 09:00 49 L 16 153/85 H 99 11/28/18 08:43 166/91 H 93 11/28/18 08:31 58 L 18 170/93 H 98 11/28/18 08:19 100 11/28/18 08:07 65 20 166/96 H 99 11/28/18 07:50 36.4 C L 53 L 18 153/82 H 100
--- NOTE | 2018-11-28 15:43 | History & Physical Report ---
Date of Service November 28, 2018 Assessment & Plan (1) LUQ abdominal pain: -Admit to [facility] with telemetry -Patient presenting from home with reports of left upper quadrant pain. Patient reports he has had about 3 episodes in the past 1 month. -In the ED, CT ABD/pelvis showing possible choledocholithiasis, acute cholecystitis, pancreatic head fullness -LFTs WNL, afebrile, no leukocytosis -will start patient on IV Zosyn for possible acute cholecystitis -Obtain MRCP -Unable to have invasive procedure at this time as patient is on Pradaxa (last dose this a.m.) -GI consult, input appreciated -General surgery consult, input appreciated (2) History of CVA (cerebrovascular accident): -History of watershed CVA 05/2018 while taking Eliquis, at that time patient was transition to Pradaxa -Anticoagulation was discussed with Dr. Garcia -Hold Pradaxa for possible need for invasive procedure, will start IV heparin at the time of patient's next Pradaxa dose is due (3) History of duodenal ulcer: -History of bleeding duodenal ulcer 05/2018 -will increase PPI to twice daily while on IV heparin (4) Paroxysmal atrial fibrillation: -Rate controlled on metoprolol, will continue -Anticoagulation as above (5) HTN (hypertension): -BP controlled, continue amlodipine and metoprolol (6) Dyslipidemia: -Continue statin and Zetia (7) DVT prophylaxis: -On IV heparin as above History of Present Illness Chief Complaint: Right upper quadrant pain Primary Care Provider: Nahum Lauren MD 63-year-old male who presents to the ED with right upper quadrant pain. Patient reports this is his third episode in the past 1 month. Prior episodes he reports he was able to resolve by taking Pepto-Bismol and Pepsi. He reports pain woke him out of sleep this morning around 4 AM. He attempted taking Pepto- Bismol and Pepsi however pain persisted. Patient therefore presented to the ED for further evaluation. Patient denies any associated nausea or vomiting. No diarrhea, patient reports normal bowel movement this morning. No fevers or chills. He denies chest pain shortness of breath. No lightheadedness, dizziness, diaphoresis, syncopal events. No urinary symptoms. In the ED, patient is hemodynamically stable and labs are unremarkable. CT ABD/pelvis is showing cholelithiasis, mild gallbladder distention and mild pericholecystic infiltration with a suspected 5 mm stone within the cystic duct. The findings suggest acute cholecystitis. He was given p.o. sucralfate, IV Zofran, IV ketorolac, IV hydromorphone. Allergies Allergy/AdvReac Type Severity Reaction Status Date / Time apixaban [From Eliquis] Allergy Unknown eosinophili Verified 12/11/18 12:47 a levofloxacin Allergy Unknown Timing Verified 12/11/18 12:47 correlates with eosinophilia morphine AdvReac Intermediate Nausea/Vomi Verified 12/11/18 12:47 ting codeine AdvReac Unknown Nausea Verified 12/11/18 12:47 Home Medications Home Medications Medication Instructions Recorded Confirmed Type levothyroxine 125 mcg PO QAM 06/04/18 12/07/18 History Pradaxa 150 mg PO BID 11/28/18 12/07/18 History amlodipine 2.5 mg PO QAM 11/28/18 12/07/18 History atorvastatin 80 mg PO QAM 11/28/18 12/07/18 History ezetimibe 10 mg PO QAM 11/28/18 12/07/18 History metoprolol tartrate 12.5 mg PO BID 11/28/18 12/07/18 History pantoprazole 40 mg PO QAM 11/28/18 12/07/18 History sucralfate 1 g PO ACHS 11/28/18 12/07/18 History dicyclomine 10 mg PO TID PRN #90 cap 11/29/18 12/07/18 Rx Past Med/Surg History Medical History History of CVA (cerebrovascular accident) (Chronic) Depression (Chronic) Hypereosinophilic syndrome, idiopathic (Resolved) Dyslipidemia (Chronic) 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) Tobacco abuse (Resolved) Paroxysmal atrial fibrillation (Chronic) HTN (hypertension) (Chronic) Surgical History History of thyroidectomy (Chronic) History of left knee surgery (Chronic) History of esophagogastroduodenoscopy (EGD) Hx of endoscopic retrograde cholangiopancreatography Family History Brother Diabetes Mother Hypertension Social History Preferred Language: [place]an Communication Ability: Effective Visual Impairment: No Limitations Beer Cooler Required: No Beliefs That Will Affect Care: None Current Living Situation: Alone Feels Safe at Home: Yes Smoking Status: Former smoker Tobacco Type: cigarettes ; Cigarettes Per Day: 20 ; Second Hand Exposure: No ; Hx Alcohol Use: No Hx Substance Use: No Review of Systems Review of Systems: ROS per HPI, all other systems reviewed and negative Physical Exam 2 Constitutional: WD/WN, vitals as above Eyes: PERRL, conjunctivae normal, anicteric sclerae ENMT: external ear and nose normal, oropharynx normal Respiratory: normal respiratory effort, lungs clear to auscultation Cardiovascular: Rate/Rhythm: regular rate and regular rhythm Vessels: normal peripheral pulses Extremities: no edema Gastrointestinal (Abdomen): normal bowel sounds, soft, nontender, no hepatosplenomegaly Musculoskeletal: no cyanosis or clubbing, extremities motor strength 5/5 Skin: no rashes, warm and dry Neurologic: PERRL, EOMI, accommodation nl, no face palsy, no dysarthria Psychiatric: A+Ox3, euthymic affect Results & Data Vital Signs (Past 12 Hours) Vital Signs Temp Pulse Pulse Resp BP BP Pulse Ox 11/28/18 14:31 138/87 95 11/28/18 14:15 137/90 98 11/28/18 14:14 49 L 18 137/90 97 11/28/18 13:32 51 L 14 156/87 H 94 11/28/18 13:01 45 L 13 139/83 92 11/28/18 12:31 46 L 17 132/86 95 11/28/18 12:02 46 L 10 L 152/85 H 94 11/28/18 11:56 46 L 18 151/93 H 95 11/28/18 11:54 46 L 19 151/93 H 95 11/28/18 11:01 48 L 14 121/85 96 11/28/18 10:31 49 L 12 128/82 96 11/28/18 10:06 60 29 H 160/102 H 11/28/18 09:31 49 L 15 165/90 H 100 11/28/18 09:01 60 16 159/90 H 100 11/28/18 09:00 49 L 16 153/85 H 99 11/28/18 08:43 166/91 H 93 11/28/18 08:31 58 L 18 170/93 H 98 11/28/18 08:19 100 11/28/18 08:07 65 20 166/96 H 99 11/28/18 07:50 36.4 C L 53 L 18 153/82 H 100 Laboratory Results Short CBC 11/28/18 Range/Units 08:00 WBC 7.86 (4.8-10.8) K/uL Hgb 11.7 L (14.0-18.0) g/dL Hct 35.5 L (42-52) % Plt Count 257 (130-400) K/uL BMP 11/28/18 08:00 Sodium 139 Potassium 3.6 Chloride 105 Carbon Dioxide 27 BUN 19 H Creatinine 1.26 Glucose 114 H Calcium 9.2 Cardiac Enzymes 11/28/18 Range/Units 08:00 Troponin I < 0.015 (0-0.045) ng/ml Liver Function 11/28/18 Range/Units 08:00 Total Bilirubin 0.4 (0.2-1) mg/dl AST 14 L (15-37) U/L ALT 15 (12-78) U/L Alkaline Phosphatase 102 (45-117) U/L Albumin 3.9 (3.4-5.0) gm/dl Diagnostic Findings CXR IMPRESSION: No acute cardiopulmonary findings. ABDOMEN X-RAY IMPRESSION: 1. Nonobstructive bowel gas pattern without pneumoperitoneum. 2. No urolith identified. CT ABD/PELVIS IMPRESSION: 1. Cholelithiasis, mild gallbladder distention and mild pericholecystic infiltration with a suspected 5 mm stone within the cystic duct. The findings suggest acute cholecystitis. 2. Slight fullness within the pancreatic head with apparent mass effect upon the portosplenic confluence. A definite mass is not identified and the findings may be within normal limits. However, a nonemergent MRI of the pancreas once acute symptoms resolve is recommended to exclude a pancreatic lesion. 3. No biliary or pancreatic ductal dilatation. GALLBLADDER ULTRASOUND IMPRESSION: 1. Gallbladder distention with gallbladder sludge and mild gallbladder wall thickening. No definite shadowing cholelithiasis or pericholecystic fluid identified. Correlate clinically to exclude acute cholecystitis. 2. Mild dilation of the common bile duct with equivocal choledocholithiasis. Code Status & VTE Plan VTE Prophylaxis Plan VTE Prophylaxis will be ordered: Yes Supervising Physician Co-Signing Physician Notes 63-year-old male with PMH of CVA, duodenal ulcer paroxysmal afib, HTN who presents to the ED with right upper quadrant pain. CT abd/pelvis showed c holelithiasis, mild gallbladder distention and mild pericholecystic infiltration with a suspected 5 mm stone within the cystic duct. Starting on IV Zosyn for possible acute cholecystitis. GI on board recommended to keep NPO for now for bowel rest and will obtain MRCP to r/o biliary stone. If positive will de termine timing of ERC. Surgery consulted and recommended conservative management for now. Continue pain control. Will continue monitor closely. MD Essie
[2018-11-28] MEDS ORDERED: PIPERACILL/TAZOBAC CONSULT ACTIVE PRN (15:50)
[2018-11-28] MEDS ORDERED: ACETAMINOPHEN 325 MG TAB PO PRN (15:50)
[2018-11-28] MEDS ORDERED: PIPERACILLIN/TAZOBACTAM 3.375 GM in DEXTROSE 5% 100 ML IV ONE (16:00)
[2018-11-28] MEDS ORDERED: Heparin IV Standard *NO* Bolus IV SCH (16:05)
[2018-11-28] MEDS: SUCRALFATE 1 GM TAB PO SCH ×2 (17:15→20:19)
[2018-11-28] MEDS ORDERED: Heparin IV Standard *NO* Bolus IV ONE (18:30)
[2018-11-28] MEDS: Heparin Adult STANDARD Wt-Based Dextrose 5% 25,000 units/500 mL IV SCH (18:48)
--- NOTE | 2018-11-28 20:09 | Magnetic Resonance Report ---
MR MRCP CLINICAL HISTORY: 63 years-old Male presenting with acute cholecystitis, r/o biliary stone. TECHNIQUE: Multisequence, multiplanar MR imaging of the abdomen was performed without the use of intr avenous contrast. Dedicated MRCP protocol was utilized. 3-D volumetric and/or maximum intensity proje ction (MIP) images were subsequently reconstructed for review. IV contrast: None. COMPARISON: Ultrasound and CT performed earlier the same day. FINDINGS: Localizer images: Unremarkable. Lung bases: Normal heart size. No pericardial or pleural effusion. Lung base clear. Liver: Normal morphology. Biliary: Conventional intrahepatic biliary bifurcation. No intrahepatic or extrahepatic biliary ducta l dilatation. No choledocholithiasis. Conventional insertion of the cystic duct onto the common hepat ic duct. Gallbladder wall thickening and a mildly distended gallbladder. Intramural cystic change at the fundus may suggest adenomyomatosis. No cholelithiasis evident. Pancreas: Normal noncontrast appearance. Limited evaluation for underlying lesion. Spleen: Normal noncontrast appearance. Adrenal glands: Normal noncontrast appearance. Kidneys and ureters: Few cysts, the largest an exophytic lower pole right renal cyst. No hydronephros is. Bowel: Normal noncontrast appearance. No bowel obstruction. Peritoneal cavity: No free fluid. Lymph nodes: No gross lymphadenopathy allowing for noncontrast technique. Vasculature: Normal noncontrast appearance. Abdominal wall: Normal. Musculoskeletal: Normal. IMPRESSION: 1. Gallbladder wall thickening and mildly distended gallbladder again raises concern for cholecystit is, acute or chronic. 2. No cholelithiasis or choledocholithiasis. 3. No biliary ductal dilatation. Electronically signed by: Darryl Osorio M.D. 11/28/2018 8:08 PM
[2018-11-28] MEDS: PANTOprazole 40 MG TAB PO SCH (20:19)
[2018-11-28] MEDS: METOPROLOL TARTRATE 25 MG TAB PO SCH (20:19)
[2018-11-29] MEDS: PIPERACILLIN/TAZOBACTAM 3.375 GM in DEXTROSE 5% 100 ML IV SCH ×2 (00:20→08:27)
[2018-11-29 01:09] LABS: Partial Thromboplastin Time 80.2 Seconds (21.0-31.0)
[2018-11-29] MEDS ORDERED: LEVOTHYROXINE SODIUM 125 MCG TABLET PO SCH (06:30)
[2018-11-29 07:20] LABS: Hematocrit (blood only) 34.8 % (42-52); Hemoglobin 11.5 g/dL (14.0-18.0); Mean Corpuscular Volume 87.9 fL (80-100); Mean Platelet Volume 10.3 fL (7.4-10.4); Platelet Count 238 K/uL (130-400); RDW Coefficient of Variation 14.9 % (11.5-14.5); Red Blood Count 3.96 M/uL (4.7-6.1); White Blood Count 5.77 K/uL (4.8-10.8)
[2018-11-29 07:41] LABS: Partial Thromboplastin Ratio 3.2
[2018-11-29 07:52] LABS: Partial Thromboplastin Time 86.8 Seconds (21.0-31.0)
[2018-11-29 07:53] LABS: Albumin Level 3.1 gm/dl (3.4-5.0); Calcium 8.9 mg/dl (8.5-10.1); Creatinine Clr Calc Pharmacy 69.1 ml/min; Est GFR (African American) 77.5; Est GFR (Non-African American) 66.9; Potassium 3.8 mmol/L (3.5-5.1)
[2018-11-29 07:56] LABS: Albumin Globulin Ratio 0.7 (0.9-2); Bilirubin,Total 0.6 mg/dl (0.2-1); Globulin 4.1 gm/dl (2.5-4.0); Total Protein 7.2 gm/dl (6.4-8.2)
[2018-11-29] MEDS: Heparin Adult STANDARD Wt-Based Dextrose 5% 25,000 units/500 mL IV SCH (08:22)
[2018-11-29] MEDS: METOPROLOL TARTRATE 25 MG TAB PO SCH (08:26)
[2018-11-29] MEDS: PANTOprazole 40 MG TAB PO SCH (08:26)
[2018-11-29] MEDS: SUCRALFATE 1 GM TAB PO SCH ×2 (08:27→11:35)
[2018-11-29] MEDS ORDERED: EZETIMIBE 10 MG TABLET PO SCH (09:00)
[2018-11-29] MEDS ORDERED: ATORVASTATIN 40 MG TAB PO SCH (09:00)
[2018-11-29] MEDS ORDERED: AMLODIPINE BESYLATE 5 MG TAB PO SCH (09:00)
--- NOTE | 2018-11-29 09:23 | Surgery Progress Note ---
Date of Service November 29, 2018 Assessment & Plan (1) LUQ abdominal pain: 63 y/o male with LUQ pain, possible cholecystitis, possible pancreatic head mass, and history of ulcer. Clinically doesn't appear to be acute cholecystitis, recommend complete workup for pancreatic head mass and EGD with EUS. okay to Advance diet follow up as outpatient avoid fatty meals. Present on Admission?: Yes Subjective 63 y/o male with LUQ pain, possible cholecystitis and pancreatic head mass vs. edema. Feels fine this morning, tolerating liquids, no pain. MRCP negative for choledocholithiasis. Physical Exam Constitutional: WD/WN, vitals as above Gastrointestinal (Abdomen): normal bowel sounds, soft, nontender, no hepatosplenomegaly Results & Data Vital Signs (Past 12 Hours) Vital Signs Temp Pulse Pulse Pulse Resp BP Pulse Ox 11/29/18 07:20 37.0 C 46 L 18 142/83 H 93 11/29/18 04:05 36.6 C 45 L 20 143/82 H 95 11/29/18 00:00 36.6 C 47 L 20 150/86 H 94 11/28/18 23:00 45 L Laboratory Results Laboratory Results - last 24 hr 11/28/18 11/29/18 11/29/18 08:00 00:30 07:01 WBC 5.77 RBC 3.96 L Hgb 11.5 L Hct 34.8 L MCV 87.9 MCH 29.0 MCHC 33.0 RDW Std Deviation 48.0 H RDW Coeff of Martin 14.9 H Plt Count 238 MPV 10.3 APTT 80.2 H* PTT Ratio 3.0 Sodium Potassium Chloride Carbon Dioxide Anion Gap BUN Creatinine Est Cr Clr Drug Dosing Est GFR ( Amer) Est GFR (Non-Af Amer) BUN/Creatinine Ratio Glucose Calcium Total Bilirubin AST ALT Alkaline Phosphatase Total Protein Albumin Globulin Albumin/Globulin Ratio Hepatitis C Ab Screen Pos A 11/29/18 11/29/18 07:01 07:01 WBC RBC Hgb Hct MCV MCH MCHC RDW Std Deviation RDW Coeff of Martin Plt Count MPV APTT 86.8 H* PTT Ratio 3.2 Sodium 142 Potassium 3.8 Chloride 106 Carbon Dioxide 30 Anion Gap 6.0 BUN 13 Creatinine 1.15 Est Cr Clr Drug Dosing 69.1 Est GFR ( Amer) 77.5 Est GFR (Non-Af Amer) 66.9 BUN/Creatinine Ratio 11.0 Glucose 91 Calcium 8.9 Total Bilirubin 0.6 AST 13 L ALT 12 Alkaline Phosphatase 97 Total Protein 7.2 Albumin 3.1 L Globulin 4.1 H Albumin/Globulin Ratio 0.7 L Hepatitis C Ab Screen Diagnostic Findings MR MRCP CLINICAL HISTORY: 63 years-old Male presenting with acute cholecystitis, r/o biliary stone. TECHNIQUE: Multisequence, multiplanar MR imaging of the abdomen was performed without the use of intravenous contrast. Dedicated MRCP protocol was utilized. 3-D volumetric and/or maximum intensity projection (MIP) images were subsequently reconstructed for review. IV contrast: None. COMPARISON: Ultrasound and CT performed earlier the same day. FINDINGS: Localizer images: Unremarkable. Lung bases: Normal heart size. No pericardial or pleural effusion. Lung base clear. Liver: Normal morphology. Biliary: Conventional intrahepatic biliary bifurcation. No intrahepatic or extrahepatic biliary ductal dilatation. No choledocholithiasis. Conventional insertion of the cystic duct onto the common hepatic duct. Gallbladder wall thickening and a mildly distended gallbladder. Intramural cystic change at the fundus may suggest adenomyomatosis. No cholelithiasis evident. Pancreas: Normal noncontrast appearance. Limited evaluation for underlying lesion. Spleen: Normal noncontrast appearance. Adrenal glands: Normal noncontrast appearance. Kidneys and ureters: Few cysts, the largest an exophytic lower pole right renal cyst. No hydronephrosis. Bowel: Normal noncontrast appearance. No bowel obstruction. Peritoneal cavity: No free fluid. Lymph nodes: No gross lymphadenopathy allowing for noncontrast technique. Vasculature: Normal noncontrast appearance. Abdominal wall: Normal. Musculoskeletal: Normal. IMPRESSION: 1. Gallbladder wall thickening and mildly distended gallbladder again raises concern for cholecystitis, acute or chronic. 2. No cholelithiasis or choledocholithiasis. 3. No biliary ductal dilatation.
--- NOTE | 2018-11-29 09:48 | Hospitalist Progress Note ---
Date of Service November 29, 2018 Assessment & Plan (1) Chronic cholecystitis: Presented with a typical pain discomfort, left lower quadrant pain Symptoms usually brought in by ingestion of fatty food Had 3 episodes in last few months CT abdomen pelvis suggestive of gallstone and gallbladder thickening suggestive of chronic cholecystitis no evidence of choledocholithiasis on MRCP Patient was initially started with IV Zosyn, will be discontinued and have as no evidence of infection noted Patient evaluated by surgical team, appreciate input Plan for outpatient follow-up and elective cholecystectomy after GI work-up for pancreatic fullness noted in CT abdomen pelvis/endoscopic ultrasound Patient is asked to avoid fatty diet,-which has been precipitating his gallbladder colic/abdominal pain Information given to low-fat diet (2) LUQ abdominal pain: -Patient presented from home with reports of left upper quadrant pain. Patient reports he has had about 3 episodes in the past 1 month. -Symptom has resolved completely -In the ED, CT ABD/pelvis showing possible choledocholithiasis, acute cholecystitis, pancreatic head fullness -LFTs WNL, afebrile, no leukocytosis -MRCP shows no choledocholithiasis She was started with IV heparin bridge therapy, Pradaxa kept on hold for possible surgical procedure -Appreciate input from general surgery: As patient clinical symptoms has completely resolved, CT abdomen pelvis suggestive of chronic cholecystitis Does not need any emergent surgical intervention, recommend continued GI work-up possible EUS as an outpatient for fullness noted on the pancreatic head -Surgery will follow patient in clinic, for possible elective cholecystectomy in future, will coordinate with cardiology clinic anticoagulation clinic for anticoagulation interruption and possible Lovenox bridge therapy - (3) History of CVA (cerebrovascular accident): -History of chronic A. fib-leading to possible embolic stroke -History of watershed CVA 05/2018 while taking Eliquis -/ at that time patient was transition to Pradaxa - Pradaxa was kept on hold for possible need for invasive procedure, started IV heparin -IV heparin will be discontinued, Pradaxa resumed as no plan for surgical procedure or endoscopy Patient will need outpatient coordination with anticoagulation clinic and cardiology clinic for interruption of anticoagulation and bridge therapy prior to GI procedure/EUS /surgical procedure- cholecystectomy (4) History of duodenal ulcer: -History of bleeding duodenal ulcer 05/2018 No evidence of GI bleed, no dark stool, H&H stable Continue PPI (5) Paroxysmal atrial fibrillation: -Rate controlled on metoprolol, will continue Anticoagulation Pradaxa resumed (6) HTN (hypertension): -BP controlled, continue amlodipine and metoprolol (7) Dyslipidemia: -Continue statin and Zetia (8) DVT prophylaxis: -Pradaxa resumed CODE STATUS: Full code Disposition: Stable to be discharged home today Will be followed with GI and surgery team as outpatient Subjective Left upper quadrant pain has improved markedly, no nausea vomiting, Tolerating liquid diet well MRCP shows negative for choledocholithiasis Patient evaluated by both surgery team and gastroenterology No plan for urgent surgery/cholecystectomy-as patient remains clinically stable, tolerating diet, symptom has resolved, Also needs further work-up for pancreatic fullness/EUS as outpatient Per GI team: Okay to advance diet, outpatient EUS will be scheduled Diet will be advanced to low-fat diet, discharge home later today if no symptoms of nausea vomiting or abdominal pain recurs after diet Physical Exam Constitutional: WD/WN, vitals as above no acute distress Comfortable denies of any abdominal pain, no discomfort Eyes: + anicteric sclerae ENMT: external ear and nose normal, oropharynx normal Neck: trachea midline, no thyromegaly Respiratory: normal respiratory effort, lungs clear to auscultation Cardiovascular: RRR, no murmur, no edema Gastrointestinal (Abdomen): Inspection/Auscultation: normal bowel sounds Percussion/Palpation: abdomen soft; abdomen nontender Right upper quadrant tenderness Musculoskeletal: no cyanosis or clubbing, extremities motor strength 5/5 Skin: no rashes, warm and dry Neurologic: PERRL, EOMI, accommodation nl, no face palsy, no dysarthria Left lower extremity weakness from prior stroke Psychiatric: A+Ox3, euthymic affect Results & Data Vital Signs (Past 12 Hours) Vital Signs Temp Pulse Pulse Pulse Resp BP Pulse Ox 11/29/18 08:00 45 L 11/29/18 07:20 37.0 C 46 L 18 142/83 H 93 11/29/18 04:05 36.6 C 45 L 20 143/82 H 95 11/29/18 00:00 36.6 C 47 L 20 150/86 H 94 11/28/18 23:00 45 L
[2018-11-29] MEDS ORDERED: DICYCLOMINE HCL 10 MG CAP PO ONE (09:58)
[2018-11-29] MEDS ORDERED: DABIGATRAN ETEXILATE 75 MG CAP PO SCH (10:15)
--- NOTE | 2018-11-29 10:50 | Gastroenterology Progress Note ---
Date of Service November 29, 2018 Assessment & Plan (1) LUQ abdominal pain: (2) Choledocholithiasis: Pt is a 63 y/o male presented w LUQ abd pain radiating to back, upon evaluation, CT & u/s abd imaging concerning for possible cholecystitis w possible cystic duct or CBD stone, pancreas fullness though LFTs and Lipase are normal. His hx is pertinent for recent embolic stroke & duodenal ulcers w bleeding in May. He is currently in Pradaxa last dose 11/28 MRCP w/o signs of biliary dilation or choledocholithiasis but still gallbladder thickening and distension suspicious for cholecystitis. Although abd exam benign not suggestive of acute cholecystitis. No surgical plans per Surgery - Plan for outpt EUS given fullness in pancreas, eval biliary area as well. He'll need to be off Pradaxa for at least 3 days and he can coordinate with anticoagulation clinic to determine bridging needs. - GI to sign off; pls recall as needed Subjective Pt denies any more abd pain, or n/v. Tolerated CL diet well MRCP obtained w/o signs of biliary dilation or choledocholithiasis. + gallbladder wall thickening and distension suspicious for cholecystitis Review of Systems Review of Systems: All systems reviewed & are unremarkable except as noted in HPI & below Physical Exam Constitutional: WD/WN, vitals as above well groomed, cooperative and comfortable Eyes: PERRL, conjunctivae normal, anicteric sclerae ENMT: external ear and nose normal, oropharynx normal Respiratory: normal respiratory effort, lungs clear to auscultation Cardiovascular: RRR, no murmur, no edema Gastrointestinal (Abdomen): normal bowel sounds, soft, nontender, no hepatosplenomegaly Skin: no rashes, warm and dry no jaundice Psychiatric: A+Ox3, euthymic affect Lymphatic: no lymphedema Results & Data Vital Signs (Past 12 Hours) Vital Signs Temp Pulse Pulse Pulse Resp BP Pulse Ox 11/29/18 08:00 45 L 11/29/18 07:20 37.0 C 46 L 18 142/83 H 93 11/29/18 04:05 36.6 C 45 L 20 143/82 H 95 11/29/18 00:00 36.6 C 47 L 20 150/86 H 94 11/28/18 23:00 45 L
[2018-11-29 14:33] LABS: Partial Thromboplastin Ratio 1.2; Partial Thromboplastin Time 33.3 Seconds (21.0-31.0)
--- NOTE | 2018-11-29 15:04 | Discharge Summary ---
Date of Service November 29, 2018 Admission HPI Per Admitting Provider 63-year-old male who presents to the ED with right upper quadrant pain. Patient reports this is his third episode in the past 1 month. Prior episodes he reports he was able to resolve by taking Pepto-Bismol and Pepsi. He reports pain woke him out of sleep this morning around 4 AM. He attempted taking Pepto- Bismol and Pepsi however pain persisted. Patient therefore presented to the ED for further evaluation. Patient denies any associated nausea or vomiting. No diarrhea, patient reports normal bowel movement this morning. No fevers or chills. He denies chest pain shortness of breath. No lightheadedness, d izziness, diaphoresis, syncopal events. No urinary symptoms. In the ED, patient is hemodynamically stable and labs are unremarkable. CT ABD/pelvis is showing cholelithiasis, mild gallbladder distention and mild pericholecystic infiltration with a suspected 5 mm stone within the cystic duct. The findings suggest acute cholecystitis. He was given p.o. sucralfate, IV Zofran, IV ketorolac, IV hydromorphone. Principal Diagnosis CHRONIC CHOLECYSTISIS Discharge Exam Constitutional WD/WN, vitals as above no acute distress Eyes + anicteric sclerae ENMT external ear and nose normal, oropharynx normal Neck trachea midline, no thyromegaly Respiratory normal respiratory effort, lungs clear to auscultation Cardiovascular RRR, no murmur, no edema Gastrointestinal (Abdomen) Inspection/Auscultation: normal bowel sounds Percussion/Palpation: abdomen soft; abdomen nontender Musculoskeletal no cyanosis or clubbing, extremities motor strength 5/5 Skin no rashes, warm and dry Neurologic PERRL, EOMI, accommodation nl, no face palsy, no dysarthria Psychiatric A+Ox3, euthymic affect Discharge Data Allergies Allergy/AdvReac Type Severity Reaction Status Date / Time apixaban [From Eliquis] Allergy Unknown eosinophili Unverified 11/28/18 08:00 a levofloxacin Allergy Unknown Timing Unverified 11/28/18 08:00 correlates with eosinophilia morphine AdvReac Intermediate Nausea/Vomi Verified 11/28/18 08:00 ting codeine AdvReac Verified 11/28/18 08:00 Consultations 11/28/18 13:15 ED Decision to Admit Stat 11/28/18 15:50 Consult Gastroenterology Routine Consult General Surgery Routine Ordered Studies 11/28/18 09:37 CT abd pelvis IV con only Stat 11/28/18 10:53 US gallbladder Stat 11/28/18 14:52 MR MRCP Routine Hospital Course (1) Chronic cholecystitis: Presented with a typical pain discomfort, left lower quadrant pain Symptoms usually brought in by ingestion of fatty food Had 3 episodes in last few months CT abdomen pelvis suggestive of gallstone and gallbladder thickening suggestive of chronic cholecystitis no evidence of choledocholithiasis on MRCP Patient was initially started with IV Zosyn, will be discontinued and have as no evidence of infection noted Patient evaluated by surgical team, appreciate input Plan for outpatient follow-up and elective cholecystectomy after GI work-up for pancreatic fullness noted in CT abdomen pelvis/endoscopic ultrasound Patient is asked to avoid fatty diet,-which has been precipitating his gallbladder colic/abdominal pain Information given to low-fat diet (2) LUQ abdominal pain: -Patient presented from home with reports of left upper quadrant pain. Patient reports he has had about 3 episodes in the past 1 month. -Symptom has resolved completely -In the ED, CT ABD/pelvis showing possible choledocholithiasis, acute brook cystitis, pancreatic head fullness -LFTs WNL, afebrile, no leukocytosis -MRCP shows no choledocholithiasis She was started with IV heparin bridge therapy, Pradaxa kept on hold for possible surgical procedure -Appreciate input from general surgery: As patient clinical symptoms has completely resolved, CT abdomen pelvis suggestive of chronic cholecystitis Does not need any emergent surgical intervention, recommend continued GI work-up possible EUS as an outpatient for fullness noted on the pancreatic head -Surgery will follow patient in clinic, for possible elective cholecystectomy in future, will coordinate with cardiology clinic anticoagulation clinic for anticoagulation interruption and possible Lovenox bridge therapy - (3) History of CVA (cerebrovascular accident): -History of chronic A. fib-leading to possible embolic stroke -History of watershed CVA 05/2018 while taking Eliquis -/ at that time patient was transition to Pradaxa - Pradaxa was kept on hold for possible need for invasive procedure, started IV heparin -IV heparin will be discontinued, Pradaxa resumed as no plan for surgical procedure or endoscopy Patient will need outpatient coordination with anticoagulation clinic and cardiology clinic for interruption of anticoagulation and bridge therapy prior to GI procedure/EUS /surgical procedure- cholecystectomy (4) History of duodenal ulcer: -History of bleeding duodenal ulcer 05/2018 No evidence of GI bleed, no dark stool, H&H stable Continue PPI (5) Paroxysmal atrial fibrillation: -Rate controlled on metoprolol, will continue Anticoagulation Pradaxa resumed (6) HTN (hypertension): -BP controlled, continue amlodipine and metoprolol (7) Dyslipidemia: -Continue statin and Zetia (8) DVT prophylaxis: -Pradaxa resumed CODE STATUS: Full code Disposition: Stable to be discharged home today Will be followed with GI and surgery team as outpatient Total Time Total Time Spent Total Time Spent (In Minutes): APPROX 40 MINS Total Time Includes: Examination of the Patient, Discharge Planning, Medication Reconciliation and Communication With Other Providers Discharge Plan Discharge Items Patient Disposition: Home - Self-Care Reason For Visit: ABDOMINAL PAIN Discharge Diagnosis: CHRONIC CHOLECYSTITIS Discharge Goals: Decrease discomfort Activity: Resume your previous activity Non-emergency contact: Primary Care Provider Call non-emergency contact if: you have any medication questions, your symptoms worsen and your pain is worsening Follow-up/Referrals: Bowen Ruby DO, FACS [Physician] - (In 2 to 3 weeks, please call office to schedule an appointment) Dorcas Zhong [Physician] - (Gastroenterology follow-up at [facility] for possible endoscopic ultrasound, office will call with appointment) Nahum Lauren MD [Primary Care Provider] - 12/02/18 1:45 pm Diet: Low Fat Addtl Provider Instructions: Continue low-fat diet until evaluation by gastroenterology and surgical team No change in your medications Avoid Motrin, Aleve, ibuprofen, Advil, naproxen-avoid NSAID [id number] pain meds Do not take baclofen, You are started on dicyclomine/Bentyl 10 mg by mouth as needed every 8 hours f or abdominal pain Please return to ER with any recurrence of abdominal pain, nausea vomiting or discomfort Hospital follow-up with Dr. Lauren on Sunday, December 02, 2018 at 1:45 PM Follow-up with surgery Dr. Ruby: In 2 to 3 weeks for possible gallbladder surgery Follow-up with gastroenterology office will call with appointment Prescriptions: New dicyclomine 10 mg capsule 10 mg PO TID PRN (Reason: abdominal pain) Qty: 90 RF: 0 Continued levothyroxine 125 mcg tablet 125 mcg PO QAM RF: 0 sucralfate 1 gram Tablet 1 g PO ACHS RF: 0 pantoprazole 40 mg Tablet,Delayed Release (Dr/Ec) 40 mg PO QAM RF: 0 ezetimibe 10 mg Tablet 10 mg PO QAM RF: 0 metoprolol tartrate 25 mg Tablet 12.5 mg PO BID RF: 0 Pradaxa 150 mg Capsule 150 mg PO BID RF: 0 atorvastatin 80 mg Tablet 80 mg PO DAILY RF: 0 amlodipine 2.5 mg Tablet 2.5 mg PO DAILY RF: 0 Discontinued baclofen 10 mg Tablet 10 mg PO TID PRN (Reason: Muscle Spasm) RF: 0 Stand-Alone Forms: Call Back Authorization, [facility]/Other Patient Handouts: ED Diet Low Fat Discharge Orders: Discharge Order (Routine); Ordered 11/29/18 Ordered By: Rosa Espinoza Admission Data Admit Date/Time: 11/28/18 14:01 Attending Provider: Rosa Espinoza Admit Provider: Rubia Fountain Primary Care Provider: Nahum Lauren Other Providers: Maribell Narayanan ; Dorcas Zhong ; Bowen Ruby ; Rubia Fountain Service: Telemetry Medical Other Interventions: Discharge Summary Assessment (RN) Last Done: 11/29/18 14:13
== END 2018-11-29 15:30 | disposition home or self-care (01) | DRG 446 ==
LOC: ED 07:46 → 2N 14:01 → SUATTDRO 14:01 → 2N 18:28
DX: I25.2 Old myocardial infarction; Z87.891 Personal history of nicotine dependence; Z83.3 Family history of diabetes mellitus; I48.0 Paroxysmal atrial fibrillation; Z86.73 Personal history of transient ischemic attack (TIA), and cerebral infarction without residual deficits; I10 Essential (primary) hypertension; K26.9 Duodenal ulcer, unspecified as acute or chronic, without hemorrhage or perforation; B19.20 Unspecified viral hepatitis C without hepatic coma; E78.5 Hyperlipidemia, unspecified; Z88.1 Allergy status to other antibiotic agents; Z88.5 Allergy status to narcotic agent; K81.1 Chronic cholecystitis

== ENCOUNTER 2018-12-07 09:39 | Inpatient (IN) ==
[2018-12-07] MEDS ORDERED: HYDROmorphone INJ 0.5 MG/0.5 ML SYR IV PRN (09:54)
[2018-12-07] MEDS ORDERED: ONDANSETRON INJ 2 MG/ML 2 ML VIAL IV STA (09:54)
[2018-12-07] MEDS ORDERED: FAMOTIDINE 20MG IV PUSH 20 MG/5 ML SYR IV STA (09:54)
[2018-12-07] MEDS ORDERED: SODIUM CHLORIDE 0.9% 1000ML 1,000 ML IV SCH (10:00)
[2018-12-07 10:16] LABS: Basophils # (auto) 0.01 K/uL (0-0.2); Basophils % (auto) 0.1 %; Eosinophils # (auto) 0.02 K/uL (0-0.5); Eosinophils % (auto) 0.2 %; Hematocrit (blood only) 34.9 % (42-52); Hemoglobin 11.7 g/dL (14.0-18.0); Immature Granulocytes # (auto) 0.02 K/uL (0.00-0.02); Immature Granulocytes % (auto) 0.2 %; Lymphocytes # (auto) 1.09 K/uL (1.2-3.4); Lymphocytes % (auto) 10.9 %; Mean Corpuscular Hgb Conc 33.5 g/dL (32-36); Mean Corpuscular Volume 88.6 fL (80-100); Mean Platelet Volume 9.9 fL (7.4-10.4); Monocytes # (auto) 0.84 K/uL (0.11-0.59); Monocytes % (auto) 8.4 %; Neutrophils # (auto) 8.06 K/uL (1.4-6.5); Neutrophils % (auto) 80.2 %; Platelet Count 248 K/uL (130-400); RDW Standard Deviation 48.8 fL (36.4-46.3); Red Blood Count 3.94 M/uL (4.7-6.1); White Blood Count 10.04 K/uL (4.8-10.8)
--- NOTE | 2018-12-07 10:22 | Emergency Department Note ---
Entered by Leti Colby acting as a scribe for Forrest Cavazos DO History of Present Illness General Chief complaint: Nausea Stated complaint: PAIN - NAUSEA Source: patient Mode of arrival: ambulatory Limitations: no limitations History of Present Illness Onset (ago): hour(s) 3 Location: abdomen (epigastric and left upper quadrant) Radiation: back Pain Consistency: + constant Maximum Pain Intensity: 7 Relieved By: + none Exacerbated By: + movement Associated symptoms: + nausea/vomiting; no fever/chills Treatments prior to arrival: none The patient is a 63-year-old male who has a history of stroke who presented to the emergency department for epigastric pain and nausea as well as vomiting. The patient was seen in our facility 9 days ago for similar symptoms. At that time he was diagnosed with cholecystitis but was felt to be medical management and was set up for a follow-up appointment with gastroenterology. The patient returns today because of pain which recurred at approximately 3:00 this morning. The pain is moderate to severe. He states the pain is in the epigastric and left upper quadrant. He notices nausea as well as vomiting. He had 3 episodes of emesis. He states the pain radiates into his back. He did not take any medications for this but notes no interventions that improve the pain. He also notices nothing that increases the pain except movement. The patient was not seen by his primary care physician today for this. He states the pain was thought to be due to a problem with his pancreas. He is unsure if this is due to gallstones or problem with his gallbladder otherwise. The patient denies having any fevers or chills. Home Medications Home Medications Medication Instructions Recorded Confirmed Type levothyroxine 125 mcg PO QAM 06/04/18 12/07/18 History Pradaxa 150 mg PO BID 11/28/18 12/07/18 History amlodipine 2.5 mg PO QAM 11/28/18 12/07/18 History atorvastatin 80 mg PO QAM 11/28/18 12/07/18 History ezetimibe 10 mg PO QAM 11/28/18 12/07/18 History metoprolol tartrate 12.5 mg PO BID 11/28/18 12/07/18 History pantoprazole 40 mg PO QAM 11/28/18 12/07/18 History sucralfate 1 g PO ACHS 11/28/18 12/07/18 History dicyclomine 10 mg PO TID PRN #90 cap 11/29/18 12/07/18 Rx baclofen 10 mg PO TID PRN 12/07/18 12/07/18 History Allergies Allergy/AdvReac Type Severity Reaction Status Date / Time apixaban [From Eliquis] Allergy Unknown eosinophili Unverified 12/07/18 10:27 a levofloxacin Allergy Unknown Timing Unverified 12/07/18 10:27 correlates with eosinophilia morphine AdvReac Intermediate Nausea/Vomi Verified 12/07/18 10:27 ting codeine AdvReac Unknown Nausea Verified 12/07/18 10:27 Past Med/Surg History Medical History History of CVA (cerebrovascular accident) (Chronic) Depression (Chronic) Hypereosinophilic syndrome, idiopathic (Resolved) Upper GI bleed (Resolved) Pericardial effusion (Resolved) Dyslipidemia (Chronic) 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) Tobacco abuse (Resolved) Paroxysmal atrial fibrillation (Chronic) HTN (hypertension) (Chronic) Surgical History History of thyroidectomy (Chronic) History of left knee surgery (Chronic) Family History Brother Diabetes Mother Hypertension Social History Preferred Language: Arabic Communication Ability: Effective Visual Impairment: No Limitations Beliefs That Will Affect Care: None Current Living Situation: Alone Feels Safe at Home: Yes Smoking Status: Former smoker Tobacco Type: cigarettes Second Hand Exposure: No Hx Alcohol Use: No Hx Substance Use: No Review of Systems See HPI for pertinent positives & negatives. and A total of 10 systems reviewed and were otherwise negative Physical Exam Vital Signs Vital Signs - 24 hr 12/07/18 09:43 12/07/18 10:31 12/07/18 10:33 Temperature 36.5 C Temperature Source Oral Sepsis Recent Fever Within 48 Hours No Sepsis Action Taken by Nursing No Action Required Pulse Rate 55 L 46 L Pulse Rate [Left Finger] Pulse Rate from SpO2 Sensor 46 L Respiratory Rate 20 11 L Respiratory Effort / Characteristics Non-Labored Respiratory Depth Normal Respiratory Pattern Blood Pressure 130/72 118/84 Blood Pressure [Left Arm] Blood Pressure Mean 91 95 Blood Pressure Mean [Left Arm] Pulse Oximetry 99 94 96 Oxygen Delivery Method Room Air Room Air 12/07/18 10:40 12/07/18 11:00 12/07/18 11:01 Temperature Temperature Source Sepsis Recent Fever Within 48 Hours Sepsis Action Taken by Nursing Pulse Rate 47 L 51 L 52 L Pulse Rate [Left Finger] Pulse Rate from SpO2 Sensor 47 L 52 L 52 L Respiratory Rate 12 19 15 Respiratory Effort / Characteristics Respiratory Depth Respiratory Pattern Blood Pressure 130/84 Blood Pressure [Left Arm] Blood Pressure Mean 99 Blood Pressure Mean [Left Arm] Pulse Oximetry 93 95 96 Oxygen Delivery Method 12/07/18 12:05 12/07/18 12:06 Temperature Temperature Source Sepsis Recent Fever Within 48 Hours Sepsis Action Taken by Nursing Pulse Rate 49 L 48 L Pulse Rate [Left Finger] 46 L Pulse Rate from SpO2 Sensor 51 L 50 L Respiratory Rate 17 16 Respiratory Effort / Characteristics Non-Labored Respiratory Depth Normal Respiratory Pattern Regular Blood Pressure 118/80 Blood Pressure [Left Arm] 118/80 Blood Pressure Mean 92 Blood Pressure Mean [Left Arm] 92 Pulse Oximetry 95 91 Oxygen Delivery Method Room Air GENERAL: Patient is awake, alert, and in no acute distress.Patient is resting comfortably and showing no signs of anxiety EYES: The conjunctivae are clear. The pupils are round and reactive. EARS, NOSE, MOUTH AND THROAT: The nose is without any evidence of any deformity. Mucous membranes are moist.Tongue is midline NECK: The neck is nontender and supple. RESPIRATORY: Normal respiratory effort is noted. There is no evidence of wh eezing rhonchi or rales to auscultation. CARDIOVASCULAR: Regular rate and rhythm noted. There no murmurs rubs or gallops normal S1 normal S2 GASTROINTESTINAL: The abdomen is moderately distended. There is significant epigastric and right upper quadrant tenderness to palpation. There is mild guarding in the right upper quadrant. MUSCULOSKELETAL/EXTREMITIES: There is no evidence of gross deformity. Full range of motion is noted in the hips and shoulders. SKIN: There is no obvious evidence of any rash. There is erythema and fullness noted over both cheeks. NEUROLOGIC: Patient is awake alert and oriented x3. Course 0941: Past medical records reviewed. The patient was evaluated in room B10. A complete history and physical examination was performed. 1200: I reviewed the patient's case with Dr. Tyson General Surgery. 1212: I reviewed the patient's case with Rosaline Hilton. She will evaluate the patient for further management. 1214: I updated the patient on the results of his scans. Consultations Consultation #1: 1200: I reviewed the patient's case with Dr. Tyson General Surgery. Time: 12:00 Consultation #2: 1212: I reviewed the patient's case with Rosaline Hilton. She will evaluate the patient for further management. Time: 12:12 Administered Medications Hydromorphone HCl (Dilaudid) 0.5 mg IV Q15M PRN PRN Reason: Pain Stop: 12/21/18 09:53 Last Admin: 12/07/18 10:12 Dose: 0.5 mg Documented by: [id number] Piperacillin Sod/Tazobactam Sod (Zosyn) 4.5 gm in 120 mls @ 240 mls/hr IV NOW ONE Stop: 12/07/18 12:39 Last Admin: 12/07/18 12:15 Dose: 240 mls/hr Documented by: [id number] Discontinued Medications Famotidine (Pepcid 20mg Iv Push) 20 mg in 5 mls @ 2.5 mls/min IV NOW STA Stop: 12/07/18 09:55 Last Admin: 12/07/18 10:11 Dose: 2.5 mls/min Documented by: [id number] Sodium Chloride (Nss 1000ml) 1,000 mls @ 999 mls/hr IV .Q1H1M MYRANDA Stop: 12/07/18 11:00 Last Infusion: 12/07/18 12:15 Dose: 0 mls/hr Documented by: [id number] Admin: 12/07/18 10:12 Dose: 999 mls/hr Documented by: [id number] Ondansetron HCl (Zofran) 4 mg IV NOW STA Stop: 12/07/18 09:55 Last Admin: 12/07/18 10:12 Dose: 4 mg Documented by: [id number] Medical Decision Making Differential Diagnosis Differential diagnoses: Appendicitis, diverticulitis, PUD, biliary pathology, UTI, pancreatitis, obstruction, mesenteric ischemia, aortic pathology, infections, inflammatory bowel disease, renal colic, as well as others were entertained. Medical Records Attestation: I reviewed the patient's medical records. Home Medications Current Medication List: was personally reviewed by me Laboratory Data Attestation: I reviewed the patient's lab results. Result diagrams: 12/07/18 10:07 12/07/18 10:07 Lab Results 12/07/18 12/07/18 12/07/18 Range/Units 10:07 10:07 10:07 WBC 10.04 (4.8-10.8) K/uL RBC 3.94 L (4.7-6.1) M/uL Hgb 11.7 L (14.0-18.0) g/dL Hct 34.9 L (42-52) % MCV 88.6 (80-100) fL MCH 29.7 (25-34) pg MCHC 33.5 (32-36) g/dL RDW Std Deviation 48.8 H (36.4-46.3) fL RDW Coeff of Martin 15.0 H (11.5-14.5) % Plt Count 248 (130-400) K/uL MPV 9.9 (7.4-10.4) fL Immature Gran % (Auto) 0.2 % Neut % (Auto) 80.2 % Lymph % (Auto) 10.9 % [place] % (Auto) 8.4 % Eos % (Auto) 0.2 % Baso % (Auto) 0.1 % Immature Gran # (Auto) 0.02 (0.00-0.02) K/uL Neut # (Auto) 8.06 H (1.4-6.5) K/uL Lymph # (Auto) 1.09 L (1.2-3.4) K/uL [place] # (Auto) 0.84 H (0.11-0.59) K/uL Eos # (Auto) 0.02 (0-0.5) K/uL Baso # (Auto) 0.01 (0-0.2) K/uL PT Cancelled INR Cancelled APTT Cancelled PTT Ratio Cancelled Sodium 139 (136-145) mmol/L Potassium 3.9 (3.5-5.1) mmol/L Chloride 105 (98-107) mmol/L Carbon Dioxide 29 (21-32) mmol/L Anion Gap 5.0 (3-11) BUN 16 (7-18) mg/dl Creatinine 1.18 (0.6-1.4) mg/dl Est Cr Clr Drug Dosing 67.4 ml/min Est GFR ( Amer) 75.1 Est GFR (Non-Af Amer) 64.8 BUN/Creatinine Ratio 14.0 (10-20) Glucose 130 H (70-99) mg/dl Calcium 8.6 (8.5-10.1) mg/dl Total Bilirubin 1.1 H (0.2-1) mg/dl AST 412 H (15-37) U/L ALT 213 H (12-78) U/L Alkaline Phosphatase 182 H (45-117) U/L Troponin I < 0.015 (0-0.045) ng/ml Total Protein 7.9 (6.4-8.2) gm/dl Albumin 3.5 (3.4-5.0) gm/dl Globulin 4.4 H (2.5-4.0) gm/dl Albumin/Globulin Ratio 0.8 L (0.9-2) Lipase 540 H (73-393) U/L // Range/Units 11:19 WBC (4.8-10.8) K/uL RBC (4.7-6.1) M/uL Hgb (14.0-18.0) g/dL Hct (42-52) % MCV (80-100) fL MCH (25-34) pg MCHC (32-36) g/dL RDW Std Deviation (36.4-46.3) fL RDW Coeff of Martin (11.5-14.5) % Plt Count (130-400) K/uL MPV (7.4-10.4) fL Immature Gran % (Auto) % Neut % (Auto) % Lymph % (Auto) % [place] % (Auto) % Eos % (Auto) % Baso % (Auto) % Immature Gran # (Auto) (0.00-0.02) K/uL Neut # (Auto) (1.4-6.5) K/uL Lymph # (Auto) (1.2-3.4) K/uL [place] # (Auto) (0.11-0.59) K/uL Eos # (Auto) (0-0.5) K/uL Baso # (Auto) (0-0.2) K/uL PT 11.0 INR 1.1 APTT 30.8 PTT Ratio 1.1 Sodium (136-145) mmol/L Potassium (3.5-5.1) mmol/L Chloride (98-107) mmol/L Carbon Dioxide (21-32) mmol/L Anion Gap (3-11) BUN (7-18) mg/dl Creatinine (0.6-1.4) mg/dl Est Cr Clr Drug Dosing ml/min Est GFR ( Amer) Est GFR (Non-Af Amer) BUN/Creatinine Ratio (10-20) Glucose (70-99) mg/dl Calcium (8.5-10.1) mg/dl Total Bilirubin (0.2-1) mg/dl AST (15-37) U/L ALT (12-78) U/L Alkaline Phosphatase (45-117) U/L Troponin I (0-0.045) ng/ml Total Protein (6.4-8.2) gm/dl Albumin (3.4-5.0) gm/dl Globulin (2.5-4.0) gm/dl Albumin/Globulin Ratio (0.9-2) Lipase (73-393) U/L Imaging Data Radiologist's Impression: Radiology results as stated below per my review and the radiologist's interpretation: XR KUB/Abdomen 1 view CLINICAL HISTORY: Gastric pain COMPARISON STUDY: 11/28/2018 FINDINGS: There is no pathologic bowel dilatation. Pelvic calcifications, likely represent phleboliths and arterial calcification. IMPRESSION: No evidence of pathologic bowel dilatation. No urinary tract calculi identified on conventional radiographic imaging. Electronically signed by: Robert Nieves M.D. 12/07/2018 10:35 AM Dictated: 12/07/18 1034 Transcribed: 12/07/18 1034 gallbladder CLINICAL HISTORY: Right upper quadrant abdominal pain COMPARISON STUDY: 11/28/2018 FINDINGS: The pancreas appears sonographically normal. No focal hepatic masses are delineated. There are slightly echogenic portal triads. There is slight ductal prominence. There is mild gallbladder wall thickening and trace pericholecystic fluid. No shadowing calculi are visualized. There is mild adenomyomatosis. The common bile duct measures 6 mm. There is no right-sided hydronephrosis. There is a 2 cm lower pole right renal cyst. IMPRESSION: 1. Gallbladder adenomyomatosis 2. Gallbladder wall thickening and trace pericholecystic fluid 3. No shadowing calculi identified 4. 6 mm common bile duct 5. Ultrasonographically normal pancreas Electronically signed by: Robert Nieves M.D. 12/07/2018 12:09 PM Dictated: 12/07/18 1205 Transcribed: 12/07/18 1205 XR chest 1V portable CLINICAL HISTORY: Epigastric pain COMPARISON STUDY: 11/28/2018 FINDINGS: The heart is borderline enlarged. There is no failure. There is no focal pulmonary consolidation. There are no pleural effusions. There is no free intraperitoneal air.[ IMPRESSION: No active disease in the chest. Electronically signed by: Robert Nieves M.D. 12/07/2018 10:37 AM Dictated: 12/07/18 1037 Transcribed: 12/07/18 1037 ECG Data Attestation: I personally reviewed and interpreted this ECG as follows: Indication: abdominal pain Rate (beats per minute): 49 Rhythm: sinus bradycardia Findings: no ST elevation and no ectopy Change: no significant change (11/28/2018) Blood Pressure Blood Pressure Findings: Normal blood pressure MDM Narrative The patient is a 63-year-old male who presented to the emergency department for upper abdominal pain and vomiting. The patient was seen in our facility 9 days ago for similar complaints. At that time he was found of cholecystitis but it was unclear if he also had a pancreatic lesion. For this reason any surgical management was delayed because the patient was feeling better and his LFTs were normal. The patient is scheduled for a follow-up appointment with gastro enterology but he returns today because of worsening symptoms which began at 3:00 this morning. I discussed the patient's laboratory and radiographic studies with him. I also discussed his case with the on-call general surgeon as well as the on-call [facility] hospitalist group. They have agreed to evaluate the patient in the emergency department for further management disposition. The patient was treated with IV pain medication as well as IV fluids. He was also treated with IV anabiotic's. The patient was feeling much better on subsequent reevaluation. Impression & Plan Cholecystitis, Abdominal pain, Nausea, Vomiting, Abnormal LFTs : Abdominal pain Qualifiers: Abdominal location: unspecified location Qualified Code(s): R10.9 - Unspecified abdominal pain Vomiting Qualifiers: Vomiting type: unspecified Vomiting Intractability: non-intractable Nausea presence: with nausea Qualified Code(s): R11.2 - Nausea with vomiting, unspecified The scribe's documentation has been prepared under my direction and personally reviewed by me in its entirety. I confirm that the note above accurately reflects all work, treatment, procedures, and medical decision making performed by me.
[2018-12-07 10:33] LABS: Alanine Aminotransferase 213 U/L (12-78); Albumin Level 3.5 gm/dl (3.4-5.0); Aspartate Aminotransferase 412 U/L (15-37); Blood Urea Nitrogen 16 mg/dl (7-18); Calcium 8.6 mg/dl (8.5-10.1); Carbon Dioxide 29 mmol/L (21-32); Chloride 105 mmol/L (98-107); Creatinine Clr Calc Pharmacy 67.4 ml/min; Est GFR (African American) 75.1; Est GFR (Non-African American) 64.8; Glucose 130 mg/dl (70-99); Potassium 3.9 mmol/L (3.5-5.1); Sodium 139 mmol/L (136-145)
--- NOTE | 2018-12-07 10:37 | XRay Report ---
XR KUB/Abdomen 1 view CLINICAL HISTORY: Gastric pain COMPARISON STUDY: 11/28/2018 FINDINGS: There is no pathologic bowel dilatation. Pelvic calcifications, likely represent phlebolith s and arterial calcification. IMPRESSION: No evidence of pathologic bowel dilatation. No urinary tract calculi identified on conve ntional radiographic imaging. Electronically signed by: Robert Nieves M.D. 12/07/2018 10:35 AM
[2018-12-07 10:38] LABS: Albumin Globulin Ratio 0.8 (0.9-2); Alkaline Phosphatase 182 U/L (45-117); Bilirubin,Total 1.1 mg/dl (0.2-1); Globulin 4.4 gm/dl (2.5-4.0); Total Protein 7.9 gm/dl (6.4-8.2); Troponin I < 0.015 ng/ml (0-0.045)
--- NOTE | 2018-12-07 10:38 | XRay Report ---
XR chest 1V portable CLINICAL HISTORY: Epigastric pain COMPARISON STUDY: 11/28/2018 FINDINGS: The heart is borderline enlarged. There is no failure. There is no focal pulmonary consolid ation. There are no pleural effusions. There is no free intraperitoneal air.[ IMPRESSION: No active disease in the chest. Electronically signed by: Robert Nieves M.D. 12/07/2018 10:37 AM
[2018-12-07 11:38] LABS: INR 1.1 (0.9-1.1); Partial Thromboplastin Ratio 1.1; Partial Thromboplastin Time 30.8 Seconds (21.0-31.0)
[2018-12-07] MEDS ORDERED: PIPERACILLIN/TAZOBACTAM 4.5 GM/120 ML BAG IV ONE (12:10)
[2018-12-07] MEDS ORDERED: PIPERACILL/TAZOBAC CONSULT ACTIVE PRN (12:10)
--- NOTE | 2018-12-07 12:10 | Ultrasound Report ---
US gallbladder CLINICAL HISTORY: Right upper quadrant abdominal pain COMPARISON STUDY: 11/28/2018 FINDINGS: The pancreas appears sonographically normal. No focal hepatic masses are delineated. There are slightly echogenic portal triads. There is slight ductal prominence. There is mild gallbladder wa ll thickening and trace pericholecystic fluid. No shadowing calculi are visualized. There is mild maty nomyomatosis. The common bile duct measures 6 mm. There is no right-sided hydronephrosis. There is a 2 cm lower pole right renal cyst. IMPRESSION: 1. Gallbladder adenomyomatosis 2. Gallbladder wall thickening and trace pericholecystic fluid 3. No shadowing calculi identified 4. 6 mm common bile duct 5. Ultrasonographically normal pancreas Electronically signed by: Robert Nieves M.D. 12/07/2018 12:09 PM
--- NOTE | 2018-12-07 13:28 | History & Physical Report ---
Date of Service December 07, 2018 Assessment & Plan (1) Epigastric pain: (2) Transaminitis: This is a 63yo M with a PMH of paroxysmal A. 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 -Epigastric pain with nausea and emesis x 3 today. Afebrile, no leukocytosis -Findings suggestive of chronic cholecystitis concern for choledocholithiasis due to new transaminitis since last week -Recently admitted and found to have chronic cholecystitis. Normal MRCP at that time. Planned to follow up for OP EUS in December for pancreatic fullness -Discussed with GI today. MRCP today with possible ERCP -Holding Pradaxa and bridging with IV heparin -Continue Zosyn empirically for now. Follow blood cultures -Keeping NPO for now. IV fluids, antiemetics, analgesics (3) Facial rash: New facial rash since this morning -Started low dose Lexapro 3 days ago. Will hold for now and see if rash resolves (4) History of duodenal ulcer: History of bleeding duodenal ulcer 05/2018 -Will increase PPI to twice daily while on IV heparin (5) History of CVA (cerebrovascular accident): History of watershed CVA 05/2018 while taking Eliquis, at that time patient was transition to Pradaxa -Anticoagulation was discussed with Dr. Garcia during previous admission -Hold Pradaxa for possible need for invasive procedure, will start IV heparin at the time of patient's next Pradaxa dose is due (6) Paroxysmal atrial fibrillation: Rate controlled on metoprolol, will continue with hold parameters -Anticoagulation as above (7) HTN (hypertension): Normotensive -Continue amlodipine and metoprolol (8) History of thyroidectomy: Continue levothyroxine (9) Dyslipidemia: Continue statin and Zetia DVT Ppx: IV heparin Code status: FULL PCP: Leonidas Dispo: Admitted to [facility]. Plan to return home once medically stable. Patient seen in collaboration with Dr. Brantley. Please see addendum. History of Present Illness Chief Complaint: abdominal pain Primary Care Provider: Nahum Lauren MD This is a 63yo M with a PMH of paroxysmal A. 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 Patient was recently admitted November 28- for abdominal pain with findings on CT abd/pelvis concerning for possible cholecystitis with possible cystic duct or CBD stone and pancreas head fullness. Cholecystitis thought to be chronic. Had MRCP performed at that time which was did not have signs of biliary dilation or choledocholithiasis but still gallbladder thickening and distension suspicious for cholecystitis. Upon discharge, patient was scheduled for outpatient EUS with Dr. Zhong in December and surgical follow-up for possible elective cholecystectomy in the future. Patient presents today with abdominal pain woke him up at 0300. Pain is sharp and located in epigastrium with some tenderness in left upper quadrant. Associated with nausea and 3 episodes of bilious emesis. Denies any fever or c hills. No hematemesis, melena or hematochezia. Came into ED for further evaluation. Gallbladder ultrasound with gallbladder adenomyomatosis, gallbladder wall thickening and trace pericholecystic fluid, no shadowing calculi identified, 6 mm common bile duct and an ultrasonographically normal pancreas. T bili elevated at 1.1, AST of 412, ALT of 213 and alk phos of 182 (all previous values were normal last week). Discussed with Dr. Zhong of gastroenterology, who suggests an MRCP with possible ERCP tomorrow or Sunday depending on results. Patient is on Pradaxa due to watershed CVA while on Eliquis in May 2018. Will hold Pradaxa and bridge with IV heparin in anticipation of procedure. Patient denies lightheadedness, visual changes, chest pain, palpitations, shortness of breath, dysuria, diarrhea or constipation. Allergies Allergy/AdvReac Type Severity Reaction Status Date / Time apixaban [From Eliquis] Allergy Unknown eosinophili Verified 12/11/18 12:47 a levofloxacin Allergy Unknown Timing Verified 12/11/18 12:47 correlates with eosinophilia morphine AdvReac Intermediate Nausea/Vomi Verified 12/11/18 12:47 ting codeine AdvReac Unknown Nausea Verified 12/11/18 12:47 Home Medications Home Medications Medication Instructions Recorded Confirmed Type levothyroxine 125 mcg PO QAM 06/04/18 12/07/18 History Pradaxa 150 mg PO BID 11/28/18 12/07/18 History amlodipine 2.5 mg PO QAM 11/28/18 12/07/18 History atorvastatin 80 mg PO QAM 11/28/18 12/07/18 History ezetimibe 10 mg PO QAM 11/28/18 12/07/18 History metoprolol tartrate 12.5 mg PO BID 11/28/18 12/07/18 History pantoprazole 40 mg PO QAM 11/28/18 12/07/18 History sucralfate 1 g PO ACHS 11/28/18 12/07/18 History dicyclomine 10 mg PO TID PRN #90 cap 11/29/18 12/07/18 Rx Past Med/Surg History Medical History History of CVA (cerebrovascular accident) (Chronic) Depression (Chronic) Hypereosinophilic syndrome, idiopathic (Resolved) Dyslipidemia (Chronic) 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) Tobacco abuse (Resolved) Paroxysmal atrial fibrillation (Chronic) HTN (hypertension) (Chronic) Surgical History History of thyroidectomy (Chronic) History of left knee surgery (Chronic) History of esophagogastroduodenoscopy (EGD) Hx of endoscopic retrograde cholangiopancreatography Family History Brother Diabetes Mother Hypertension Social History Preferred Language: [place] Communication Ability: Effective Visual Impairment: No Limitations 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 Physical Exam Physical Exam: General Appearance: WD/WN, no apparent distress, resting comfortably Head: normocephalic, atraumatic Eyes: normal inspection, PERRL, EOMI ENT: hearing grossly normal, pharynx normal (moist mucous membranes). Some erythema and edema of face around nasolabial folds, nose and cheeks, non-tender Neck: supple, no JVD, no adenopathy Respiratory/Chest: lungs clear to auscultation. No wheezes, rales or rhonci. No respiratory distress or accessory muscle use Cardiovascular: regular rate, rhythm, no murmur, normal peripheral pulses Abdomen/GI: normal bowel sounds, soft, non-distended, mildly tender to palpation in epigastrium, LUQ, no guarding Extremities/Musculoskelatal: normal inspection, no calf tenderness, normal capillary refill, no pedal edema Neurologic/Psych: alert, normal mood/affect, oriented x 3 Skin: normal color, warm/dry Results & Data Vital Signs (Past 12 Hours) Vital Signs Temp Pulse Pulse Resp BP BP Pulse Ox 12/07/18 12:06 48 L 46 L 16 118/80 118/80 91 12/07/18 12:05 49 L 17 95 12/07/18 11:01 52 L 15 96 12/07/18 11:00 51 L 19 130/84 95 12/07/18 10:40 47 L 12 93 12/07/18 10:33 96 12/07/18 10:31 46 L 11 L 118/84 94 12/07/18 09:43 36.5 C 55 L 20 130/72 99 Laboratory Results Short CBC 12/07/18 Range/Units 10:07 WBC 10.04 (4.8-10.8) K/uL Hgb 11.7 L (14.0-18.0) g/dL Hct 34.9 L (42-52) % Plt Count 248 (130-400) K/uL BMP 12/07/18 10:07 Sodium 139 Potassium 3.9 Chloride 105 Carbon Dioxide 29 BUN 16 Creatinine 1.18 Glucose 130 H Calcium 8.6 Cardiac Enzymes 12/07/18 Range/Units 10:07 Troponin I < 0.015 (0-0.045) ng/ml Liver Function 12/07/18 Range/Units 10:07 Total Bilirubin 1.1 H (0.2-1) mg/dl AST 412 H (15-37) U/L ALT 213 H (12-78) U/L Alkaline Phosphatase 182 H (45-117) U/L Albumin 3.5 (3.4-5.0) gm/dl Urine 12/07/18 Range/Units 13:20 Urine Color Yellow Urine Appearance Clear (Clear) Urine pH 7.0 (4.5-7.5) Ur Specific [place] 1.012 (1.000-1.030) Urine Protein Negative (Negative) Urine Glucose (UA) Negative (Negative) Diagnostic Findings CXR: IMPRESSION: No active disease in the chest. Gallbladder ultrasound: IMPRESSION: 1. Gallbladder adenomyomatosis 2. Gallbladder wall thickening and trace pericholecystic fluid 3. No shadowing calculi identified 4. 6 mm common bile duct 5. Ultrasonographically normal pancreas KUB XR: IMPRESSION: No evidence of pathologic bowel dilatation. No urinary tract calculi identified on conventional radiographic imaging. Supervising Physician Co-Signing Physician Notes Attending Addendum: delayed entry date of service as noted above care coordinated with ALIYA Tong please refer to her notes for full details, I agree with her notes patient seen and examined, records reviewed by myself as well on exam, patient seen resting in bed, comfortable pain relieved by analgesics no other symptoms VS noted and reviewed oriented x 3 , not in distress, speaks in sentences with no effort nor accessory muscle use normal rate, regular rhythm, no murmurs clear breath sounds bilaterally non distended, soft, nontender no bipedal edema, erythema, warmth no neuro deficits WBC 10 Hg 11.7 Crea 1.08 ASSESSMENT AND PLAN CHRONIC CHOLECYSTITIS GI Consulted Fanta MARQUEZ HISTORY OF CVA Heparin IV for possible ERCP other diagnoses and plan of care as per ALIYA Tong's notes Dwayne Brantley MD
[2018-12-07 13:41] LABS: Appearance Urine Clear (Clear); Bilirubin Urine Negative (Negative); Blood Urine Negative (Negative); Color Urine Yellow; Glucose Urine UA Negative (Negative); Ketones Urine Negative (Negative); Leukocyte Esterase Urine Negative (Negative); Nitrite Urine Negative (Negative); Protein Urine Negative (Negative); Specific Gravity Urine 1.012 (1.000-1.030); Urobilinogen Urine Negative (Negative)
[2018-12-07] MEDS ORDERED: Heparin IV Standard *NO* Bolus IV SCH (15:30)
--- NOTE | 2018-12-07 16:00 | Magnetic Resonance Report ---
MR MRCP CLINICAL HISTORY: chronic cholecystitis, new transaminitis nausea COMPARISON STUDY: November 28, 2018 FINDINGS: Images were acquired in the coronal and axial planes. MIP images were obtained. There is persistent gallbladder wall thickening with minimal pericholecystic edema. The findings are again indicative of cholecystitis, acute versus chronic. If indicated, a nuclear medicine hepatobilia ry study could be obtained in follow-up to assess cystic duct patency. No gallstones are visualized. No common bile duct calculi are visualized. There is no intra or extrahepatic biliary ductal dilatati on. There is no pancreatic ductal dilatation. Mild adenomyomatosis of the gallbladder is suspected. There are bilateral renal cysts. IMPRESSION: 1. No evidence of intra or extrahepatic biliary ductal dilatation. 5 mm common bile duct 2. No common bile duct calculi identified 3. No pancreatic ductal dilatation 4. Persistent gallbladder wall thickening, and mild pericholecystic edema. The findings are again sug gestive of cholecystitis (acute versus chronic) Electronically signed by: Robert Nieves M.D. 12/07/2018 3:59 PM
[2018-12-07] MEDS ORDERED: DICYCLOMINE HCL 10 MG CAP PO PRN (16:04)
[2018-12-07] MEDS: SODIUM CHLORIDE 0.9% 1000ML 1,000 ML IV SCH (16:22)
[2018-12-07 17:01] LABS: Basophils # (auto) 0.01 K/uL (0-0.2); Basophils % (auto) 0.1 %; Eosinophils # (auto) 0.04 K/uL (0-0.5); Eosinophils % (auto) 0.5 %; Hematocrit (blood only) 35.3 % (42-52); Hemoglobin 11.8 g/dL (14.0-18.0); Immature Granulocytes # (auto) 0.01 K/uL (0.00-0.02); Immature Granulocytes % (auto) 0.1 %; Lymphocytes # (auto) 1.45 K/uL (1.2-3.4); Mean Corpuscular Volume 89.4 fL (80-100); Mean Platelet Volume 10.4 fL (7.4-10.4); Monocytes # (auto) 0.68 K/uL (0.11-0.59); Monocytes % (auto) 8.9 %; Neutrophils # (auto) 5.44 K/uL (1.4-6.5); Neutrophils % (auto) 71.4 %; Platelet Count 256 K/uL (130-400); RDW Coefficient of Variation 15.1 % (11.5-14.5); RDW Standard Deviation 49.3 fL (36.4-46.3); Red Blood Count 3.95 M/uL (4.7-6.1); White Blood Count 7.63 K/uL (4.8-10.8)
[2018-12-07 17:02] LABS: Mean Corpuscular Hgb Conc 33.4 g/dL (32-36)
[2018-12-07 17:14] LABS: INR 1.1 (0.9-1.1); Partial Thromboplastin Ratio 1.1; Partial Thromboplastin Time 30.2 Seconds (21.0-31.0); Prothrombin Time 10.9 Seconds (9.0-12.0)
[2018-12-07] MEDS: Heparin Adult STANDARD Wt-Based Dextrose 5% 25,000 units/500 mL IV SCH (17:44)
[2018-12-07] MEDS: SUCRALFATE 1 GM TAB PO SCH ×2 (17:46→21:06)
--- NOTE | 2018-12-07 17:59 | History & Physical Report ---
Date of Service December 07, 2018 Assessment & Plan (1) Nausea and vomiting: Patient presenting with history of nausea found to have elevation of his liver associated enzymes and a prior study which showed evidence of a stone within the cystic duct. The patient has had 2 MRCP is without an obvious stone in the common bile duct. We were planning to do outpatient endoscopic ultrasound due to the pancreatic fullness. Given the presentation with elevated transaminases we will plan to do the endoscopic ultrasound on Sunday and perhaps ERCP if a stone is found in the common bile duct. Recommendations Continue with empiric antibiotics Patient may have a full liquid diet from my perspective Hold Pradaxa in anticipation of a procedure on Sunday Please call with any questions or concerns (2) Epigastric pain: (3) Transaminitis: History of Present Illness Chief Complaint: Abdominal pain and bloating Primary Care Provider: Nahum Lauren MD The patient was previously admitted for left-sided abdominal pain and found to have fullness in his pancreatic head on imaging. We were planning for outpatient endoscopic ultrasound for further evaluation. He notes that on awakening this morning he began to have epigastric discomfort which waxed and waned and was localizing towards his right side. He denies having fevers chills sweats or Reiger's. The patient denies any bowel habit changes or garret colored stools. Patient does have a significant history of strokes and is presently on Pradaxa for prophylaxis. Denies having any difficulty with swallowing pain with swallowing or weight changes. Allergies Allergy/AdvReac Type Severity Reaction Status Date / Time apixaban [From Eliquis] Allergy Unknown eosinophili Unverified 12/07/18 10:27 a levofloxacin Allergy Unknown Timing Unverified 12/07/18 10:27 correlates with eosinophilia morphine AdvReac Intermediate Nausea/Vomi Verified 12/07/18 10:27 ting codeine AdvReac Unknown Nausea Verified 12/07/18 10:27 Home Medications Home Medications Medication Instructions Recorded Confirmed Type levothyroxine 125 mcg PO QAM 06/04/18 12/07/18 History Pradaxa 150 mg PO BID 11/28/18 12/07/18 History amlodipine 2.5 mg PO QAM 11/28/18 12/07/18 History atorvastatin 80 mg PO QAM 11/28/18 12/07/18 History ezetimibe 10 mg PO QAM 11/28/18 12/07/18 History metoprolol tartrate 12.5 mg PO BID 11/28/18 12/07/18 History pantoprazole 40 mg PO QAM 11/28/18 12/07/18 History sucralfate 1 g PO ACHS 11/28/18 12/07/18 History dicyclomine 10 mg PO TID PRN #90 cap 11/29/18 12/07/18 Rx Past Med/Surg History Medical History History of CVA (cerebrovascular accident) (Chronic) Depression (Chronic) Hypereosinophilic syndrome, idiopathic (Resolved) Dyslipidemia (Chronic) 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) Tobacco abuse (Resolved) Paroxysmal atrial fibrillation (Chronic) HTN (hypertension) (Chronic) Surgical History History of thyroidectomy (Chronic) History of left knee surgery (Chronic) Family History Brother Diabetes Mother Hypertension Social History Preferred Language: Kosovan Communication Ability: Effective Visual Impairment: No Limitations 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 Beliefs That Will Affect Care: None Current Living Situation: Alone Other Information That Helps Us Care for You: No Feels Safe at Home: Yes Smoking Status: Former smoker Tobacco Type: cigarettes Cigarettes Per Day: 20 Do You Dip or Chew Tobacco: No Smoking End Date: May 2018 Second Hand Exposure: No Tobacco Cessation Education Requested by Patient: No Hx Alcohol Use: No Hx Substance Use: No Review of Systems no sweats, no malaise and no weight loss no diplopia no foul smell and no facial pain no change in sputum no chest pain and no chest pain with activity + abdominal pain, + bloating and + nausea; no hematemesis and no cramping no urinary frequency no radicular pain + rash SWelling of the patient's face no paralysis and no numbness no polydipsia + easy bleeding and + coagulopathy Physical Exam Eyes: PERRL, conjunctivae normal, anicteric sclerae Neck: trachea midline, no thyromegaly Respiratory: normal respiratory effort, lungs clear to auscultation Cardiovascular: Rate/Rhythm: regular rate Heart Sounds: no murmur Gastrointestinal (Abdomen): normal bowel sounds, soft, nontender, no hepatosp lenomegaly Results & Data Vital Signs (Past 12 Hours) Vital Signs Temp Pulse Pulse Resp BP BP Pulse Ox 12/07/18 15:00 51 L 12/07/18 14:31 46 L 16 95 12/07/18 14:30 45 L 12 129/80 95 12/07/18 14:01 45 L 14 96 12/07/18 14:00 36.4 C L 45 L 53 L 16 119/83 134/82 94 12/07/18 13:31 50 L 19 97 12/07/18 13:30 49 L 11 L 139/84 96 12/07/18 13:25 45 L 13 119/87 97 12/07/18 12:31 48 L 16 92 12/07/18 12:30 49 L 17 117/74 95 12/07/18 12:07 49 L 14 94 12/07/18 12:06 48 L 46 L 16 118/80 118/80 91 12/07/18 12:05 49 L 17 95 12/07/18 11:01 52 L 15 96 12/07/18 11:00 51 L 19 130/84 95 12/07/18 10:40 47 L 12 93 12/07/18 10:33 96 12/07/18 10:31 46 L 11 L 118/84 94 12/07/18 09:43 36.5 C 55 L 20 130/72 99 Laboratory Results Laboratory Results - last 24 hr 12/07/18 12/07/18 12/07/18 10:07 10:07 10:07 WBC 10.04 RBC 3.94 L Hgb 11.7 L Hct 34.9 L MCV 88.6 MCH 29.7 MCHC 33.5 RDW Std Deviation 48.8 H RDW Coeff of Martin 15.0 H Plt Count 248 MPV 9.9 Immature Gran % (Auto) 0.2 Neut % (Auto) 80.2 Lymph % (Auto) 10.9 [place] % (Auto) 8.4 Eos % (Auto) 0.2 Baso % (Auto) 0.1 Immature Gran # (Auto) 0.02 Neut # (Auto) 8.06 H Lymph # (Auto) 1.09 L [place] # (Auto) 0.84 H Eos # (Auto) 0.02 Baso # (Auto) 0.01 PT Cancelled INR Cancelled APTT Cancelled PTT Ratio Cancelled Sodium 139 Potassium 3.9 Chloride 105 Carbon Dioxide 29 Anion Gap 5.0 BUN 16 Creatinine 1.18 Est Cr Clr Drug Dosing 67.4 Est GFR ( Amer) 75.1 Est GFR (Non-Af Amer) 64.8 BUN/Creatinine Ratio 14.0 Glucose 130 H Calcium 8.6 Total Bilirubin 1.1 H AST 412 H ALT 213 H Alkaline Phosphatase 182 H Troponin I < 0.015 Total Protein 7.9 Albumin 3.5 Globulin 4.4 H Albumin/Globulin Ratio 0.8 L Lipase 540 H Urine Color Urine Appearance Urine pH Ur Specific [place] Urine Protein Urine Glucose (UA) Urine Ketones Urine Blood Urine Nitrite Urine Bilirubin Urine Urobilinogen Ur Leukocyte Esterase 12/07/18 12/07/18 12/07/18 11:19 13:20 16:35 WBC 7.63 RBC 3.95 L Hgb 11.8 L Hct 35.3 L MCV 89.4 MCH 29.9 MCHC 33.4 RDW Std Deviation 49.3 H RDW Coeff of [place] 15.1 H Plt Count 256 MPV 10.4 Immature Gran % (Auto) 0.1 Neut % (Auto) 71.4 Lymph % (Auto) 19.0 [place] % (Auto) 8.9 Eos % (Auto) 0.5 Baso % (Auto) 0.1 Immature Gran # (Auto) 0.01 Neut # (Auto) 5.44 Lymph # (Auto) 1.45 [place] # (Auto) 0.68 H Eos # (Auto) 0.04 Baso # (Auto) 0.01 PT 11.0 INR 1.1 APTT 30.8 PTT Ratio 1.1 Sodium Potassium Chloride Carbon Dioxide Anion Gap BUN Creatinine Est Cr Clr Drug Dosing Est GFR ( Amer) Est GFR (Non-Af Amer) BUN/Creatinine Ratio Glucose Calcium Total Bilirubin AST ALT Alkaline Phosphatase Troponin I Total Protein Albumin Globulin Albumin/Globulin Ratio Lipase Urine Color Yellow Urine Appearance Clear Urine pH 7.0 Ur Specific [place] 1.012 Urine Protein Negative Urine Glucose (UA) Negative Urine Ketones Negative Urine Blood Negative Urine Nitrite Negative Urine Bilirubin Negative Urine Urobilinogen Negative Ur Leukocyte Esterase Negative 12/07/18 16:35 WBC RBC Hgb Hct MCV MCH MCHC RDW Std Deviation RDW Coeff of [place] Plt Count MPV Immature Gran % (Auto) Neut % (Auto) Lymph % (Auto) [place] % (Auto) Eos % (Auto) Baso % (Auto) Immature Gran # (Auto) Neut # (Auto) Lymph # (Auto) [place] # (Auto) Eos # (Auto) Baso # (Auto) PT 10.9 INR 1.1 APTT 30.2 PTT Ratio 1.1 Sodium Potassium Chloride Carbon Dioxide Anion Gap BUN Creatinine Est Cr Clr Drug Dosing Est GFR ( Amer) Est GFR (Non-Af Amer) BUN/Creatinine Ratio Glucose Calcium Total Bilirubin AST ALT Alkaline Phosphatase Troponin I Total Protein Albumin Globulin Albumin/Globulin Ratio Lipase Urine Color Urine Appearance Urine pH Ur Specific [place] Urine Protein Urine Glucose (UA) Urine Ketones Urine Blood Urine Nitrite Urine Bilirubin Urine Urobilinogen Ur Leukocyte Esterase Diagnostic Findings R MRCP CLINICAL HISTORY: chronic cholecystitis, new transaminitis nausea COMPARISON STUDY: November 28, 2018 FINDINGS: Images were acquired in the coronal and axial planes. MIP images were obtained. There is persistent gallbladder wall thickening with minimal pericholecystic edema. The findings are again indicative of cholecystitis, acute versus chronic. If indicated, a nuclear medicine hepatobiliary study could be obtained in follow-up to assess cystic duct patency. No gallstones are visualized. No common bile duct calculi are visualized. There is no intra or extrahepatic biliary ductal dilatation. There is no pancreatic ductal dilatation. Mild adenomyomatosis of the gallbladder is suspected. There are bilateral renal cysts. IMPRESSION: 1. No evidence of intra or extrahepatic biliary ductal dilatation. 5 mm common bile duct 2. No common bile duct calculi identified 3. No pancreatic ductal dilatation 4. Persistent gallbladder wall thickening, and mild pericholecystic edema. The findings are again suggestive of cholecystitis (acute versus chronic) US gallbladder CLINICAL HISTORY: Right upper quadrant abdominal pain COMPARISON STUDY: 11/28/2018 FINDINGS: The pancreas appears sonographically normal. No focal hepatic masses are delineated. There are slightly echogenic portal triads. There is slight ductal prominence. There is mild gallbladder wall thickening and trace pericholecystic fluid. No shadowing calculi are visualized. There is mild adenomyomatosis. The common bile duct measures 6 mm. There is no right-sided hydronephrosis. There is a 2 cm lower pole right renal cyst. IMPRESSION: 1. Gallbladder adenomyomatosis 2. Gallbladder wall thickening and trace pericholecystic fluid 3. No shadowing calculi identified 4. 6 mm common bile duct 5. Ultrasonographically normal pancreas
[2018-12-07] MEDS: PIPERACILLIN/TAZOBACTAM 3.375 GM in DEXTROSE 5% 100 ML IV SCH (19:34)
[2018-12-07] MEDS: PANTOprazole 40 MG TAB PO SCH (21:06)
[2018-12-07] MEDS: METOPROLOL TARTRATE 25 MG TAB PO SCH (21:06)
[2018-12-07] MEDS: HYDROmorphone INJ 0.5 MG/0.5 ML SYR IV PRN (23:16)
[2018-12-08 00:13] LABS: Partial Thromboplastin Time 80.9 Seconds (21.0-31.0)
[2018-12-08] MEDS: PIPERACILLIN/TAZOBACTAM 3.375 GM in DEXTROSE 5% 100 ML IV SCH ×3 (02:27→17:21)
[2018-12-08] MEDS: SODIUM CHLORIDE 0.9% 1000ML 1,000 ML IV SCH ×2 (04:44→17:21)
[2018-12-08 06:27] LABS: Hematocrit (blood only) 31.7 % (42-52); Hemoglobin 10.5 g/dL (14.0-18.0); Mean Corpuscular Hgb Conc 33.1 g/dL (32-36); Mean Corpuscular Volume 88.8 fL (80-100); Mean Platelet Volume 10.5 fL (7.4-10.4); Platelet Count 231 K/uL (130-400); RDW Standard Deviation 49.2 fL (36.4-46.3); Red Blood Count 3.57 M/uL (4.7-6.1); White Blood Count 5.86 K/uL (4.8-10.8)
[2018-12-08 07:07] LABS: Albumin Globulin Ratio 0.7 (0.9-2); Albumin Level 2.8 gm/dl (3.4-5.0); Bilirubin,Total 1.5 mg/dl (0.2-1); Calcium 8.2 mg/dl (8.5-10.1); Creatinine Clr Calc Pharmacy 66.8 ml/min; Est GFR (African American) 74.4; Est GFR (Non-African American) 64.2; Globulin 3.8 gm/dl (2.5-4.0); Partial Thromboplastin Time 109.4 Seconds (21.0-31.0); Potassium 3.8 mmol/L (3.5-5.1); Total Protein 6.6 gm/dl (6.4-8.2)
[2018-12-08] MEDS: ATORVASTATIN 40 MG TAB PO SCH (07:50)
[2018-12-08] MEDS: AMLODIPINE BESYLATE 5 MG TAB PO SCH (07:51)
[2018-12-08] MEDS: PANTOprazole 40 MG TAB PO SCH ×2 (07:51→21:26)
[2018-12-08] MEDS: METOPROLOL TARTRATE 25 MG TAB PO SCH ×2 (07:52→21:27)
[2018-12-08] MEDS: EZETIMIBE 10 MG TABLET PO SCH (07:52)
[2018-12-08] MEDS: SUCRALFATE 1 GM TAB PO SCH ×4 (07:52→21:26)
[2018-12-08] MEDS: LEVOTHYROXINE SODIUM 125 MCG TABLET PO SCH (07:52)
[2018-12-08] MEDS ORDERED: PANTOprazole 40 MG TAB PO SCH (09:00)
--- NOTE | 2018-12-08 09:05 | Progress Note ---
Date of Service December 08, 2018 Assessment & Plan (1) Nausea and vomiting: (2) Transaminitis: Patient presented with nausea vomiting and discomfort now with elevation of his liver associated enzymes. We will plan to do an endoscopic ultrasound on Sunday with possible ERCP if positive for gallstone disease. The patient and I have discussed the risks and benefits of the procedure to include bleeding, infection, perforation, pain, pancreatitis and the need for follow-up studies. Recommendations N.p.o. at midnight Continue to hold Pradaxa Discontinue IV heparin at 0600 Subjective Patient notes that his abdominal pain is somewhat improved this morning. No nausea or vomiting overnight. Review of Systems Eyes: no diplopia Ear, Nose, Mouth, Throat: no nasal discharge Respiratory: no change in sputum and no hemoptysis Cardiovascular: no chest pain with activity Gastrointestinal: + abdominal pain and + bloating; no nausea and no hematemesis Physical Exam Eyes: PERRL, conjunctivae normal, anicteric sclerae Neck: trachea midline, no thyromegaly Respiratory: normal respiratory effort, lungs clear to auscultation Cardiovascular: Rate/Rhythm: regular rhythm Gastrointestinal (Abdomen): Percussion/Palpation: abdomen soft; abdomen nontender and no guarding Results & Data Vital Signs (Past 12 Hours) Vital Signs Temp Pulse Pulse Resp BP Pulse Ox 12/08/18 07:32 41 L 12/08/18 07:00 36.6 C 41 L 18 129/81 93 12/08/18 04:00 36.6 C 46 L 20 142/79 H 95 12/07/18 23:46 36.7 C 50 L 18 153/88 H 95 12/07/18 23:06 49 L
[2018-12-08] MEDS: Heparin Adult STANDARD Wt-Based Dextrose 5% 25,000 units/500 mL IV SCH (13:53)
[2018-12-08 14:08] LABS: Partial Thromboplastin Ratio 2.3
[2018-12-08 14:15] LABS: Partial Thromboplastin Time 63.2 Seconds (21.0-31.0)
--- NOTE | 2018-12-08 17:30 | Hospitalist Progress Note ---
Date of Service December 08, 2018 Assessment & Plan (1) Epigastric pain: (2) Transaminitis: This is a 63yo M with a PMH of paroxysmal A. 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 -Epigastric pain with nausea and emesis x 3 today. Afebrile, no leukocytosis -Findings suggestive of chronic cholecystitis concern for choledocholithiasis due to new transaminitis since last week -Recently admitted and found to have chronic cholecystitis. Normal MRCP at that time. Planned to follow up for OP EUS in December for pancreatic fullness MRCP: Unrevealing For ERCP tomorrow -Holding Pradaxa and bridging with IV heparin -Continue Zosyn empirically for now (3) Facial rash: New facial rash since this morning -Started low dose Lexapro 3 days ago. -Rash resolved (4) History of duodenal ulcer: History of bleeding duodenal ulcer 05/2018 -P.o. twice daily (5) History of CVA (cerebrovascular accident): History of watershed CVA 05/2018 while taking Eliquis, at that time patient was transition to Pradaxa -Anticoagulation was discussed with Dr. Garcia during previous admission -Hold Pradaxa for ERCP tomorrow, on IV heparin, tolerating well no bleeding (6) Paroxysmal atrial fibrillation: Rate controlled on metoprolol, will continue with hold parameters -Anticoagulation as above (7) HTN (hypertension): Normotensive -Continue amlodipine and metoprolol (8) History of thyroidectomy: Continue levothyroxine (9) Dyslipidemia: Continue statin and Zetia DVT Ppx: IV heparin Code status: FULL PCP: Leonidas Dispo: Admitted to [facility]. Plan to return home once medically stable. Discussed with patient in detail, he is agreeable, understanding, comfortable with the plan of care Subjective Follow-up for cholecystitis Seen resting in bed, comfortable, not in distress Right upper quadrant pain adequately controlled by pain medications, no active abdominal pain on my exam Denies chest pain, shortness of breath, palpitations, headache, dizziness Positive flatus No other symptoms Review of Systems Review of Systems: All systems reviewed & are unremarkable except as noted in HPI & below Physical Exam Physical Exam: General- oriented x 3, not in distress, speaks in sentences with no effort or accessory muscle use Eyes- anicteric Neck- no JVD Lungs- clear breath sounds bilaterally, no rales/wheezes Heart- normal rate, regular rhythm; no murmurs Abdomen- normal bowel sounds, nondistended, soft, nontender No Coley sign Extremities- no pretibial edema, no calf tenderness Neuro- alert, oriented x 3; no gross focal neurologic deficits Skin- warm & dry Results & Data Vital Signs (Past 12 Hours) Vital Signs Temp Pulse Pulse Pulse Resp BP Pulse Ox 12/08/18 15:00 36.8 C 85 18 132/79 100 12/08/18 14:56 48 L 12/08/18 11:12 36.7 C 48 L 18 123/75 96 12/08/18 07:32 41 L 12/08/18 07:00 36.6 C 41 L 18 129/81 93 Laboratory Results Laboratory Results - last 24 hr 12/07/18 12/07/18 12/08/18 16:35 23:36 06:01 WBC 5.86 RBC 3.57 L Hgb 10.5 L Hct 31.7 L MCV 88.8 MCH 29.4 MCHC 33.1 RDW Std Deviation 49.2 H RDW Coeff of Martin 15.0 H Plt Count 231 MPV 10.5 H PT 10.9 INR 1.1 APTT 30.2 80.9 H* PTT Ratio 1.1 3.0 Sodium Potassium Chloride Carbon Dioxide Anion Gap BUN Creatinine Est Cr Clr Drug Dosing Est GFR ( Amer) Est GFR (Non-Af Amer) BUN/Creatinine Ratio Glucose Calcium Total Bilirubin AST ALT Alkaline Phosphatase Total Protein Albumin Globulin Albumin/Globulin Ratio 12/08/18 12/08/18 12/08/18 06:01 06:01 13:31 WBC RBC Hgb Hct MCV MCH MCHC RDW Std Deviation RDW Coeff of Martin Plt Count MPV PT INR APTT 109.4 H* 63.2 H* PTT Ratio 4.0 2.3 Sodium 139 Potassium 3.8 Chloride 107 Carbon Dioxide 29 Anion Gap 3.0 BUN 11 Creatinine 1.19 Est Cr Clr Drug Dosing 66.8 Est GFR ( Amer) 74.4 Est GFR (Non-Af Amer) 64.2 BUN/Creatinine Ratio 9.0 L Glucose 91 Calcium 8.2 L Total Bilirubin 1.5 H AST 248 H ALT 305 H Alkaline Phosphatase 188 H Total Protein 6.6 Albumin 2.8 L Globulin 3.8 Albumin/Globulin Ratio 0.7 L
[2018-12-08] MEDS: HYDROmorphone INJ 0.5 MG/0.5 ML SYR IV PRN (22:55)
[2018-12-09] MEDS: PIPERACILLIN/TAZOBACTAM 3.375 GM in DEXTROSE 5% 100 ML IV SCH ×3 (02:23→18:17)
[2018-12-09] MEDS: SODIUM CHLORIDE 0.9% 1000ML 1,000 ML IV SCH ×2 (05:17→14:15)
[2018-12-09] MEDS ORDERED: [UNRECOGNIZED DRUG - REMARK] ONE (06:00)
[2018-12-09 06:16] LABS: Hematocrit (blood only) 32.6 % (42-52); Hemoglobin 10.9 g/dL (14.0-18.0); Mean Corpuscular Hgb Conc 33.4 g/dL (32-36); Mean Corpuscular Volume 88.3 fL (80-100); Mean Platelet Volume 10.7 fL (7.4-10.4); Platelet Count 235 K/uL (130-400); RDW Standard Deviation 49.2 fL (36.4-46.3); Red Blood Count 3.69 M/uL (4.7-6.1); White Blood Count 5.85 K/uL (4.8-10.8)
[2018-12-09 06:47] LABS: Partial Thromboplastin Time 82.4 Seconds (21.0-31.0)
[2018-12-09 06:56] LABS: Albumin Globulin Ratio 0.8 (0.9-2); BUN Creatinine Ratio 6.1 (10-20); Bilirubin,Total 0.7 mg/dl (0.2-1); Calcium 8.4 mg/dl (8.5-10.1); Creatinine Clr Calc Pharmacy 66.8 ml/min; Est GFR (African American) 74.4; Est GFR (Non-African American) 64.2; Globulin 3.8 gm/dl (2.5-4.0); Potassium 3.2 mmol/L (3.5-5.1); Total Protein 6.8 gm/dl (6.4-8.2)
[2018-12-09] MEDS: LEVOTHYROXINE SODIUM 125 MCG TABLET PO SCH (08:54)
[2018-12-09] MEDS: SUCRALFATE 1 GM TAB PO SCH ×4 (08:54→20:34)
[2018-12-09] MEDS: POTASSIUM CHLORIDE / WTR 10 MEQ/100 ML PLCT IV SCH ×3 (08:54→10:59)
[2018-12-09] MEDS: METOPROLOL TARTRATE 25 MG TAB PO SCH ×2 (08:55→20:35)
--- NOTE | 2018-12-09 11:18 | Gastroenterology Progress Note ---
Date of Service December 09, 2018 Assessment & Plan (1) Transaminitis: Plan was for EUS, possible ERCP today by Dr. Zhong. However, due to issues with OR facility and endoscopy staff availability, we will not be able to do this today and this has been rescheduled for 8:15AM tomorrow morning. Diet: Will allow full liquids po tonight, then NPO after midnight. Present on Admission?: Yes Supervising Physician Co-Signing Physician Notes I saw and evaluated the patient. Unfortunately we were not able to secure time for endoscopic ultrasound this afternoon. In addition, it may be helpful for him to be off the Pradaxa for an additional day to minimize his potential for bleeding. We will plan for endoscopic ultrasound and possible ERCP on Sunday morning. Please leave the patient n.p.o. at night. Subjective Mr. Terrence Garcia is a 63 yr old male with A-fib, embolic stroke, on Pradaxa (held since 12/07), hypothyroidism, who was admitted on 12/07 for epigastric pain. US and MRCP with mild gallbladder wall thickening but no obvious CBD abnormalities though LFTs are elevated though slightly improved today. ( T BIli 1.1->1.5->0.7), AST 412->248->11, ALT 213->305->215, Alk Phos 182->188->175). Will need EUS. Review of Systems Review of Systems: ROS: Gen: Denies weakness, fevers, weight loss Eyes: No eye redness, or pain, no recent vision changes Resp: No SOB, no cough Cardio: No palpitations/irregular beats, no chest pain GI: + LUQ pain, improved but still persists. No nausea/vomiting : Denies pain on urination Skin: No jaundice, itching or new rashes Eyes: No eye redness, no impaired vision or double vision Physical Exam Constitutional: WD/WN, vitals as above Eyes: PERRL, conjunctivae normal, anicteric sclerae ENMT: external ear and nose normal, oropharynx normal Neck: trachea midline, no thyromegaly Respiratory: normal respiratory effort, lungs clear to auscultation Cardiovascular: RRR, no murmur, no edema Gastrointestinal (Abdomen): normal bowel sounds, soft, nontender, no hepatosplenomegaly Skin: no rashes, warm and dry Neurologic: PERRL, EOMI, accommodation nl, no face palsy, no dysarthria Psychiatric: A+Ox3, euthymic affect Lymphatic: no cervical or axillary lymphadenopathy Results & Data Vital Signs (Past 12 Hours) Vital Signs Temp Pulse Pulse Resp BP Pulse Ox 12/09/18 07:32 36.8 C 51 L 16 153/82 H 97 12/09/18 04:00 36.7 C 42 L 20 152/80 H 93 12/09/18 00:00 36.6 C 47 L 20 148/89 H 94 12/08/18 23:18 48 L Laboratory Results T Bili 1.1->1.5-> 0.7 AST 412->248->111 ALT 213->305->215 Alk Phos 182->188->175 Diagnostic Findings GB US 12/07/18: 1. Gallbladder adenomyomatosis 2. Gallbladder wall thickening and trace pericholecystic fluid 3. No shadowing calculi identified 4. 6 mm common bile duct 5. Ultrasonographically normal pancreas MRCP 12/07/18: 1. No evidence of intra or extrahepatic biliary ductal dilatation. 5 mm common bile duct 2. No common bile duct calculi identified 3. No pancreatic ductal dilatation 4. Persistent gallbladder wall thickening, and mild pericholecystic edema. The findings are again suggestive of cholecystitis (acute versus chronic)
[2018-12-09] MEDS: PANTOprazole 40 MG TAB PO SCH ×2 (12:48→20:35)
[2018-12-09] MEDS: EZETIMIBE 10 MG TABLET PO SCH (12:48)
[2018-12-09] MEDS: ATORVASTATIN 40 MG TAB PO SCH (12:48)
[2018-12-09] MEDS: AMLODIPINE BESYLATE 5 MG TAB PO SCH (12:48)
--- NOTE | 2018-12-09 17:43 | Hospitalist Progress Note ---
Date of Service December 09, 2018 Assessment & Plan (1) Epigastric pain: (2) Transaminitis: This is a 63yo M with a PMH of paroxysmal A. 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 -Epigastric pain with nausea and emesis x 3 today. Afebrile, no leukocytosis -Findings suggestive of chronic cholecystitis concern for choledocholithiasis due to new transaminitis since last week -Recently admitted and found to have chronic cholecystitis. Normal MRCP at that time. Planned to follow up for OP EUS in December for pancreatic fullness MRCP: Unrevealing Afebrile, abdominal pain improving LFTs of syncope improving Awaiting ERCP prior to possible cholecystectomy -Holding Pradaxa and bridging with IV heparin -Continue Zosyn IV (3) Facial rash: New facial rash since this morning -Started low dose Lexapro 3 days ago. -Rash resolved (4) History of duodenal ulcer: History of bleeding duodenal ulcer 05/2018 -P.o. twice daily (5) History of CVA (cerebrovascular accident): History of watershed CVA 05/2018 while taking Eliquis, at that time patient was transition to Pradaxa -Anticoagulation was discussed with Dr. Garcia during previous admission Pradaxa on hold, on IV heparin in light of an ERCP tomorrow (6) Paroxysmal atrial fibrillation: Rate controlled on metoprolol, will continue with hold parameters -Anticoagulation as above (7) HTN (hypertension): Normotensive -Continue amlodipine and metoprolol (8) History of thyroidectomy: Continue levothyroxine (9) Dyslipidemia: Continue statin and Zetia DVT Ppx: IV heparin Code status: FULL PCP: Leonidas Dispo: Admitted to [facility]. Plan to return home once medically stable. Discussed with patient in detail, he is agreeable, understanding, comfortable with the plan of care Subjective Follow-up for cholecystitis Seen resting in bed, comfortable not in distress Denies abdominal pain today, no nausea No other symptoms Review of Systems Review of Systems: All systems reviewed & are unremarkable except as noted in HPI & below Physical Exam Physical Exam: General- oriented x 3, not in distress, speaks in sentences with no effort or accessory muscle use Eyes- anicteric Neck- no JVD Lungs- clear BS, no rales no crackles bilaterally Heart- normal rate, regular rhythm; no murmurs Abdomen- normal bowel sounds, nondistended, soft, nontender Extremities- no pretibial edema, no calf tenderness Neuro- alert, oriented x 3; no gross focal neurologic deficits Skin- warm & dry Results & Data Vital Signs (Past 12 Hours) Vital Signs Temp Pulse Pulse Resp BP Pulse Ox 12/09/18 16:02 46 L 12/09/18 15:39 36.6 C 48 L 16 147/85 H 98 12/09/18 11:50 36.8 C 45 L 16 154/84 H 99 12/09/18 08:00 43 L 12/09/18 07:32 36.8 C 51 L 16 153/82 H 97 Laboratory Results Laboratory Results - last 24 hr 12/09/18 12/09/18 12/09/18 06:04 06:04 06:04 WBC 5.85 RBC 3.69 L Hgb 10.9 L Hct 32.6 L MCV 88.3 MCH 29.5 MCHC 33.4 RDW Std Deviation 49.2 H RDW Coeff of Martin 15.0 H Plt Count 235 MPV 10.7 H APTT 82.4 H* PTT Ratio 3.0 Sodium 140 Potassium 3.2 L D Chloride 106 Carbon Dioxide 27 Anion Gap 7.0 BUN 7 Creatinine 1.19 Est Cr Clr Drug Dosing 66.8 Est GFR ( Amer) 74.4 Est GFR (Non-Af Amer) 64.2 BUN/Creatinine Ratio 6.1 L Glucose 91 Calcium 8.4 L Total Bilirubin 0.7 D AST 111 H ALT 215 H Alkaline Phosphatase 175 H Total Protein 6.8 Albumin 3.0 L Globulin 3.8 Albumin/Globulin Ratio 0.8 L
[2018-12-09] MEDS: Heparin Adult STANDARD Wt-Based Dextrose 5% 25,000 units/500 mL IV SCH (20:31)
[2018-12-09 20:45] LABS: Partial Thromboplastin Ratio 1.7
[2018-12-09 20:50] LABS: Partial Thromboplastin Time 46.1 Seconds (21.0-31.0)
[2018-12-09] MEDS: HYDROmorphone INJ 0.5 MG/0.5 ML SYR IV PRN (22:23)
[2018-12-10] MEDS: PIPERACILLIN/TAZOBACTAM 3.375 GM in DEXTROSE 5% 100 ML IV SCH ×3 (01:08→17:42)
[2018-12-10] MEDS: SODIUM CHLORIDE 0.9% 1000ML 1,000 ML IV SCH ×2 (01:08→16:01)
[2018-12-10] MEDS: LEVOTHYROXINE SODIUM 125 MCG TABLET PO SCH (05:22)
[2018-12-10] MEDS ORDERED: LR 15ML/HR IV SCH (06:00)
[2018-12-10 06:33] LABS: Creatinine Clr Calc Pharmacy 69.7 ml/min; Est GFR (African American) 78.3; Est GFR (Non-African American) 67.6
[2018-12-10] MEDS: SUCRALFATE 1 GM TAB PO SCH ×4 (07:15→20:27)
--- NOTE | 2018-12-10 07:47 | History & Physical Bridge Note ---
Date of Service December 10, 2018 History & Physical Bridge Note I have examined the patient, reviewed the History & Physical and in the interval since the performance of the History & Physical I have noted the following changes of clinical significance: no changes noted. We are planning for upper endoscopy and endoscopic ultrasound for evaluation of his abdominal pain and elevated liver enzymes. If the stone is found within the common bile duct we will proceed with ERCP. If gallstones found within the gallbladder we would just referral to general surgery to discuss cholecystectomy. I discussed the risks of the procedures to include bleeding, infection, perforation, pain, pancreatitis and in the event of ERCP failed biliary cannulation
[2018-12-10] MEDS ORDERED: fentaNYL citrate 100 MCG/2 ML VIAL ONE (07:55)
--- NOTE | 2018-12-10 07:59 | Anesthesiology Consultation ---
Date of Service December 10, 2018 Assessment & Plan (1) Encounter for pre-operative examination: Chart Review Chart Review: Acceptable Risk for Surgery Consults Requested none ASA ASA4 Proposed Anesthesia Anesthesia Type: General Risk / Benefits Reviewed With: PT / POA / Parent / Guardian, Accepts Plan and Informed Consent Obtained History Surgery Operation Date: 12/10/18 08:15 Proposed Procedures p Endoscopic Retrograde Cholangiopancreatogram - Dorcas Zhong s Endoscopic Ultrasonography Upper - King[place] Zhong Height/Weight Height: 5 ft 11 in Weight: 78.5 kg Allergies Allergy/AdvReac Type Severity Reaction Status Date / Time apixaban [From Eliquis] Allergy Unknown eosinophili Unverified 12/07/18 10:27 a levofloxacin Allergy Unknown Timing Unverified 12/07/18 10:27 correlates with eosinophilia morphine AdvReac Intermediate Nausea/Vomi Verified 12/07/18 10:27 ting codeine AdvReac Unknown Nausea Verified 12/07/18 10:27 Medications Home Medications Medication Instructions Recorded Confirmed Last Taken levothyroxine 125 mcg PO QAM 06/04/18 12/07/18 12/07/18 Pradaxa 150 mg PO BID 11/28/18 12/07/18 12/07/18 amlodipine 2.5 mg PO QAM 11/28/18 12/07/18 12/07/18 atorvastatin 80 mg PO QAM 11/28/18 12/07/18 12/07/18 ezetimibe 10 mg PO QAM 11/28/18 12/07/18 12/07/18 metoprolol tartrate 12.5 mg PO BID 11/28/18 12/07/18 12/07/18 pantoprazole 40 mg PO QAM 11/28/18 12/07/18 12/07/18 sucralfate 1 g PO ACHS 11/28/18 12/07/18 12/07/18 dicyclomine 10 mg PO TID PRN #90 cap 11/29/18 12/07/18 Unknown Active Medications Generic Name Dose Route Start Last Admin Trade Name Freq PRN Reason Stop Dose Admin Amlodipine Besylate 2.5 mg 12/08/18 09:00 12/09/18 12:48 Norvasc PO 01/07/19 08:59 Not Given QAM [facility] Atorvastatin Calcium 80 mg 12/08/18 09:00 12/09/18 12:48 Lipitor PO 01/07/19 08:59 Not Given QAM MYRANDA Ezetimibe 10 mg 12/08/18 09:00 12/09/18 12:48 Zetia PO 01/07/19 08:59 Not Given QAM MYRANDA Hydromorphone HCl 0.5 mg 12/07/18 14:58 12/09/18 22:23 Dilaudid IV 12/21/18 14:57 0.5 mg Q4H PRN Administration Pain Sodium Chloride 1,000 mls @ 80 mls/hr 12/07/18 14:58 12/10/18 07:50 Nss 1000ml IV 01/06/19 14:57 0 mls/hr .[id number] MYRANDA Infusion Piperacillin Sod/Tazobactam 115 mls @ 28.75 mls/hr 12/07/18 18:00 12/10/18 05:22 Sod 3.375 gm/ Dextrose IV 12/17/18 17:59 Infused Q8H MYRANDA Infusion Protocol Heparin Sodium/Dextrose 25,000 units in 500 mls @ 22 mls/hr 12/07/18 16:30 12/09/18 21:13 Heparin Sodium/Dextrose IV 01/06/19 16:29 1,100 units/hr .[id number] MYRANDA 22 mls/hr Titration Protocol 1,100 UNITS/HR Levothyroxine Sodium 125 mcg 12/08/18 06:30 12/10/18 05:22 Synthroid PO 01/07/19 06:29 Not Given DAILYBB MYRANDA Metoprolol Tartrate 12.5 mg 12/07/18 21:00 12/09/18 20:35 Lopressor PO 01/06/19 20:59 Not Given BID MYRANDA Pantoprazole Sodium 40 mg 12/07/18 21:00 12/09/18 20:35 Protonix PO 01/06/19 20:59 40 mg BID MYRANDA Administration Sucralfate 1 gm 12/07/18 16:30 12/09/18 20:34 Carafate Tab PO 01/06/19 16:29 1 gm ACHS MYRANDA Administration NPO Date Last Intake of Fluids: 12/09/18 Time Last Intake of Fluids: 23:45 Date Last Intake of Solids: 12/09/18 Time Last Intake of Solids: 19:00 Past Medical History Medical History History of CVA (cerebrovascular accident) (Chronic) Depression (Chronic) Hypereosinophilic syndrome, idiopathic (Resolved) Dyslipidemia (Chronic) 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) Tobacco abuse (Resolved) Paroxysmal atrial fibrillation (Chronic) HTN (hypertension) (Chronic) Exercise / Class Metabolic Activity II 4-5 Yardwork/Stairs/Walk up hill Past Family History Family History Brother Diabetes Mother Hypertension Past Surgical History Surgical History History of thyroidectomy (Chronic) History of left knee surgery (Chronic) History of esophagogastroduodenoscopy (EGD) Past Anesthesia History No Hx of Anesthesia Complications and No Family Hx of Anesthesia Complications History of PONV No Hx of PONV and No Hx of Motion Sickness Social History Smoking Status: Former smoker tobacco type: cigarettes Smoking cigarettes per day: 20 Do You Dip or Chew Tobacco: No Smoking End Date: May 2018 Hx Alcohol Use: No Hx Substance Use: No substance use type: does not use Physical Exam Vital Signs Last Vital Signs Temp 97.9 F 12/10/18 07:28 Pulse 41 L 12/10/18 07:31 Resp 16 12/10/18 07:28 BP 156/96 H 12/10/18 07:28 Pulse Ox 94 12/10/18 07:28 ENMT Mouth: + poor dentition and + chipped teeth Thyromental Distance: > or= 3.5 Finger Breadths Mallampati Class: II Neck normal visual inspection Respiratory normal respiratory effort Auscultation: lungs clear to auscultation bilaterally Cardiovascular Rate/Rhythm: regular rate and regular rhythm Testing Laboratory Results 12/09/18 06:04 12/10/18 05:41 PT 10.9 Seconds (9.0-12.0) 12/07/18 16:35 INR 1.1 (0.9-1.1) 12/07/18 16:35 APTT 46.1 Seconds (21.0-31.0) H* 12/09/18 20:08 Urine Color Yellow 12/07/18 13:20 Urine Appearance Clear (Clear) 12/07/18 13:20 Urine pH 7.0 (4.5-7.5) 12/07/18 13:20 Ur Specific [place] 1.012 (1.000-1.030) 12/07/18 13:20 Urine Protein Negative (Negative) 12/07/18 13:20 Urine Glucose (UA) Negative (Negative) 12/07/18 13:20 Urine Ketones Negative (Negative) 12/07/18 13:20 Urine Nitrite Negative (Negative) 12/07/18 13:20 Ur Leukocyte Esterase Negative (Negative) 12/07/18 13:20 12/07/18 16:35 Aerobic Blood Culture - Preliminary Blood No growth in Aerobic bottle after 48 hours. Anaerobic Blood Culture - Preliminary No growth in Anaerobic bottle after 48 hours. 12/07/18 16:42 Aerobic Blood Culture - Preliminary Blood No growth in Aerobic bottle after 48 hours. Anaerobic Blood Culture - Preliminary No growth in Anaerobic bottle after 48 hours. Electrocardiogram Date: 12/07/18 Sinus bradycardia, rate 49 bpm RSR' or QR pattern in V1 suggests right ventricular conduction delay Borderline ECG When compared with ECG of 28-NOV-2018 09:10, No significant change was found Confirmed by Alan Singh ([id number]) on 12/07/2018 1:11:31 PM Chest X-Ray Date: 12/07/18 Findings: + NAD Echocardiogram Date: 06/02/18 EF: 60-65% LV Function: normal small to moderate circumferential pericardial effusion with moderate organization There are no echocardiographic indications of cardiac tamponade
[2018-12-10] MEDS ORDERED: ROCURONIUM BROMIDE 10 MG/ML 5 ML VIAL ONE (08:02)
[2018-12-10] MEDS ORDERED: PROPOFOL IV EMULSION 10 MG/ML 20 ML VIAL IV ONE (08:02)
[2018-12-10] MEDS ORDERED: ATROPINE SULFATE 0.1 MG/ML 10ML SYR IV PRN (08:12)
[2018-12-10] MEDS ORDERED: fentaNYL citrate 100 MCG/2 ML VIAL IV PRN (08:12)
[2018-12-10] MEDS ORDERED: ONDANSETRON INJ 2 MG/ML 2 ML VIAL IV PRN (08:12)
[2018-12-10] MEDS ORDERED: ePHEDrine sulfate 50 MG/ML AMP IV PRN (08:12)
[2018-12-10] MEDS ORDERED: LIDOCAINE 2% JELLY 5 ML TUBE ONE (08:34)
[2018-12-10] MEDS ORDERED: INDOMETHACIN 50 MG SUPP PR ONE (08:36)
[2018-12-10] MEDS ORDERED: INDOMETHACIN 50 MG SUPP PR STA (08:38)
--- NOTE | 2018-12-10 08:55 | GI REPORT ---
Patient Name: Terrence Garcia Procedure Date: 12/10/2018 8:34 AM Date of : 1955 Admit Type: Inpatient Age: 63 Gender: Male Attending MD: Dorcas Zhong DO Procedure: Upper GI endoscopy Providers: Dorcas Zhong DO Referring MD: Nahum Berry Indications: Epigastric abdominal pain Medicines: General Anesthesia Complications: No immediate complications. Estimated blood loss: Minimal. Estimated Blood Loss: Estimated blood loss was minimal. Procedure: Pre-Anesthesia Assessment: - Prior to the procedure, a History and Physical was performed, and patient medications, allergies and sensitivities were reviewed. The patient's tolerance of previous anesthesia was reviewed. - The risks and benefits of the procedure and the sedation options and risks were discussed with the patient. All questions were answered and informed consent was obtained. - Patient identification and proposed procedure were verified prior to the procedure by the physician, the nurse and the keyseating machine set up operator. The procedure was verified in the procedure room. - Pre-procedure physical examination revealed no contraindications to sedation. - ASA Grade Assessment: IV - A patient with severe systemic disease that is a constant threat to life. - After reviewing the risks and benefits, the patient was deemed in satisfactory condition to undergo the procedure. - The anesthesia plan was to use general anesthesia. - Immediately prior to administration of medications, the patient was re-assessed for adequacy to receive sedatives. - The heart rate, respiratory rate, oxygen saturations, blood pressure, adequacy of pulmonary ventilation, and response to care were monitored throughout the procedure. - The physical status of the patient was re-assessed after the procedure. After obtaining informed consent, the endoscope was passed under direct vision. Throughout the procedure, the patient's blood pressure, pulse, and oxygen saturations were monitored continuously. The Endoscope was introduced through the mouth, and advanced to the third part of duodenum. The upper GI endoscopy was accomplished without difficulty. The patient tolerated the procedure well. Findings: The examined esophagus was normal. The Z-line was regular and was found 43 cm from the incisors. Diffuse mild inflammation characterized by congestion (edema) and granularity was found in the entire examined stomach. Biopsies were taken with a cold forceps for histology. Estimated blood loss was minimal. The examined duodenum was normal. Biopsies were taken with a cold forceps for histology. Estimated blood loss was minimal. Impression: - Normal esophagus. - Z-line regular, 43 cm from the incisors. - Mucosal changes suspicious for gastritis. Biopsied. - Normal examined duodenum. Biopsied. Recommendation: - Perform an upper endoscopic ultrasound (UEUS) today. - Await pathology results. Dorcas Zhong D.O. Dorcas Zhong, 12/10/2018 8:55:27 AM This report has been signed electronically. Note Initiated On: 12/10/2018 8:34 AM Number of Addenda: 0 I attest to the content of the Intraoperative Record and orders documented therein, exceptions below {[id number]}
[2018-12-10] MEDS ORDERED: ONDANSETRON INJ 2 MG/ML 2 ML VIAL ONE (08:58)
[2018-12-10] MEDS ORDERED: DEXAMETHASONE SOD INJ 4 MG/ML VIAL ONE (08:58)
[2018-12-10] MEDS ORDERED: GLYCOPYRROLATE 0.2 MG/ML VIAL ONE (09:22)
[2018-12-10] MEDS ORDERED: LIDOCAINE HCL 2% 2 ML VIAL/AMP(20MG/ML) INFIL ONE (09:22)
[2018-12-10] MEDS ORDERED: NEOSTIGMINE METHYLSULFATE 5 MG/5 ML SYR ONE (09:31)
--- NOTE | 2018-12-10 09:33 | Post Operative Brief Note ---
Immediate Post Op Note v1 Date of Surgery December 10, 2018 Pre & Post Diagnosis Operation Date: 12/10/18 08:15 Pre-Op Diagnosis: Suspected gallstones, Abdominal Pain Post-Op Diagnosis: Suspected gallstones, Abdominal Pain Procedure Operation Date: 12/10/18 08:15 Actual Procedures p Upper Gastrointestinal Endoscopy, Endoscopic Retrograde Cholangiopancreatogram with Sphinchterotomy - Dorcas Zhong s Endoscopic Ultrasonography Upper with biopsy - Dorcas Zhong Surgeon Dorcas Zhong Residence Hall Director none Estimated Blood Loss 0 Findings Consistent with Post-Op Diagnosis
--- NOTE | 2018-12-10 09:42 | GI REPORT ---
Patient Name: Terrence Garcia Procedure Date: 12/10/2018 8:32 AM Date of : 1955 Admit Type: Inpatient Age: 63 Gender: Male Attending MD: Dorcas Zhong DO Procedure: Upper EUS Providers: Dorcas Zhong DO Referring MD: Nahum Berry Indications: Elevated liver enzymes Medicines: General Anesthesia Complications: No immediate complications. Estimated blood loss: Minimal. Estimated Blood Loss: Estimated blood loss was minimal. Procedure: Pre-Anesthesia Assessment: - Prior to the procedure, a History and Physical was performed, and patient medications, allergies and sensitivities were reviewed. The patient's tolerance of previous anesthesia was reviewed. - The risks and benefits of the procedure and the sedation options and risks were discussed with the patient. All questions were answered and informed consent was obtained. - Patient identification and proposed procedure were verified prior to the procedure by the physician, the nurse and the health education teacher. The procedure was verified in the procedure room. - Pre-procedure physical examination revealed no contraindications to sedation. - ASA Grade Assessment: IV - A patient with severe systemic disease that is a constant threat to life. - After reviewing the risks and benefits, the patient was deemed in satisfactory condition to undergo the procedure. - The anesthesia plan was to use general anesthesia. - Immediately prior to administration of medications, the patient was re-assessed for adequacy to receive sedatives. - The heart rate, respiratory rate, oxygen saturations, blood pressure, adequacy of pulmonary ventilation, and response to care were monitored throughout the procedure. - The physical status of the patient was re-assessed after the procedure. After obtaining informed consent, the endoscope was passed under direct vision. Throughout the procedure, the patient's blood pressure, pulse, and oxygen saturations were monitored continuously. The Endosonoscope was introduced through the mouth, and advanced to the third part of duodenum. The upper EUS was accomplished without difficulty. The patient tolerated the procedure well. Findings: ENDOSONOGRAPHIC FINDING: : Two stones were visualized endosonographically in the common bile duct. The stones measured up to 3 mm in greatest dimension. The stones were oval. They were hyperechoic. several small stones and a moderate amount of sludge was visualized endosonographically in the gallbladder. They were hyperechoic. The gallbladder wall was thickened measuring 3 mm. There was no sign of significant endosonographic abnormality in the left lobe of the liver. No focal pathology was identified. There was no sign of significant endosonographic abnormality in the entire pancreas. The pancreatic duct measured up to 2 mm in diameter. No masses, no cysts, the pancreatic duct was thin in caliber. There was no sign of significant endosonographic abnormality in the left adrenal gland. No adrenal gland enlargement was identified. Two benign-appearing lymph nodes were visualized in the justo hepatis region. The largest measured 5 mm by 12 mm in maximal cross-sectional diameter. The nodes were oval, hypoechoic and had poorly defined margins. Impression: - Two stones were visualized endosonographically in the distal common bile duct. - Stones and sludge was visualized endosonographically in the gallbladder. - There was no evidence of significant pathology in the left lobe of the liver. - There was no sign of significant pathology in the entire pancreas. - Endosonographic images of the left adrenal gland were unremarkable. - Two benign lymph nodes were visualized in the justo hepatis region. - No specimens collected. Recommendation: - Perform an ERCP today. Dorcas Zhong D.O. Dorcas Zhong DO 12/10/2018 9:42:15 AM This report has been signed electronically. Note Initiated On: 12/10/2018 8:32 AM Number of Addenda: 0 I attest to the content of the Intraoperative Record and orders documented therein, exceptions below {[id number]}
[2018-12-10 09:49] LABS: Potassium 3.4 mmol/L (3.5-5.1)
[2018-12-10 09:57] LABS: Bilirubin Direct 0.2 mg/dl (0-0.2); Bilirubin,Total 0.6 mg/dl (0.2-1)
--- NOTE | 2018-12-10 10:04 | Communication Note ---
Date of Service: December 10, 2018 Patient underwent upper endoscopy, endoscopic ultrasound and ERCP today. Findings Mild gastritis Gallstones within bile duct Gallstones, sludge and gallbladder wall thickening Endoscopic interventions Biliary sphincterotomy with gallstone extraction Prophylactic pancreatic stent placement Recommendations May restart anticoagulation with heparin this evening Consider a general surgery consultation for cholecystectomy Clear liquid diet from my perspective
--- NOTE | 2018-12-10 10:06 | GI REPORT ---
Patient Name: Terrence Garcia Procedure Date: 12/10/2018 8:37 AM Date of : 1955 Admit Type: Inpatient Age: 63 Gender: Male Attending MD: Dorcas Zhong DO Procedure: ERCP Providers: Dorcas Zhong DO Referring MD: Nahum Berry Indications: Abdominal pain of suspected biliary origin, Bile duct stone on Ultrasound, Elevated liver enzymes Medicines: General Anesthesia Complications: No immediate complications. Estimated blood loss: Minimal. Estimated Blood Loss: Estimated blood loss was minimal. Procedure: Pre-Anesthesia Assessment: - Prior to the procedure, a History and Physical was performed, and patient medications, allergies and sensitivities were reviewed. The patient's tolerance of previous anesthesia was reviewed. - Pre-procedure physical examination revealed no contraindications to sedation. - The risks and benefits of the procedure and the sedation options and risks were discussed with the patient. All questions were answered and informed consent was obtained. - Patient identification and proposed procedure were verified prior to the procedure by the physician, the nurse and the evp chief exploration officer. The procedure was verified in the procedure room. - Pre-procedure physical examination revealed no contraindications to sedation. - ASA Grade Assessment: IV - A patient with severe systemic disease that is a constant threat to life. - After reviewing the risks and benefits, the patient was deemed in satisfactory condition to undergo the procedure. - The anesthesia plan was to use general anesthesia. - Immediately prior to administration of medications, the patient was re-assessed for adequacy to receive sedatives. - The heart rate, respiratory rate, oxygen saturations, blood pressure, adequacy of pulmonary ventilation, and response to care were monitored throughout the procedure. - The physical status of the patient was re-assessed after the procedure. After obtaining informed consent, the scope was passed under direct vision. Throughout the procedure, the patient's blood pressure, pulse, and oxygen saturations were monitored continuously. The Scope was introduced through the mouth, and advanced to the duodenum and used to inject contrast into the bile duct. The ERCP was accomplished without difficulty. The patient tolerated the procedure well. Findings: The can vacuum tester film was normal. The esophagus was successfully intubated under direct vision without detailed examination of the pharynx, larynx, and associated structures, and upper GI tract. The upper GI tract was grossly normal. The major papilla was erythematous. The ventral pancreatic duct was inadvertently cannulated with the short-nosed traction sphincterotome and 0.035 in Acrobat 2 guidewire without any complications. The wire was left in place to aid in biliary cannulation and later place a prophylactic pancreatic stent. The bile duct was deeply cannulated with the short-nosed traction sphincterotome and 0.035 in Acrobat 2 Angled guidewire. Contrast was injected. I personally interpreted the bile duct images. Contrast extended to the hepatic ducts. The biliary orifice was stenotic. This appeared benign. The lower third of the main bile duct contained filling defect(s) thought to be a stone. Biliary sphincterotomy was made with a monofilament Fusion OMNI sphincterotome using ERBE electrocautery. There was no post-sphincterotomy bleeding. To discover objects, the biliary tree was swept with an 8.5 mm balloon starting at the bifurcation. Two small stones were removed. No stones remained. One 5 Fr by 7 cm pancreatic stent with a 3/4 external pigtail and no internal flaps was placed 7 cm into the ventral pancreatic duct. Clear fluid flowed through the stent. The stent was in good position. The total fluoroscopy exposure time was 54 seconds. The endoscope was withdrawn from the patient. Indomethacin 100 mg was given via suppository to decrease the risk of post-ERCP pancreatitis (PEP). Impression: - The major papilla appeared erythematous. - Biliary papillary stenosis, benign. - A filling defect consistent with a stone was seen on the cholangiogram. - Choledocholithiasis was found. Complete removal was accomplished by biliary sphincterotomy and balloon extraction. - A biliary sphincterotomy was performed. - The biliary tree was swept. - One pancreatic stent was placed into the ventral pancreatic duct. - Indomethacin given to decrease risk of post-ERCP pancreatitis. Recommendation: - [facility]. - Perform a flat plate abdominal x-ray in 4 weeks. - Refer to a surgeon to discuss cholecystectomy. Dorcas Zhong D.O. Dorcas Zhong, 12/10/2018 10:05:52 AM This report has been signed electronically. Note Initiated On: 12/10/2018 8:37 AM Number of Addenda: 0 I attest to the content of the Intraoperative Record and orders documented therein, exceptions below {[id number]}
--- NOTE | 2018-12-10 10:21 | Anesthesiology Progress Note ---
Date of Service December 10, 2018 Anesthesia Post Procedure Vital Signs Vital Signs: Temp Pulse Pulse Pulse Resp BP Pulse Ox 12/10/18 10:10 97.7 F 43 L 14 142/91 H 96 12/10/18 10:00 44 L 14 134/94 96 12/10/18 09:50 43 L 14 135/95 99 12/10/18 09:42 96.8 F L 48 L 16 124/92 100 12/10/18 07:31 41 L 12/10/18 07:28 97.9 F 42 L 16 156/96 H 94 12/10/18 07:25 98.1 F 50 L 18 157/94 H 95 12/10/18 04:35 98.1 F 62 18 133/73 93 12/10/18 01:37 45 L 12/09/18 23:51 98.1 F 45 L 18 155/87 H 92 12/09/18 20:36 49 L 136/87 12/09/18 20:12 97.9 F 54 L 18 145/85 H 95 12/09/18 16:02 46 L 12/09/18 15:39 97.9 F 48 L 16 147/85 H 98 12/09/18 11:50 98.2 F 45 L 16 154/84 H 99 Pain Intensity Abdomen: Pain Intensity: 5 Transfer of Care Handoff Completed per policy Notes Mental Status: alert / awake / arousable and participated in evaluation Patient Amnestic to Procedure: Yes Nausea / Vomiting: adequately controlled Pain: adequately controlled Airway Patency, RR, SpO2: stable & adequate BP & HR: stable & adequate Hydration State: stable & adequate Anesthetic Complications: no major complications apparent and Pt Satisfied with anesthetic care
--- NOTE | 2018-12-10 11:10 | Fluoroscopy Report ---
INTRAOPERATIVE RADIOGRAPHS CLINICAL HISTORY: ERCP. Fluoroscopy time: 55 seconds. FINDINGS: 9 spot fluoroscopic images of the right upper quadrant from an ERCP procedure are presented . Correlation is made with MRCP dated 12/07/2018. There is smooth contrast opacification of the common bile duct. No intra or extrahepatic biliary ductal dilatation is seen. There are no filling defects to suggest choledocholithiasis. There is opacification of the cystic duct and gallbladder. IMPRESSION: Intraoperative ERCP images as above. See operative report for detailed findings. Electronically signed by: Dalton Schneider M.D. 12/10/2018 11:09 AM
[2018-12-10] MEDS: PANTOprazole 40 MG TAB PO SCH ×2 (11:13→20:27)
[2018-12-10] MEDS: ATORVASTATIN 40 MG TAB PO SCH (11:13)
[2018-12-10] MEDS: EZETIMIBE 10 MG TABLET PO SCH (11:14)
[2018-12-10] MEDS: AMLODIPINE BESYLATE 5 MG TAB PO SCH (11:15)
[2018-12-10] MEDS: METOPROLOL TARTRATE 25 MG TAB PO SCH ×2 (11:15→20:29)
--- NOTE | 2018-12-10 13:40 | Surgery Consultation ---
Date of Consultation December 10, 2018 Assessment & Plan (1) Transaminitis: Will plan for laparoscopic cholecystectomy tomorrow. If heparin is restarted tonight, would hold again at 7 AM. Supervising Physician Co-Signing Physician Notes Patient s&E, agree with above. Known from prior visit, planning on outpatient workup for possible pancreatic mass, however symptoms recurred. ERCP with CBD stones, EUS with no mass. Plan for laparoscopic cholecystectomy tomorrow. Risks discussed, consent signed, questions answered. NPO after midnight, hold a/c tomorrow am. History of Present Illness Attending Physician: Dwayne Brantley MD History of Present Illness 63 y/o male seen recently for LFT elevations, possible cholecystitis and pancreatic head abnormality and was going to have endoscopic evaluation as an outpatient. He was now admitted for recurrent N/V. Had ERCP today with stone removal and stenting. his Xarelto has been on hold. Allergies Allergy/AdvReac Type Severity Reaction Status Date / Time apixaban [From Eliquis] Allergy Unknown eosinophili Unverified 12/07/18 10:27 a levofloxacin Allergy Unknown Timing Unverified 12/07/18 10:27 correlates with eosinophilia morphine AdvReac Intermediate Nausea/Vomi Verified 12/07/18 10:27 ting codeine AdvReac Unknown Nausea Verified 12/07/18 10:27 Home Medications Home Medications Medication Instructions Recorded Confirmed Type levothyroxine 125 mcg PO QAM 06/04/18 12/07/18 History Pradaxa 150 mg PO BID 11/28/18 12/07/18 History amlodipine 2.5 mg PO QAM 11/28/18 12/07/18 History atorvastatin 80 mg PO QAM 11/28/18 12/07/18 History ezetimibe 10 mg PO QAM 11/28/18 12/07/18 History metoprolol tartrate 12.5 mg PO BID 11/28/18 12/07/18 History pantoprazole 40 mg PO QAM 11/28/18 12/07/18 History sucralfate 1 g PO ACHS 11/28/18 12/07/18 History dicyclomine 10 mg PO TID PRN #90 cap 11/29/18 12/07/18 Rx Patient History Medical History History of CVA (cerebrovascular accident) (Chronic) Depression (Chronic) Hypereosinophilic syndrome, idiopathic (Resolved) Dyslipidemia (Chronic) 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) Tobacco abuse (Resolved) Paroxysmal atrial fibrillation (Chronic) HTN (hypertension) (Chronic) Surgical History History of thyroidectomy (Chronic) History of left knee surgery (Chronic) History of esophagogastroduodenoscopy (EGD) Family History Brother Diabetes Mother Hypertension Social History Preferred Language: Z[place]ian Communication Ability: Effective Visual Impairment: No Limitations Bathhouse Attendant Required: No Beliefs That Will Affect Care: None Current Living Situation: Alone Other Information That Helps Us Care for You: No Feels Safe at Home: Yes Smoking Status: Former smoker Tobacco Type: cigarettes Cigarettes Per Day: 20 Do You Dip or Chew Tobacco: No Smoking End Date: May 2018 Second Hand Exposure: No Tobacco Cessation Education Requested by Patient: No Hx Alcohol Use: No Hx Substance Use: No Physical Exam Gastrointestinal (Abdomen): Percussion/Palpation: abdomen soft; abdomen nontender Results & Data Vital Signs (Past 12 Hours) Vital Signs Temp Pulse Pulse Pulse Resp BP Pulse Ox 12/10/18 11:30 39 L 12/10/18 10:23 36.5 C 43 L 18 148/91 H 96 12/10/18 10:10 36.5 C 43 L 14 142/91 H 96 12/10/18 10:00 44 L 14 134/94 96 12/10/18 09:50 43 L 14 135/95 99 12/10/18 09:42 36.0 C L 48 L 16 124/92 100 12/10/18 07:31 41 L 12/10/18 07:28 36.6 C 42 L 16 156/96 H 94 12/10/18 07:25 36.7 C 50 L 18 157/94 H 95 12/10/18 04:35 36.7 C 62 18 133/73 93
[2018-12-10] MEDS: ONDANSETRON INJ 2 MG/ML 2 ML VIAL IV PRN (14:40)
--- NOTE | 2018-12-10 17:13 | Anesthesiology Consultation ---
Date of Service December 10, 2018 Assessment & Plan (1) Encounter for pre-operative examination: Chart Review Chart Review: Acceptable Risk for Surgery History Surgery Operation Date: 12/10/18 08:15 Proposed Procedures p Endoscopic Retrograde Cholangiopancreatogram - Dorcas Zhong s Endoscopic Ultrasonography Upper - Dorcas Zhong Operation Date: 12/11/18 13:50 Proposed Procedures p Laparoscopic Cholecystectomy - Bowen Ruby DO, FACS Height/Weight Height: 5 ft 11 in Weight: 78.5 kg Allergies Allergy/AdvReac Type Severity Reaction Status Date / Time apixaban [From Eliquis] Allergy Unknown eosinophili Unverified 12/07/18 10:27 a levofloxacin Allergy Unknown Timing Unverified 12/07/18 10:27 correlates with eosinophilia morphine AdvReac Intermediate Nausea/Vomi Verified 12/07/18 10:27 ting codeine AdvReac Unknown Nausea Verified 12/07/18 10:27 Medications Home Medications Medication Instructions Recorded Confirmed Last Taken levothyroxine 125 mcg PO QAM 06/04/18 12/07/18 12/07/18 Pradaxa 150 mg PO BID 11/28/18 12/07/18 12/07/18 amlodipine 2.5 mg PO QAM 11/28/18 12/07/18 12/07/18 atorvastatin 80 mg PO QAM 11/28/18 12/07/18 12/07/18 ezetimibe 10 mg PO QAM 11/28/18 12/07/18 12/07/18 metoprolol tartrate 12.5 mg PO BID 11/28/18 12/07/18 12/07/18 pantoprazole 40 mg PO QAM 11/28/18 12/07/18 12/07/18 sucralfate 1 g PO ACHS 11/28/18 12/07/18 12/07/18 dicyclomine 10 mg PO TID PRN #90 cap 11/29/18 12/07/18 Unknown Active Medications Generic Name Dose Route Start Last Admin Trade Name Freq PRN Reason Stop Dose Admin Amlodipine Besylate 2.5 mg 12/08/18 09:00 12/10/18 11:15 Norvasc PO 01/07/19 08:59 2.5 mg QAM MYRANDA Administration Atorvastatin Calcium 80 mg 12/08/18 09:00 12/10/18 11:13 Lipitor PO 01/07/19 08:59 80 mg QAM MYRANDA Administration Ezetimibe 10 mg 12/08/18 09:00 12/10/18 11:14 Zetia PO 01/07/19 08:59 10 mg QAM MYRANDA Administration Hydromorphone HCl 0.5 mg 12/07/18 14:58 12/09/18 22:23 Dilaudid IV 12/21/18 14:57 0.5 mg Q4H PRN Administration Pain Sodium Chloride 1,000 mls @ 80 mls/hr 12/07/18 14:58 12/10/18 16:01 Nss 1000ml IV 01/06/19 14:57 80 mls/hr .[id number] MYRANDA Administration Piperacillin Sod/Tazobactam 115 mls @ 28.75 mls/hr 12/07/18 18:00 12/10/18 15:23 Sod 3.375 gm/ Dextrose IV 12/17/18 17:59 Infused Q8H MYRANDA Infusion Protocol Heparin Sodium/Dextrose 25,000 units in 500 mls @ 22 mls/hr 12/07/18 16:30 12/09/18 21:13 Heparin Sodium/Dextrose IV 01/06/19 16:29 1,100 units/hr .[id number] MYRANDA 22 mls/hr Titration Protocol 1,100 UNITS/HR Lactated Ringer's 1,000 mls @ 15 mls/hr 12/10/18 06:00 12/10/18 08:40 Lr IV 12/11/18 05:59 Infused .Q24H MYRANDA Infusion Levothyroxine Sodium 125 mcg 12/08/18 06:30 12/10/18 05:22 Synthroid PO 01/07/19 06:29 Not Given DAILYBB MYRANDA Metoprolol Tartrate 12.5 mg 12/07/18 21:00 12/10/18 11:15 Lopressor PO 01/06/19 20:59 Not Given BID MYRANDA Ondansetron HCl 4 mg 12/07/18 14:58 12/10/18 14:40 Zofran IV 01/06/19 14:57 4 mg Q6H PRN Administration Nausea Pantoprazole Sodium 40 mg 12/07/18 21:00 12/10/18 11:13 Protonix PO 01/06/19 20:59 40 mg BID MYRANDA Administration Sucralfate 1 gm 12/07/18 16:30 12/10/18 12:57 Carafate Tab PO 01/06/19 16:29 1 gm ACHS MYRANDA Administration NPO Date Last Intake of Fluids: 12/09/18 Time Last Intake of Fluids: 23:45 Date Last Intake of Solids: 12/09/18 Time Last Intake of Solids: 19:00 Past Medical History Medical History History of CVA (cerebrovascular accident) (Chronic) Depression (Chronic) Hypereosinophilic syndrome, idiopathic (Resolved) Dyslipidemia (Chronic) 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) Tobacco abuse (Resolved) Paroxysmal atrial fibrillation (Chronic) HTN (hypertension) (Chronic) Past Family History Family History Brother Diabetes Mother Hypertension Past Surgical History Surgical History History of thyroidectomy (Chronic) History of left knee surgery (Chronic) History of esophagogastroduodenoscopy (EGD) Hx of endoscopic retrograde cholangiopancreatography Social History Smoking Status: Former smoker tobacco type: cigarettes Smoking cigarettes per day: 20 Do You Dip or Chew Tobacco: No Smoking End Date: May 2018 Hx Alcohol Use: No Hx Substance Use: No substance use type: does not use Physical Exam Vital Signs Last Vital Signs Temp 37.1 C 12/10/18 14:50 Pulse 49 L 12/10/18 15:37 Resp 18 12/10/18 14:50 BP 107/72 12/10/18 14:50 Pulse Ox 92 12/10/18 14:50 Testing Laboratory Results 12/09/18 06:04 12/10/18 05:44 PT 10.9 Seconds (9.0-12.0) 12/07/18 16:35 INR 1.1 (0.9-1.1) 12/07/18 16:35 APTT 46.1 Seconds (21.0-31.0) H* 12/09/18 20:08 Urine Color Yellow 12/07/18 13:20 Urine Appearance Clear (Clear) 12/07/18 13:20 Urine pH 7.0 (4.5-7.5) 12/07/18 13:20 Ur Specific [place] 1.012 (1.000-1.030) 12/07/18 13:20 Urine Protein Negative (Negative) 12/07/18 13:20 Urine Glucose (UA) Negative (Negative) 12/07/18 13:20 Urine Ketones Negative (Negative) 12/07/18 13:20 Urine Nitrite Negative (Negative) 12/07/18 13:20 Ur Leukocyte Esterase Negative (Negative) 12/07/18 13:20 12/07/18 16:35 Aerobic Blood Culture - Preliminary Blood No growth in Aerobic bottle after 48 hours. Anaerobic Blood Culture - Preliminary No growth in Anaerobic bottle after 48 hours. 12/07/18 16:42 Aerobic Blood Culture - Preliminary Blood No growth in Aerobic bottle after 48 hours. Anaerobic Blood Culture - Preliminary No growth in Anaerobic bottle after 48 hours. Electrocardiogram Date: 12/07/18 Findings: + SB @ (49) Cardiac Catheterization Date: 06/04/18 Findings: + normal
--- NOTE | 2018-12-10 18:38 | Hospitalist Progress Note ---
Date of Service December 10, 2018 Assessment & Plan (1) Epigastric pain: (2) Transaminitis: This is a 63yo M with a PMH of paroxysmal A. 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 -Presented with epigastric pain with nausea and emesis x 3 -Findings suggestive of chronic cholecystitis concern for choledocholithiasis due to new transaminitis since last week -Recently admitted and found to have chronic cholecystitis. Normal MRCP at that time. Planned to follow up for OP EUS in December for pancreatic fullness MRCP: Unrevealing Afebrile, abdominal pain improving LFTs and alk phos improving December 10, 2018 Status post ERCP: Positive choledocholithiasis, status post removal, status post pancreatic stent placement General surgery consulted for cholecystectomy, plan for cholecystectomy tomorrow morning Continue heparin drip tonight, at 7 AM (usual Pradaxa on hold for procedures) (3) Facial rash: New facial rash since this morning -Started low dose Lexapro 3 days prior to admission, this medication held on admission, may be side effect of Lexapro -Rash resolved (4) History of duodenal ulcer: History of bleeding duodenal ulcer 05/2018 -Protonix p.o. twice daily (5) History of CVA (cerebrovascular accident): History of watershed CVA 05/2018 while taking Eliquis, at that time patient was transition to Pradaxa -Anticoagulation was discussed with Dr. Garcia during previous admission Pradaxa on hold, on IV heparin in light of cholecystectomy plan for tomorrow (6) Paroxysmal atrial fibrillation: Rate controlled on metoprolol, will continue with hold parameters -Anticoagulation as above (7) HTN (hypertension): Normotensive -Continue amlodipine and metoprolol (8) History of thyroidectomy: Continue levothyroxine (9) Dyslipidemia: Continue statin and Zetia DVT Ppx: IV heparin Code status: FULL PCP: Leonidas Dispo: Admitted to [facility]. Plan to return home once medically stable. Discussed with patient in detail, he is agreeable, understanding, comfortable with the plan of care Subjective Follow-up will cholecystitis Seen resting in bed, comfortable, not in distress Status post ERCP, has mild nausea Denies abdominal pain, fevers or chills No other symptoms Review of Systems Review of Systems: All systems reviewed & are unremarkable except as noted in HPI & below Physical Exam Physical Exam: General- oriented x 3, not in distress, speaks in sentences with no effort or accessory muscle use Eyes- anicteric Neck- no JVD Lungs- clear BS, no crackles, no wheezing bilaterally Heart- normal rate, regular rhythm; no murmurs Abdomen- normal bowel sounds, nondistended, soft, nontender Extremities- no pretibial edema, no calf tenderness Neuro- alert, oriented x 3; no gross focal neurologic deficits Skin- warm & dry Results & Data Vital Signs (Past 12 Hours) Vital Signs Temp Pulse Pulse Pulse Resp BP Pulse Ox 12/10/18 15:37 49 L 12/10/18 14:50 37.1 C 89 18 107/72 92 12/10/18 11:30 39 L 12/10/18 10:23 36.5 C 43 L 18 148/91 H 96 12/10/18 10:10 36.5 C 43 L 14 142/91 H 96 12/10/18 10:00 44 L 14 134/94 96 12/10/18 09:50 43 L 14 135/95 99 12/10/18 09:42 36.0 C L 48 L 16 124/92 100 12/10/18 07:31 41 L 12/10/18 07:28 36.6 C 42 L 16 156/96 H 94 12/10/18 07:25 36.7 C 50 L 18 157/94 H 95
[2018-12-10] MEDS: HYDROmorphone INJ 0.5 MG/0.5 ML SYR IV PRN (23:23)
[2018-12-11 01:25] LABS: Partial Thromboplastin Ratio 1.8
[2018-12-11 01:28] LABS: Partial Thromboplastin Time 49.1 Seconds (21.0-31.0)
[2018-12-11] MEDS: PIPERACILLIN/TAZOBACTAM 3.375 GM in DEXTROSE 5% 100 ML IV SCH ×3 (02:04→17:56)
[2018-12-11] MEDS: SODIUM CHLORIDE 0.9% 1000ML 1,000 ML IV SCH ×2 (02:07→17:06)
[2018-12-11] MEDS: LEVOTHYROXINE SODIUM 125 MCG TABLET PO SCH (06:09)
[2018-12-11] MEDS: PANTOprazole 40 MG TAB PO SCH ×2 (08:22→20:41)
[2018-12-11] MEDS: EZETIMIBE 10 MG TABLET PO SCH (08:23)
[2018-12-11] MEDS: METOPROLOL TARTRATE 25 MG TAB PO SCH ×2 (08:23→20:41)
[2018-12-11] MEDS: SUCRALFATE 1 GM TAB PO SCH ×4 (08:24→20:41)
[2018-12-11] MEDS: AMLODIPINE BESYLATE 5 MG TAB PO SCH (08:24)
[2018-12-11] MEDS: ATORVASTATIN 40 MG TAB PO SCH (08:25)
--- NOTE | 2018-12-11 10:15 | Anesthesiology Progress Note ---
Date of Service December 11, 2018 Anesthesia Post Procedure Vital Signs Vital Signs: Temp Pulse Pulse Pulse Resp BP Pulse Ox 12/11/18 07:30 36.5 C 71 18 150/85 H 100 12/11/18 07:28 47 L 12/11/18 05:44 36.5 C 42 L 19 148/89 H 95 12/11/18 01:48 45 L 12/10/18 23:00 36.5 C 43 L 18 139/84 94 12/10/18 20:25 51 L 158/84 H 12/10/18 19:47 36.4 C L 44 L 20 155/84 H 95 12/10/18 15:37 49 L 12/10/18 14:50 37.1 C 89 18 107/72 92 12/10/18 11:30 39 L 12/10/18 10:23 36.5 C 43 L 18 148/91 H 96 Notes Mental Status: alert / awake / arousable and participated in evaluation Nausea / Vomiting: adequately controlled Pain: adequately controlled Airway Patency, RR, SpO2: stable & adequate BP & HR: stable & adequate Hydration State: stable & adequate
--- NOTE | 2018-12-11 11:36 | Gastroenterology Progress Note ---
Date of Service December 11, 2018 Assessment & Plan (1) Choledocholithiasis: Patient found to have choledocholithiasis status post ERCP. We did need to place a prophylactic pancreatic stent yesterday and will plan for a KUB in 4 to 6 weeks. From our standpoint the patient can have his diet as tolerated after his cholecystectomy. Please call with any additional questions or concerns, GI to sign off for the present time peer Subjective The patient underwent ERCP yesterday after we found, bile duct stones during endoscopic ultrasound. He reports abdominal discomfort today. He is to undergo cholecystectomy later today with general surgery. Review of Systems Constitutional: no sweats and no malaise Respiratory: no change in sputum and no hemoptysis Cardiovascular: no chest pain with activity Physical Exam Constitutional: WD/WN, vitals as above Neck: trachea midline, no thyromegaly Respiratory: normal respiratory effort, lungs clear to auscultation Cardiovascular: Rate/Rhythm: regular rate Gastrointestinal (Abdomen): Percussion/Palpation: abdomen soft; abdomen nontender Results & Data Vital Signs (Past 12 Hours) Vital Signs Temp Pulse Pulse Resp BP Pulse Ox 12/11/18 11:24 36.6 C 44 L 18 158/81 H 95 12/11/18 07:30 36.5 C 71 18 150/85 H 100 12/11/18 07:28 47 L 12/11/18 05:44 36.5 C 42 L 19 148/89 H 95 12/11/18 01:48 45 L Laboratory Results Laboratory Results - last 24 hr 12/11/18 00:57 APTT 49.1 H* PTT Ratio 1.8
--- NOTE | 2018-12-11 11:44 | Surgery Progress Note ---
Date of Service December 11, 2018 Assessment & Plan (1) Choledocholithiasis: 63-year-old male with choledocholithiasis status post ERCP. Plan for laparoscopic cholecystectomy possible cholangiogram today in the operating room Hold heparin Risks the procedure were discussed to include but not limited to bleeding, infection, retained stone, bile leak, damage surrounding structures including common bile duct, conversion open, and the risk of anesthesia Present on Admission?: Yes Subjective 63-year-old male admitted with choledocholithiasis, status post ERCP. No evidence of pancreatic mass on endoscopic ultrasound. No pain, no nausea. Heparin stopped this morning. Physical Exam Constitutional: WD/WN, vitals as above Gastrointestinal (Abdomen): normal bowel sounds, soft, nontender, no hepatosplenomegaly Results & Data Vital Signs (Past 12 Hours) Vital Signs Temp Pulse Pulse Resp BP Pulse Ox 12/11/18 11:24 36.6 C 44 L 18 158/81 H 95 12/11/18 07:30 36.5 C 71 18 150/85 H 100 12/11/18 07:28 47 L 12/11/18 05:44 36.5 C 42 L 19 148/89 H 95 12/11/18 01:48 45 L
[2018-12-11] MEDS ORDERED: GLYCOPYRROLATE 0.2 MG/ML VIAL ONE ×2 (11:48→14:27)
[2018-12-11] MEDS ORDERED: fentaNYL citrate 100 MCG/2 ML VIAL ONE ×2 (11:48→14:55)
[2018-12-11] MEDS ORDERED: ONDANSETRON INJ 2 MG/ML 2 ML VIAL ONE (11:48)
[2018-12-11] MEDS ORDERED: PROPOFOL IV EMULSION 10 MG/ML 20 ML VIAL IV ONE (11:48)
[2018-12-11] MEDS ORDERED: MIDAZOLAM HCL 1 MG/ML 2ML VIAL ONE (11:48)
[2018-12-11] MEDS ORDERED: ROCURONIUM BROMIDE 10 MG/ML 5 ML VIAL ONE (11:48)
[2018-12-11] MEDS ORDERED: NEOSTIGMINE METHYLSULFATE 5 MG/5 ML SYR ONE (11:48)
[2018-12-11] MEDS ORDERED: DEXAMETHASONE SOD INJ 4 MG/ML VIAL ONE ×2 (11:48→14:27)
[2018-12-11 12:30] LABS: Bilirubin Direct 0.2 mg/dl (0-0.2); Bilirubin,Total 0.7 mg/dl (0.2-1)
[2018-12-11] MEDS ORDERED: BUPIVACAINE 0.5 % 5 MG/1 ML MPF 30ML VIAL ONE (12:47)
[2018-12-11] MEDS ORDERED: CONRAY 60% 50 ML VIAL ONE (12:47)
[2018-12-11] MEDS ORDERED: ONDANSETRON INJ 2 MG/ML 2 ML VIAL IV PRN (12:50)
[2018-12-11] MEDS ORDERED: ATROPINE SULFATE 0.1 MG/ML 10ML SYR IV PRN (12:50)
[2018-12-11] MEDS ORDERED: HYDROmorphone INJ 1 MG/ML SYRINGE IV PRN ×2 (12:50→16:45)
[2018-12-11] MEDS ORDERED: fentaNYL citrate 100 MCG/2 ML VIAL IV PRN (12:50)
[2018-12-11] MEDS ORDERED: ePHEDrine sulfate 50 MG/ML AMP IV PRN (12:50)
--- NOTE | 2018-12-11 14:02 | Hospitalist Progress Note ---
Date of Service December 11, 2018 Assessment & Plan (1) Epigastric pain: (2) Transaminitis: This is a 63yo M with a PMH of paroxysmal A. 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 -Presented with epigastric pain with nausea and emesis x 3 -Findings suggestive of acute on chronic cholecystitis concern for choledocholithiasis due to new transaminitis since last week -Recently admitted and found to have chronic cholecystitis-first week of November. Normal MRCP at that time. Planned to follow up for OP EUS in December for pancreatic fullness MRCP: Unrevealing during this admission Afebrile, abdominal pain improving LFTs and alk phos improving Choledocholithiasis Appreciate GI input and recommendation Status post ERCP: Positive choledocholithiasis, status post removal, status post pancreatic stent placement General surgery consulted for cholecystectomy, plan for cholecystectomy today- 12/11 Continue heparin drip tonight, at 7 AM (usual Pradaxa on hold for procedures) (3) Facial rash: New facial rash since this morning -Started low dose Lexapro 3 days prior to admission, this medication held on admission, may be side effect of Lexapro -Rash resolved (4) History of duodenal ulcer: History of bleeding duodenal ulcer 05/2018 -Protonix p.o. twice daily (5) History of CVA (cerebrovascular accident): History of watershed CVA 05/2018 while taking Eliquis, at that time patient was transition to Pradaxa -Anticoagulation was discussed with Dr. Garcia during previous admission Pradaxa on hold, on IV heparin in light of cholecystectomy plan for 12/11 We will restart back Pradaxa as soon as possible following surgery (6) Paroxysmal atrial fibrillation: Rate controlled on metoprolol, will continue with hold parameters -Anticoagulation as above (7) HTN (hypertension): Normotensive -Continue amlodipine and metoprolol (8) History of thyroidectomy: Continue levothyroxine (9) Dyslipidemia: Continue statin and Zetia DVT Ppx: IV heparin Code status: FULL PCP: Leonidas Dispo: Admitted to [facility]. Plan to return home once medically stable. Discussed with patient in detail. Subjective 12/11 The patient was seen and examined in medical telemetry unit He has been waiting to go for laparoscopic cholecystectomy today He denies any significant symptoms as of this morning Review of Systems Review of Systems: All systems reviewed and are unremarkable except as noted below Gastrointestinal: + bloating; no abdominal pain Physical Exam Physical Exam: Lying in bed comfortably Constitutional: well developed and well nourished; no acute distress and not ill appearing Eyes: PERRL, conjunctivae normal, anicteric sclerae ENMT: external ear and nose normal, oropharynx normal Mouth: + poor dentition and + chipped teeth Mallampati Class: II Neck: trachea midline, no thyromegaly normal visual inspection Respiratory: normal respiratory effort, lungs clear to auscultation normal respiratory effort Auscultation: lungs clear to auscultation bilaterally Cardiovascular: RRR, no murmur, no edema Rate/Rhythm: regular rate and regular rhythm Heart Sounds: no murmur Gastrointestinal (Abdomen): Inspection/Auscultation: abdomen normal to inspection and normal bowel sounds Percussion/Palpation: abdomen soft; abdomen nontender and no guarding Musculoskeletal: Spine: normal cervical ROM and no pain with cervical ROM No acute arthritis in any joints Skin: no rashes, warm and dry Neurologic: PERRL, EOMI, accommodation nl, no face palsy, no dysarthria moves all extremities Psychiatric: A+Ox3, euthymic affect Orientation: alert and oriented x 3 Lymphatic: no cervical or axillary lymphadenopathy Results & Data Vital Signs (Past 12 Hours) Vital Signs Temp Pulse Pulse Resp BP Pulse Ox 12/11/18 12:51 36.7 C 55 L 20 145/96 H 97 12/11/18 11:24 36.6 C 44 L 18 158/81 H 95 12/11/18 07:30 36.5 C 71 18 150/85 H 100 12/11/18 07:28 47 L 12/11/18 05:44 36.5 C 42 L 19 148/89 H 95 Laboratory Results Liver Function 12/11/18 Range/Units 11:54 Total Bilirubin 0.7 (0.2-1) mg/dl Direct Bilirubin 0.2 (0-0.2) mg/dl AST 40 H (15-37) U/L ALT 123 H (12-78) U/L Alkaline Phosphatase 152 H (45-117) U/L Albumin 3.0 L (3.4-5.0) gm/dl Medications Administered Current Inpatient Medications Amlodipine Bes[facility] ([facility]asc) [facility] [place] Stop: 01/07/19 08:59 Last Admin: 12/11/18 08:24 Dose: 2.5 mg Documented by: Atorvastatin Calcium (Lipitor) 80 mg PO QAM [facility] Stop: 01/07/19 08:59 Last Admin: 12/11/18 08:25 Dose: 80 mg Documented by: Atropine Sulfate (Atropine Sulfate) 0.5 mg IV Q1M PRN PRN Reason: PACU Use-HR<40 &/or Bradycardi Stop: 12/11/18 17:50 Dicyclomine HCl (Bentyl) 10 mg PO TID PRN PRN Reason: abdominal pain Stop: 01/06/19 16:03 Ezetimibe (Zetia) 10 mg PO [facility] Stop: 01/07/19 08:59 Last Admin: 12/11/18 08:23 Dose: 10 mg Documented by: Ephedrine Sulfate (Ephedrine Sulfate) 5 mg IV Q5M PRN PRN Reason: PACU Use Only-SBP<90 mmHg Stop: 12/11/18 17:50 Fentanyl Citrate (Fentanyl Citrate) 25 mcg IV Q5M PRN PRN Reason: PACU Use Only-Pain Stop: 12/11/18 17:50 Hydromorphone HCl (Dilaudid) 0.5 mg IV Q4H PRN PRN Reason: Pain Stop: 12/21/18 14:57 Last Admin: 12/10/18 23:23 Dose: 0.5 mg Documented by: Hydromorphone HCl (Dilaudid) 0.25 mg IV Q5M PRN PRN Reason: PACU Use Only-Pain Stop: 12/11/18 17:50 Sodium Chloride (Nss 1000ml) 1,000 mls @ 80 mls/hr IV .[id number] [facility] Stop: 01/06/19 14:57 Last Admin: 12/11/18 02:07 Dose: 80 mls/hr Documented by: Piperacillin Sod/Tazobactam (Sod 3.375 gm/ Dextrose) 115 mls @ 28.75 mls/hr IV Q8H [facility]; Protocol Stop: 12/17/18 17:59 Last Admin: 12/11/18 10:58 Dose: 28.8 mls/hr Documented by: Heparin Sodium/Dextrose (Heparin Sodium/Dextrose) 25,000 units in 500 mls @ 22 mls/hr IV .[id number] [facility]; Protocol Stop: 01/06/19 16:29 Last Titration: 12/11/18 07:05 Dose: Infused Documented by: Levothyroxine Sodium (Synthroid) 125 mcg PO DAILYBB [facility] Stop: 01/07/19 06:29 Last Admin: 12/11/18 06:09 Dose: 125 mcg Documented by: Metoprolol Tartrate (Lopressor) 12.5 mg PO BID [facility] Stop: 01/06/19 20:59 Last Admin: 12/11/18 08:23 Dose: 12.5 mg Documented by: Miscellaneous Information (Consult) 1 ea N/A UD PRN PRN Reason: Consult Stop: 01/06/19 12:09 Ondansetron HCl (Zofran) 4 mg IV Q6H PRN PRN Reason: Nausea Stop: 01/06/19 14:57 Last Admin: 12/10/18 14:40 Dose: 4 mg Documented by: Ondansetron HCl (Zofran) 4 mg IV ONCE PRN PRN Reason: PACU Use Only-Nausea/Vomiting Stop: 12/11/18 17:50 Pantoprazole Sodium (Protonix) 40 mg PO BID [facility] Stop: 01/06/19 20:59 Last Admin: 12/11/18 08:22 Dose: 40 mg Documented by: Sucralfate (Carafate Tab) 1 gm PO ACHS [facility] Stop: 01/06/19 16:29 Last Admin: 12/11/18 11:01 Dose: 1 gm Documented by:
[2018-12-11] MEDS ORDERED: ALBUTEROL HFA INHALER 8.5 GM ONE (14:27)
[2018-12-11] MEDS ORDERED: ePHEDrine sulfate 50 MG/ML SYR ONE (14:27)
[2018-12-11] MEDS ORDERED: LARYING-O-JET KIT (LTA) ONE (14:27)
--- NOTE | 2018-12-11 15:10 | Operative Report ---
Post Operative Report Pre & Post Diagnosis Operation Date: 12/11/18 13:50 Pre-Op Diagnosis: CHRONIC CHOLECYSTITIS Post-Op Diagnosis: CHRONIC CHOLECYSTITIS Procedure Operation Date: 12/11/18 13:50 Actual Procedures p Laparoscopic Cholecystectomy(Not Applicable) - Bowen Ruby DO, MAVERICK Surgeon Bowen Ruby DO, MAVERICK Yield Analyst Bin An Estimated Blood Loss 3 Findings Consistent with Post-Op Diagnosis Mild chronic cholecystitis. Critical view of safety obtained, cystic duct and artery doubly clipped and divided. Specimens Gallbladder Anesthesia Type General Complications none Disposition Accompanied Patient To Recovery: No Disposition: Recovery Room Indications 63-year-old male with known cholelithiasis, admitted with concern for choledocholithiasis. He underwent an ERCP which showed some choledocholithiasis, and an EUS that showed no evidence of pancreatic mass. Plan for laparoscopic cholecystectomy possible cholangiogram. The risks of the procedure were discussed, all questions were answered, and the patient agreed to proceed with surgery as planned. Description of Procedure The patient was properly identified, consented, and taken to the operating room where he was placed in the supine position. General endotracheal anesthesia was induced. SCDs and a safety belt were placed. Preoperative antibiotics were administered. The patient's abdomen was prepped and draped in the standard sterile fashion. A surgical timeout was performed and all parties were in agreement that this was the correct patient and procedure to be performed and we continued as planned. An incision was made superior and to the left of the umbilicus overlying the rectus muscle and the Veress needle was inserted. Saline drop test confirmed entry into the peritoneum. The abdomen was insufflated with carbon dioxide which the patient tolerated without incident. The abdomen was then entered using the Optiview technique and a 5 mm trocar. The laparoscope was inserted and no damage from initial trocar or Veress needle placement was noted, no gross abnormalities were noted within the 4 quadrants of the abdomen. An 11 mm port was placed in the subxiphoid position and two 5 mm ports were then placed in the right subcostal position. The patient was placed in reverse Trendelenburg position and rotated towards the left. There is some mild chronic cholecystitis. The dome of the gallbladder was retracted towards the left upper quadrant and the infundibulum was retracted toward the right lower quadrant revealing Calot's triangle. Peritoneal attachments were taken down with electrocautery and blunt dissection. The cystic duct and artery were circumferentially dissected. A window of safety was obtained showing the cystic duct entering the gallbladder with no aberrant structures noted. The cystic duct and artery were doubly clipped and divided. The gallbladder was then lifted off the gallbladder fossa with electrocautery. The gallbladder was placed in an Endo Catch bag and removed through the subxyphoid port site. The right upper quadrant was irrigated and hemostasis was found to be good. 5 mm trochars were removed under direct visualization and the abdomen was allowed to collapse. The subxyphoid port site fascia was closed with 0 Vicryl suture. The wound was irrigated, and the skin of all ports was closed with 4-0 Monocryl subcuticular sutures. Dermabond was placed over the wounds. The patient was extubated in the operating room and taken to the PACU where he recovered without apparent incident. All sponge, instrument and needle counts were correct at the conclusion of the procedure. The patient tolerated the procedure well. The physician's rehabilitation assistant was present and scrubbed for the entirety of the case and was essential in positioning the patient, prepping and draping, retraction and exposure, driving the laparoscope, removal of the gallbladder, closure the incisions, and placement of the dressings. I attest to the content of the Intraoperative Record and any orders documented therein. Any exceptions are noted below.
[2018-12-11] MEDS: ONDANSETRON INJ 2 MG/ML 2 ML VIAL IV PRN (15:33)
--- NOTE | 2018-12-11 16:04 | Anesthesiology Progress Note ---
Date of Service December 11, 2018 Anesthesia Post Procedure Vital Signs Vital Signs: Temp Pulse Pulse Pulse Resp BP Pulse Ox 12/11/18 15:55 37.0 C 58 L 15 134/79 100 12/11/18 15:45 37.0 C 59 L 17 137/76 100 12/11/18 15:35 37.0 C 65 18 131/79 100 12/11/18 15:25 37.0 C 82 13 121/93 100 12/11/18 15:19 37.0 C 82 14 147/85 H 100 12/11/18 12:51 36.7 C 55 L 20 145/96 H 97 12/11/18 11:24 36.6 C 44 L 18 158/81 H 95 12/11/18 07:30 36.5 C 71 18 150/85 H 100 12/11/18 07:28 47 L 12/11/18 05:44 36.5 C 42 L 19 148/89 H 95 12/11/18 01:48 45 L 12/10/18 23:00 36.5 C 43 L 18 139/84 94 12/10/18 20:25 51 L 158/84 H 12/10/18 19:47 36.4 C L 44 L 20 155/84 H 95 Pain Intensity Abdomen: Pain Intensity: 0 Transfer of Care Handoff Completed per policy Notes Mental Status: alert / awake / arousable and participated in evaluation Patient Amnestic to Procedure: Yes Nausea / Vomiting: adequately controlled Pain: adequately controlled Airway Patency, RR, SpO2: stable & adequate BP & HR: stable & adequate Hydration State: stable & adequate Anesthetic Complications: no major complications apparent and Pt Satisfied with anesthetic care
[2018-12-11] MEDS ORDERED: OXYCODONE/ACETAMINOPHEN 5mg/325mg TAB PO PRN (16:45)
[2018-12-11] MEDS: OXYCODONE/ACETAMINOPHEN 5mg/325mg TAB PO PRN (17:56)
[2018-12-11] MEDS: HYDROmorphone INJ 0.5 MG/0.5 ML SYR IV PRN ×2 (21:51→23:52)
[2018-12-12] MEDS: PIPERACILLIN/TAZOBACTAM 3.375 GM in DEXTROSE 5% 100 ML IV SCH ×2 (02:28→09:42)
[2018-12-12] MEDS: SODIUM CHLORIDE 0.9% 1000ML 1,000 ML IV SCH (05:15)
[2018-12-12] MEDS: LEVOTHYROXINE SODIUM 125 MCG TABLET PO SCH (05:16)
[2018-12-12] MEDS: OXYCODONE/ACETAMINOPHEN 5mg/325mg TAB PO PRN (06:31)
[2018-12-12 08:13] LABS: Basophils # (auto) 0.01 K/uL (0-0.2); Basophils % (auto) 0.1 %; Eosinophils # (auto) 0.02 K/uL (0-0.5); Eosinophils % (auto) 0.2 %; Hemoglobin 11.1 g/dL (14.0-18.0); Immature Granulocytes # (auto) 0.01 K/uL (0.00-0.02); Immature Granulocytes % (auto) 0.1 %; Lymphocytes # (auto) 1.59 K/uL (1.2-3.4); Mean Corpuscular Hgb Conc 33.6 g/dL (32-36); Mean Corpuscular Volume 88.5 fL (80-100); Mean Platelet Volume 10.5 fL (7.4-10.4); Monocytes # (auto) 0.67 K/uL (0.11-0.59); Monocytes % (auto) 6.3 %; Neutrophils # (auto) 8.29 K/uL (1.4-6.5); Neutrophils % (auto) 78.3 %; Platelet Count 227 K/uL (130-400); RDW Coefficient of Variation 15.4 % (11.5-14.5); RDW Standard Deviation 49.9 fL (36.4-46.3); Red Blood Count 3.73 M/uL (4.7-6.1); White Blood Count 10.59 K/uL (4.8-10.8)
[2018-12-12] MEDS: SUCRALFATE 1 GM TAB PO SCH ×2 (08:34→12:38)
[2018-12-12] MEDS: ATORVASTATIN 40 MG TAB PO SCH (08:34)
[2018-12-12] MEDS: METOPROLOL TARTRATE 25 MG TAB PO SCH (08:34)
[2018-12-12] MEDS: PANTOprazole 40 MG TAB PO SCH (08:34)
[2018-12-12] MEDS: AMLODIPINE BESYLATE 5 MG TAB PO SCH (08:35)
[2018-12-12 08:49] LABS: BUN Creatinine Ratio 5.3 (10-20); Calcium 8.8 mg/dl (8.5-10.1); Creatinine Clr Calc Pharmacy 69.7 ml/min; Est GFR (African American) 78.3; Est GFR (Non-African American) 67.6; Potassium 3.4 mmol/L (3.5-5.1)
[2018-12-12 08:52] LABS: Albumin Globulin Ratio 0.8 (0.9-2); Bilirubin,Total 0.4 mg/dl (0.2-1)
[2018-12-12] MEDS: EZETIMIBE 10 MG TABLET PO SCH (09:40)
--- NOTE | 2018-12-12 12:04 | Surgery Progress Note ---
Date of Service December 12, 2018 Assessment & Plan (1) Choledocholithiasis: s/p ERCP and lap brook okay to restart anticoagulation diet as tolerated okay to d/c to home from gen surg standpoint f/u with me in 2 weeks wound care instructions and activity restrictions reviewed return precautions given f/u with GI as scheduled Present on Admission?: Yes Subjective choledocholithiasis, s/p ERCP, POD#1 lap brook. Doing well, minimal pain. Physical Exam Constitutional: WD/WN, vitals as above Gastrointestinal (Abdomen): normal bowel sounds, soft, nontender, no hepatosplenomegaly incisions with dermabond, c/d/i Results & Data Vital Signs (Past 12 Hours) Vital Signs Temp Pulse Pulse Resp BP Pulse Ox 12/12/18 07:48 44 L 12/12/18 07:00 36.6 C 47 L 18 161/63 H 94 12/12/18 04:43 36.7 C 48 L 16 145/81 H 95 Laboratory Results Laboratory Results - last 24 hr 12/11/18 12/12/18 12/12/18 11:54 08:02 08:02 WBC 10.59 RBC 3.73 L Hgb 11.1 L Hct 33.0 L MCV 88.5 MCH 29.8 MCHC 33.6 RDW Std Deviation 49.9 H RDW Coeff of Martin 15.4 H Plt Count 227 MPV 10.5 H Immature Gran % (Auto) 0.1 Neut % (Auto) 78.3 Lymph % (Auto) 15.0 [place] % (Auto) 6.3 Eos % (Auto) 0.2 Baso % (Auto) 0.1 Immature Gran # (Auto) 0.01 Neut # (Auto) 8.29 H Lymph # (Auto) 1.59 [place] # (Auto) 0.67 H Eos # (Auto) 0.02 Baso # (Auto) 0.01 Sodium 141 Potassium 3.4 L Chloride 108 H Carbon Dioxide 27 Anion Gap 6.0 BUN 6 L Creatinine 1.14 Est Cr Clr Drug Dosing 69.7 Est GFR ( Amer) 78.3 Est GFR (Non-Af Amer) 67.6 BUN/Creatinine Ratio 5.3 L Glucose 88 Calcium 8.8 Total Bilirubin 0.7 0.4 Direct Bilirubin 0.2 AST 40 H 35 ALT 123 H 104 H Alkaline Phosphatase 152 H 138 H Total Protein 7.0 7.0 Albumin 3.0 L 3.0 L Globulin 4.0 Albumin/Globulin Ratio 0.8 L
[2018-12-12 12:12] VITALS: BP 131/88; TEMP 97.3; O2SAT 93
[2018-12-12] MEDS ORDERED: DABIGATRAN ETEXILATE 75 MG CAP PO SCH (12:15)
[2018-12-12] MEDS ORDERED: POTASSIUM CHLORIDE 20 MEQ TABCR PO STA (12:17)
--- NOTE | 2018-12-12 16:19 | Hospitalist Progress Note ---
Date of Service December 12, 2018 Assessment & Plan (1) Epigastric pain: (2) Transaminitis: This is a 63yo M with a PMH of paroxysmal A. 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 -Presented with epigastric pain with nausea and emesis x 3 -Findings suggestive of acute on chronic cholecystitis concern for choledocholithiasis due to new transaminitis since last week -Recently admitted and found to have chronic cholecystitis-first week of November. Normal MRCP at that time. Planned to follow up for OP EUS in December for pancreatic fullness MRCP: Unrevealing during this admission Afebrile, abdominal pain improving LFTs and alk phos improving Choledocholithiasis Appreciate GI input and recommendation Status post ERCP: Positive choledocholithiasis, status post removal, status post pancreatic stent placement General surgery consulted for cholecystectomy, plan for cholecystectomy today- 12/11 Continue heparin drip tonight, at 7 AM (usual Pradaxa on hold for procedures) Status post laparoscopic cholecystectomy Tolerated diet Will be discharged home this afternoon (3) Facial rash: New facial rash since this morning -Started low dose Lexapro 3 days prior to admission, this medication held on admission, may be side effect of Lexapro -Rash resolved (4) History of duodenal ulcer: History of bleeding duodenal ulcer 05/2018 -Protonix p.o. twice daily (5) History of CVA (cerebrovascular accident): History of watershed CVA 05/2018 while taking Eliquis, at that time patient was transition to Pradaxa -Anticoagulation was discussed with Dr. Garcia during previous admission Pradaxa on hold, on IV heparin in light of cholecystectomy plan for 12/11 We will restart back Pradaxa as soon as possible following surgery (6) Paroxysmal atrial fibrillation: Rate controlled on metoprolol, will continue with hold parameters -Anticoagulation as above -Was in sinus rhythm in the hospital -Cardiac secondary (7) HTN (hypertension): Normotensive -Continue amlodipine and metoprolol (8) History of thyroidectomy: Continue levothyroxine (9) Dyslipidemia: Continue statin and Zetia DVT Ppx: IV heparin Code status: FULL PCP: Leonidas Dispo: Admitted to [facility]. Plan to return home once medically stable. Discussed with patient in detail. Subjective 12/11 The patient was seen and examined in medical telemetry unit He has been waiting to go for laparoscopic cholecystectomy today He denies any significant symptoms as of this morning 12/12 Patient was seen and examined the medical telemetry unit He is a status post laparoscopic cholecystectomy He has been tolerating diet Denies any significant pain Review of Systems Review of Systems: All systems reviewed and unremarkable except as noted below Gastrointestinal: + abdominal pain; no bloating, no nausea and no vomiting Physical Exam Physical Exam: Minimal distress at rest due to abdominal pain Constitutional: well developed and well nourished; no acute distress and not ill appearing Eyes: PERRL, conjunctivae normal, anicteric sclerae ENMT: external ear and nose normal, oropharynx normal Mouth: + poor dentition and + chipped teeth Mallampati Class: II Neck: trachea midline, no thyromegaly normal visual inspection Respiratory: normal respiratory effort, lungs clear to auscultation normal respiratory effort Auscultation: lungs clear to auscultation bilaterally Cardiovascular: RRR, no murmur, no edema Rate/Rhythm: regular rate and regular rhythm Heart Sounds: no murmur Gastrointestinal (Abdomen): Inspection/Auscultation: abdomen normal to inspection and normal bowel sounds Percussion/Palpation: + abdomen tender and abdomen soft; no guarding Musculoskeletal: Spine: normal cervical ROM and no pain with cervical ROM Skin: no rashes, warm and dry Neurologic: PERRL, EOMI, accommodation nl, no face palsy, no dysarthria moves all extremities Psychiatric: A+Ox3, euthymic affect Orientation: alert and oriented x 3 Lymphatic: no cervical or axillary lymphadenopathy Results & Data Vital Signs (Past 12 Hours) Vital Signs Temp Pulse Pulse Resp BP Pulse Ox 12/12/18 16:17 97 H 12/12/18 12:00 36.3 C L 49 L 18 131/88 93 12/12/18 07:48 44 L 12/12/18 07:00 36.6 C 47 L 18 161/63 H 94 12/12/18 04:43 36.7 C 48 L 16 145/81 H 95 Laboratory Results Short CBC 12/12/18 Range/Units 08:02 WBC 10.59 (4.8-10.8) K/uL Hgb 11.1 L (14.0-18.0) g/dL Hct 33.0 L (42-52) % Plt Count 227 (130-400) K/uL BMP 12/12/18 08:02 Sodium 141 Potassium 3.4 L Chloride 108 H Carbon Dioxide 27 BUN 6 L Creatinine 1.14 Glucose 88 Calcium 8.8 Liver Function 12/12/18 Range/Units 08:02 Total Bilirubin 0.4 (0.2-1) mg/dl AST 35 (15-37) U/L ALT 104 H (12-78) U/L Alkaline Phosphatase 138 H (45-117) U/L Albumin 3.0 L (3.4-5.0) gm/dl
[2018-12-12 16:35] VITALS: PULSE 55
--- NOTE | 2018-12-13 08:27 | Discharge Summary ---
Date of Service December 13, 2018 Admission HPI Per Admitting Provider The patient was previously admitted for left-sided abdominal pain and found to have fullness in his pancreatic head on imaging. We were planning for outpatient endoscopic ultrasound for further evaluation. He notes that on awakening this morning he began to have epigastric discomfort which waxed and waned and was localizing towards his right side. He denies having fevers chills sweats or Reiger's. The patient denies any bowel habit changes or garret colored stools. Patient does have a significant history of strokes and is presently on Pradaxa for prophylaxis. Denies having any difficulty with swallowing pain with swallowing or weight changes. Admission Exam Per Admitting Provider Physical Exam: General Appearance: WD/WN, no apparent distress, resting comfortably Head: normocephalic, atraumatic Eyes: normal inspection, PERRL, EOMI ENT: hearing grossly normal, pharynx normal (moist mucous membranes). Some erythema and edema of face around nasolabial folds, nose and cheeks, non-tender Neck: supple, no JVD, no adenopathy Respiratory/Chest: lungs clear to auscultation. No wheezes, rales or rhonci. No respiratory distress or accessory muscle use Cardiovascular: regular rate, rhythm, no murmur, normal peripheral pulses Abdomen/GI: normal bowel sounds, soft, non-distended, mildly tender to palpation in epigastrium, LUQ, no guarding Extremities/Musculoskelatal: normal inspection, no calf tenderness, normal capillary refill, no pedal edema Neurologic/Psych: alert, normal mood/affect, oriented x 3 Skin: normal color, warm/dry Principal Diagnosis Cholecystitis with choledocholithiasis, status post cholecystectomy and ERCP with pancreatic stent placement Discharge Exam Constitutional well developed and well nourished; no acute distress and not ill appearing Eyes PERRL, conjunctivae normal, anicteric sclerae ENMT external ear and nose normal, oropharynx normal Mouth: + poor dentition and + chipped teeth Mallampati Class: II Neck trachea midline, no thyromegaly normal visual inspection Respiratory normal respiratory effort, lungs clear to auscultation normal respiratory effort Auscultation: lungs clear to auscultation bilaterally Cardiovascular RRR, no murmur, no edema Rate/Rhythm: regular rate and regular rhythm Heart Sounds: no murmur Gastrointestinal (Abdomen) Inspection/Auscultation: abdomen normal to inspection and normal bowel sounds Percussion/Palpation: + abdomen tender and abdomen soft; no guarding Musculoskeletal Spine: normal cervical ROM and no pain with cervical ROM Skin no rashes, warm and dry Neurologic PERRL, EOMI, accommodation nl, no face palsy, no dysarthria moves all extremities Psychiatric A+Ox3, euthymic affect Orientation: alert and oriented x 3 Lymphatic no cervical or axillary lymphadenopathy Discharge Data Allergies Allergy/AdvReac Type Severity Reaction Status Date / Time apixaban [From Eliquis] Allergy Unknown eosinophili Verified 12/11/18 12:47 a levofloxacin Allergy Unknown Timing Verified 12/11/18 12:47 correlates with eosinophilia morphine AdvReac Intermediate Nausea/Vomi Verified 12/11/18 12:47 ting codeine AdvReac Unknown Nausea Verified 12/11/18 12:47 Consultations 12/07/18 12:13 ED Decision to Admit Stat 12/07/18 14:58 Consult Gastroenterology Routine 12/10/18 10:40 Consult General Surgery Routine Procedures Performed Operation Date: 12/10/18 08:15 Actual Procedures p Upper Gastrointestinal Endoscopy, Endoscopic Retrograde Cholangiopancreatogram with Sphinchterotomy - Dorcas Zhong s Endoscopic Ultrasonography Upper with biopsy - Dorcas Zhong Operation Date: 12/11/18 13:50 Actual Procedures p Laparoscopic Cholecystectomy(Not Applicable) - Bowen Ruby DO, FACS Ordered Studies 12/07/18 09:56 US gallbladder Stat 12/07/18 14:58 MR MRCP Routine 12/10/18 07:47 US upper EUS PACS images Routine 12/10/18 08:15 FL ERCP biliary ductal Routine Hospital Course (1) Epigastric pain: (2) Transaminitis: This is a 63yo M with a PMH of paroxysmal A. 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 -Presented with epigastric pain with nausea and emesis x 3 -Findings suggestive of acute on chronic cholecystitis concern for choledocholithiasis due to new transaminitis since last week -Recently admitted and found to have chronic cholecystitis-first week of November. Normal MRCP at that time. Planned to follow up for OP EUS in December for pancreatic fullness MRCP: Unrevealing during this admission Afebrile, abdominal pain improving LFTs and alk phos improving Choledocholithiasis Appreciate GI input and recommendation Status post ERCP: Positive choledocholithiasis, status post removal, status post pancreatic stent placement General surgery consulted for cholecystectomy, plan for cholecystectomy today- 12/11 Continue heparin drip tonight, at 7 AM (usual Pradaxa on hold for procedures) Status post laparoscopic cholecystectomy Tolerated diet Will be discharged home this afternoon (3) Facial rash: New facial rash since this morning -Started low dose Lexapro 3 days prior to admission, this medication held on admission, may be side effect of Lexapro -Rash resolved (4) History of duodenal ulcer: History of bleeding duodenal ulcer 05/2018 -Protonix p.o. twice daily (5) History of CVA (cerebrovascular accident): History of watershed CVA 05/2018 while taking Eliquis, at that time patient was transition to Pradaxa -Anticoagulation was discussed with Dr. Garcia during previous admission Pradaxa on hold, on IV heparin in light of cholecystectomy plan for 12/11 We will restart back Pradaxa as soon as possible following surgery (6) Paroxysmal atrial fibrillation: Rate controlled on metoprolol, will continue with hold parameters -Anticoagulation as above -Was in sinus rhythm in the hospital -Cardiac secondary (7) HTN (hypertension): Normotensive -Continue amlodipine and metoprolol (8) History of thyroidectomy: Continue levothyroxine (9) Dyslipidemia: Continue statin and Zetia DVT Ppx: IV heparin Code status: FULL PCP: Leonidas Dispo: Admitted to [facility]. Plan to return home once medically stable. Discussed with patient in detail. Total Time Total Time Spent Total Time Spent (In Minutes): 35 minutes Total Time Includes: Examination of the Patient, Discharge Planning, Medication Reconciliation and Communication With Other Providers Discharge Plan Discharge Items Patient Disposition: Home - Self-Care Reason For Visit: CHRONIC CHOLECYSTITIS,TRANSAMINITIS Discharge Diagnosis: Cholecystitis with choledocholithiasis, status post cholecystectomy and ERCP with pancreatic stent placement Activity: Per 'Additional Instructions' section Lifting: No more than 25 pounds Bathing Comment: you may shower starting today, do not soak or scrub wound for 2 weeks Exercise/Sports: Gradually increase as tolerated Exercise Comment: no heavy lifting, strenuous activity for 3 weeks Driving/Machine Use: Resume 3 days after discharge Non-emergency contact: Surgeon Call non-emergency contact if: your temperature is above 101.5, your wound has increased redness, your wound has increased drainage and your wound pain has increased Follow-up/Referrals: Bowen Ruby DO, FACS [Physician] - (call clinic to schedule follow up in 2 weeks. Call with questions or concerns.) Nahum Lauren MD [Primary Care Provider] - 12/19/18 10:45 am (GI will call for appointment) Diet: Heart Healthy and Low Fat Addtl Provider Instructions: Try to avoid any fatty foods Prescriptions: New oxycodone-acetaminophen [Percocet] 5-325 mg Tablet 1 tab PO Q4H PRN (Reason: pain) 3 Days Qty: 15 RF: 0 Continued levothyroxine 125 mcg tablet 125 mcg PO QAM RF: 0 sucralfate 1 gram Tablet 1 g PO ACHS RF: 0 pantoprazole 40 mg Tablet,Delayed Release (Dr/Ec) 40 mg PO QAM RF: 0 ezetimibe 10 mg Tablet 10 mg PO QAM RF: 0 metoprolol tartrate 25 mg Tablet 12.5 mg PO BID RF: 0 Pradaxa 150 mg Capsule 150 mg PO BID RF: 0 atorvastatin 80 mg Tablet 80 mg PO QAM RF: 0 amlodipine 2.5 mg Tablet 2.5 mg PO QAM RF: 0 dicyclomine 10 mg capsule 10 mg PO TID PRN (Reason: abdominal pain) Qty: 90 RF: 0 Stand-Alone Forms: [facility] Discharge Orders: Discharge Order (Routine); Ordered 12/12/18 Ordered By: Maribell Narayanan Admission Data Admit Date/Time: 12/07/18 13:34 Attending Provider: Maribell Narayanan Admit Provider: Dwayne Brantley Primary Care Provider: Nahum Lauren Other Providers: Dwayne Brantley ; Dorcas Zhong Wilkerson ; Ryder Aleman Service: Telemetry Medical Other Interventions: Discharge Summary Assessment (RN) Last Done: 12/12/18 16:34 Pending Studies at Discharge: Yes Studies:: pathology DC Date/Time DO NOT enter until pt leaves facility: 12/12/18 17:02
== END 2018-12-12 17:02 | disposition home or self-care (01) | DRG 419 ==
LOC: ED 09:39 → 2N 13:34 → SUATTDRO 13:34 → 2N 14:50

== ENCOUNTER 2019-10-23 10:19 | Inpatient (IN) ==
[2019-10-23] MEDS ORDERED: PANTOPRAZOLE BOLUS/DRIP 1 EA IV STA (10:51)
[2019-10-23] MEDS ORDERED: PANTOprazole 80 MG in DEXTROSE 5% 100 ML IV ONE (10:51)
[2019-10-23] MEDS ORDERED: ONDANSETRON INJ 2 MG/ML 2 ML VIAL IV STA (10:51)
[2019-10-23] MEDS ORDERED: SODIUM CHLORIDE 0.9% 1000ML 1,000 ML IV ONE (10:52)
[2019-10-23] MEDS ORDERED: SODIUM CHLORIDE 0.9% 250 ML IV PRN (11:10)
[2019-10-23 11:20] LABS: iSTAT Creatinine 1.3 mg/dl (0.6-1.3); iSTAT Hemoglobin 7.1 g/dl (14.0-18.0); iSTAT Ionized Calcium 1.17 mmol/l (1.12-1.32); iSTAT Potassium 4.2 mmol/L (3.3-5.0)
--- NOTE | 2019-10-23 11:22 | Emergency Department Note ---
History of Present Illness General Chief complaint: GI Assessment Stated complaint: BLOOD IN STOOL,SOB WHEN STANDING Time Seen by Provider: 10/23/19 10:43 Source: patient, RN notes reviewed and old records reviewed Mode of arrival: ambulatory Limitations: no limitations History of Present Illness Provider complaint: Black Tarry stool, weakness Onset (ago): day(s) 3 Current Pain Intensity: 0 Relieved By: + immobilization Exacerbated By: + movement Associated symptoms: + shortness of breath and + weakness; no chest pain, no cough, no fever/chills and no nausea/vomiting Treatments prior to arrival: none This is a 64-year-old male who reports he has had black tarry stools that have been ongoing for the past 3 days. The patient reports he last had a colonoscopy approximately 1 year ago and did not have any issues. In addition to the black and tarry stools patient is extremely weak as well as short of breath. Patient reports he cannot walk longer than 3 feet without becoming extremely winded. He denies any chest pain. He reports he has never had a problem with a GI bleed previously. Home Medications Home Medications Medication Instructions Recorded Confirmed Type levothyroxine 125 mcg PO QAM 06/04/18 10/23/19 History amlodipine 2.5 mg PO QAM 11/28/18 10/23/19 History atorvastatin 80 mg PO QAM 11/28/18 10/23/19 History ezetimibe 10 mg PO QAM 11/28/18 10/23/19 History escitalopram oxalate 5 mg PO QAM 10/23/19 10/23/19 History metoprolol succinate 12.5 mg PO DAILY 10/23/19 10/23/19 History rivaroxaban [Xarelto] 20 mg PO DAILY 10/23/19 10/23/19 History Allergies Allergy/AdvReac Type Severity Reaction Status Date / Time apixaban [From Eliquis] Allergy Unknown eosinophili Verified 10/23/19 11:21 a levofloxacin Allergy Unknown Timing Verified 10/23/19 11:21 correlates with eosinophilia morphine AdvReac Intermediate Nausea/Vomi Verified 10/23/19 11:21 ting codeine AdvReac Unknown Nausea Verified 10/23/19 11:21 Past Med/Surg History Medical History Cancer melanoma (arms & face) Depression (Chronic) Dyslipidemia (Chronic) H/O viral pericarditis ~7-8 years ago. follows with ELAINA Hsu, cardiology 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) PT DENIES. History of CVA (cerebrovascular accident) (Chronic) 06/13/2018. left arm/left leg weakness. Follows with Dr. Lauren. Treated at [facility]. taking Pradaxa daily. History of duodenal ulcer (Resolved) HTN (hypertension) (Chronic) Hypereosinophilic syndrome, idiopathic (Resolved) Hypothyroidism On anticoagulant therapy Paroxysmal atrial fibrillation (Chronic) Thyroid cancer Tobacco abuse (Resolved) Surgical History History of colonoscopy History of esophagogastroduodenoscopy (EGD) History of left knee surgery (Chronic) removal of small chip in patella History of surgical removal of skin lesion History of thyroidectomy (Chronic) Hx laparoscopic cholecystectomy 12-11-18 Dr. 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 Beliefs That Will Affect Care: None marital status: Single Current Living Situation: Alone current occupational status: retired Feels Safe at Home: Yes Smoking Status: Former smoker Tobacco Type: cigarettes ; Cigarettes Per Day: 20 ; Second Hand Exposure: No ; Hx Alcohol Use: No Hx Substance Use: No Review of Systems A total of 10 systems reviewed and were otherwise negative Physical Exam Vital Signs Vital Signs - 24 hr 10/23/19 10:35 10/23/19 10:47 10/23/19 10:50 Temperature 36.5 C Temperature Source Oral Pulse Rate 86 74 77 Pulse Rate from SpO2 Sensor Pulse Rhythm Regular Pulse Strength Normal Respiratory Rate 20 18 22 Respiratory Effort / Characteristics Non-Labored Spontaneous Respiratory Depth Normal Respiratory Pattern Regular Blood Pressure 99/50 L Blood Pressure Mean 66 Blood Pressure Position Sitting Pulse Oximetry 99 Oxygen Delivery Method Room Air Sepsis Recent Fever Within 48 Hours No Sepsis New/Unexplained Change in Mental Status No Sepsis Action Taken by Nursing No Action Required 10/23/19 11:00 10/23/19 11:08 10/23/19 11:10 Temperature Temperature Source Pulse Rate 77 74 69 Pulse Rate from SpO2 Sensor Pulse Rhythm Pulse Strength Respiratory Rate 17 22 17 Respiratory Effort / Characteristics Respiratory Depth Respiratory Pattern Blood Pressure 108/65 Blood Pressure Mean 84 Blood Pressure Position Pulse Oximetry Oxygen Delivery Method Sepsis Recent Fever Within 48 Hours Sepsis New/Unexplained Change in Mental Status Sepsis Action Taken by Nursing 10/23/19 11:20 10/23/19 11:30 10/23/19 11:31 Temperature Temperature Source Pulse Rate 69 78 75 Pulse Rate from SpO2 Sensor Pulse Rhythm Pulse Strength Respiratory Rate 17 22 18 Respiratory Effort / Characteristics Respiratory Depth Respiratory Pattern Blood Pressure 118/74 Blood Pressure Mean 84 Blood Pressure Position Pulse Oximetry Oxygen Delivery Method Sepsis Recent Fever Within 48 Hours Sepsis New/Unexplained Change in Mental Status Sepsis Action Taken by Nursing 10/23/19 11:40 10/23/19 11:50 10/23/19 12:00 Temperature Temperature Source Pulse Rate 67 66 66 Pulse Rate from SpO2 Sensor Pulse Rhythm Pulse Strength Respiratory Rate 16 17 18 Respiratory Effort / Characteristics Respiratory Depth Respiratory Pattern Blood Pressure 109/68 Blood Pressure Mean 82 Blood Pressure Position Pulse Oximetry Oxygen Delivery Method Sepsis Recent Fever Within 48 Hours Sepsis New/Unexplained Change in Mental Status Sepsis Action Taken by Nursing 10/23/19 12:01 10/23/19 12:10 10/23/19 12:20 Temperature Temperature Source Pulse Rate 65 70 70 Pulse Rate from SpO2 Sensor Pulse Rhythm Pulse Strength Respiratory Rate 15 25 H 16 Respiratory Effort / Characteristics Respiratory Depth Respiratory Pattern Blood Pressure Blood Pressure Mean Blood Pressure Position Pulse Oximetry Oxygen Delivery Method Sepsis Recent Fever Within 48 Hours Sepsis New/Unexplained Change in Mental Status Sepsis Action Taken by Nursing 10/23/19 12:30 10/23/19 12:32 10/23/19 12:40 Temperature 36.8 C Temperature Source Oral Pulse Rate 68 69 70 Pulse Rate from SpO2 Sensor 70 Pulse Rhythm Pulse Strength Normal Respiratory Rate 18 16 19 Respiratory Effort / Characteristics Respiratory Depth Respiratory Pattern Blood Pressure 103/68 Blood Pressure Mean 85 Blood Pressure Position Sitting Pulse Oximetry 97 98 Oxygen Delivery Method Sepsis Recent Fever Within 48 Hours Sepsis New/Unexplained Change in Mental Status Sepsis Action Taken by Nursing 10/23/19 12:49 10/23/19 12:50 10/23/19 13:05 Temperature 36.8 C 36.6 C Temperature Source Oral Oral Pulse Rate 68 69 64 Pulse Rate from SpO2 Sensor 68 69 Pulse Rhythm Pulse Strength Respiratory Rate 20 19 16 Respiratory Effort / Characteristics Respiratory Depth Respiratory Pattern Blood Pressure 120/77 120/77 109/68 Blood Pressure Mean 90 91 81 Blood Pressure Position Lying Pulse Oximetry 98 98 98 Oxygen Delivery Method Sepsis Recent Fever Within 48 Hours Sepsis New/Unexplained Change in Mental Status Sepsis Action Taken by Nursing 10/23/19 13:35 Temperature 36.7 C Temperature Source Oral Pulse Rate 69 Pulse Rate from SpO2 Sensor Pulse Rhythm Pulse Strength Respiratory Rate 18 Respiratory Effort / Characteristics Respiratory Depth Respiratory Pattern Blood Pressure 113/71 Blood Pressure Mean 85 Blood Pressure Position Lying Pulse Oximetry 99 Oxygen Delivery Method Sepsis Recent Fever Within 48 Hours Sepsis New/Unexplained Change in Mental Status Sepsis Action Taken by Nursing VITAL SIGNS - Vital signs and nursing notes were reviewed. GENERAL - 64-year-old male appearing stated age who is in no acute distress. Communicates well with provider and answers questions appropriately. SKIN - Without rashes. HEAD - NC/AT. EYES - PERRL with EOMI bilaterally. Sclera anicteric. Palpebral conjunctiva pink and moist with no injection noted. EARS - No deformities of external structures noted on gross examination bilaterally. No pain elicited with palpation of the tragus bilaterally. External auditory canals without discharge or otorrhea. Tympanic membranes pearly oshea without retraction or bulging. No fluid or purulent material visualized behind the TM. Handle of malleus, umbo, cone of light, pars tensa/flaccid all easily visualized. NOSE - Midline and without cyanosis. No epistaxis or purulent drainage noted. Septum midline without deviation or septal hematoma noted. MOUTH/OROPHARYNX - Without perioral cyanosis. Buccal mucosa pink and moist and without leukoplakia. Tongue midline with equal elevation of palate bilaterally. No tonsillar hypertrophy, erythema, or exudates noted. dentition noted. NECK - Neck with FROM. Supple to palpation. lymphadenopathy noted. No nuchal rigidity. LUNGS - Chest wall symmetric without accessory muscle use, intercostals retractions, or central cyanosis. Normal vesicular breath sounds CTA B/L. No wheezes, rales, or rhonchi appreciated. CARDIAC - RRR with S1/S2. No murmur, rubs, or gallops appreciated. ABDOMEN - Abdominal contour without pulsations or visible masses. BS normoactive all four quadrants. No tenderness, palpable masses, hepatosplenomegaly, or ascites noted. RECTAL: + melena Heme positive EXTREMITIES - No clubbing or peripheral cyanosis. No pretibial edema present. +3/5 radial, posterior tibial, and dorsalis pedis pulses palpated throughout. +5 /5 strength noted in UE/LE bilaterally. NEUROLOGIC - Cranial nerves II through XII grossly intact. Sensory intact to light touch throughout. Patellar reflexes +2/4. PSYCH - A&Ox3 and cooperates fully with examiner. Pt is very pleasant and interacts well with examiner. Course Administered Medications Pantoprazole Sodium 40 mg/ (Dextrose) 100 mls @ 20 mls/hr IV Q5H MYRANDA Stop: 11/22/19 11:05 Last Admin: 10/23/19 11:27 Dose: 8 mg/hr, 20 mls/hr Documented by: [id number] Discontinued Medications Pantoprazole Sodium (Protonix Bolus/Drip) 0 mls @ 1 mls/hr IV ONE STA Stop: 10/23/19 10:52 Last Admin: 10/23/19 11:17 Dose: 1 mls/hr Documented by: [id number] Pantoprazole Sodium 80 mg/ (Dextrose) 120 mls @ 400 mls/hr IV NOW ONE Stop: 10/23/19 11:08 Last Infusion: 10/23/19 11:27 Dose: 0 mls/hr Documented by: [id number] Admin: 10/23/19 11:05 Dose: 400 mls/hr Documented by: [id number] Sodium Chloride (Nss 1000ml) 1,000 mls @ 999 mls/hr IV .Q1H1M ONE Stop: 10/23/19 11:52 Last Admin: 10/23/19 11:05 Dose: 999 mls/hr Documented by: [id number] Ondansetron HCl (Zofran) 4 mg IV NOW STA Stop: 10/23/19 10:52 Last Admin: 10/23/19 11:08 Dose: 4 mg Documented by: [id number] Critical Care Time I have personally spent greater than 30 minutes of critical care time in the direct management of this patient. This includes bedside care, interpretation of diagnostic studies, and testing, discussion with consultants, patient, and family members, and other required patient management activities. This 30 minutes is in excess of all separately billable procedures. Medical Decision Making Differential Diagnosis Diverticulosis, AVM, coagulopathy, colitis, inflammatory bowel disease, malignancy, Sahra-Rai tear, esophagitis, peptic ulcer disease, variceal bleed, gastritis, epistaxis, fissure, hemorrhoids, as well as other pathologies. Medical Records Attestation: I reviewed the patient's medical records. Home Medications Current Medication List: was personally reviewed by me Laboratory Data Attestation: I reviewed the patient's lab results. Result diagrams: 10/23/19 10:58 10/23/19 10:58 Lab Results 10/23/19 10/23/19 10/23/19 Range/Units 10:58 10:58 10:58 WBC 10.12 (4.8-10.8) K/uL RBC 2.32 L (4.7-6.1) M/uL Hgb 6.8 L* (14.0-18.0) g/dL POC Hgb (14.0-18.0) g/dl Hct 20.6 L* (42-52) % POC Hct (42-52) % MCV 88.8 (80-100) fL MCH 29.3 (25-34) pg MCHC 33.0 (32-36) g/dL RDW Std Deviation 51.8 H (36.4-46.3) fL RDW Coeff of Martin 16.3 H (11.5-14.5) % Plt Count 264 (130-400) K/uL MPV 9.7 (7.4-10.4) fL Immature Gran % (Auto) 0.2 % Neut % (Auto) 81.4 % Lymph % (Auto) 13.2 % [place] % (Auto) 4.7 % Eos % (Auto) 0.4 % Baso % (Auto) 0.1 % Immature Gran # (Auto) 0.02 (0.00-0.02) K/uL Neut # (Auto) 8.23 H (1.4-6.5) K/uL Lymph # (Auto) 1.34 (1.2-3.4) K/uL [place] # (Auto) 0.48 (0.11-0.59) K/uL Eos # (Auto) 0.04 (0-0.5) K/uL Baso # (Auto) 0.01 (0-0.2) K/uL Polychromasia 1+ Anisocytosis Present Microcytosis Present PT 13.5 H (9.0-12.0) Seconds INR 1.3 H (0.9-1.1) APTT 25.9 (21.0-31.0) Seconds PTT Ratio 0.9 POC Sodium (135-144) mmol/L Sodium (136-145) mmol/L POC Potassium (3.3-5.0) mmol/L Potassium (3.5-5.1) mmol/L POC Chloride (101-112) mmol/L Chloride (98-107) mmol/L Carbon Dioxide (21-32) mmol/L POC Total CO2 (24-31) mmol/L Anion Gap (3-11) POC Anion Gap (16-25) mmol/L POC BUN (7-18) mg/dl BUN (7-18) mg/dl Creatinine (0.6-1.4) mg/dl POC Creatinine (0.6-1.3) mg/dl Est Cr Clr Drug Dosing ml/min Est GFR ( Amer) Est GFR (Non-Af Amer) BUN/Creatinine Ratio (10-20) Glucose (70-99) mg/dl POC Glucose (other) (70-99) mg/dl Calcium (8.5-10.1) mg/dl POC Ioniz Calcium Amol (1.12-1.32) mmol/l Total Bilirubin (0.2-1) mg/dl AST (15-37) U/L ALT (12-78) U/L Alkaline Phosphatase (45-117) U/L Troponin I (0-0.045) ng/ml Total Protein (6.4-8.2) gm/dl Albumin (3.4-5.0) gm/dl Globulin (2.5-4.0) gm/dl Albumin/Globulin Ratio (0.9-2) Blood Type O Positive Antibody Screen NEGATIVE Crossmatch See Detail 10/23/19 10/23/19 Range/Units 10:58 11:08 WBC (4.8-10.8) K/uL RBC (4.7-6.1) M/uL Hgb (14.0-18.0) g/dL POC Hgb 7.1 L (14.0-18.0) g/dl Hct (42-52) % POC Hct 21 L (42-52) % MCV (80-100) fL MCH (25-34) pg MCHC (32-36) g/dL RDW Std Deviation (36.4-46.3) fL RDW Coeff of Martin (11.5-14.5) % Plt Count (130-400) K/uL MPV (7.4-10.4) fL Immature Gran % (Auto) % Neut % (Auto) % Lymph % (Auto) % [place] % (Auto) % Eos % (Auto) % Baso % (Auto) % Immature Gran # (Auto) (0.00-0.02) K/uL Neut # (Auto) (1.4-6.5) K/uL Lymph # (Auto) (1.2-3.4) K/uL [place] # (Auto) (0.11-0.59) K/uL Eos # (Auto) (0-0.5) K/uL Baso # (Auto) (0-0.2) K/uL Polychromasia Anisocytosis Microcytosis PT (9.0-12.0) Seconds INR (0.9-1.1) APTT (21.0-31.0) Seconds PTT Ratio POC Sodium 140 (135-144) mmol/L Sodium 143 (136-145) mmol/L POC Potassium 4.2 (3.3-5.0) mmol/L Potassium 4.2 (3.5-5.1) mmol/L POC Chloride 110 (101-112) mmol/L Chloride 112 H (98-107) mmol/L Carbon Dioxide 21 (21-32) mmol/L POC Total CO2 20 L (24-31) mmol/L Anion Gap 10.0 (3-11) POC Anion Gap 16.0 (16-25) mmol/L POC BUN 52 H (7-18) mg/dl BUN 54 H (7-18) mg/dl Creatinine 1.45 H (0.6-1.4) mg/dl POC Creatinine 1.3 (0.6-1.3) mg/dl Est Cr Clr Drug Dosing 58.5 ml/min Est GFR ( Amer) 58.2 Est GFR (Non-Af Amer) 50.2 BUN/Creatinine Ratio 37.4 H (10-20) Glucose 147 H (70-99) mg/dl POC Glucose (other) 144 H (70-99) mg/dl Calcium 8.3 L (8.5-10.1) mg/dl POC Ioniz Calcium Amol 1.17 (1.12-1.32) mmol/l Total Bilirubin 0.5 (0.2-1) mg/dl AST 9 L (15-37) U/L ALT 15 (12-78) U/L Alkaline Phosphatase 65 (45-117) U/L Troponin I < 0.015 (0-0.045) ng/ml Total Protein 7.1 (6.4-8.2) gm/dl Albumin 3.1 L (3.4-5.0) gm/dl Globulin 4.0 (2.5-4.0) gm/dl Albumin/Globulin Ratio 0.8 L (0.9-2) Blood Type Antibody Screen Crossmatch ECG Data Attestation: I personally reviewed and interpreted this ECG as follows: Indication: + other (GI bleed) Rate (beats per minute): 71 Rhythm: + normal sinus ECG Intervals/blocks: + Normal QT-c (432) ECG [place]: + Normal ECG ST segments: no ST depression and no ST elevation Comparison ECG Date: from (12/07/2018) Change: no significant change MDM Narrative This is a 64-year-old male who presents emergency department complaining of shortness of breath and weakness. Patient's hemoglobin was found to be 7. He was typed and screened for 2 units of packed red blood cells. He has melena on physical examination. He was started on a Protonix bolus and drip. I did discuss his case with the hospitalist service who did agree to admit the patient. Patient is in agreement with the treatment plan. Patient was seen and evaluated as above in room B2. Review was performed of nursing notes and vital signs. I did review pertinent previous visits and patient history. After obtaining a thorough history and physical examination the above work up was performed. An order was placed for continuous cardiac monitoring. The monitor shows a rate of 69 with Normal Sinus rhythm. The patient was evaluated during the global COVID-19 pandemic, and that diagnosis was suspected/considered upon their initial presentation. Their evaluation, treatment and testing was consistent with current guidelines for pa tients who present with complaints or symptoms that may be related to COVID-19. Impression & Plan Acute GI bleeding, Anemia Discharge Plan Visit Data Chief Complaint: GI Assessment Stated Complaint: BLOOD IN STOOL,SOB WHEN STANDING ED Provider: Jagjit Lemus Discharge Problem: Acute GI bleeding, Anemia Forms Stand Alone Forms: My [facility] Prescriptions Prescriptions: No Action metoprolol succinate 25 mg tablet extended release 24 hr 12.5 mg PO DAILY RF: 0 escitalopram oxalate 10 mg tablet 5 mg PO QAM RF: 0 Xarelto 20 mg tablet 20 mg PO DAILY RF: 0 levothyroxine 125 mcg tablet 125 mcg PO QAM RF: 0 ezetimibe 10 mg Tablet 10 mg PO QAM RF: 0 atorvastatin 80 mg Tablet 80 mg PO QAM RF: 0 amlodipine 2.5 mg Tablet 2.5 mg PO QAM RF: 0 Discharge Problem: Anemia Qualifiers: Anemia type: unspecified type Qualified Code(s): D64.9 - Anemia, unspecified
[2019-10-23 11:27] LABS: Hematocrit (blood only) 20.6 % (42-52); Hemoglobin 6.8 g/dL (14.0-18.0); Mean Corpuscular Hemoglobin 29.3 pg (25-34); Mean Corpuscular Volume 88.8 fL (80-100); Mean Platelet Volume 9.7 fL (7.4-10.4); Platelet Count 264 K/uL (130-400); RDW Coefficient of Variation 16.3 % (11.5-14.5); RDW Standard Deviation 51.8 fL (36.4-46.3); Red Blood Count 2.32 M/uL (4.7-6.1); White Blood Count 10.12 K/uL (4.8-10.8)
[2019-10-23] MEDS: PANTOprazole 40 MG in DEXTROSE 5% 100 ML IV SCH ×3 (11:27→22:21)
[2019-10-23 11:35] LABS: INR 1.3 (0.9-1.1); Partial Thromboplastin Ratio 0.9; Partial Thromboplastin Time 25.9 Seconds (21.0-31.0); Prothrombin Time 13.5 Seconds (9.0-12.0)
[2019-10-23 11:39] LABS: Albumin Level 3.1 gm/dl (3.4-5.0); BUN Creatinine Ratio 37.4 (10-20); Blood Urea Nitrogen 54 mg/dl (7-18); Calcium 8.3 mg/dl (8.5-10.1); Carbon Dioxide 21 mmol/L (21-32); Chloride 112 mmol/L (98-107); Creatinine Clr Calc Pharmacy 58.5 ml/min; Est GFR (African American) 58.2; Est GFR (Non-African American) 50.2; Glucose 147 mg/dl (70-99); Potassium 4.2 mmol/L (3.5-5.1); Sodium 143 mmol/L (136-145)
[2019-10-23 11:44] LABS: Alanine Aminotransferase 15 U/L (12-78); Albumin Globulin Ratio 0.8 (0.9-2); Alkaline Phosphatase 65 U/L (45-117); Aspartate Aminotransferase 9 U/L (15-37); Bilirubin,Total 0.5 mg/dl (0.2-1); Total Protein 7.1 gm/dl (6.4-8.2); Troponin I < 0.015 ng/ml (0-0.045)
[2019-10-23 11:52] LABS: Anisocytosis Present; Basophils # (auto) 0.01 K/uL (0-0.2); Basophils % (auto) 0.1 %; Eosinophils # (auto) 0.04 K/uL (0-0.5); Eosinophils % (auto) 0.4 %; Immature Granulocytes # (auto) 0.02 K/uL (0.00-0.02); Immature Granulocytes % (auto) 0.2 %; Lymphocytes # (auto) 1.34 K/uL (1.2-3.4); Lymphocytes % (auto) 13.2 %; Microcytosis Present; Monocytes # (auto) 0.48 K/uL (0.11-0.59); Monocytes % (auto) 4.7 %; Neutrophils # (auto) 8.23 K/uL (1.4-6.5); Neutrophils % (auto) 81.4 %; Polychromasia 1+
--- NOTE | 2019-10-23 13:02 | History & Physical Report ---
Date of Service October 23, 2019 Assessment & Plan (1) Symptomatic anemia: (2) Melena: Probable upper GI bleed Pt is 64 y/o M with PMH PAF on Xarelto, resting bradycardia, HTN, dyslipidemia, hypothyroidism, CVA with left sided weakness, depression, anxiety, iron deficiency anemia presented to ER with c/o melena x 3 days with SOB, lightheadedness and nausea with standing and walking. In ER pt afebrile, P: 86, R: 20, BP: 99/50 up to 118/74, 99% on RA. No leukocytosis, H/H: 6.8/20.6 (Hgb: 12.5 on 06/27/2019), Plt: 264, BUN: 54, Cr: 1.45 (baseline 1.3). Reported black heme positive stool in ER -In ER given 1L NSS, Protonix bolus and drip, zofran -Type and cross and transfuse 2 units PRBCs -Repeat H&H this evening -Continue Protonix drip -NPO for possible procedure -Gentle IVF -GI consult, oracle consultant aware -CBC, BMP in am (3) Paroxysmal atrial fibrillation: On Xarelto -Current sinus rhythm -Hold Xarelto -Continue metoprolol with holding parameters (4) HTN (hypertension): Initial SBP 99 in ER improved with IVF -Hold amlodipine for now -Continue metoprolol with holding parameters (5) Dyslipidemia: -Hold atorvastatin and Zetia for now (6) History of CVA (cerebrovascular accident): Residual left sided weakness (7) Depression: -Continue escitalopram (8) Hypothyroidism: TSH: 3.1 in 04/2019 -Continue levothyroxine DVT Prophylaxis -SCDs Full Code as per discussion with pt Follows with Dr Lauren for routine care Pt was seen and care coordinated with Dr Brantley. See addendum History of Present Illness Chief Complaint: Melena Primary Care Provider: Nahum Lauren MD Pt is 64 y/o M with PMH PAF on Xarelto, resting bradycardia, HTN, dyslipidemia, hypothyroidism, CVA with left sided weakness, depression, anxiety, iron deficiency anemia presented to ER with c/o melena x 3 days. Reports soft black colored stools. Also reports SOB, lightheadedness and nausea with standing and walking. Denies syncope, CP, abdominal pain, vomiting, indigestion. No prior treatment. Denies NSAID or ETOH use. Drinks 1/2 liter of Pepsi daily. Has not been taking iron supplements for couple of months. Took am meds today including Xarelto. Denies fever/chills, diaphoresis, HASSAN, vision changes, neck pain, CP, orthopnea, palpitations, cough, sore throat, choking, otalgia, rhinorrhea, paresthesias, weakness, extremity weakness, extremity edema, rashes, urinary symptoms. 11/2018 EGD: normal esophagus, inflammation stomach, normal duodenum 03/2019 colonoscopy: diverticulosis sigmoid colon, 2 small sigmoid polyps removed, external and internal hemorrhoids Allergies Allergy/AdvReac Type Severity Reaction Status Date / Time apixaban [From Eliquis] Allergy Unknown eosinophili Verified 10/23/19 11:21 a levofloxacin Allergy Unknown Timing Verified 10/23/19 11:21 correlates with eosinophilia morphine AdvReac Intermediate Nausea/Vomi Verified 10/23/19 11:21 ting codeine AdvReac Unknown Nausea Verified 10/23/19 11:21 Home Medications Home Medications Medication Instructions Recorded Confirmed Type levothyroxine 125 mcg PO QAM 06/04/18 10/23/19 History amlodipine 2.5 mg PO QAM 11/28/18 10/23/19 History atorvastatin 80 mg PO QAM 11/28/18 10/23/19 History ezetimibe 10 mg PO QAM 11/28/18 10/23/19 History escitalopram oxalate 5 mg PO QAM 10/23/19 10/23/19 History metoprolol succinate 12.5 mg PO DAILY 10/23/19 10/23/19 History rivaroxaban [Xarelto] 20 mg PO DAILY 10/23/19 10/23/19 History Past Med/Surg History Medical History Cancer melanoma (arms & face) Depression (Chronic) Dyslipidemia (Chronic) H/O viral pericarditis ~7-8 years ago. follows with ELAINA Hsu, cardiology 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) PT DENIES. History of CVA (cerebrovascular accident) (Chronic) 06/13/2018. left arm/left leg weakness. Follows with Dr. Lauren. Treated at [facility]. taking Pradaxa daily. History of duodenal ulcer (Resolved) HTN (hypertension) (Chronic) Hypereosinophilic syndrome, idiopathic (Resolved) Hypothyroidism On anticoagulant therapy Paroxysmal atrial fibrillation (Chronic) Thyroid cancer Tobacco abuse (Resolved) Surgical History History of colonoscopy History of esophagogastroduodenoscopy (EGD) History of left knee surgery (Chronic) removal of small chip in patella History of surgical removal of skin lesion History of thyroidectomy (Chronic) Hx laparoscopic cholecystectomy 12-11-18 Dr. Ruby Hx of endoscopic retrograde cholangiopancreatography Family History Brother Diabetes Mother Hypertension Social History Preferred Language: Macanese Communication Ability: Effective Visual Impairment: No Limitations Easement Man Required: No Beliefs That Will Affect Care: None marital status: Single Current Living Situation: Alone current occupational status: retired Other Information That Helps Us Care for You: No Feels Safe at Home: Yes Safety Concerns: Feels Safe At This Time Smoking Status: Former smoker Tobacco Type: cigarettes ; Cigarettes Per Day: 20 ; Do You Dip or Chew Tobacco: No ; Second Hand Exposure: No ; Tobacco Cessation Education Requested by Patient: No Hx Alcohol Use: Yes Alcohol type: beer Hx Substance Use: No Review of Systems Review of Systems: All systems reviewed & are unremarkable except as noted in HPI & below Physical Exam Physical Exam: General: no distress, WDWN Head: normocephalic, atraumatic Eyes: PERRL, EOM's intact, conjunctiva pale, anicteric ENT: normal inspection external ears, nose, mucous membranes moist Neck: supple, trachea midline Lungs: clear, no respiratory distress, no wheezing/rhonchi/rales CV: RRR, no murmur, no pretibial edema Abd: normal BS, soft, non-tender Ext: no cyanosis, no calf tenderness Neuro: A&O x 3, left sided weakness (chronic), no other focal deficits noted, normal affect Skin: warm, dry, pale Results & Data Results & Data ([facility]) Vital Signs (Past 12 Hours) Vital Signs Temp Pulse Resp BP Pulse Ox 10/23/19 12:50 36.8 C 67 16 120/77 97 10/23/19 12:32 36.8 C 68 22 103/68 97 10/23/19 10:35 36.5 C 86 20 99/50 L 99 Laboratory Results Short CBC 10/23/19 Range/Units 10:58 WBC 10.12 (4.8-10.8) K/uL Hgb 6.8 L* (14.0-18.0) g/dL Hct 20.6 L* (42-52) % Plt Count 264 (130-400) K/uL BMP 10/23/19 10:58 Sodium 143 Potassium 4.2 Chloride 112 H Carbon Dioxide 21 BUN 54 H Creatinine 1.45 H Glucose 147 H Calcium 8.3 L Cardiac Enzymes 10/23/19 Range/Units 10:58 Troponin I < 0.015 (0-0.045) ng/ml Liver Function 10/23/19 Range/Units 10:58 Total Bilirubin 0.5 (0.2-1) mg/dl AST 9 L (15-37) U/L ALT 15 (12-78) U/L Alkaline Phosphatase 65 (45-117) U/L Albumin 3.1 L (3.4-5.0) gm/dl ECG Rate (beats per minute): 71 Rhythm: sinus rhythm Findings: + nonspecific-ST abn Code Status & VTE Plan VTE Prophylaxis Plan VTE Prophylaxis will be ordered: Yes Supervising Physician Co-Signing Physician Notes Attending Addendum: care coordinated with ALIYA Sullivan please refer to her notes for full details, I agree with her notes patient seen and examined, records reviewed by myself as well on exam, patient seen resting in bed, not in distress, comfortable States he feels that he is improved compared to earlier today Less dizzy, denies active chest pain, shortness of breath, palpitations, headache Abdominal pain, no nausea vomiting Last episode of melena this morning at home, none while admitted no other symptoms VS noted and reviewed oriented x 3, not in distress, speaks in sentences with no effort nor accessory muscle use normal rate, regular rhythm, no murmurs clear breath sounds bilaterally non distended, soft, nontender no bipedal edema, erythema, warmth no neuro deficits WBC 10.12 Hg 6.8 Crea 1.45 ASSESSMENT AND PLAN Melena, possible upper GI bleed, on Xarelto for chronic A. fib Acute blood loss anemia secondary to above --Hemoglobin on admission 6.8 2 units of packed RBCs transfused Repeat hemoglobin pending --Protonix drip, n.p.o., GI consulted, EGD planned for tomorrow --Xarelto on hold Discussed with GI regarding plan to simply resume Xarelto Hypertension --Blood pressure on the lower side --Hold usual amlodipine, continue usual metoprolol other diagnoses and plan of care as per ALIYA Brantley MD
--- NOTE | 2019-10-23 14:39 | Gastrointestinal Consultation ---
Date of Consultation October 23, 2019 Assessment & Plan (1) Melena: 64 y/o male with PMHx PAF on Xarelto and others below who developed melena 3 days ago (several soft black stools daily), and presented to the ER today with lightheadedness, dyspnea and nausea, found to have hypotension and acute drop in HGB 11 -> 6.8, crit 20%, and acute rise in BUN 54. Pt's hemodynamic status improved with IVF, and he is getting pRBC transfusion x 2. PPI gtt infusing. He's had no further GI output since arrival. Abd soft. Xarelto has been held. Presentation concerning for acute UGIB, etiology such as PUD, gastritis/esophagitis, AVM, etc. - Keep NPO - Continue IV PPI - Trend H&H, transfuse PRN - Hold AC - Monitor and document GI output - IVF - Analgesia/antiemetics PRN - As he is currently HD stable with no brisk GIB, plan for EGD tomorrow once his H&H improves Thank you for allowing us to participate in the care of this patient. Please call with any acute changes, questions or concerns. Please see addendum below with additional recommendation from my supervising physician. (2) Anemia: Supervising Physician Co-Signing Physician Notes I performed a history and physical examination of the patient today, including specifically on physical exam - soft abdomen. I have discussed the patient's management with the advanced practitioner. Please refer to the nurse practitioner's note for the documented findings and plan of care. Vitals normal. Melena in the setting of Eliquis. Plan for EGD tomorrow after PRBC transfusion. History of Present Illness Reason for Consultation: GI bleed History of Present Illness Pt is a 64 y/o male with PMhx PAF on Xarelto, resting bradycardia, HTN, dy slipidemia, hypothyroidism, CVA with left sided weakness, depression, anxiety, iron deficiency anemia, h/o choledocholithiasis s/p removal by ERCP and s/p lap brook 11/2018, who presented to ER earlier today with melena (a few times daily) x 3 days. Reports soft black stools, no hematochezia. Also reports dyspnea, lightheadedness, and nausea. Denies NSAID or ETOH use. Drinks 1/2 liter of Pepsi daily. Quit smoking last year. Has not been taking iron supplements for couple of months. Took am meds today including Xarelto. Doesn't take a PPI at home. Denies syncope, fever, chills, vomiting, hematemesis, abdominal pain/cramping, gas/bloat, heartburn, regurgitation, dysphagia. Labs with HGB 11 (last year) -> 6.8, HCT 20%, plt 264, WBC 10, INR 1.3, BUN 54, cr 1.45 (slight bump above baseline), LFTs WNL He was somewhat hypotensive on arrival though BP improved after IVF; 100's-120's systolic, pulse 75, pulse ox 100% RA. He was started on IV PPI and has 2 units pRBC ordered. EGD 11/2018: normal esophagus, gastritis (bx neg), normal duodenum Colonoscopy 03/2019: Sig tics, 2 small sigmoid polyps removed, ext/internal hemorrhoids Allergies Allergy/AdvReac Type Severity Reaction Status Date / Time apixaban [From Eliquis] Allergy Unknown eosinophili Verified 10/23/19 11:21 a levofloxacin Allergy Unknown Timing Verified 10/23/19 11:21 correlates with eosinophilia morphine AdvReac Intermediate Nausea/Vomi Verified 10/23/19 11:21 ting codeine AdvReac Unknown Nausea Verified 10/23/19 11:21 Home Medications Home Medications Medication Instructions Recorded Confirmed Type levothyroxine 125 mcg PO QAM 06/04/18 10/23/19 History amlodipine 2.5 mg PO QAM 11/28/18 10/23/19 History atorvastatin 80 mg PO QAM 11/28/18 10/23/19 History ezetimibe 10 mg PO QAM 11/28/18 10/23/19 History escitalopram oxalate 5 mg PO QAM 10/23/19 10/23/19 History metoprolol succinate 12.5 mg PO DAILY 10/23/19 10/23/19 History rivaroxaban [Xarelto] 20 mg PO DAILY 10/23/19 10/23/19 History Patient History Medical History Cancer melanoma (arms & face) Depression (Chronic) Dyslipidemia (Chronic) H/O viral pericarditis ~7-8 years ago. follows with Kodi Hsu, cardiology 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) PT DENIES. History of CVA (cerebrovascular accident) (Chronic) 06/13/2018. left arm/left leg weakness. Follows with Dr. Lauren. Treated at [facility]. taking Pradaxa daily. History of duodenal ulcer (Resolved) HTN (hypertension) (Chronic) Hypereosinophilic syndrome, idiopathic (Resolved) Hypothyroidism On anticoagulant therapy Paroxysmal atrial fibrillation (Chronic) Thyroid cancer Tobacco abuse (Resolved) Surgical History History of colonoscopy History of esophagogastroduodenoscopy (EGD) History of left knee surgery (Chronic) removal of small chip in patella History of surgical removal of skin lesion History of thyroidectomy (Chronic) Hx laparoscopic cholecystectomy 12-11-18 Dr. Ruby Hx of endoscopic retrograde cholangiopancreatography Family History Brother Diabetes Mother Hypertension Social History Preferred Language: Romansh Communication Ability: Effective Visual Impairment: No Limitations Interior Decorator Painting Required: No Beliefs That Will Affect Care: None marital status: Single Current Living Situation: Alone current occupational status: retired Other Information That Helps Us Care for You: No Feels Safe at Home: Yes Safety Concerns: Feels Safe At This Time Smoking Status: Former smoker Tobacco Type: cigarettes ; Cigarettes Per Day: 20 ; Do You Dip or Chew Tobacco: No ; Second Hand Exposure: No ; Tobacco Cessation Education Requested by Patient: No Hx Alcohol Use: Yes Alcohol type: beer Hx Substance Use: No Review of Systems Constitutional: no fever, no chills and no weight loss Respiratory: no cough Cardiovascular: no chest pain and no edema Gastrointestinal: as per Subjective / HPI Genitourinary: no dysuria (no hematuria) Integumentary: no rash and no lesions Neurologic: no falls and no syncope Hematologic / Lymphatic: no easy bleeding and no easy bruising Physical Exam Constitutional: well developed and well nourished Somewhat pale; no acute distress Respiratory: normal respiratory effort, lungs clear to auscultation Cardiovascular: Rate/Rhythm: regular rate and regular rhythm Extremities: no edema Gastrointestinal (Abdomen): normal bowel sounds, soft, nontender, no hepatosplenomegaly Inspection/Auscultation: abdomen not distended Skin: no rashes, warm and dry Psychiatric: A+Ox3, euthymic affect Results & Data ([facility]) Vital Signs (Past 12 Hours) Vital Signs Temp Pulse Resp BP Pulse Ox 10/23/19 13:35 36.7 C 69 18 113/71 99 10/23/19 13:05 36.6 C 64 16 109/68 98 10/23/19 12:50 36.8 C 69 19 120/77 98 10/23/19 12:49 68 20 120/77 98 10/23/19 12:40 70 19 98 10/23/19 12:32 36.8 C 69 16 103/68 97 10/23/19 12:30 68 18 10/23/19 12:20 70 16 10/23/19 12:10 70 25 H 10/23/19 12:01 65 15 10/23/19 12:00 66 18 109/68 10/23/19 11:50 66 17 10/23/19 11:40 67 16 10/23/19 11:31 75 18 10/23/19 11:30 78 22 118/74 10/23/19 11:20 69 17 10/23/19 11:10 69 17 10/23/19 11:08 74 22 108/65 10/23/19 11:00 77 17 10/23/19 10:50 77 22 10/23/19 10:47 74 18 10/23/19 10:35 36.5 C 86 20 99/50 L 99 Laboratory Results 10/23/19 10/23/19 10/23/19 Range/Units 11:08 10:58 10:58 WBC (4.8-10.8) K/uL RBC (4.7-6.1) M/uL Hgb (14.0-18.0) g/dL POC Hgb 7.1 L (14.0-18.0) g/dl Hct (42-52) % POC Hct 21 L (42-52) % MCV (80-100) fL MCH (25-34) pg MCHC (32-36) g/dL RDW Std Deviation (36.4-46.3) fL RDW Coeff of Martin (11.5-14.5) % Plt Count (130-400) K/uL MPV (7.4-10.4) fL Immature Gran % (Auto) % Neut % (Auto) % Lymph % (Auto) % Gallia % (Auto) % Eos % (Auto) % Baso % (Auto) % Immature Gran # (Auto) (0.00-0.02) K/uL Neut # (Auto) (1.4-6.5) K/uL Lymph # (Auto) (1.2-3.4) K/uL Gallia # (Auto) (0.11-0.59) K/uL Eos # (Auto) (0-0.5) K/uL Baso # (Auto) (0-0.2) K/uL Polychromasia Anisocytosis Microcytosis PT 13.5 H (9.0-12.0) Seconds INR 1.3 H (0.9-1.1) APTT 25.9 (21.0-31.0) Seconds PTT Ratio 0.9 POC Sodium 140 (135-144) mmol/L Sodium 143 (136-145) mmol/L POC Potassium 4.2 (3.3-5.0) mmol/L Potassium 4.2 (3.5-5.1) mmol/L POC Chloride 110 (101-112) mmol/L Chloride 112 H (98-107) mmol/L Carbon Dioxide 21 (21-32) mmol/L POC Total CO2 20 L (24-31) mmol/L Anion Gap 10.0 (3-11) POC Anion Gap 16.0 (16-25) mmol/L POC BUN 52 H (7-18) mg/dl BUN 54 H (7-18) mg/dl Creatinine 1.45 H (0.6-1.4) mg/dl POC Creatinine 1.3 (0.6-1.3) mg/dl Est Cr Clr Drug Dosing 58.5 ml/min Est GFR ( Amer) 58.2 Est GFR (Non-Af Amer) 50.2 BUN/Creatinine Ratio 37.4 H (10-20) Glucose 147 H (70-99) mg/dl POC Glucose (other) 144 H (70-99) mg/dl Calcium 8.3 L (8.5-10.1) mg/dl POC Ioniz Calcium Amol 1.17 (1.12-1.32) mmol/l Total Bilirubin 0.5 (0.2-1) mg/dl AST 9 L (15-37) U/L ALT 15 (12-78) U/L Alkaline Phosphatase 65 (45-117) U/L Troponin I < 0.015 (0-0.045) ng/ml Total Protein 7.1 (6.4-8.2) gm/dl Albumin 3.1 L (3.4-5.0) gm/dl Globulin 4.0 (2.5-4.0) gm/dl Albumin/Globulin Ratio 0.8 L (0.9-2) Blood Type Antibody Screen Crossmatch 10/23/19 10/23/19 Range/Units 10:58 10:58 WBC 10.12 (4.8-10.8) K/uL RBC 2.32 L (4.7-6.1) M/uL Hgb 6.8 L* (14.0-18.0) g/dL POC Hgb (14.0-18.0) g/dl Hct 20.6 L* (42-52) % POC Hct (42-52) % MCV 88.8 (80-100) fL MCH 29.3 (25-34) pg MCHC 33.0 (32-36) g/dL RDW Std Deviation 51.8 H (36.4-46.3) fL RDW Coeff of Martin 16.3 H (11.5-14.5) % Plt Count 264 (130-400) K/uL MPV 9.7 (7.4-10.4) fL Immature Gran % (Auto) 0.2 % Neut % (Auto) 81.4 % Lymph % (Auto) 13.2 % Gallia % (Auto) 4.7 % Eos % (Auto) 0.4 % Baso % (Auto) 0.1 % Immature Gran # (Auto) 0.02 (0.00-0.02) K/uL Neut # (Auto) 8.23 H (1.4-6.5) K/uL Lymph # (Auto) 1.34 (1.2-3.4) K/uL Gallia # (Auto) 0.48 (0.11-0.59) K/uL Eos # (Auto) 0.04 (0-0.5) K/uL Baso # (Auto) 0.01 (0-0.2) K/uL Polychromasia 1+ Anisocytosis Present Microcytosis Present PT (9.0-12.0) Seconds INR (0.9-1.1) APTT (21.0-31.0) Seconds PTT Ratio POC Sodium (135-144) mmol/L Sodium (136-145) mmol/L POC Potassium (3.3-5.0) mmol/L Potassium (3.5-5.1) mmol/L POC Chloride (101-112) mmol/L Chloride (98-107) mmol/L Carbon Dioxide (21-32) mmol/L POC Total CO2 (24-31) mmol/L Anion Gap (3-11) POC Anion Gap (16-25) mmol/L POC BUN (7-18) mg/dl BUN (7-18) mg/dl Creatinine (0.6-1.4) mg/dl POC Creatinine (0.6-1.3) mg/dl Est Cr Clr Drug Dosing ml/min Est GFR ( Amer) Est GFR (Non-Af Amer) BUN/Creatinine Ratio (10-20) Glucose (70-99) mg/dl POC Glucose (other) (70-99) mg/dl Calcium (8.5-10.1) mg/dl POC Ioniz Calcium Amol (1.12-1.32) mmol/l Total Bilirubin (0.2-1) mg/dl AST (15-37) U/L ALT (12-78) U/L Alkaline Phosphatase (45-117) U/L Troponin I (0-0.045) ng/ml Total Protein (6.4-8.2) gm/dl Albumin (3.4-5.0) gm/dl Globulin (2.5-4.0) gm/dl Albumin/Globulin Ratio (0.9-2) Blood Type O Positive Antibody Screen NEGATIVE Crossmatch See Detail (1) Anemia Anemia type: unspecified type Qualified Code(s): D64.9 - Anemia, unspecified
[2019-10-23] MEDS ORDERED: ONDANSETRON INJ 2 MG/ML 2 ML VIAL IV PRN (15:15)
[2019-10-23] MEDS ORDERED: ACETAMINOPHEN 325 MG TAB PO PRN (15:15)
[2019-10-23] MEDS: D5W AND NSS 1,000 ML IV SCH (15:46)
[2019-10-23 18:20] LABS: Hematocrit (blood only) 22.1 % (42-52); Hemoglobin 7.6 g/dL (14.0-18.0)
[2019-10-23] MEDS ORDERED: LORazepam 0.5 MG TAB PO STA (21:54)
[2019-10-24] MEDS ORDERED: LORazepam 0.5 MG TAB PO STA (00:34)
[2019-10-24 00:39] LABS: Hemoglobin 6.9 g/dL (14.0-18.0)
[2019-10-24] MEDS ORDERED: SODIUM CHLORIDE 0.9% 250 ML IV PRN ×2 (00:42→08:59)
[2019-10-24] MEDS: PANTOprazole 40 MG in DEXTROSE 5% 100 ML IV SCH ×4 (03:36→17:19)
[2019-10-24] MEDS: D5W AND NSS 1,000 ML IV SCH (03:57)
[2019-10-24] MEDS ORDERED: LEVOTHYROXINE SODIUM 125 MCG TABLET PO SCH (06:30)
--- NOTE | 2019-10-24 07:58 | Gastroenterology Progress Note ---
Date of Service October 24, 2019 Assessment & Plan (1) Melena: 64 y/o male with PMHx PAF on Xarelto, admitted with melena x 3 days, presented with dyspnea and nausea, hypotension and acute drop in HGB 11 -> 6.8, crit 20%, with acute rise in BUN 54, concerning for UGIB. Pt's hemodynamic status has improved with IVF, and pRBC transfusion. HGB 7.7 this AM after dipping to 6.9 overnight with melena x 1 since admission. BUN still elevated at 48. Abd soft. He is hemodynamically stable but still feeling weak, lightheaded. - EGD today to evaluate for source of UGIB - Please transfuse another unit pRBC, trend H&H - Keep NPO - Continue IV PPI - Continue to hold AC - Monitor and document GI output - IVF - Analgesia/antiemetics PRN Thank you for allowing us to participate in the care of this patient. Please call with any acute changes, questions or concerns. Please see addendum below with additional recommendation from my supervising physician. Admission and Anticipated Discharge Date Admission Date: October 23, 2019 Supervising Physician Co-Signing Physician Notes I performed a history and physical examination of the patient today, including specifically on physical exam - soft abdomen. I have discussed the patient's management with the advanced practitioner. Please refer to the nurse practitioner's note for the documented findings and plan of care. Subjective Pt seen and examined. Pt had 1 more black tarry stool overnight. HGB was 6.8 on arrival, up to 7.6 last night, down to 6.9 at midnight, now 7.7 after 4 units pRBC. BUN 53 -> 48. BP stable at 112/65, pulse 57; afebrile. Still feeling lightheaded, weak. Denies abd pain, n/v, CP. Review of Systems Review of Systems: All systems reviewed & are unremarkable except as noted in HPI & below Physical Exam Constitutional: well developed and well nourished somewhat pale Respiratory: normal respiratory effort, lungs clear to auscultation Cardiovascular: Rate/Rhythm: regular rhythm and + bradycardic Extremities: no edema Gastrointestinal (Abdomen): normal bowel sounds, soft, nontender, no hepatosplenomegaly Inspection/Auscultation: abdomen not distended Skin: no rashes, warm and dry Psychiatric: A+Ox3, euthymic affect Results & Data ([facility]) Vital Signs (Past 12 Hours) Vital Signs Temp Pulse Pulse Resp BP BP Pulse Ox 10/24/19 06:53 36.5 C 54 L 18 124/78 98 10/24/19 05:54 36.8 C 50 L 18 115/75 98 10/24/19 04:54 36.8 C 51 L 18 110/72 98 10/24/19 04:24 36.6 C 55 L 18 112/71 96 10/24/19 04:09 36.9 C 54 L 16 114/74 94 10/24/19 03:49 37.0 C 54 L 18 121/78 95 10/24/19 03:35 36.7 C 55 L 16 116/74 98 10/24/19 02:33 36.8 C 56 L 16 109/72 97 10/24/19 02:03 36.8 C 55 L 16 111/75 97 10/24/19 01:48 36.8 C 57 L 18 122/74 96 10/24/19 01:26 36.6 C 59 L 16 120/76 96 10/23/19 23:48 36.9 C 63 61 18 110/70 95 Laboratory Results 10/24/19 10/24/19 10/24/19 Range/Units 08:04 08:04 08:04 WBC 6.66 (4.8-10.8) K/uL RBC 2.47 L (4.7-6.1) M/uL Hgb 7.7 L (14.0-18.0) g/dL POC Hgb (14.0-18.0) g/dl Hct 22.4 L (42-52) % POC Hct (42-52) % MCV 90.7 (80-100) fL MCH 31.2 (25-34) pg MCHC 34.4 (32-36) g/dL RDW Std Deviation 48.8 H (36.4-46.3) fL RDW Coeff of Martin 15.0 H (11.5-14.5) % Plt Count 157 (130-400) K/uL MPV 9.9 (7.4-10.4) fL Immature Gran % (Auto) % Neut % (Auto) % Lymph % (Auto) % Wilkin % (Auto) % Eos % (Auto) % Baso % (Auto) % Immature Gran # (Auto) (0.00-0.02) K/uL Neut # (Auto) (1.4-6.5) K/uL Lymph # (Auto) (1.2-3.4) K/uL Wilkin # (Auto) (0.11-0.59) K/uL Eos # (Auto) (0-0.5) K/uL Baso # (Auto) (0-0.2) K/uL Polychromasia Anisocytosis Microcytosis PT (9.0-12.0) Seconds INR (0.9-1.1) APTT (21.0-31.0) Seconds PTT Ratio POC Sodium (135-144) mmol/L Sodium 142 (136-145) mmol/L POC Potassium (3.3-5.0) mmol/L Potassium 4.0 (3.5-5.1) mmol/L POC Chloride (101-112) mmol/L Chloride 115 H (98-107) mmol/L Carbon Dioxide 24 (21-32) mmol/L POC Total CO2 (24-31) mmol/L Anion Gap 3.0 (3-11) POC Anion Gap (16-25) mmol/L POC BUN (7-18) mg/dl BUN 48 H (7-18) mg/dl Creatinine 1.08 (0.6-1.4) mg/dl POC Creatinine (0.6-1.3) mg/dl Est Cr Clr Drug Dosing 72.6 ml/min Est GFR ( Amer) 83.0 Est GFR (Non-Af Amer) 71.6 BUN/Creatinine Ratio 44.8 H (10-20) Glucose 98 (70-99) mg/dl POC Glucose (other) (70-99) mg/dl Calcium 7.6 L (8.5-10.1) mg/dl POC Ioniz Calcium Amol (1.12-1.32) mmol/l Total Bilirubin (0.2-1) mg/dl AST (15-37) U/L ALT (12-78) U/L Alkaline Phosphatase (45-117) U/L Troponin I (0-0.045) ng/ml Total Protein (6.4-8.2) gm/dl Albumin (3.4-5.0) gm/dl Globulin (2.5-4.0) gm/dl Albumin/Globulin Ratio (0.9-2) POC Stool Occult Blood Hepatitis C Ab Screen Pending Blood Type Antibody Screen Crossmatch 10/24/19 10/23/19 10/23/19 Range/Units 00:09 Unknown 18:00 WBC (4.8-10.8) K/uL RBC (4.7-6.1) M/uL Hgb 6.9 L* 7.6 L (14.0-18.0) g/dL POC Hgb (14.0-18.0) g/dl Hct 20.0 L* 22.1 L (42-52) % POC Hct (42-52) % MCV (80-100) fL MCH (25-34) pg MCHC (32-36) g/dL RDW Std Deviation (36.4-46.3) fL RDW Coeff of Martin (11.5-14.5) % Plt Count (130-400) K/uL MPV (7.4-10.4) fL Immature Gran % (Auto) % Neut % (Auto) % Lymph % (Auto) % Wilkin % (Auto) % Eos % (Auto) % Baso % (Auto) % Immature Gran # (Auto) (0.00-0.02) K/uL Neut # (Auto) (1.4-6.5) K/uL Lymph # (Auto) (1.2-3.4) K/uL Wilkin # (Auto) (0.11-0.59) K/uL Eos # (Auto) (0-0.5) K/uL Baso # (Auto) (0-0.2) K/uL Polychromasia Anisocytosis Microcytosis PT (9.0-12.0) Seconds INR (0.9-1.1) APTT (21.0-31.0) Seconds PTT Ratio POC Sodium (135-144) mmol/L Sodium (136-145) mmol/L POC Potassium (3.3-5.0) mmol/L Potassium (3.5-5.1) mmol/L POC Chloride (101-112) mmol/L Chloride (98-107) mmol/L Carbon Dioxide (21-32) mmol/L POC Total CO2 (24-31) mmol/L Anion Gap (3-11) POC Anion Gap (16-25) mmol/L POC BUN (7-18) mg/dl BUN (7-18) mg/dl Creatinine (0.6-1.4) mg/dl POC Creatinine (0.6-1.3) mg/dl Est Cr Clr Drug Dosing ml/min Est GFR ( Amer) Est GFR (Non-Af Amer) BUN/Creatinine Ratio (10-20) Glucose (70-99) mg/dl POC Glucose (other) (70-99) mg/dl Calcium (8.5-10.1) mg/dl POC Ioniz Calcium Amol (1.12-1.32) mmol/l Total Bilirubin (0.2-1) mg/dl AST (15-37) U/L ALT (12-78) U/L Alkaline Phosphatase (45-117) U/L Troponin I (0-0.045) ng/ml Total Protein (6.4-8.2) gm/dl Albumin (3.4-5.0) gm/dl Globulin (2.5-4.0) gm/dl Albumin/Globulin Ratio (0.9-2) POC Stool Occult Blood Pending Hepatitis C Ab Screen Blood Type Antibody Screen Crossmatch 10/23/19 10/23/19 10/23/19 Range/Units 11:08 10:58 10:58 WBC (4.8-10.8) K/uL RBC (4.7-6.1) M/uL Hgb (14.0-18.0) g/dL POC Hgb 7.1 L (14.0-18.0) g/dl Hct (42-52) % POC Hct 21 L (42-52) % MCV (80-100) fL MCH (25-34) pg MCHC (32-36) g/dL RDW Std Deviation (36.4-46.3) fL RDW Coeff of Martin (11.5-14.5) % Plt Count (130-400) K/uL MPV (7.4-10.4) fL Immature Gran % (Auto) % Neut % (Auto) % Lymph % (Auto) % Wilkin % (Auto) % Eos % (Auto) % Baso % (Auto) % Immature Gran # (Auto) (0.00-0.02) K/uL Neut # (Auto) (1.4-6.5) K/uL Lymph # (Auto) (1.2-3.4) K/uL Wilkin # (Auto) (0.11-0.59) K/uL Eos # (Auto) (0-0.5) K/uL Baso # (Auto) (0-0.2) K/uL Polychromasia Anisocytosis Microcytosis PT 13.5 H (9.0-12.0) Seconds INR 1.3 H (0.9-1.1) APTT 25.9 (21.0-31.0) Seconds PTT Ratio 0.9 POC Sodium 140 (135-144) mmol/L Sodium 143 (136-145) mmol/L POC Potassium 4.2 (3.3-5.0) mmol/L Potassium 4.2 (3.5-5.1) mmol/L POC Chloride 110 (101-112) mmol/L Chloride 112 H (98-107) mmol/L Carbon Dioxide 21 (21-32) mmol/L POC Total CO2 20 L (24-31) mmol/L Anion Gap 10.0 (3-11) POC Anion Gap 16.0 (16-25) mmol/L POC BUN 52 H (7-18) mg/dl BUN 54 H (7-18) mg/dl Creatinine 1.45 H (0.6-1.4) mg/dl POC Creatinine 1.3 (0.6-1.3) mg/dl Est Cr Clr Drug Dosing 58.5 ml/min Est GFR ( Amer) 58.2 Est GFR (Non-Af Amer) 50.2 BUN/Creatinine Ratio 37.4 H (10-20) Glucose 147 H (70-99) mg/dl POC Glucose (other) 144 H (70-99) mg/dl Calcium 8.3 L (8.5-10.1) mg/dl POC Ioniz Calcium Amol 1.17 (1.12-1.32) mmol/l Total Bilirubin 0.5 (0.2-1) mg/dl AST 9 L (15-37) U/L ALT 15 (12-78) U/L Alkaline Phosphatase 65 (45-117) U/L Troponin I < 0.015 (0-0.045) ng/ml Total Protein 7.1 (6.4-8.2) gm/dl Albumin 3.1 L (3.4-5.0) gm/dl Globulin 4.0 (2.5-4.0) gm/dl Albumin/Globulin Ratio 0.8 L (0.9-2) POC Stool Occult Blood Hepatitis C Ab Screen Blood Type Antibody Screen Crossmatch 10/23/19 10/23/19 Range/Units 10:58 10:58 WBC 10.12 (4.8-10.8) K/uL RBC 2.32 L (4.7-6.1) M/uL Hgb 6.8 L* (14.0-18.0) g/dL POC Hgb (14.0-18.0) g/dl Hct 20.6 L* (42-52) % POC Hct (42-52) % MCV 88.8 (80-100) fL MCH 29.3 (25-34) pg MCHC 33.0 (32-36) g/dL RDW Std Deviation 51.8 H (36.4-46.3) fL RDW Coeff of Martin 16.3 H (11.5-14.5) % Plt Count 264 (130-400) K/uL MPV 9.7 (7.4-10.4) fL Immature Gran % (Auto) 0.2 % Neut % (Auto) 81.4 % Lymph % (Auto) 13.2 % Wilkin % (Auto) 4.7 % Eos % (Auto) 0.4 % Baso % (Auto) 0.1 % Immature Gran # (Auto) 0.02 (0.00-0.02) K/uL Neut # (Auto) 8.23 H (1.4-6.5) K/uL Lymph # (Auto) 1.34 (1.2-3.4) K/uL Wilkin # (Auto) 0.48 (0.11-0.59) K/uL Eos # (Auto) 0.04 (0-0.5) K/uL Baso # (Auto) 0.01 (0-0.2) K/uL Polychromasia 1+ Anisocytosis Present Microcytosis Present PT (9.0-12.0) Seconds INR (0.9-1.1) APTT (21.0-31.0) Seconds PTT Ratio POC Sodium (135-144) mmol/L Sodium (136-145) mmol/L POC Potassium (3.3-5.0) mmol/L Potassium (3.5-5.1) mmol/L POC Chloride (101-112) mmol/L Chloride (98-107) mmol/L Carbon Dioxide (21-32) mmol/L POC Total CO2 (24-31) mmol/L Anion Gap (3-11) POC Anion Gap (16-25) mmol/L POC BUN (7-18) mg/dl BUN (7-18) mg/dl Creatinine (0.6-1.4) mg/dl POC Creatinine (0.6-1.3) mg/dl Est Cr Clr Drug Dosing ml/min Est GFR ( Amer) Est GFR (Non-Af Amer) BUN/Creatinine Ratio (10-20) Glucose (70-99) mg/dl POC Glucose (other) (70-99) mg/dl Calcium (8.5-10.1) mg/dl POC Ioniz Calcium Amol (1.12-1.32) mmol/l Total Bilirubin (0.2-1) mg/dl AST (15-37) U/L ALT (12-78) U/L Alkaline Phosphatase (45-117) U/L Troponin I (0-0.045) ng/ml Total Protein (6.4-8.2) gm/dl Albumin (3.4-5.0) gm/dl Globulin (2.5-4.0) gm/dl Albumin/Globulin Ratio (0.9-2) POC Stool Occult Blood Hepatitis C Ab Screen Blood Type O Positive Antibody Screen NEGATIVE Crossmatch See Detail
[2019-10-24 08:14] LABS: Hematocrit (blood only) 22.4 % (42-52); Hemoglobin 7.7 g/dL (14.0-18.0); Mean Corpuscular Hemoglobin 31.2 pg (25-34); Mean Corpuscular Hgb Conc 34.4 g/dL (32-36); Mean Corpuscular Volume 90.7 fL (80-100); Mean Platelet Volume 9.9 fL (7.4-10.4); Platelet Count 157 K/uL (130-400); RDW Standard Deviation 48.8 fL (36.4-46.3); Red Blood Count 2.47 M/uL (4.7-6.1); White Blood Count 6.66 K/uL (4.8-10.8)
[2019-10-24 08:32] LABS: BUN Creatinine Ratio 44.8 (10-20); Calcium 7.6 mg/dl (8.5-10.1); Creatinine Clr Calc Pharmacy 72.6 ml/min; Est GFR (Non-African American) 71.6
[2019-10-24] MEDS ORDERED: METOPROLOL SUCC 25MG EXT REL TAB PO SCH (09:00)
[2019-10-24] MEDS ORDERED: ESCITALOPRAM OXALATE 10 MG TAB PO SCH (09:00)
--- NOTE | 2019-10-24 13:17 | History & Physical Bridge Note ---
Date of Service October 24, 2019 History & Physical Bridge Note I have examined the patient, reviewed the History & Physical and in the interval since the performance of the History & Physical I have noted the following changes of clinical significance: no changes noted
[2019-10-24] MEDS ORDERED: LIDOCAINE HCL 2% 2 ML VIAL/AMP(20MG/ML) INFIL ONE (15:07)
[2019-10-24] MEDS ORDERED: PROPOFOL IV EMULSION 10 MG/ML 20 ML VIAL IV ONE ×2 (15:07→15:08)
--- NOTE | 2019-10-24 15:09 | Anesthesiology Consultation ---
Date of Service October 24, 2019 Assessment & Plan ASA ASA3 Proposed Anesthesia Anesthesia Type: MAC Risk / Benefits Reviewed With: PT / POA / Parent / Guardian, Accepts Plan and Informed Consent Obtained History Surgery Operation Date: 10/24/19 16:00 Proposed Procedures p Esophagogastroduodenoscopy Dr Anthony - Mitra Anthony MD Height/Weight Height: 5 ft 11 in Weight: 89.3 kg Allergies Allergy/AdvReac Type Severity Reaction Status Date / Time apixaban [From Eliquis] Allergy Unknown eosinophili Verified 10/23/19 11:21 a levofloxacin Allergy Unknown Timing Verified 10/23/19 11:21 correlates with eosinophilia morphine AdvReac Intermediate Nausea/Vomi Verified 10/23/19 11:21 ting codeine AdvReac Unknown Nausea Verified 10/23/19 11:21 Medications Home Medications Medication Instructions Recorded Confirmed Last Taken levothyroxine 125 mcg PO QAM 06/04/18 10/23/19 10/23/19 amlodipine 2.5 mg PO QAM 11/28/18 10/23/19 10/23/19 atorvastatin 80 mg PO QAM 11/28/18 10/23/19 10/23/19 ezetimibe 10 mg PO QAM 11/28/18 10/23/19 10/23/19 escitalopram oxalate 5 mg PO QAM 10/23/19 10/23/19 10/23/19 metoprolol succinate 12.5 mg PO DAILY 10/23/19 10/23/19 10/23/19 rivaroxaban [Xarelto] 20 mg PO DAILY 10/23/19 10/23/19 10/23/19 Active Medications Generic Name Dose Route Start Last Admin Trade Name Freq PRN Reason Stop Dose Admin Escitalopram Oxalate 5 mg 10/24/19 09:00 10/24/19 08:49 Lexapro Tab PO 11/23/19 08:59 5 mg QAM MYRANDA Administration Pantoprazole Sodium 40 mg/ 100 mls @ 20 mls/hr 10/23/19 11:06 10/24/19 12:51 Dextrose IV 11/22/19 11:05 8 mg/hr Q5H MYRANDA 20 mls/hr Administration 8 MG/HR Dextrose/Sodium Chloride 1,000 mls @ 80 mls/hr 10/23/19 15:30 10/24/19 07:27 D5w And Nss IV 10/24/19 16:29 80 mls/hr .[id number] MYRANDA Infusion Levothyroxine Sodium 125 mcg 10/24/19 06:30 10/24/19 05:57 Synthroid PO 11/23/19 06:29 Not Given DAILYBB MYRANDA Metoprolol Succinate 12.5 mg 10/24/19 09:00 10/24/19 08:47 Toprol Xl PO 11/23/19 08:59 12.5 mg DAILY MYRANDA Administration NPO Date Last Intake of Fluids: 10/24/19 Time Last Intake of Fluids: 14:00 Last Intake of Fluids Comment: ICE CHIPS, DR MARIO NOTIFIED AND OK WITH PT HAVING ICE Date Last Intake of Solids: 10/22/19 Time Last Intake of Solids: 12:00 Past Medical History Medical History Cancer melanoma (arms & face) Depression (Chronic) Dyslipidemia (Chronic) H/O viral pericarditis ~7-8 years ago. follows with [facility]LA[facility] Hsu, cardiology 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) PT DENIES. History of CVA (cerebrovascular accident) (Chronic) 06/13/2018. left arm/left leg weakness. Follows with Dr. Lauren. Treated at [facility]. taking Pradaxa daily. History of duodenal ulcer (Resolved) HTN (hypertension) (Chronic) Hypereosinophilic syndrome, idiopathic (Resolved) Hypothyroidism On anticoagulant therapy Paroxysmal atrial fibrillation (Chronic) Thyroid cancer Tobacco abuse (Resolved) Exercise / Class Metabolic Activity II 4-5 Yardwork/Stairs/Walk up hill Past Family History Family History Brother Diabetes Mother Hypertension Past Surgical History Surgical History History of colonoscopy History of esophagogastroduodenoscopy (EGD) History of left knee surgery (Chronic) removal of small chip in patella History of surgical removal of skin lesion History of thyroidectomy (Chronic) Hx laparoscopic cholecystectomy 12-11-18 Dr. Ruby Hx of endoscopic retrograde cholangiopancreatography Past Anesthesia History No Hx of Anesthesia Complications and No Family Hx of Anesthesia Complications History of PONV No Hx of PONV and No Hx of Motion Sickness Social History Smoking Status: Former smoker tobacco type: cigarettes Smoking cigarettes per day: 20 Do You Dip or Chew Tobacco: No Hx Alcohol Use: Yes Alcohol type: beer alcohol intake frequency: a few times a month Hx Substance Use: No substance use type: does not use Review of Systems denies fever/cough/ colds/ chest pain/ / JENNIFER +SOB Constitutional: no fever and no chills Respiratory: no cough and no dyspnea denies JENNIFER Cardiovascular: no chest pain and no dyspnea on exertion Physical Exam Vital Signs Last Vital Signs Temp 36.9 C 10/24/19 15:02 Pulse 60 10/24/19 15:02 Resp 18 10/24/19 15:02 BP 145/82 H 10/24/19 15:02 Pulse Ox 97 10/24/19 15:02 ENMT Mouth: no TMJ abnormality and no dentition abnormality Thyromental Distance: > or= 3.5 Finger Breadths Mallampati Class: II Neck + facial hair; neck extension not limited Respiratory normal respiratory effort; no respiratory distress Auscultation: lungs clear to auscultation bilaterally Cardiovascular Rate/Rhythm: regular rate and regular rhythm Neurologic moves all extremities Psychiatric Orientation: alert and oriented x 3 Testing Laboratory Results 10/24/19 08:04 10/24/19 08:04 PT 13.5 Seconds (9.0-12.0) H 10/23/19 10:58 INR 1.3 (0.9-1.1) H 10/23/19 10:58 APTT 25.9 Seconds (21.0-31.0) 10/23/19 10:58 Blood Type O Positive 10/23/19 10:58 Antibody Screen NEGATIVE 10/23/19 10:58
[2019-10-24] MEDS ORDERED: ATROPINE SULFATE 0.1 MG/ML 10ML SYR IV PRN (15:10)
[2019-10-24] MEDS ORDERED: ONDANSETRON INJ 2 MG/ML 2 ML VIAL IV PRN (15:10)
[2019-10-24] MEDS ORDERED: ePHEDrine sulfate 50 MG/ML AMP IV PRN (15:10)
--- NOTE | 2019-10-24 15:39 | Anesthesiology Progress Note ---
Date of Service October 24, 2019 Anesthesia Post Procedure Vital Signs Vital Signs: Temp Pulse Pulse Pulse Resp BP BP 10/24/19 15:31 60 18 101/64 10/24/19 15:02 36.9 C 60 18 145/82 H 10/24/19 14:00 36.7 C 65 16 138/77 10/24/19 13:58 36.9 C 59 L 14 129/81 10/24/19 13:32 36.9 C 58 L 16 116/73 10/24/19 12:23 37.1 C 57 L 16 117/73 10/24/19 12:02 36.7 C 55 L 14 113/71 10/24/19 11:45 37.0 C 56 L 14 124/74 10/24/19 11:26 36.9 C 55 L 14 111/57 L 10/24/19 11:04 36.6 C 60 16 10/24/19 08:02 36.7 C 57 L 17 10/24/19 07:15 49 L 10/24/19 06:53 36.5 C 54 L 18 124/78 10/24/19 05:54 36.8 C 50 L 18 115/75 10/24/19 04:54 36.8 C 51 L 18 110/72 10/24/19 04:24 36.6 C 55 L 18 112/71 10/24/19 04:09 36.9 C 54 L 16 114/74 10/24/19 03:49 37.0 C 54 L 18 121/78 10/24/19 03:35 36.7 C 55 L 16 116/74 10/24/19 02:33 36.8 C 56 L 16 109/72 10/24/19 02:03 36.8 C 55 L 16 111/75 10/24/19 01:48 36.8 C 57 L 18 122/74 10/24/19 01:26 36.6 C 59 L 16 120/76 10/23/19 23:48 36.9 C 63 61 18 10/23/19 19:30 76 10/23/19 19:00 37.1 C 61 18 10/23/19 16:29 37.0 C 63 109/72 BP Pulse Ox 10/24/19 15:31 97 10/24/19 15:02 97 10/24/19 14:00 100 10/24/19 13:58 98 10/24/19 13:32 98 10/24/19 12:23 96 10/24/19 12:02 96 10/24/19 11:45 97 10/24/19 11:26 98 10/24/19 11:04 112/72 98 10/24/19 08:02 112/65 96 10/24/19 07:15 10/24/19 06:53 98 10/24/19 05:54 98 10/24/19 04:54 98 10/24/19 04:24 96 10/24/19 04:09 94 10/24/19 03:49 95 10/24/19 03:35 98 10/24/19 02:33 97 10/24/19 02:03 97 10/24/19 01:48 96 10/24/19 01:26 96 10/23/19 23:48 110/70 95 10/23/19 19:30 10/23/19 19:00 106/58 L 98 10/23/19 16:29 Transfer of Care Handoff Completed per policy Notes Mental Status: alert / awake / arousable and participated in evaluation Patient Amnestic to Procedure: Yes Nausea / Vomiting: adequately controlled Pain: adequately controlled Airway Patency, RR, SpO2: stable & adequate BP & HR: stable & adequate Hydration State: stable & adequate Anesthetic Complications: no major complications apparent and Pt Satisfied with anesthetic care
--- NOTE | 2019-10-24 16:05 | GI REPORT ---
Patient Name: Terrence Garcia Procedure Date: 10/24/2019 3:11 PM Date of : 1955 Admit Type: Inpatient Age: 64 Gender: Male Attending MD: Mitra Anthony MD Procedure: Upper GI endoscopy Providers: Mitra Anthony MD Referring MD: EV KENNEDY Indications: Melena Medicines: Propofol per Anesthesia Complications: No immediate complications. Estimated Blood Loss: Estimated blood loss: none. Procedure: Pre-Anesthesia Assessment: - Prior to the procedure, a History and Physical was performed, and patient medications, allergies and sensitivities were reviewed. The patient's tolerance of previous anesthesia was reviewed. - The risks and benefits of the procedure and the sedation options and risks were discussed with the patient. All questions were answered and informed consent was obtained. - Patient identification and proposed procedure were verified prior to the procedure by the physician and the nurse. The procedure was verified in the procedure room. - Pre-procedure physical examination revealed no contraindications to sedation. After obtaining informed consent, the endoscope was passed under direct vision. Throughout the procedure, the patient's blood pressure, pulse, and oxygen saturations were monitored continuously. The Endoscope was introduced through the mouth, and advanced to the third part of duodenum. The upper GI endoscopy was accomplished without difficulty. The patient tolerated the procedure well. Findings: The examined esophagus was normal. The entire examined stomach was normal. The duodenal bulb, second portion of the duodenum and third portion of the duodenum were normal. Impression: - Normal esophagus. - Normal stomach. - Normal duodenal bulb, second portion of the duodenum and third portion of the duodenum. - No specimens collected. Recommendation: - Return patient to [facility] for [facility] care. - Do a GI bleeding (tagged RBC) scan now. - If Bleeding scan shows bleeding from the colon then prep overnight and plan for colonoscopy tomorrow, if there is a small bowel bleed then transfer to a tertiary care center for IR intervention. Mitra Anthony MD 10/24/2019 4:04:33 PM This report has been signed electronically. Note Initiated On: 10/24/2019 3:11 PM Number of Addenda: 0 I attest to the content of the Intraoperative Record and orders documented therein, exceptions below {[id number]}
--- NOTE | 2019-10-24 17:30 | Hospitalist Progress Note ---
Date of Service October 24, 2019 Assessment & Plan (1) Symptomatic anemia: (2) Melena: Present on admission with melena x 3 days associated with SOB, lightheadedness and nausea while standing and walking. Hgb on admission 6.8 FOBT positive Received 5 units PRBC so far during hospital course Hgb 7.7 today s/p EGD done today showed no bleeding case discussed with GI recommend bleeding scan now if Bleeding scan shows bleeding from the colon then will start for bowel prep overnight and plan for colonoscopy tomorrow If there is a small bowel bleed then transfer to a tertiary care center for IR intervention. Will monitor H/H and transfuse if H/H below 8 Will keep NPO for now for the bleeding scan Continue protonix drip (3) Paroxysmal atrial fibrillation: Rate control with Metoprolol Continue to hold Xarelto due to GI bleed Continue metoprolol with holding parameters (4) HTN (hypertension): BP stable Continue to hold amlodipine for now Continue metoprolol with holding parameters (5) Dyslipidemia: Continue to hold atorvastatin and Zetia for now (6) History of CVA (cerebrovascular accident): Residual left sided weakness Stable (7) Depression: Continue escitalopram (8) Hypothyroidism: Continue levothyroxine DVT Prophylaxis SCDs Due to GI bleed CODE status Full Code Admission and Anticipated Discharge Date Admission Date: October 23, 2019 Subjective Pt was seen and examined Lying in bed with no distress Pt said that he is hungry He said that his last BM was yesterday Denies any chest pain, palpitation, dizziness and SOB Physical Exam Physical Exam: General- No acute distress Head- atraumatic Eyes- PERRL, EOMI, ENT- oropharynx clear Neck- supple, no JVD Lungs- clear to auscultation Heart- regular rhythm; no murmur Abdomen- normal bowel sounds, soft, nontender Extremities- no calf tenderness Neuro- alert, oriented x 3; PERRL, EOMI; no facial palsy; no dysarthria Skin- warm & dry Results & Data Results & Data ([facility]) Vital Signs (Past 12 Hours) Vital Signs Temp Pulse Pulse Pulse Resp BP BP 10/24/19 17:08 36.8 C 54 L 18 120/71 10/24/19 15:58 54 L 18 107/68 10/24/19 15:43 55 L 18 109/76 10/24/19 15:28 60 18 101/64 10/24/19 15:02 36.9 C 60 18 145/82 H 10/24/19 14:00 36.7 C 65 16 138/77 10/24/19 13:58 36.9 C 59 L 14 129/81 10/24/19 13:32 36.9 C 58 L 16 116/73 10/24/19 12:23 37.1 C 57 L 16 117/73 10/24/19 12:02 36.7 C 55 L 14 113/71 10/24/19 11:45 37.0 C 56 L 14 124/74 10/24/19 11:26 36.9 C 55 L 14 111/57 L 10/24/19 11:04 36.6 C 60 16 10/24/19 08:02 36.7 C 57 L 17 10/24/19 07:15 49 L 10/24/19 06:53 36.5 C 54 L 18 124/78 10/24/19 05:54 36.8 C 50 L 18 115/75 BP Pulse Ox 10/24/19 17:08 98 10/24/19 15:58 97 10/24/19 15:43 98 10/24/19 15:28 97 10/24/19 15:02 97 10/24/19 14:00 100 10/24/19 13:58 98 10/24/19 13:32 98 10/24/19 12:23 96 10/24/19 12:02 96 10/24/19 11:45 97 10/24/19 11:26 98 10/24/19 11:04 112/72 98 10/24/19 08:02 112/65 96 10/24/19 07:15 10/24/19 06:53 98 10/24/19 05:54 98
--- NOTE | 2019-10-24 20:14 | Nuclear Medicine Report ---
NM GI bleeding CLINICAL HISTORY: melena, anemia COMPARISON STUDY: CT scan dated 11/28/2018 TECHNIQUE: Following the IV administration of 20.9 mCi of technetium 99m UltraTag labeled red blood c ells, nuclear bleeding scan was performed. Anterior flow images were obtained every 2 seconds for a t otal 48 seconds. Anterior static images were obtained every 5 minutes for a total of 60 minutes. FINDINGS: There is extraluminal activity visualized within the distribution of the small bowel. Most of the act ivity is within the left abdomen. Examination is positive for acute hemorrhage. The results of the st udy were discussed with Dr. Ochoa. IMPRESSION: 1. Abnormal study. 2. Evidence for acute GI hemorrhage in the distribution of the small bowel. ACT 112: Negative or not required by law. Electronically signed by: Robert Nieves M.D. 10/24/2019 8:12 PM
--- NOTE | 2019-10-24 20:45 | Discharge Summary ---
Date of Service October 24, 2019 Admission HPI Per Admitting Provider Pt is 64 y/o M with PMH PAF on Xarelto, resting bradycardia, HTN, dyslipidemia, hypothyroidism, CVA with left sided weakness, depression, anxiety, iron deficiency anemia presented to ER with c/o melena x 3 days. Reports soft black colored stools. Also reports SOB, lightheadedness and nausea with standing and walking. Denies syncope, CP, abdominal pain, vomiting, indigestion. No prior treatment. Denies NSAID or ETOH use. Drinks 1/2 liter of Pepsi daily. Has not been taking iron supplements for couple of months. Took am meds today including Xarelto. Denies fever/chills, diaphoresis, HASSAN, vision changes, neck pain, CP, orthopnea, palpitations, cough, sore throat, choking, otalgia, rhinorrhea, paresthesias, weakness, extremity weakness, extremity edema, rashes, urinary symptoms. 11/2018 EGD: normal esophagus, inflammation stomach, normal duodenum 03/2019 colonoscopy: diverticulosis sigmoid colon, 2 small sigmoid polyps removed, external and internal hemorrhoids Admission Exam Per Admitting Provider General: no distress, WDWN Head: normocephalic, atraumatic Eyes: PERRL, EOM's intact, conjunctiva pale, anicteric ENT: normal inspection external ears, nose, mucous membranes moist Neck: supple, trachea midline Lungs: clear, no respiratory distress, no wheezing/rhonchi/rales CV: RRR, no murmur, no pretibial edema Abd: normal BS, soft, non-tender Ext: no cyanosis, no calf tenderness Neuro: A&O x 3, left sided weakness (chronic), no other focal deficits noted, normal affect Skin: warm, dry, pale Principal Diagnosis Symptomatic anemia: GI bleed Paroxysmal atrial fibrillation: HTN (hypertension): Dyslipidemia: History of CVA (cerebrovascular accident): Depression: Hypothyroidism: Discharge Exam General- No acute distress Head- atraumatic Eyes- PERRL, EOMI, ENT- oropharynx clear Neck- supple, no JVD Lungs- clear to auscultation Heart- regular rhythm; no murmur Abdomen- normal bowel sounds, soft, nontender Extremities- no calf tenderness Neuro- alert, oriented x 3; PERRL, EOMI; no facial palsy; no dysarthria Skin- warm & dry Discharge Data Allergies Allergy/AdvReac Type Severity Reaction Status Date / Time apixaban [From Eliquis] Allergy Unknown eosinophili Verified 10/23/19 11:21 a levofloxacin Allergy Unknown Timing Verified 10/23/19 11:21 correlates with eosinophilia morphine AdvReac Intermediate Nausea/Vomi Verified 10/23/19 11:21 ting codeine AdvReac Unknown Nausea Verified 10/23/19 11:21 Consultations 10/23/19 11:18 ED Decision to Admit Stat 10/23/19 15:15 Consult Gastroenterology Routine 10/24/19 20:39 Burn CD for patient Stat Procedures Performed Operation Date: 10/24/19 16:00 Actual Procedures p Esophagogastroduodenoscopy - Mitra Anthony MD Ordered Studies NM GI bleeding CLINICAL HISTORY: melena, anemia COMPARISON STUDY: CT scan dated 11/28/2018 TECHNIQUE: Following the IV administration of 20.9 mCi of technetium 99m UltraTag labeled red blood cells, nuclear bleeding scan was performed. Anterior flow images were obtained every 2 seconds for a total 48 seconds. Anterior static images were obtained every 5 minutes for a total of 60 minutes. FINDINGS: There is extraluminal activity visualized within the distribution of the small bowel. Most of the activity is within the left abdomen. Examination is positive for acute hemorrhage. The results of the study were discussed with Dr. Ochoa. IMPRESSION: 1. Abnormal study. 2. Evidence for acute GI hemorrhage in the distribution of the small bowel. ACT 112: Negative or not required by law. Electronically signed by: Robert Nieves M.D. 10/24/2019 8:12 PM Dictated: 10/24/192009 Transcribed: 10/24/192009 Hospital Course (1) Acute GI bleeding: (2) Symptomatic anemia: (3) Melena: Present on admission with melena x 3 days associated with SOB, lightheadedness and nausea while standing and walking. Hgb on admission 6.8 FOBT positive Received 5 units PRBC so far during hospital course Hgb 7.7 today s/p EGD done today showed no bleeding case discussed with GI recommend bleeding scan now if Bleeding scan shows bleeding from the colon then will start for bowel prep overnight and plan for colonoscopy tomorrow If there is a small bowel bleed then transfer to a tertiary care center for IR intervention. Will monitor H/H and transfuse if H/H below 8 Continue protonix drip Addendum Bleeding scan showed evidence for acute GI hemorrhage in the distribution of the small bowel. Gastro recommended to transfer to tertiary center for IR intervention. Dr. Ochoa spoke with GI dr. Barrientos for the transfer. Hospitalist individualized education plan aide Dr. Bay discussed the case [place] [facility] [place] Pad[place] who accepted the patient on transfer. Will keep NPO for now and continue PPI drip. (4) Paroxysmal atrial fibrillation: Rate control with Metoprolol Continue to hold Xarelto due to GI bleed Continue metoprolol with holding parameters (5) HTN (hypertension): BP stable Continue to hold amlodipine for now Continue metoprolol with holding parameters (6) Dyslipidemia: Continue to hold atorvastatin and Zetia for now (7) History of CVA (cerebrovascular accident): Residual left sided weakness Stable (8) Depression: Continue escitalopram (9) Hypothyroidism: Continue levothyroxine DVT Prophylaxis SCDs Due to GI bleed CODE status Full Code Disposition Transfer to [facility] for possible IR intervention Aceepting hospitalist physician Dr. Padilla Total Time Total Time Spent Total Time Spent (In Minutes): 35 minutes Total Time Includes: Examination of the Patient, Discharge Planning, Medication Reconciliation, Communication With Other Providers and Other Discharge Plan Discharge Items Patient Disposition: Transfer Acute Care Hospital Reason For Visit: ANEMIA, MELENA Discharge Diagnosis: Symptomatic anemia: GI bleed Paroxysmal atrial fibrillation: HTN (hypertension): Dyslipidemia: History of CVA (cerebrovascular accident): Depression: Hypothyroidism: Activity: Resume your previous activity Non-emergency contact: Primary Care Provider and Kiln Mechanic Call non-emergency contact if: you have any medication questions and your symptoms worsen Follow-up/Referrals: Nahum Lauren MD [Primary Care Provider] - Diet: Nothing by Mouth Addtl Attending Provider Instructions: Will transfer to [facility] for IR intervention Accepting hospitalist Physician Dr. Padilla Consult Gastroenterology (Dr. Barrientos at [facility] was notified) Consult Intervention radiology for evaluation Keep NPO for now Continue monitor hemoglobin Continue to hold Xarelto due to acute GI bleed Continue Pantoprazole drip for now on transfer Zofran PRN IV for nausea Pending Studies at Discharge: No Stand-Alone Forms: My [facility] Skilled Items Patient informed of condition?: Yes DNR: No Discharge Level of Care: Other Communicable Disease: No Discharge Prognosis: Stable Lines: Peripheral IV Urinary Catheter: No Medications and DC Order Prescriptions: Continued metoprolol succinate 25 mg tablet extended release 24 hr 12.5 mg PO DAILY RF: 0 escitalopram oxalate 10 mg tablet 5 mg PO QAM RF: 0 Xarelto 20 mg tablet 20 mg PO DAILY RF: 0 levothyroxine 125 mcg tablet 125 mcg PO QAM RF: 0 ezetimibe 10 mg Tablet 10 mg PO QAM RF: 0 atorvastatin 80 mg Tablet 80 mg PO QAM RF: 0 amlodipine 2.5 mg Tablet 2.5 mg PO QAM RF: 0 Discharge Orders: Discharge Order (Routine); Ordered 10/24/19 Ordered By: Winston Mitchell Admission Data Admit Date/Time: 10/23/19 12:08 Attending Provider: Rubia Fountain Admit Provider: Dwayne Brantley Primary Care Provider: Nahum Lauren Other Providers: Dwayne Brantley ; Mitra Anthony Other Interventions: Discharge Summary Assessment (RN) Last Done: 10/24/19 15:35
--- NOTE | 2019-10-25 00:12 | Communication Note ---
Date of Service: October 25, 2019 Made aware by RN of ambulance service's inability to handle Protonix infusion en route to [facility]. Protonix 40 mg IV bolus prior to departure.
[2019-10-25] MEDS ORDERED: PANTOprazole 40 MG in SYRINGE 0 ML IV ONE (00:15)
--- NOTE | 2019-10-25 06:44 | Electrocardiogram Report ---
Test Reason : Blood Pressure : / mmHG Vent. Rate : 071 BPM Atrial Rate : 071 BPM P-R Int : 118 ms QRS Dur : 090 ms QT Int : 398 ms P-R-T Axes : 012 022 019 degrees QTc Int : 432 ms Normal sinus rhythm Nonspecific T wave abnormality Abnormal ECG When compared with ECG of 07-DEC-2018 10:00, Nonspecific T wave abnormality now evident in Anterolateral leads Confirmed by Juan Cruz ([id number]) on 10/25/2019 6:44:21 AM Referred By: Confirmed By:Juan Cruz
== END 2019-10-25 00:25 | disposition short-term general hospital (02) | DRG 378 ==
LOC: ED 10:19 → SUATTDRO 12:08 → 2S 12:08